=== PATIENT | male | born 1965 | race Caucasian/White ===

== ENCOUNTER 2016-11-30 12:28 | Inpatient (IN) | payer MEDICAID, OTHER ==
[~2016-11-30] VITALS: Ht 167.6 cm; Wt 74.2 kg
[2016-11-30] MEDS ORDERED: PIPER-TAZO 3.375 GM IV (PMX) 100 ML IVPB STA (13:59)
[2016-11-30] MEDS ORDERED: SODIUM CHLORIDE 0.9% 1L BAG IV* STA (13:59)
[2016-11-30 14:35] LABS: BASOPHILS % 0.2 % (0.0-2.0); EOSINOPHILS % 0.1 % (0.0-7.0); HEMATOCRIT 34.4 % (42.0-52.0); HEMOGLOBIN 11.3 g/dl (14.0-18.0); LYMPHOCYTES # 1.5 10^3/ul (0.8-2.9); LYMPHOCYTES % 8.2 % (15.0-51.0); MEAN CORPUSCULAR HEMOGLOBIN 29.7 pg (29.0-33.0); MEAN CORPUSCULAR HGB CONC 32.8 g/dl (32.0-37.0); MEAN CORPUSCULAR VOLUME 90.5 fl (82.0-101.0); MEAN PLATELET VOLUME 9.5 fl (7.4-10.4); MONOCYTE # 0.8 10^3/ul (0.3-0.9); MONOCYTES % 4.3 % (0.0-11.0); NEUTROPHILS % 86.9 % (39.0-77.0); PLATELET COUNT 535 10^3/UL (140-415); RED CELL DISTRIBUTION WIDTH 14.3 % (11.5-14.5); WHITE BLOOD COUNT 18.4 10^3/ul (4.8-10.8)
[2016-11-30] MEDS ORDERED: morphine 4 MG/ML VIAL IV STA ×2 (14:40→18:24)
[2016-11-30] MEDS ORDERED: ONDANSETRON 4 MG INJ IV STA ×3 (14:40→18:24)
[2016-11-30 14:41] LABS: ADD UMIC YES; UR ASCORBIC ACID NEGATIVE (NEGATIVE); UR BILIRUBIN (Dip) NEGATIVE (NEGATIVE); UR BLOOD (Dip) NEGATIVE (NEGATIVE); UR CLARITY CLEAR (CLEAR); UR COLOR AMBER (YELLOW); UR GLUCOSE (Dip) NEGATIVE (NEGATIVE); UR KETONES (Dip) NEGATIVE (NEGATIVE); UR LEUKOCYTE ESTERASE (Dip) NEGATIVE Leu/ul (NEGATIVE); UR MUCUS FEW /HPF (NONE SEEN); UR NITRITE (Dip) NEGATIVE (NEGATIVE); UR RBC 6 /HPF (0-5); UR SPECIFIC GRAVITY (Dip) 1.027 (1.003-1.030); UR TOTAL PROTEIN (Dip) 1+ mg/dl (NEGATIVE); UR UROBILINOGEN (Dip) NEGATIVE (NEGATIVE)
[2016-11-30 14:52] LABS: INR 1.1; PROTIME 14.2 Sec (12.2-14.2); PT RATIO 1.1
[2016-11-30 14:53] LABS: PARTIAL THROMBOPLASTIN TIME 32.9 Sec (25.0-35.0)
[2016-11-30 14:59] LABS: ALANINE AMINOTRANSFERASE 20 IU/L (13-69); ALBUMIN 3.7 g/dl (3.3-4.9); ALBUMIN/GLOBULIN RATIO 0.82; ALKALINE PHOSPHATASE 119 IU/L (42-121); ANION GAP 14 (8-16); ASPARTATE AMINO TRANSFERASE 17 IU/L (15-46); BILIRUBIN,INDIRECT 0.8 mg/dl (0-1.1); BILIRUBIN,TOTAL 0.8 mg/dl (0.2-1.3); BLOOD UREA NITROGEN 10 mg/dl (7-20); CALCIUM 9.5 mg/dl (8.4-10.2); CARBON DIOXIDE 28 mmol/L (21-31); CHLORIDE 99 mmol/L (97-110); CREATININE 0.85 mg/dl (0.61-1.24); GLUCOSE 104 mg/dl (70-220); POTASSIUM 3.9 mmol/L (3.5-5.1); SODIUM 137 mmol/L (135-144); TOTAL PROTEIN 8.2 g/dl (6.1-8.1)
[2016-11-30 15:27] LABS: TROPONIN-I < 0.012 ng/ml (0.00-0.12)
[2016-11-30] MEDS ORDERED: SOD CHLORIDE 0.9% 100 ML ONE (15:31)
[2016-11-30] MEDS ORDERED: IOHEXOL 300MG/ML 150 ML BTL ONE (15:32)
--- NOTE | 2016-11-30 15:51 | RADRPT ---
PROCEDURE: XR Chest. CLINICAL INDICATION: Possible sepsis. TECHNIQUE: Single frontal chest x-ray. COMPARISON: None available. FINDINGS: The cardiomediastinal silhouette is unremarkable. No pneumothorax, pleural effusion or consolidation is seen. No acute osseous abnormality is noted. There are multilevel degenerative changes of thoracic spine with decreased disk spaces and osteophyt osis. IMPRESSION: 1. No acute cardiopulmonary abnormality. RPTAT: JJ .Chester Owen MD, Date Time Electronically viewed and signed by .Chester Owen MD, on 11/30/2016 15:51 .N/
--- NOTE | 2016-11-30 16:06 | RADRPT ---
PROCEDURE: CT abdomen and pelvis with contrast. CLINICAL INDICATION: abdominal pain TECHNIQUE: CT scan of the abdomen and pelvis with contrast [facility] The patient was scanned after administration of 100 cc of Omnipaque-300 intravenous contrast. Sagittal and coronal reformatted images were obtained from the axial source images. One or more of the following dose reduction techniques were used: - Automated exposure control. - Adjustment of the mA and/or kV according to patient size. - Use of iterative reconstruction technique. DLP 804.1 mGycm. CTDIvol 14.6 mGy COMPARISON: None. FINDINGS: The lung bases are clear. There is pronounced localized wall thickening and edema with inflammatory change involving the cecum , ascending colon and the proximal transverse colon. The amount of wall thickening edema is most pro nounced in the cecum and there is also involvement of the terminal ileum. There is an enlarged appea mely of the appendix with inflammation however this is of lesser severity compared to the inflammat ory changes of the cecum. There are multiple enlarged lymph nodes seen in the right lower quadrant m esentery with proliferation of both the mesenteric fat and vasculature in the right abdomen. Adjacen t mild fluid is seen with significant fat stranding. Medial to the cecum just above the ileocecal ju nction there is a focal area of likely developing phlegmon that measures up to 2.6 cm in diameter wi thout a definable abscess. There are inflammatory changes seen involving the gastric antrum and the duodenum which is directly adjacent to the inflamed colon. Air-fluid levels are seen in the right lower quadrant with mildly distended loops of small bowel without evidence of a complete obstruction . There is mild free fluid seen in the right lower quadrant and the right pericolic gutter extending into the cul-de-sac without evidence of free air. There is hepatomegaly of the liver with otherwise uniform enhancement and no evidence of focal lesio n or biliary ductal dilatation. Gallbladder is unremarkable without inflammation of the portal vein is intact without thrombus. The spleen is unremarkable without mass. The adrenal glands are within normal limits without mass. The kidneys enhance symmetrically bilaterally without hydronephrosis or perinephric stranding. The pancreas is unremarkable without focal lesion or surrounding inflammatory changes. Mild aortic atherosclerotic plaque is present. Degenerative changes are seen within the osseous stru ctures of the abdomen and pelvis without fracture or dislocation. The prostate is at the upper limits of normal in size. IMPRESSION: Pronounced inflammatory changes are seen involving the cecum and ascending colon with moderate infla mmation of the terminal ileum and of the hepatic flexure and transverse colon. There may be a locali zed disruption of the cecal wall with the presence of adjacent phlegmonous change of the right lower quadrant mesentery without a definable abscess. Multiple enlarged lymph nodes are seen with promine nt fat stranding and a mild amount of fluid along with proliferation of the mesenteric vasculature a nd fat. This likely represents a localized infectious or inflammatory colitis with involvement of th e terminal ileum. This can be seen in the setting of Crohn disease. There are likely secondary infla mmatory changes of the duodenum and gastric antrum which are directly adjacent to the effected porti ons of the colon. There is mild ileus without evidence of obstruction. Hepatomegaly. Mild atherosclerotic changes are present. .Valdo Gutierrez MD, MD Date Time Electronically viewed and signed by .Valdo Gutierrez MD, MD on 11/30/2016 16:06 .Robles/
--- NOTE | 2016-11-30 18:07 | ERD ---
ER Documentation Chief Complaint Chief Complaint sent by pmd for possible ruptured appendix per ultrasound HPI This 51-year-old male presents for right lower quadrant abdominal pain going on for a month. He did see his primary care doctor had given a medication which seemed to work. He thought he might just have a stomach infection. Yesterday he twisted his body and suddenly the pain became very severe in his right lower quadrant as described as a sharp pain. He also began to have nausea and vomiting. He has vomited nonbilious nonbloody vomit yesterday and today. Denies any diarrhea and denies constipation. He has had fever and chills. Primary care doctor sent him and worried about possible ruptured appendicitis. ROS All systems reviewed and are negative except as per history of present illness. Medications Home Meds No Active Prescriptions or Reported Meds Allergies Allergies: Coded Allergies: No Known Allergy (Unverified , 11/30/16) PMhx/Soc Medical and Surgical Hx: pt denies Medical Hx, pt denies Surgical Hx Hx Alcohol Use: No Hx Substance Use: No Hx Tobacco Use: Yes Smoking Status: Current some day smoker Physical Exam Vitals Vital Signs Date Time Temp Pulse Resp B/P Pulse Ox O2 Delivery O2 Flow Rate FiO2 11/30/16 17:04 75 17 116/71 100 Room Air 11/30/16 12:32 99.8 110 18 135/79 99 Physical Exam Const: [] Moderate distress Head: Atraumatic Eyes: Normal Conjunctiva ENT: Normal External Ears, Nose and Mouth. Neck: Full range of motion..~ No meningismus. Resp: Clear to auscultation bilaterally Cardio: Regular rate and rhythm, no murmurs Abd: Soft, moderate right sided and right lower quadrant abdominal tenderness with mild voluntary guarding and no rebound, nonsurgical abdomen. non distended. Normal bowel sounds Skin: No petechiae or rashes warm to the touch Back: No midline or flank tenderness Ext: No cyanosis, or edema Neur: Awake and alert and oriented 3, no focal deficits Psych: Normal Mood and Affect Result Diagram: 11/30/16 1405 11/30/16 1405 Results 24 hrs Laboratory Tests Test 11/30/16 14:05 White Blood Count 18.410^3/ul Red Blood Count 3.8010^6/ul Hemoglobin 11.3g/dl Hematocrit 34.4% Mean Corpuscular Volume 90.5fl Mean Corpuscular Hemoglobin 29.7pg Mean Corpuscular Hemoglobin Concent 32.8g/dl Red Cell Distribution Width 14.3% Platelet Count 34805^3/UL Mean Platelet Volume 9.5fl Neutrophils % 86.9% Lymphocytes % 8.2% Monocytes % 4.3% Eosinophils % 0.1% Basophils % 0.2% Nucleated Red Blood Cells % 0.0/100WBC Neutrophils # 16.010^3/ul Lymphocytes # 1.510^3/ul Monocytes # 0.810^3/ul Eosinophils # 0.010^3/ul Basophils # 0.010^3/ul Nucleated Red Blood Cells # 0.010^3/ul Prothrombin Time 14.2Sec Prothrombin Time Ratio 1.1 INR International Normalized Ratio 1.10 Activated Partial Thromboplast Time 32.9Sec Urine Color CANDIDO Urine Clarity CLEAR Urine pH 8.0 Urine Specific [place] 1.027 Urine Ketones NEGATIVEmg/dL Urine Nitrite NEGATIVEmg/dL Urine Bilirubin NEGATIVEmg/dL Urine Urobilinogen NEGATIVEmg/dL Urine Leukocyte Esterase NEGATIVELeu/ul Urine Microscopic RBC 6/HPF Urine Microscopic WBC 1/HPF Urine Mucus FEW/HPF Urine Hemoglobin NEGATIVEmg/dL Urine Glucose NEGATIVEmg/dL Urine Total Protein 1+mg/dl Sodium Level 137mmol/L Potassium Level 3.9mmol/L Chloride Level 99mmol/L Carbon Dioxide Level 28mmol/L Anion Gap 14 Blood Urea Nitrogen 10mg/dl Creatinine 0.85mg/dl Glucose Level 104mg/dl Lactic Acid Level 1.3mmol/L Calcium Level 9.5mg/dl Total Bilirubin 0.8mg/dl Direct Bilirubin 0.00mg/dl Indirect Bilirubin 0.8mg/dl Aspartate Amino Transf (AST/SGOT) 17IU/L Alanine Aminotransferase (ALT/SGPT) 20IU/L Alkaline Phosphatase 119IU/L Troponin I < 0.012ng/ml Total Protein 8.2g/dl Albumin 3.7g/dl Globulin 4.50g/dl Albumin/Globulin Ratio 0.82 Current Medications Medications (Trade) Dose Ordered Sig/Heriberto Route PRN Reason Start Time Stop Time Status Last Admin Dose Admin Sodium Chloride 2250 ml 2,250 ml BOLUS OVER 2 HOURS STAT IV* 11/30/16 13:59 11/30/16 14:03 DC 11/30/16 14:37 Piperacillin Sod/ Tazobactam Sod (Zosyn 3.375gm/ 100 ml (Pmx)) 100 ml @ 200 mls/hr ONCE STAT IVPB 11/30/16 13:59 11/30/16 14:28 DC 11/30/16 14:37 Ondansetron HCl (Zofran Inj) 4 mg ONCE STAT IV 11/30/16 14:40 11/30/16 14:41 DC 11/30/16 14:48 Ondansetron HCl (Zofran Inj) 8 mg ONCE STAT IV 11/30/16 14:40 11/30/16 14:41 DC 11/30/16 14:49 Morphine Sulfate (morphine) 4 mg ONCE STAT IV 11/30/16 14:40 11/30/16 14:41 DC 11/30/16 14:48 IV Flush 10 ml 10 ml STK-MED ONCE .ROUTE 11/30/16 15:31 11/30/16 15:32 DC 11/30/16 15:52 Sodium Chloride (NS) 100 ml @ ud STK-MED ONCE .ROUTE 11/30/16 15:31 11/30/16 15:32 DC 11/30/16 15:52 Iohexol (Omnipaque 300mg/ ml) 150 ml STK-MED ONCE .ROUTE 11/30/16 15:32 11/30/16 15:33 DC 11/30/16 15:52 Morphine Sulfate (morphine) 4 mg ONCE STAT IV 11/30/16 18:24 11/30/16 18:26 DC 11/30/16 18:28 Ondansetron HCl (Zofran Inj) 4 mg ONCE STAT IV 11/30/16 18:24 11/30/16 18:26 DC 11/30/16 18:28 Procedures/MDM Colitis and enteritis with sepsis and possible mild ileus. Patient was immediately given fluid and Zosyn for sepsis. Given 4 mg of morphine as well as Zofran which him significantly more comfortable. Vital signs are stabilizing the emergency room currently. Attempted to call his surgery as the surgeon on-call on our list does not believe that he is catheterization laboratory technician. This is currently being worked out this patient will need a surgical consult. Is being admitted to panel Dr. Brodie Weber. Patient needed additional dose of morphine as his pain returned. Patient has no true of ulcerative colitis or Crohn's disease. The fever this is likely infectious in origin. CT abdomen pelvis interpretation: Inflammation of the large intestine as well as part of the terminal ileum. This is mildly inflamed although radiologist states the information any other areas is greater. No free air, mild ileus, no acute fractures EKG interpretation: Normal sinus rhythm rate of 82, normal axis, normal intervals, no ST-T wave changes concerning for acute ischemia. Normal EKG juice weigher interpretation: Initial sinus tachycardia followed by normal sinus rhythm after fluid resuscitation. Chest x-ray interpretation: I see no acute process, no widened mediastinum, pneumothorax, no infiltrates, no fractures Critical care time 35 minutes: This includes treatment of sepsis, careful fluid administration, immediate antibiotic administration, multiple space bedside to reassess status, discussion with admitting doctor and patient, review of chart. This does not include any billable procedures Departure Diagnosis: Primary Impression: Colitis, acute Additional Impressions: Sepsis Normocytic anemia Condition: Serious NEELAM BAÑUELOS DO Nov 30, 2016 18:06
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
[2016-11-30] MEDS ORDERED: ONDANSETRON 4 MG INJ IV PRN (19:30)
[2016-11-30] MEDS ORDERED: ACETAMINOPHEN 325 MG TAB PO PRN (19:30)
[2016-11-30] MEDS ORDERED: BARIUM SULF 2% 450 ML BTL (BERRY SMOOTHIE) PO ONE (22:30)
[2016-11-30 22:52] VITALS: BP 118/76; PULSE 75; RESP 20; Ht 167.6 cm; Wt 74.2 kg
[2016-12-01] MEDS ORDERED: LORAZEPAM 2 MG INJ IV PRN
[2016-12-01] MEDS: ONDANSETRON 4 MG INJ IV SCH ×5 (00:07→23:32)
[2016-12-01] MEDS: DEXTROSE 5%-0.45% NACL 1,000 ML IV SCH ×5 (00:08→21:24)
[2016-12-01] MEDS: PIPER-TAZO 3.375 GM IV (PMX) 100 ML IVPB SCH ×3 (00:15→11:25)
[2016-12-01] MEDS: morphine 4 MG/ML VIAL IV PRN ×4 (00:15→18:23)
[2016-12-01 02:36] VITALS: BP 123/75; RESP 18
[2016-12-01 05:47] LABS: BASOPHILS % 0.1 % (0.0-2.0); EOSINOPHILS % 0.3 % (0.0-7.0); HEMATOCRIT 29.9 % (42.0-52.0); HEMOGLOBIN 9.4 g/dl (14.0-18.0); LYMPHOCYTES # 1.2 10^3/ul (0.8-2.9); LYMPHOCYTES % 7.7 % (15.0-51.0); MEAN CORPUSCULAR HEMOGLOBIN 28.9 pg (29.0-33.0); MEAN CORPUSCULAR HGB CONC 31.4 g/dl (32.0-37.0); MEAN PLATELET VOLUME 9.8 fl (7.4-10.4); MONOCYTE # 0.7 10^3/ul (0.3-0.9); MONOCYTES % 4.9 % (0.0-11.0); NEUTROPHIL # 13.2 10^3/ul (1.6-7.5); NEUTROPHILS % 86.7 % (39.0-77.0); PLATELET COUNT 476 10^3/UL (140-415); RED BLOOD COUNT 3.25 10^6/ul (4.70-6.10); RED CELL DISTRIBUTION WIDTH 14.6 % (11.5-14.5); WHITE BLOOD COUNT 15.2 10^3/ul (4.8-10.8)
[2016-12-01 06:25] LABS: ALBUMIN/GLOBULIN RATIO 0.75; BILIRUBIN,INDIRECT 0.5 mg/dl (0-1.1); BILIRUBIN,TOTAL 0.5 mg/dl (0.2-1.3); CALCIUM 8.7 mg/dl (8.4-10.2); CREATININE 0.87 mg/dl (0.61-1.24); MAGNESIUM 2.2 mg/dl (1.7-2.5); PHOSPHORUS 3.8 mg/dl (2.5-4.9); POTASSIUM 3.8 mmol/L (3.5-5.1)
--- NOTE | 2016-12-01 06:59 | HP ---
Date/Time of Note Date/Time of Note DATE: 12/01/16 TIME: 06:53 Assessment/Plan VTE Prophylaxis VTE Prophylaxis Intervention: SCD's Lines/Catheters IV Catheter Type (from Nrs): Peripheral IV Assessment/Plan Assessment/Plan 1. Colitis and ileitis, probably secondary to Crohn's -Keep n.p.o. with IV fluid - Stool cx and Cdiff -Will treat with IV antibiotic for now -will place a GI consult -Patient will also have surgical evaluation 2. Sepsis, as evidenced by leukocytosis and tachycardia, secondary to above -Continue IV antibiotic - Follow-up culture results HPI/ROS Admit Date/Time Admit Date/Time Nov 30, 2016 at 19:07 Hx of Present Illness This is a 51-year-old male with no significant past medical history who presented to the emergency department complaining of abdominal pain and vomiting and diarrhea. Symptoms started about a month ago and has been progressively getting worse. Pain is diffuse but worse in the lower quadrants. Vomiting is described as nonbloody/nonbilious. Diarrhea is watery with no blood. He has been having about 7 BMs per day for last 10 days or so. Abdominal pain has gotten significantly worse yesterday and today. He went to a clinic who advised him to come to ER. When presented to the ER, he had a temp of 99.8 and heart rate 110. CT abdomen/ pelvis shows inflammation of most part of the colon and the terminal ileum with radiology also mentioning that there is likely inflammation involving the duodenum and the gastric antrum. PMH/Family/Social Social History Smoking Status: Former smoker Exam/Review of Systems Vital Signs Vitals Vital Signs Date Time Temp Pulse Resp B/P Pulse Ox O2 Delivery O2 Flow Rate FiO2 12/01/16 02:36 97.5 79 18 123/75 99 11/30/16 22:52 Room Air Intake and Output 11/30/16 11/30/16 12/01/16 15:00 23:00 07:00 Intake Total 825 ml Balance 825 ml Exam Constitutional: alert, oriented Head: atraumatic, normocephalic Eyes: EOMI, PERRL Respiratory: clear to auscultation, normal air movement Cardiovascular: regular rate and rhythm Gastrointestinal: soft, tender Extremities: normal pulses Labs Result Diagram: 12/01/16 0429 12/01/16 0429 Medications Medications Current Medications Piperacillin Sod/ Tazobactam Sod 100 ml @ 200 mls/hr Q6 IVPB Last administered on 12/01/16 05:07; Admin Dose 200 MLS/HR; Start 12/01/16 at 00: 00 Dextrose/Sodium Chloride (D5-1/2ns) 1,000 ml @ 125 mls/hr Q8H IV Last administered on 12/01/16 00:08; Admin Dose 125 MLS/HR; Start 12/01/16 at 00: 00 Morphine Sulfate (morphine) 3 mg Q4H PRN IV PAIN Last administered on 05:58; Admin Dose 3 MG; Start 12/01/16 at 00:00 Lorazepam (Ativan) 0.5 mg Q8H PRN IV AGITATION/ANXIETY; Start 12/01/16 at 00: 00 Ondansetron HCl (Zofran Inj) 4 mg Q6H IV Last administered on 12/01/16 05:07 ; Admin Dose 4 MG; Start 12/01/16 at 00:00; Stop 12/02/16 at 00:00 Ondansetron HCl (Zofran Inj) 4 mg Q6H PRN IV NAUSEA AND/OR VOMITING; Start at 00:00 LENORA HARLEY MD Dec 01, 2016 06:59
[2016-12-01 07:48] VITALS: BP 107/70; RESP 18
--- NOTE | 2016-12-01 08:39 | RADRPT ---
PROCEDURE: CT of the abdomen and pelvis without contrast CLINICAL INDICATION: Abdominal pain. TECHNIQUE: Spiral CT images through the abdomen and pelvis after administration of oral but withou t the use of intravenous contrast. The administered radiation dose is CTDI 9.81 and DLP 579.61. One or more of the following dose reduction techniques were used: automated exposure control, adjustmen t of the mA and/or kV according to patient size, or use of iterative reconstruction technique. COMPARISON: 11/30/2016 FINDINGS: The study is limited by lack of intravenous contrast. Repeat study with enteric contrast shows marked luminal narrowing in the area of severe inflammatory change in the ileocolic region. Mild wall thickening of the appendix is seen with a small amount of contrast seen within the appendix. The epicenter of the processes in the ileocecal region, however. There are enlarged ileocecal lymph nodes with 1 node measuring 2.1 cm in diameter. As seen previous ly, there is an additional small bowel loop with wall thickening which lies anterior to the ileoceca l region. There is diffuse wall thickening and submucosal edema of the ascending and proximal to mid transverse colon with minimal wall prominence of the distal transverse and descending colon. The do es appear to be wall thickening of the rectosigmoid. Enteric contrast does extend to the level of th e rectum. No definite free air or focal drainable abscess is seen. Mesenteric edema and small nodes again seen. Wall thickening and stranding about the duodenum is also again seen. Fat stranding and slight fluid is again seen in the right paracolic gutter. Small of free fluid is seen in the pelvis, minimally increased. Residual contrast material is seen in the urinary bladder. Other findings are unchanged and will not be described again in this short interval follow-up study report. IMPRESSION: Redemonstration of extensive wall thickening and inflammatory change in the ileocecal region with ad jacent enlarged nodes. The most severe inflammatory process extends to involve the ascending and pro ximal transverse colon, the duodenum, and an adjacent small bowel loop with mild inflammatory change of the appendix. Less severe wall thickening of the remainder of the colon. Inflammatory bowel dise ase such as Crohn disease remains a likely consideration. Given the degree of cecal wall thickening and adjacent nodes, however, colon cancer must remain a consideration. No definite free air or absce ss. RPTAT: HLBE Moira Don, Physician Date Time Electronically viewed and signed by Moira Don, Physician on 12/01/2016 06:24 LE/
[2016-12-01 14:13] VITALS: BP 109/63; RESP 18
--- NOTE | 2016-12-01 16:19 | PN ---
Date/Time of Note Date/Time of Note DATE: 12/01/16 TIME: 16:14 Assessment/Plan VTE Prophylaxis VTE Prophylaxis Intervention: SCD's Lines/Catheters IV Catheter Type (from Nrsg): Peripheral IV Urinary Cath still in place: No Assessment/Plan Assessment/Plan 1. Acute enteritis, infectious versus others, IVF and levaquin/flagyl, follow up with GI 2. sepsis, ivf AND ANTIBIOTICS 3. Subjective 24 Hr Interval Summary Free Text/Dictation less diarrhea, still abdominal pain Exam/Review of Systems Vital Signs Vitals Vital Signs Date Time Temp Pulse Resp B/P Pulse Ox O2 Delivery O2 Flow Rate FiO2 12/01/16 14:13 98.5 76 18 109/63 99 11/30/16 22:52 Room Air Intake and Output 11/30/16 11/30/16 12/01/16 15:00 23:00 07:00 Intake Total 825 ml Balance 825 ml Exam Constitutional: alert, oriented, well developed Psych: nl mood/affect, no complaints Head: atraumatic, normocephalic Eyes: EOMI, nl conjunctiva, nl lids ENMT: nl external ears & nose, nl lips & teeth, nl nasal mucosa & septum Neck: non-tender, supple Respiratory: clear to auscultation, normal air movement, No congested cough, No crackles/rales, No diminished breath sounds, No intercostal retraction, No labored breathing, No other, No respirations, No tactile fremitus, No wheezing Cardiovascular: nl pulses, regular rate and rhythm, No S3, No S4, No bruits, No diastolic murmur, No edema, No gallop, No irregular rhythm, No jugular venous distention (JVD), No murmurs/extra sounds, No other, No rub, No systolic murmur Gastrointestinal: tender (diffuse) Musculoskeletal: nl extremities to inspection Extremities: normal pulses, No calf tenderness, No clubbing, No cyanosis, No edema, No other, No palpable cord, No pitting pedal edema, No tenderness 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, nl mental status, nl speech, nl strength Results Result Diagram: 12/01/16 0429 12/01/16 0429 Results 24 hrs Laboratory Tests Test 11/30/16 18:30 11/30/16 21:50 12/01/16 04:29 Lactic Acid Level 0.8 0.9 White Blood Count 15.2 H Red Blood Count 3.25 L Hemoglobin 9.4 L Hematocrit 29.9 L Mean Corpuscular Volume 92.0 Mean Corpuscular Hemoglobin 28.9 L Mean Corpuscular Hemoglobin Concent 31.4 L Red Cell Distribution Width 14.6 H Platelet Count 476 H Mean Platelet Volume 9.8 Neutrophils % 86.7 H Lymphocytes % 7.7 L Monocytes % 4.9 Eosinophils % 0.3 Basophils % 0.1 Nucleated Red Blood Cells % 0.0 Neutrophils # 13.2 H Lymphocytes # 1.2 Monocytes # 0.7 Eosinophils # 0.0 Basophils # 0.0 Nucleated Red Blood Cells # 0.0 Sodium Level 138 Potassium Level 3.8 Chloride Level 104 Carbon Dioxide Level 26 Anion Gap 12 Blood Urea Nitrogen 7 Creatinine 0.87 Glucose Level 126 Calcium Level 8.7 Phosphorus Level 3.8 Magnesium Level 2.2 Total Bilirubin 0.5 Direct Bilirubin 0.00 Indirect Bilirubin 0.5 Aspartate Amino Transf (AST/SGOT) 19 Alanine Aminotransferase (ALT/SGPT) 26 Alkaline Phosphatase 91 Total Protein 7.0 # Albumin 3.0 L Globulin 4.00 H Albumin/Globulin Ratio 0.75 Medications Medications Current Medications Piperacillin Sod/ Tazobactam Sod 100 ml @ 200 mls/hr Q6 IVPB Last administered on 12/01/16 11:25; Admin Dose 200 MLS/HR; Start 12/01/16 at 00: 00 Dextrose/Sodium Chloride (D5-1/2ns) 1,000 ml @ 125 mls/hr Q8H IV Last administered on 12/01/16 11:26; Admin Dose 125 MLS/HR; Start 12/01/16 at 00: 00 Morphine Sulfate (morphine) 3 mg Q4H PRN IV PAIN Last administered on 11:33; Admin Dose 3 MG; Start 12/01/16 at 00:00 Lorazepam (Ativan) 0.5 mg Q8H PRN IV AGITATION/ANXIETY; Start 12/01/16 at 00: 00 Ondansetron HCl (Zofran Inj) 4 mg Q6H IV Last administered on 12/01/16 11:25 ; Admin Dose 4 MG; Start 12/01/16 at 00:00; Stop 12/02/16 at 00:00 Ondansetron HCl (Zofran Inj) 4 mg Q6H PRN IV NAUSEA AND/OR VOMITING; Start at 00:00 WALT CADENA MD Dec 01, 2016 16:19
[2016-12-01] MEDS: metroNIDAZOLE 500 MG/NS (PMX) 100 ML IVPB SCH ×2 (16:53→21:24)
[2016-12-01] MEDS: LEVOFLOXACIN 500MG/D5W (PMX) 100 ML IVPB SCH (18:25)
--- NOTE | 2016-12-01 18:35 | CONS ---
Date/Time of Note Date/Time of Note DATE: 12/01/16 TIME: 18:22 Assessment/Plan Assessment/Plan Chief Complaint/Hosp Course 1. Colitis/ileitis: CT: extensive wall thickening and inflammatory change in the ileocecal region; most severe inflammatory process extends to the ascending and proximal transverse colon, the duodenum, and an adjacent small bowel loop with mild inflammatory change of the appendix; no free air or abscess (?ibd vs. other) - no emergent surgical intervention necessary-will continue to monitor -gi consult -abx 2. Adjacent enlarged lymph nodes in ileocecal region: 2/2 #1, ?concern for malignancy (has had significant weight loss per patient) -as above -further workup per medical team (?tumor markers) 3. Diarrhea: 2/2 #1 -as above -ivf -monitor and replete electrolytes 4. Leukocytosis: fevers, diarrhea (?enteritis) -improving -abx 5. Malnutrition w hypoalbuminemia -optimize nutrition 6. Normocytic hypochromic anemia: -monitor -transfuse as needed -further workup per medical team 7. Hypokalemia -optimize lytes Thank you. Patient seen and examined in collaboration with Dr. Rigo Youngblood. Problems: Consultation Date/Type/Reason Admit Date/Time Nov 30, 2016 at 19:07 Date of Consultation: Nov 30, 2016 Type of Consultation: Surgical Hx of Present Illness Marcelo Gonzales is a 51-year-old man who presented to the ED with complaints of right lower quadrant abdominal pain going on for a month. He also reports diarrhea daily for 1 month as well as nausea and vomiting on the day of seeking ED care. He also reports vomiting non-bloody emesis as well as fevers and chills. He denies shortness of breath, chest pain, palpitations, sick contacts. Significantly, he also reports weight loss and persistent diarrhea x [address] shows extensive wall thickening and inflammatory change in the ileocecal region with adjacent enlarged nodes. The most severe inflammatory process extends to involve the ascending and proximal transverse colon, the duodenum, and an adjacent small bowel loop with mild inflammatory change of the appendix. General surgery was asked to consult. Constitutional: chills Eyes: No discharge ENT: No congestion, No pain Respiratory: No pain, No shortness of breath Cardiovascular: No chest pain, No lightheadedness Gastrointestinal: diarrhea, other (as above), No constipation Genitourinary: No bleeding, No dysuria, No hematuria Musculoskeletal: No back pain, No neck pain Skin: No bruising, No erythema Psychological: nl mood/affect, no complaints Past Medical History overweight Past Surgical History Past Surgical Hx: no surgical history Family History Significant Family History: no pertinent family hx Social History Alcohol Use: none Smoking Status: Former smoker Exam/Review of Systems Vital Signs Vitals Vital Signs Date Time Temp Pulse Resp B/P Pulse Ox O2 Delivery O2 Flow Rate FiO2 12/01/16 14:13 98.5 76 18 109/63 99 11/30/16 22:52 Room Air Intake and Output 11/30/16 11/30/16 12/01/16 15:00 23:00 07:00 Intake Total 825 ml Balance 825 ml Exam Constitutional: alert, oriented Psych: anxiety Head: atraumatic, normocephalic Eyes: nl conjunctiva, nl lids, nl sclera ENMT: mucosa pink and moist, nl nasal mucosa & septum Neck: non-tender, supple Respiratory: clear to auscultation, normal air movement Cardiovascular: nl pulses, regular rate and rhythm Gastrointestinal: bowel sounds, soft, tender, No mass Musculoskeletal: nl extremities to inspection, nl gait and stance Extremities: normal pulses Neurological: nl mental status, nl speech, nl strength Skin: nl turgor, rash or lesions Results Result Diagram: 12/01/1642812/01/16428 Results 24 hrs Laboratory Tests Test 11/30/16 18:30 11/30/16 21:50 12/01/16 04:29 Lactic Acid Level 0.8 0.9 White Blood Count 15.2 H Red Blood Count 3.25 L Hemoglobin 9.4 L Hematocrit 29.9 L Mean Corpuscular Volume 92.0 Mean Corpuscular Hemoglobin 28.9 L Mean Corpuscular Hemoglobin Concent 31.4 L Red Cell Distribution Width 14.6 H Platelet Count 476 H Mean Platelet Volume 9.8 Neutrophils % 86.7 H Lymphocytes % 7.7 L Monocytes % 4.9 Eosinophils % 0.3 Basophils % 0.1 Nucleated Red Blood Cells % 0.0 Neutrophils # 13.2 H Lymphocytes # 1.2 Monocytes # 0.7 Eosinophils # 0.0 Basophils # 0.0 Nucleated Red Blood Cells # 0.0 Sodium Level 138 Potassium Level 3.8 Chloride Level 104 Carbon Dioxide Level 26 Anion Gap 12 Blood Urea Nitrogen 7 Creatinine 0.87 Glucose Level 126 Calcium Level 8.7 Phosphorus Level 3.8 Magnesium Level 2.2 Total Bilirubin 0.5 Direct Bilirubin 0.00 Indirect Bilirubin 0.5 Aspartate Amino Transf (AST/SGOT) 19 Alanine Aminotransferase (ALT/SGPT) 26 Alkaline Phosphatase 91 Total Protein 7.0 # Albumin 3.0 L Globulin 4.00 H Albumin/Globulin Ratio 0.75 Medications Medications Current Medications Dextrose/Sodium Chloride (D5-1/2ns) 1,000 ml @ 125 mls/hr Q8H IV Last administered on 12/01/16 11:26; Admin Dose 125 MLS/HR; Start 12/01/16 at 00: 00 Morphine Sulfate (morphine) 3 mg Q4H PRN IV PAIN Last administered on 11:33; Admin Dose 3 MG; Start 12/01/16 at 00:00 Lorazepam (Ativan) 0.5 mg Q8H PRN IV AGITATION/ANXIETY; Start 12/01/16 at 00: 00 Ondansetron HCl (Zofran Inj) 4 mg Q6H IV Last administered on 12/01/16 11:25 ; Admin Dose 4 MG; Start 12/01/16 at 00:00; Stop 12/02/16 at 00:00 Ondansetron HCl 4 mg 4 mg Q6H PRN IV NAUSEA AND/OR VOMITING; Start 12/02/16 at 00:00 Levofloxacin/ Dextrose 100 ml @ 100 mls/hr Q24H IVPB ; Start 12/01/16 at 16:30 Metronidazole (Flagyl 500 Mg (Pmx)) 100 ml @ 100 mls/hr Q8 IVPB Last administered on 12/01/16 16:53; Admin Dose 100 MLS/HR; Start 12/01/16 at 16: 30 MC CANTU NP Dec 01, 2016 18:34
[2016-12-01 20:00] VITALS: BP 114/72; RESP 19
[2016-12-02] MEDS: morphine 4 MG/ML VIAL IV PRN ×3 (01:52→22:03)
[2016-12-02 02:00] VITALS: BP 109/68; RESP 20
[2016-12-02] MEDS: metroNIDAZOLE 500 MG/NS (PMX) 100 ML IVPB SCH ×3 (05:12→21:55)
[2016-12-02 06:24] LABS: BASOPHILS % 0.2 % (0.0-2.0); EOSINOPHILS # 0.1 10^3/ul (0.0-0.5); EOSINOPHILS % 0.7 % (0.0-7.0); HEMATOCRIT 31.6 % (42.0-52.0); HEMOGLOBIN 9.7 g/dl (14.0-18.0); LYMPHOCYTES # 1.4 10^3/ul (0.8-2.9); LYMPHOCYTES % 13.2 % (15.0-51.0); MEAN CORPUSCULAR HEMOGLOBIN 28.6 pg (29.0-33.0); MEAN CORPUSCULAR HGB CONC 30.7 g/dl (32.0-37.0); MEAN CORPUSCULAR VOLUME 93.2 fl (82.0-101.0); MEAN PLATELET VOLUME 9.7 fl (7.4-10.4); MONOCYTE # 0.5 10^3/ul (0.3-0.9); MONOCYTES % 4.2 % (0.0-11.0); NEUTROPHIL # 8.9 10^3/ul (1.6-7.5); NEUTROPHILS % 81.3 % (39.0-77.0); PLATELET COUNT 472 10^3/UL (140-415); RED BLOOD COUNT 3.39 10^6/ul (4.70-6.10); RED CELL DISTRIBUTION WIDTH 14.6 % (11.5-14.5); WHITE BLOOD COUNT 10.9 10^3/ul (4.8-10.8)
[2016-12-02 06:31] LABS: CALCIUM 8.8 mg/dl (8.4-10.2); CREATININE 0.78 mg/dl (0.61-1.24); POTASSIUM 3.3 mmol/L (3.5-5.1)
[2016-12-02 08:10] VITALS: BP 121/75; RESP 18
[2016-12-02] MEDS: ONDANSETRON 4 MG INJ IV PRN (08:40)
[2016-12-02] MEDS: DEXTROSE 5%-0.45% NACL 1,000 ML IV SCH ×2 (08:45→17:24)
[2016-12-02 14:03] VITALS: BP 121/74; RESP 18
[2016-12-02] MEDS ORDERED: POTASSIUM CHLORIDE (SR) 20 MEQ TAB PO STA (14:09)
--- NOTE | 2016-12-02 14:21 | PN ---
Date/Time of Note Date/Time of Note DATE: 12/02/16 TIME: 14:18 Assessment/Plan VTE Prophylaxis VTE Prophylaxis Intervention: SCD's Lines/Catheters IV Catheter Type (from Nrsg): Peripheral IV Urinary Cath still in place: No Assessment/Plan Assessment/Plan 1. Acute enteritis, likely infectious, improving on antibiotics, start diet 2. sepsis, resolved Subjective 24 Hr Interval Summary Free Text/Dictation no abdominal pain. stool is still watery but much less. no nausea or vomiting Exam/Review of Systems Vital Signs Vitals Vital Signs Date Time Temp Pulse Resp B/P Pulse Ox O2 Delivery O2 Flow Rate FiO2 12/02/16 14:03 98.6 18 121/74 98 12/02/16 08:10 71 11/30/16 22:52 Room Air Intake and Output 12/01/16 12/01/16 12/02/16 15:00 23:00 07:00 Intake Total 475 ml 1300 ml 850 ml Balance 475 ml 1300 ml 850 ml Exam Constitutional: alert, oriented, well developed Psych: nl mood/affect, no complaints Head: atraumatic, normocephalic Eyes: EOMI, nl conjunctiva, nl lids ENMT: nl external ears & nose, nl lips & teeth, nl nasal mucosa & septum Neck: non-tender, supple Respiratory: clear to auscultation, normal air movement, No congested cough, No crackles/rales, No diminished breath sounds, No intercostal retraction, No labored breathing, No other, No respirations, No tactile fremitus, No wheezing Cardiovascular: nl pulses, regular rate and rhythm, No S3, No S4, No bruits, No diastolic murmur, No edema, No gallop, No irregular rhythm, No jugular venous distention (JVD), No murmurs/extra sounds, No other, No rub, No systolic murmur Gastrointestinal: nl liver, spleen, soft Musculoskeletal: nl extremities to inspection Extremities: normal pulses, No calf tenderness, No clubbing, No cyanosis, No edema, No other, No palpable cord, No pitting pedal edema, No tenderness 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, nl mental status, nl speech, nl strength Skin: nl turgor Lymph: nl lymph nodes Results Result Diagram: 12/02/16 0450 12/02/16 0450 Results 24 hrs Laboratory Tests Test 12/02/16 04:50 White Blood Count 10.9 #H Red Blood Count 3.39 L Hemoglobin 9.7 L Hematocrit 31.6 L Mean Corpuscular Volume 93.2 Mean Corpuscular Hemoglobin 28.6 L Mean Corpuscular Hemoglobin Concent 30.7 L Red Cell Distribution Width 14.6 H Platelet Count 472 H Mean Platelet Volume 9.7 Neutrophils % 81.3 H Lymphocytes % 13.2 L Monocytes % 4.2 Eosinophils % 0.7 Basophils % 0.2 Nucleated Red Blood Cells % 0.0 Neutrophils # 8.9 H Lymphocytes # 1.4 Monocytes # 0.5 Eosinophils # 0.1 Basophils # 0.0 Nucleated Red Blood Cells # 0.0 Sodium Level 139 Potassium Level 3.3 L Chloride Level 101 Carbon Dioxide Level 30 Anion Gap 11 Blood Urea Nitrogen 3 L Creatinine 0.78 Glucose Level 112 Calcium Level 8.8 Medications Medications Current Medications Dextrose/Sodium Chloride (D5-1/2ns) 1,000 ml @ 125 mls/hr Q8H IV Last administered on 12/02/16 08:45; Admin Dose 125 MLS/HR; Start 12/01/16 at 00: 00 Morphine Sulfate (morphine) 3 mg Q4H PRN IV PAIN Last administered on 08:40; Admin Dose 3 MG; Start 12/01/16 at 00:00 Lorazepam (Ativan) 0.5 mg Q8H PRN IV AGITATION/ANXIETY; Start 12/01/16 at 00: 00 Ondansetron HCl 4 mg 4 mg Q6H PRN IV NAUSEA AND/OR VOMITING Last administered on 12/02/16 08:40; Admin Dose 4 MG; Start 12/02/16 at 00:00 Levofloxacin/ Dextrose 100 ml @ 100 mls/hr Q24H IVPB Last administered on 18:25; Admin Dose 100 MLS/HR; Start 12/01/16 at 16:30 Metronidazole (Flagyl 500 Mg (Pmx)) 100 ml @ 100 mls/hr Q8 IVPB Last administered on 12/02/16 13:07; Admin Dose 100 MLS/HR; Start 12/01/16 at 16: 30 WALT CADENA MD Dec 02, 2016 14:21
[2016-12-02] MEDS: LEVOFLOXACIN 500MG/D5W (PMX) 100 ML IVPB SCH (17:24)
[2016-12-02 20:41] VITALS: BP 123/78; RESP 18
[2016-12-03 03:07] VITALS: BP 117/75; RESP 18
--- NOTE | 2016-12-03 03:27 | PN ---
Date/Time of Note Date/Time of Note DATE: 12/02/16 TIME: 19:22 Assessment/Plan Lines/Catheters IV Catheter Type (from [facility]): Peripheral IV Ferrer in Place (from [facility]): No Assessment/Plan Chief Complaint/Hosp Course 1. Colitis/ileitis: CT: extensive wall thickening and inflammatory change in the ileocecal region, no free air or abscess (infectious vs inflammatory vs malignancy) -no emergent surgical intervention necessary > will continue to monitor -gi consult and eventual colonoscopy -abx 2. Adjacent enlarged lymph nodes in ileocecal region: 2nd above -as above -further workup per medical team (?tumor markers) 3. Diarrhea: 2nd above -as above -ivf -monitor and replete electrolytes 4. Leukocytosis: fevers, diarrhea 2nd above. Improving -abx 5. Malnutrition w hypoalbuminemia -optimize nutrition 6. Normocytic hypochromic anemia: -monitor -transfuse as needed -eventual colonoscopy/egd 7. Hypokalemia -replete prn Thank you, Late entry 12/02 Problems: Subjective 24 Hr Interval Summary No pain. No f/c. No cp/sob. No cough. No boss/dizzy/visual or neuro changes. No dysuria. No bloating. Loose bm. Flatus. Exam/Review of Systems Vital Signs Vitals Vital Signs Date Time Temp Pulse Resp B/P Pulse Ox O2 Delivery O2 Flow Rate FiO2 12/03/16 03:07 98.2 62 18 117/75 98 11/30/16 22:52 Room Air Intake and Output 12/02/16 12/02/16 12/03/16 15:00 23:00 07:00 Intake Total 1475 ml 460 ml Balance 1475 ml 460 ml Exam Free Text/Dictation Constitutional: alert, oriented Psych: anxiety Head: atraumatic, normocephalic Eyes: nl conjunctiva, nl lids, nl sclera ENMT: mucosa pink and moist, nl nasal mucosa & septum Neck: non-tender, supple Respiratory: clear to auscultation, normal air movement Cardiovascular: nl pulses, regular rate and rhythm Gastrointestinal: bowel sounds, soft, min tender (improved), No mass Musculoskeletal: nl extremities to inspection, nl gait and stance Extremities: normal pulses Neurological: nl mental status, nl speech, nl strength Skin: nl turgor, rash or lesions Results Result Diagram: 12/02/16 0450 12/02/16 0450 ROBIN PRESTON MD Dec 03, 2016 03:27
[2016-12-03 05:17] LABS: BASOPHILS % 0.4 % (0.0-2.0); EOSINOPHILS # 0.1 10^3/ul (0.0-0.5); EOSINOPHILS % 1.8 % (0.0-7.0); HEMATOCRIT 31.2 % (42.0-52.0); LYMPHOCYTES # 1.4 10^3/ul (0.8-2.9); LYMPHOCYTES % 18.3 % (15.0-51.0); MEAN CORPUSCULAR HEMOGLOBIN 28.7 pg (29.0-33.0); MEAN CORPUSCULAR HGB CONC 32.1 g/dl (32.0-37.0); MEAN CORPUSCULAR VOLUME 89.7 fl (82.0-101.0); MEAN PLATELET VOLUME 9.8 fl (7.4-10.4); MONOCYTE # 0.5 10^3/ul (0.3-0.9); MONOCYTES % 5.9 % (0.0-11.0); NEUTROPHIL # 5.7 10^3/ul (1.6-7.5); NEUTROPHILS % 73.3 % (39.0-77.0); PLATELET COUNT 491 10^3/UL (140-415); RED BLOOD COUNT 3.48 10^6/ul (4.70-6.10); RED CELL DISTRIBUTION WIDTH 14.4 % (11.5-14.5); WHITE BLOOD COUNT 7.8 10^3/ul (4.8-10.8)
[2016-12-03 05:42] LABS: CALCIUM 9.2 mg/dl (8.4-10.2); CREATININE 0.8 mg/dl (0.61-1.24); POTASSIUM 3.8 mmol/L (3.5-5.1)
[2016-12-03] MEDS: metroNIDAZOLE 500 MG/NS (PMX) 100 ML IVPB SCH ×3 (06:08→21:31)
[2016-12-03 07:48] VITALS: BP 113/77; RESP 16
[2016-12-03] MEDS: DEXTROSE 5%-0.45% NACL 1,000 ML IV SCH (09:12)
--- NOTE | 2016-12-03 13:05 | PN ---
Date/Time of Note Date/Time of Note DATE: 12/03/16 TIME: 13:01 Assessment/Plan VTE Prophylaxis VTE Prophylaxis Intervention: SCD's Lines/Catheters IV [facility] ([facility]): Peripheral IV Urinary Cath still in place: No Assessment/Plan Problems: (1) Hypokalemia Status: Resolved Comment: Resolved (2) Colitis, acute Status: Acute Comment: This is settling down. Ultimately this patient is going to need a colonoscopy once the inflammation is down to make sure there is not something more insidious going on (3) Sepsis Status: Acute Comment: Improving and resolving nicely. Qualifiers: Sepsis type: sepsis due to unspecified organism Qualified Code: A41.9 - Sepsis, due to unspecified organism (4) Normocytic anemia Status: Acute Comment: Check iron studies Subjective 24 Hr Interval Summary Free Text/Dictation Patient reports he is feeling better but still has the right lower quadrant mid quadrant abdominal pain. He is trying to eat Constitutional: no complaints (Denies fevers chills or sweats) Respiratory: no complaints Cardiovascular: no complaints Gastrointestinal: pain Genitourinary: no complaints Exam/Review of Systems Vital Signs Vitals Vital Signs Date Time Temp Pulse Resp B/P Pulse Ox O2 Delivery O2 Flow Rate FiO2 12/03/16 07:48 98.6 62 16 113/77 97 11/30/16 22:52 Room Air Intake and Output 12/02/16 12/02/16 12/03/16 15:00 23:00 07:00 Intake Total 1475 ml 460 ml 250 ml Balance 1475 ml 460 ml 250 ml Exam Constitutional: alert, oriented Respiratory: clear to auscultation, normal air movement Cardiovascular: nl pulses, regular rate and rhythm Gastrointestinal: nl liver, spleen, soft, tender (Right lower quadrant tenderness without rebound) Results Result Diagram: 12/03/16 0429 12/03/169 Results 24 hrs Laboratory Tests Test 12/03/16 04:29 White Blood Count 7.8 # Red Blood Count 3.48 L Hemoglobin 10.0 L Hematocrit 31.2 L Mean Corpuscular Volume 89.7 Mean Corpuscular Hemoglobin 28.7 L Mean Corpuscular Hemoglobin Concent 32.1 Red Cell Distribution Width 14.4 Platelet Count 491 H Mean Platelet Volume 9.8 Neutrophils % 73.3 Lymphocytes % 18.3 Monocytes % 5.9 Eosinophils % 1.8 Basophils % 0.4 Nucleated Red Blood Cells % 0.0 Neutrophils # 5.7 Lymphocytes # 1.4 Monocytes # 0.5 Eosinophils # 0.1 Basophils # 0.0 Nucleated Red Blood Cells # 0.0 Sodium Level 142 Potassium Level 3.8 Chloride Level 104 Carbon Dioxide Level 29 Anion Gap 13 Blood Urea Nitrogen 5 L Creatinine 0.80 Glucose Level 102 Calcium Level 9.2 Magnesium Level 2.0 Medications Medications Current Medications Dextrose/Sodium Chloride (D5-1/2ns) 1,000 ml @ 50 mls/hr Q20H IV Last administered on 12/03/16 09:12; Admin Dose 50 MLS/HR; Start 12/01/16 at 00:00 Morphine Sulfate (morphine) 3 mg Q4H PRN IV PAIN Last administered on 22:03; Admin Dose 3 MG; Start 12/01/16 at 00:00 Lorazepam (Ativan) 0.5 mg Q8H PRN IV AGITATION/ANXIETY; Start 12/01/16 at 00: 00 Ondansetron HCl 4 mg 4 mg Q6H PRN IV NAUSEA AND/OR VOMITING Last administered on 12/02/16 08:40; Admin Dose 4 MG; Start 12/02/16 at 00:00 Levofloxacin/ Dextrose 100 ml @ 100 mls/hr Q24H IVPB Last administered on 17:24; Admin Dose 100 MLS/HR; Start 12/01/16 at 16:30 Metronidazole (Flagyl 500 Mg (Pmx)) 100 ml @ 100 mls/hr Q8 IVPB Last administered on 12/03/16 06:08; Admin Dose 100 MLS/HR; Start 12/01/16 at 16: 30 NEELAM NI MD Dec 03, 2016 13:05
[2016-12-03 13:57] LABS: IRON 16 ug/dl (35-150)
[2016-12-03 14:06] LABS: TOTAL IRON BINDING CAPACITY 265 ug/dl (241-421)
[2016-12-03 14:15] VITALS: BP 115/79; RESP 18
[2016-12-03] MEDS: LEVOFLOXACIN 500MG/D5W (PMX) 100 ML IVPB SCH (16:00)
--- NOTE | 2016-12-03 18:05 | PN ---
Date/Time of Note Date/Time of Note DATE: 12/03/16 TIME: 18:04 Assessment/Plan Lines/Catheters IV Catheter Type (from [facility]): Peripheral IV Ferrer in Place (from [facility]): No Assessment/Plan Chief Complaint/Hosp Course 1. Colitis/ileitis: CT: extensive wall thickening and inflammatory change in the ileocecal region, no free air or abscess (infectious vs inflammatory vs malignancy). Improving. -no emergent surgical intervention necessary > will continue to monitor -gi eventual colonoscopy -abx 2. Adjacent enlarged lymph nodes in ileocecal region: 2nd above -as above -further workup per medical team (?tumor markers) 3. Diarrhea: 2nd above -as above -ivf -monitor and replete electrolytes 4. Leukocytosis: fevers, diarrhea 2nd above. Resolved -abx 5. Malnutrition w hypoalbuminemia -optimize nutrition 6. Normocytic hypochromic anemia: -monitor -transfuse as needed -eventual colonoscopy/egd Thank you, Problems: Subjective 24 Hr Interval Summary Leukocytosis resolved. Min pain. No f/c. No cp/sob. No cough. No boss/dizzy/ visual or neuro changes. No dysuria. No bloating. Loose bm. Flatus. Exam/Review of Systems Vital Signs Vitals Vital Signs Date Time Temp Pulse Resp B/P Pulse Ox O2 Delivery O2 Flow Rate FiO2 12/03/16 14:15 97.9 66 18 115/79 97 11/30/16 22:52 Room Air Intake and Output 12/02/16 12/02/16 12/03/16 15:00 23:00 07:00 Intake Total 1475 ml 460 ml 250 ml Balance 1475 ml 460 ml 250 ml Exam Free Text/Dictation Constitutional: alert, oriented Psych: anxiety Head: atraumatic, normocephalic Eyes: nl conjunctiva, nl lids, nl sclera ENMT: mucosa pink and moist, nl nasal mucosa & septum Neck: non-tender, supple Respiratory: clear to auscultation, normal air movement Cardiovascular: nl pulses, regular rate and rhythm Gastrointestinal: bowel sounds, soft, min tender (improved), No mass Musculoskeletal: nl extremities to inspection, nl gait and stance Extremities: normal pulses Neurological: nl mental status, nl speech, nl strength Skin: nl turgor, rash or lesions Results Result Diagram: 12/03/1642812/03/16428 ROBIN PRESTON MD Dec 03, 2016 18:05
[2016-12-03 20:00] VITALS: BP 117/75; RESP 18
[2016-12-04 02:49] VITALS: BP 112/73; RESP 18
[2016-12-04] MEDS: metroNIDAZOLE 500 MG/NS (PMX) 100 ML IVPB SCH (05:07)
[2016-12-04] MEDS: morphine 4 MG/ML VIAL IV PRN (05:11)
[2016-12-04 07:37] VITALS: BP 104/69; RESP 16
[2016-12-04] MEDS: DEXTROSE 5%-0.45% NACL 1,000 ML IV SCH ×2 (10:31→13:05)
--- NOTE | 2016-12-04 11:18 | PN ---
Date/Time of Note Date/Time of Note DATE: 12/04/16 TIME: 11:14 Assessment/Plan VTE Prophylaxis VTE Prophylaxis Intervention: other Lines/Catheters IV Catheter Type (from [facility]): Peripheral IV Urinary Cath still in place: No Assessment/Plan Problems: (1) Iron deficiency anemia Status: Chronic Comment: He has an iron deficiency anemia in addition to the colitis and the right-sided colon inflammation. We have clear-cut indications for colonoscopy and GI evaluation. Obviously with the active colitis he can have the colonoscopy now because he would be higher risk procedure. However I will have him meet with GI so they can make arrangements to do the outpatient evaluation. Qualifiers: Iron deficiency anemia type: unspecified iron deficiency Qualified Code: D50.9 - Iron deficiency anemia, unspecified iron deficiency anemia type (2) Colitis, acute Status: Acute Comment: This is improving nicely. I will transition him over to oral antibiotics and advance his diet. (3) Sepsis Status: Resolved Comment: Resolved Qualifiers: Sepsis type: sepsis due to unspecified organism Qualified Code: A41.9 - Sepsis, due to unspecified organism Subjective 24 Hr Interval Summary Free Text/Dictation Patient is significantly improved. Constitutional: no complaints Cardiovascular: no complaints Gastrointestinal: no complaints Exam/Review of Systems Vital Signs Vitals Vital Signs Date Time Temp Pulse Resp B/P Pulse Ox O2 Delivery O2 Flow Rate FiO2 12/04/16 07:37 97.6 61 16 104/69 98 11/30/16 22:52 Room Air Intake and Output 12/03/16 12/03/16 12/04/16 15:00 23:00 07:00 Intake Total 100 ml 1780 ml 1550 ml Output Total 6 ml 6 ml Balance 100 ml 1774 ml 1544 ml Exam Constitutional: alert, oriented Neck: non-tender, supple Respiratory: clear to auscultation, normal air movement Cardiovascular: nl pulses, regular rate and rhythm Gastrointestinal: nl liver, spleen, non-tender, soft Results Result Diagram: 12/03/16 0429 12/03/16 0429 Medications Medications Current Medications Dextrose/Sodium Chloride (D5-1/2ns) 1,000 ml @ 50 mls/hr Q20H IV Last administered on 12/03/16t 09:12; Admin Dose 50 MLS/HR; Start 12/01/16 at 00:00 Morphine Sulfate (morphine) 3 mg Q4H PRN IV PAIN Last administered on 05:11; Admin Dose 3 MG; Start 12/01/16 at 00:00 Lorazepam (Ativan) 0.5 mg Q8H PRN IV AGITATION/ANXIETY; Start 12/01/16 at 00: 00 Ondansetron HCl 4 mg 4 mg Q6H PRN IV NAUSEA AND/OR VOMITING Last administered on 12/02/16 08:40; Admin Dose 4 MG; Start 12/02/16 at 00:00 Levofloxacin/ Dextrose 100 ml @ 100 mls/hr Q24H IVPB Last administered on 16:00; Admin Dose 100 MLS/HR; Start 12/01/16 at 16:30 Metronidazole 100 ml @ 100 mls/hr Q8 IVPB Last administered on 12/04/16 05: 07; Admin Dose 100 MLS/HR; Start 12/01/16 at 16:30 Ferric Sodium Gluconate Complex/ Sodium Chloride (Ferrlecit/NS) 110 ml @ 100 mls/hr Q24H IVPB ; Start 12/04/16 at 13:00; Stop 12/06/16 at 14:05 NEELAM NI MD Dec 04, 2016 11:17
[2016-12-04] MEDS: SOD FERRIC GLUC COMPLX 125 MG in SOD CHLORIDE 0.9% 100 ML IVPB SCH (13:03)
[2016-12-04] MEDS: metroNIDAZOLE 500 MG TAB PO SCH ×2 (14:00→21:07)
[2016-12-04 15:18] VITALS: BP 122/74; RESP 18
--- NOTE | 2016-12-04 18:26 | CONS ---
Date/Time of Note Date/Time of Note DATE: 12/04/16 TIME: 18:07 Assessment/Plan Assessment/Plan Chief Complaint/Hosp Course Summary Assessment and Plan: Assessment: Low-grade anemia-possibly related to colitis Colitis Infectious versus IBD Plan: Clear liquids until 10 AM tomorrow N.p.o. after 10 AM tomorrow EGD/colonoscopy Endoscopy - risks/benefits/alternatives/indications of procedure and sedation/ anesthesia discussed with patient who states understading and gives informed consent to proceed. PARQ held and questions were answered. Patient seen in collaboration with Chief Complaint/Reason for Visit: Diarrhea Colitis History of Present Illness: A pleasant 51-year-old male with no past medical history, admitted to the hospital for worsening abdominal pain and diarrhea 1 month. Patient states he had watery diarrhea up to 7 times a day 1 month with a 6-7 pound weight loss within that month. He denies seeing bloody or black stools, he did vomited x1 prior to admission, no further episodes. He denies any aggravating factors, notes some relief with the use of penicillin that his friend gave him prior to admission, only lasting for about 3 days. Pain is described as a twisting feeling, pain initially started in the epigastric area and progressed to generalized abdomen. Since the start of Flagyl and Levaquin watery diarrhea is now described as loose, pain has improved with the use of medication. CAT scan abdomen and pelvis was obtained and revealed inflammatory changes to the cecum, ascending colon with moderate inflammation of the terminal ileum and of the hepatic flexure, transverse colon, and likely inflammatory changes of the duodenum and gastric antrum. He currently denies n/v, hematemesis, hematochezia , constipation, dysphagia, or pyrosis. He needs to complain of abdominal pain and loose stools. Laboratory findings show mild hypochromic anemia, and a white count that is trending down. Cold presentation highly suspicious for IBD , patient will start clear liquids, n.p.o. tomorrow after 10 AM, Will plan for EGD/colonoscopy tomorrow. Past Medical History: No pertinent past medical history Allergies: None allergies Family History: Family history of colon cancer Social History: Occasional history of smoking Drinks 8-16 beers on the weekends Denies drug use PHYSICAL EXAMINATION: GENERAL: Well developed, well nourished, alert & oriented x 3, in no acute distress SKIN: No lesions, no stigmata chronic liver disease, no evidence of bleeding diathesis LYMPHATIC: No palpable lymphadenopathy. HEAD: Normocephalic, atraumatic, no tenderness. EYES: Pupils equal reactive to light and accommodation, full extraocular movements, sclera clear, non-icteric, no discharge. EARS/NOSE AND THROAT: Ears normal, nose normal, oropharynx normal, oral membranes well hydrated without lesions. NECK: Supple, no masses, thyroid normal, JVP within normal limits, carotids normal without bruits. CHEST: Inspection within normal limits. CARDIOVASCULAR: Heart: Regular rate and rhythm, no murmurs, gallops or rubs. Peripheral pulses present within normal limits, no cyanosis, clubbing or edemas. No pulsatile abdominal mass RESPIRATORY: Lungs clear to auscultation and percussion, no wheezing, no rubs GASTROINTESTINAL AND LIVER: Abdomen: Soft, epigastric , and lower abdominal tenderness with palpation, non-distended, no hernias, no masses, no organomegaly , no ascites, no guarding, normoactive bowel sounds. Rectal: Deferred. GENITOURINARY: Male genitalia within normal limits. EXTREMITIES: No cyanosis, clubbing or edema. Problems: Consultation Date/Type/Reason Admit Date/Time Nov 30, 2016 at 19:07 Date of Consultation: Dec 04, 2016 Type of Consultation: GI Reason for Consultation Colitis Hx of Present Illness Review of Systems: A 12 system, review was conducted and is negative except as noted in the HPI or here. Gastrointestinal and liver: positive for diarrhea, weight loss, nausea negative for: Anorexia, dysphagia, odynophagia, pyrosis, regurgitation, nausea, vomiting , early satiety, bloating, abdominal pain, food intolerance, constipation, laxative use, hematemesis, melena, hematochezia, and rectal symptoms, incontinence, jaundice. Constitutional: no complaints Eyes: No discharge ENT: No congestion, No pain Respiratory: no complaints Cardiovascular: no complaints Gastrointestinal: no complaints Genitourinary: no complaints Musculoskeletal: No back pain, No neck pain Skin: No bruising, No erythema Psychological: nl mood/affect, no complaints Past Medical History Medical History: no pertinent history Past Surgical History Past Surgical Hx: no surgical history Social History Alcohol Use: other (8-16 beers on the weekend) Smoking Status: Former smoker Drug Use: none Exam/Review of Systems Vital Signs Vitals Vital Signs Date Time Temp Pulse Resp B/P Pulse Ox O2 Delivery O2 Flow Rate FiO2 12/04/16 15:18 97.5 64 18 122/74 100 11/30/16 22:52 Room Air Intake and Output 12/03/16 12/03/16 12/04/16 15:00 23:00 07:00 Intake Total 100 ml 1780 ml 1550 ml Output Total 6 ml 6 ml Balance 100 ml 1774 ml 1544 ml Results Result Diagram: 12/03/16 0429 12/03/16 0429 Medications Medications Current Medications Dextrose/Sodium Chloride (D5-1/2ns) 1,000 ml @ 50 mls/hr Q20H IV Last administered on 12/04/16 13:05; Admin Dose 50 MLS/HR; Start 12/01/16 at 00:00 Morphine Sulfate (morphine) 3 mg Q4H PRN IV PAIN Last administered on 05:11; Admin Dose 3 MG; Start 12/01/16 at 00:00 Lorazepam (Ativan) 0.5 mg Q8H PRN IV AGITATION/ANXIETY; Start 12/01/16 at 00: 00 Ondansetron HCl 4 mg 4 mg Q6H PRN IV NAUSEA AND/OR VOMITING Last administered on 12/02/16 08:40; Admin Dose 4 MG; Start 12/02/16 at 00:00 Ferric Sodium Gluconate Complex/ Sodium Chloride (Ferrlecit/NS) 110 ml @ 100 mls/hr Q24H IVPB Last administered on 12/04/16 13:03; Admin Dose 100 MLS/HR; Start 12/04/16 at 13:00; Stop 12/06/16 at 14:05 Metronidazole (Flagyl) 500 mg Q8 PO Last administered on 12/04/16 14:00; Admin Dose 500 MG; Start 12/04/16 at 14:00; Stop 12/11/16 at 13:59 Levofloxacin (Levaquin) 500 mg DAILY@06 PO ; Start 12/05/16 at 06:00; Stop 12/12/16 at 05:59 Copies To: CC: GILBERTO BULLOCK MD, VICTORIA Dec 04, 2016 18:23
[2016-12-04] MEDS ORDERED: BISACODYL (EC) 5 MG TAB PO ONE (18:30)
[2016-12-04] MEDS ORDERED: POLYETHYLENE GLYCOL 3350 119 GM POWDER PO ONE (19:00)
[2016-12-04] MEDS ORDERED: MAGNESIUM CITRATE 300 ML BTL PO ONE (19:00)
[2016-12-04 19:42] VITALS: BP 127/90; RESP 20
[2016-12-05] VITALS (9 sets, daily range): BP systolic 95–123; BP diastolic 67–87; PULSE 78–82; RESP 17–20
[2016-12-05] MEDS: LEVOFLOXACIN 500 MG TAB PO SCH (05:15)
[2016-12-05] MEDS: metroNIDAZOLE 500 MG TAB PO SCH ×3 (05:15→21:24)
[2016-12-05] MEDS: DEXTROSE 5%-0.45% NACL 1,000 ML IV SCH ×2 (05:16→12:55)
[2016-12-05] MEDS ORDERED: POLYETHYLENE GLYCOL 3350 119 GM POWDER PO ONE (06:00)
[2016-12-05] MEDS ORDERED: PROPOFOL 200 MG INJ ONE (07:00)
[2016-12-05] MEDS ORDERED: BISACODYL (EC) 5 MG TAB PO ONE (08:00)
[2016-12-05] MEDS: SOD FERRIC GLUC COMPLX 125 MG in SOD CHLORIDE 0.9% 100 ML IVPB SCH (12:54)
--- NOTE | 2016-12-05 16:23 | PN ---
Date/Time of Note Date/Time of Note DATE: 12/05/16 TIME: 16:22 Assessment/Plan VTE Prophylaxis VTE Prophylaxis Intervention: SCD's Lines/Catheters IV Catheter Type (from [facility]): [facility] Urinary Cath still in place: No Assessment/Plan Assessment/Plan 51 yo M admitted for abd pain, imaging notable for colitis PLAN sp endoscopy today, await results cont empiric abx pt with DARREN from colitis, will start PO iron tomorrow Subjective 24 Hr Interval Summary Free Text/Dictation Pt at endoscopy at time of my attempted evaluation Exam/Review of Systems Vital Signs Vitals Vital Signs Date Time Temp Pulse Resp B/P Pulse Ox O2 Delivery O2 Flow Rate FiO2 12/05/16 14:00 98.2 86 17 123/87 100 Intake and Output 12/04/16 12/04/16 12/05/16 15:00 23:00 07:00 Intake Total 410 ml 1190 ml 2100 ml Output Total 3 ml 7 ml Balance 410 ml 1187 ml 2093 ml Exam pt at endoscopy at time of my attempted evaluation Results Result Diagram: 12/03/16 0429 12/03/16 0429 Medications Medications Current Medications Dextrose/Sodium Chloride (D5-1/2ns) 1,000 ml @ 50 mls/hr Q20H IV Last administered on 12/05/16 12:55; Admin Dose 50 MLS/HR; Start 12/01/16 at 00:00 Morphine Sulfate (morphine) 3 mg Q4H PRN IV PAIN Last administered on 05:11; Admin Dose 3 MG; Start 12/01/16 at 00:00 Lorazepam (Ativan) 0.5 mg Q8H PRN IV AGITATION/ANXIETY; Start 12/01/16 at 00: 00 Ondansetron HCl 4 mg 4 mg Q6H PRN IV NAUSEA AND/OR VOMITING Last administered on 12/02/16 08:40; Admin Dose 4 MG; Start 12/02/16 at 00:00 Ferric Sodium Gluconate Complex/ Sodium Chloride (Ferrlecit/NS) 110 ml @ 100 mls/hr Q24H IVPB Last administered on 12/05/16 12:54; Admin Dose 100 MLS/HR; Start 12/04/16 at 13:00; Stop 12/06/16 at 14:05 Metronidazole (Flagyl) 500 mg Q8 PO Last administered on 12/05/16 05:15; Admin Dose 500 MG; Start 12/04/16 at 14:00; Stop 12/11/16 at 13:59 Levofloxacin (Levaquin) 500 mg DAILY@06 PO Last administered on 12/05/16 05: 15; Admin Dose 500 MG; Start 12/05/16 at 06:00; Stop 12/12/16 at 05:59 CHERELLE THORNTON MD Dec 05, 2016 16:23
[2016-12-05] MEDS ORDERED: PROPOFOL 40 ML ONE (17:06)
[2016-12-05] MEDS ORDERED: LIDOCAINE 2% (SDV) 5 ML INJ ONE (17:06)
--- NOTE | 2016-12-05 18:01 | OPPN ---
Date/Time of Note Date/Time of Note DATE: 12/05/16 TIME: 17:57 Proc Note GI Procedure Date 12/05/16 Indication: other (dyspepsia) Pre-procedure Diagnosis Dyspepsia Post-procedure Diagnosis Impression: Distal esophagitis. Moderate gastritis. Rule out H. pylori infection. Biopsies obtained Linear duodenal ulcer with significant scarring of the duodenal bulb. Plan: PPI therapy i.e. Protonix 40 mg twice daily Review pathology Proceed with colonoscopy as planned Procedure Performed: Endoscopy (With biopsies) Surgeon GILBERTO BULLOCK MD See signature line Roofer Helper Vinyl Coating none Anesthesia Type: MAC Anesthesiologist: JEANNE CUMMINS Tourniquet Time none EBL none Transfusion required none Biopsy 1: Gastric body and antrum/rule out H. pylori infection Grafts/Implants none Tubes/Drains none Complication(s) none Disposition: PACU Procedure Description Preoperative Diagnosis: After informed consent, with the patient/relatives understanding the procedure, its indications, potential risks and complications, including but not limited to : allergic reaction, bleeding, perforation or infection, and after all pertinent questions were answered to the patients satisfaction, the patient/ relatives signed witnessed informed consent. Following this, premedication was administered slowly IV push under careful cardiovascular and respiratory monitoring with pulse oximetry, automatic blood pressure, and halal meat packer. Once the sedative effect was achieved the patient was place in the left lateral decubitus, the panendoscope was introduced and advanced under visual control. Careful examination of the upper gastrointestinal tract, both on insertion as well as withdrawal of the instrument disclosing the following findings: ESOPHAGUS: the mucosa of the entire esophagus was carefully examined and showed the following findings: There is moderate erythema and edema of the mucosa at the e.g. junction. Otherwise the mucosa appears within normal limits. There is no evidence of varices, neoplasm, or stricture. No Hiatal Hernia identified. STOMACH: Upon entrance to the stomach air was insufflated, the gastric rivera distended normally. The mucosa of the fundus, body and antrum of the stomach was carefully examined both head-on and on retroflexion, and showed the following findings: There is moderate erythema and edema of the mucosa of the body and antrum of the stomach. Biopsies were obtained to rule out H. pylori infection. Otherwise the mucosa appears within normal limits with no abnormalities. There is no evidence of ulcers or neoplasm. PYLORUS: The pylorus was carefully examined and showed the following findings: the pylorus appears patent and within normal limits, with no evidence of gastric outlet obstruction. DUODENUM: The duodenal mucosa was carefully examined in the duodenal bulb as well as the second portion of the duodenum and showed the following findings: There is linear ulceration in the duodenal bulb there is significant scarring of previous peptic ulcer disease in the duodenal bulb. Otherwise the mucosa appears unremarkable of neoplasm. Copies To: CC: GILBERTO BULLOCK MD, MORDO MD Dec 05, 2016 18:01
--- NOTE | 2016-12-05 18:07 | OPPN ---
Date/Time of Note Date/Time of Note DATE: 12/05/16 TIME: 18:01 Proc Note GI Procedure Date 12/05/16 Indication: other (Abnormal imaging digestive system) Pre-procedure Diagnosis Abnormal CT of the abdomen with that questionable inflammatory changes in the cecum Post-procedure Diagnosis Impression: Large mass with extreme friability and what appears to be the proximal ascending colon suspect for neoplasm. Multiple biopsies obtained. Localization tattoo applied Rule out neoplasm versus inflammatory i.e. Crohn's disease An area of narrowing in inflammatory changes in the distal ascending and transverse colon. Biopsies obtained. Localization tattoo applied to the distal margin Moderate-sized internal hemorrhoids Discussion the findings of this examination are not typical for inflammatory bowel disease although it conceivably be that the mass in the cecum is typical inflammatory in nature Plan: Review pathology CEA titers, IBD serology Small bowel follow-through . Procedure Performed: Colonoscopy (With biopsies and localization tattoo) Surgeon see signature line Continuing Education Director none Anesthesia Type: MAC Anesthesiologist: JEANNE CUMMINS Tourniquet Time none EBL none Transfusion required none Biopsy 1: Mass proximal ascending colon/rule out neoplastic versus inflammatory Biopsy 2: Inflammation distal ascending colon/transverse Grafts/Implants none Tubes/Drains none Complication(s) none Disposition: PACU Procedure Description After informed consent, with the patient/relatives understanding the procedure, its indications and potential risks and complications, including but not limited to: Allergic reaction, bleeding, perforation, infection, and after all pertinent questions were answered to the patient's satisfaction, the patient/ relatives signed the witnessed informed consent. Following this, premedication was administered slowly IV push under careful cardiovascular and respiratory monitoring with pulse OXIMETRY, automatic blood pressure, and telemetry monitor. Once the sedative effect was achieved, the patient was placed in the left lateral decubitus position, digital rectal examination was performed. The colonoscope was then introduced and advanced under visual control throughout all segments of the colon including: the rectum, sigmoid, descending colon, splenic flexure, transverse colon, hepatic flexure, ascending colon and finally reaching the cecum which was clearly identified by transillumination, finger indentation and the ileocecal valve. Careful examination of the mucosa of the lower gastrointestinal tract both on insertion as well as withdrawal of the instrument disclosed the following findings: PREPARATION QUALITY: [Adequate], RECTAL EXAM: The anorectal area was visualized examined and digital rectal examination performed with the following findings: No evidence of perirectal disease, no masses. COLONIC MUCOSA: The mucosa of all segments of the colon was carefully examined and showed the following findings: There is a very large inflammatory mass occupying the proximal ascending colon which has a neoplastic appearance. Extremely friable to touch. Given the findings on CT the possibility of inflammatory bowel disease cannot be entirely ruled out but appears unlikely. Multiple biopsies were obtained. Localization tattoo was applied. There is another area of inflammatory changes in the distal ascending and transverse colon. Multiple biopsies were obtained localization tattoo was applied to distal margin of the lesion. Otherwise moderate-sized internal hemorrhoids. The examined mucosa appears within normal limits. There is no evidence of diverticular formation, polyps or other neoplasms, vascular malformation, or any other abnormality. The instrument was then withdrawn, the patient tolerated the procedure well and was transferred out of the Endoscopy Suite awake and in good condition to continue recovery under observation. Copies To: CC: GILBERTO BULLOCK MD, MORDO MD Dec 05, 2016 18:07
--- NOTE | 2016-12-05 18:08 | HPN ---
Date/Time of Note Date/Time of Note DATE: 12/05/16 TIME: 18:08 Interval H&P Admission Note Pt. seen H&P reviewed: No system changes GILBERTO BULLOCK MD Dec 05, 2016 18:08
[2016-12-06 02:08] VITALS: BP 98/69; RESP 18
--- NOTE | 2016-12-06 04:05 | PN ---
Date/Time of Note Date/Time of Note DATE: 12/04/16 TIME: 19:03 Assessment/Plan Lines/Catheters IV Catheter Type (from [facility]): Peripheral IV Ferrer in Place (from [facility]): No Assessment/Plan Chief Complaint/Hosp Course 1. Colitis/ileitis: CT: extensive wall thickening and inflammatory change in the ileocecal region, no free air or abscess (infectious vs inflammatory vs malignancy). Improving. -no emergent surgical intervention necessary > will continue to monitor -gi for colonoscopy -abx 2. Adjacent enlarged lymph nodes in ileocecal region: 2nd above -as above -further workup per medical team (?tumor markers) 3. Diarrhea: 2nd above -as above -ivf -monitor and replete electrolytes 4. Leukocytosis: fevers, diarrhea 2nd above. Resolved -abx 5. Malnutrition w hypoalbuminemia -optimize nutrition 6. Normocytic hypochromic anemia: -monitor -transfuse as needed -eventual colonoscopy/egd Thank you, Late entry 12/04 Problems: Subjective 24 Hr Interval Summary Leukocytosis resolved. Min pain (improved). No f/c. No cp/sob. No cough. No boss/dizzy/visual or neuro changes. No dysuria. No bloating. Loose bm. Flatus. Exam/Review of Systems Vital Signs Vitals Vital Signs Date Time Temp Pulse Resp B/P Pulse Ox O2 Delivery O2 Flow Rate FiO2 12/06/16 02:08 98.1 76 18 98/69 98 12/05/16 17:53 Room Air Intake and Output 12/05/16 12/05/16 12/06/16 15:00 23:00 07:00 Intake Total 360 ml 670 ml Output Total 5 ml Balance 360 ml 665 ml Exam Free Text/Dictation Constitutional: alert, oriented Psych: anxiety Head: atraumatic, normocephalic Eyes: nl conjunctiva, nl lids, nl sclera ENMT: mucosa pink and moist, nl nasal mucosa & septum Neck: non-tender, supple Respiratory: clear to auscultation, normal air movement Cardiovascular: nl pulses, regular rate and rhythm Gastrointestinal: bowel sounds, soft, min tender (improved), No mass Musculoskeletal: nl extremities to inspection, nl gait and stance Extremities: normal pulses Neurological: nl mental status, nl speech, nl strength Skin: nl turgor, rash or lesions Results Result Diagram: 12/03/16 0429 12/03/16 0429 ROBIN PRESTON MD Dec 06, 2016 04:05
--- NOTE | 2016-12-06 04:06 | PN ---
Date/Time of Note Date/Time of Note DATE: 12/05/16 TIME: 12:05 Assessment/Plan Lines/Catheters IV Catheter Type (from [facility]): Peripheral IV Ferrer in Place (from [facility]): No Assessment/Plan Chief Complaint/Hosp Course 1. Colitis/ileitis: CT: extensive wall thickening and inflammatory change in the ileocecal region, no free air or abscess (infectious vs inflammatory vs malignancy). Improving. -no emergent surgical intervention necessary > will continue to monitor -gi for colonoscopy -abx 2. Adjacent enlarged lymph nodes in ileocecal region: 2nd above -as above -further workup per medical team (?tumor markers) 3. Diarrhea: 2nd above -as above -ivf -monitor and replete electrolytes 4. Leukocytosis: fevers, diarrhea 2nd above. Resolved -abx 5. Malnutrition w hypoalbuminemia -optimize nutrition 6. Normocytic hypochromic anemia: -monitor -transfuse as needed -eventual colonoscopy/egd Thank you, Late entry 12/05 Problems: Subjective 24 Hr Interval Summary EGD/Colonoscopy today. Leukocytosis resolved. Pain improved. No f/c. No cp/ sob. No cough. No boss/dizzy/visual or neuro changes. No dysuria. No bloating. Loose bm. Flatus. Exam/Review of Systems Vital Signs Vitals Vital Signs Date Time Temp Pulse Resp B/P Pulse Ox O2 Delivery O2 Flow Rate FiO2 12/06/16 02:08 98.1 76 18 98/69 98 12/05/16 17:53 Room Air Intake and Output 12/05/16 12/05/16 12/06/16 15:00 23:00 07:00 Intake Total 360 ml 670 ml Output Total 5 ml Balance 360 ml 665 ml Exam Free Text/Dictation Constitutional: alert, oriented Psych: anxiety Head: atraumatic, normocephalic Eyes: nl conjunctiva, nl lids, nl sclera ENMT: mucosa pink and moist, nl nasal mucosa & septum Neck: non-tender, supple Respiratory: clear to auscultation, normal air movement Cardiovascular: nl pulses, regular rate and rhythm Gastrointestinal: bowel sounds, soft, min tender (improved), No mass Musculoskeletal: nl extremities to inspection, nl gait and stance Extremities: normal pulses Neurological: nl mental status, nl speech, nl strength Skin: nl turgor, rash or lesions Results Result Diagram: 12/03/16 0429 12/03/16 0429 ROBIN PRESTON MD Dec 06, 2016 04:06
[2016-12-06] MEDS: metroNIDAZOLE 500 MG TAB PO SCH ×2 (05:33→14:00)
[2016-12-06] MEDS: LEVOFLOXACIN 500 MG TAB PO SCH (05:33)
[2016-12-06 08:09] VITALS: BP 117/86; RESP 20
[2016-12-06] MEDS: SOD FERRIC GLUC COMPLX 125 MG in SOD CHLORIDE 0.9% 100 ML IVPB SCH (12:40)
--- NOTE | 2016-12-06 14:07 | PN ---
Date/Time of Note Date/Time of Note DATE: 12/06/16 TIME: 13:55 Assessment/Plan VTE Prophylaxis VTE Prophylaxis Intervention: SCD's Lines/Catheters IV C[facility] Type (from [facility] Saline Lock Urinary Cath still in place: No Assessment/Plan Chief Complaint/Hosp Course Summary Assessment and Plan: Assessment: Low-grade anemia-possibly related to colitis Colitis EGD 12/05 Distal esophagitis. Moderate gastritis. Rule out H. pylori infection. Biopsies obtained Linear duodenal ulcer with significant scarring of the duodenal bulb. Colonoscopy 12/05 Large mass with extreme friability and what appears to be the proximal ascending colon suspect for neoplasm. Multiple biopsies obtained. Localization tattoo applied Rule out neoplasm versus inflammatory i.e. Crohn's disease An area of narrowing in inflammatory changes in the distal ascending and transverse colon. Biopsies obtained. Localization tattoo applied to the distal margin Moderate-sized internal hemorrhoids Discussion the findings of this examination are not typical for inflammatory bowel disease although it conceivably be that the mass in the cecum is typical inflammatory in nature Plan: Continue PPI Advance diet as tolerated Review pathology CEA 6.2- concerns for malignant mass IBD serology Small bowel follow-through- pending Patient seen in collaboration with Dr. Summers Subjective: Course reviewed with nursing staff Patient interviewed and examined All labs, imaging and other results reviewed The patient is currently down stairs for exam- will follow up tomorrow PHYSICAL EXAMINATION: GENERAL: Well developed, well nourished, alert & oriented x 3, in no acute distress SKIN: No lesions, no stigmata chronic liver disease, no evidence of bleeding diathesis LYMPHATIC: No palpable lymphadenopathy. HEAD: Normocephalic, atraumatic, no tenderness. EYES: Pupils equal reactive to light and accommodation, full extraocular movements, sclera clear, non-icteric, no discharge. EARS/NOSE AND THROAT: Ears normal, nose normal, oropharynx normal, oral membranes well hydrated without lesions. NECK: Supple, no masses, thyroid normal, JVP within normal limits, carotids normal without bruits. CHEST: Inspection within normal limits. CARDIOVASCULAR: Heart: Regular rate and rhythm, no murmurs, gallops or rubs. Peripheral pulses present within normal limits, no cyanosis, clubbing or edemas. No pulsatile abdominal mass RESPIRATORY: Lungs clear to auscultation and percussion, no wheezing, no rubs GASTROINTESTINAL AND LIVER: Abdomen: Soft, epigastric , and lower abdominal tenderness with palpation, non-distended, no hernias, no masses, no organomegaly , no ascites, no guarding, normoactive bowel sounds. Rectal: Deferred. GENITOURINARY: Male genitalia within normal limits. EXTREMITIES: No cyanosis, clubbing or edema. Problems: Exam/Review of Systems Vital Signs Vitals Vital Signs Date Time Temp Pulse Resp B/P Pulse Ox O2 Delivery O2 Flow Rate FiO2 12/06/16 08:09 97.5 85 20 117/86 100 12/05/16 17:53 Room Air Intake and Output 12/05/16 12/05/16 12/06/16 15:00 23:00 07:00 Intake Total 360 ml 670 ml Output Total 5 ml Balance 360 ml 665 ml Results Result Diagram: 12/03/16 0429 12/03/16 0429 Results 24 hrs Laboratory Tests Test 12/06/16 04:34 Carcinoembryonic Antigen 6.2 H Medications Medications Current Medications Morphine Sulfate (morphine) 3 mg Q4H PRN IV PAIN Last administered on 05:11; Admin Dose 3 MG; Start 12/01/16 at 00:00 Ondansetron HCl 4 mg 4 mg Q6H PRN IV NAUSEA AND/OR VOMITING Last administered on 12/02/16 08:40; Admin Dose 4 MG; Start 12/02/16 at 00:00 Ferric Sodium Gluconate Complex/ Sodium Chloride (Ferrlecit/NS) 110 ml @ 100 mls/hr Q24H IVPB Last administered on 12/06/16 12:40; Admin Dose 100 MLS/HR; Start 12/04/16 at 13:00; Stop 12/06/16 at 14:05 Metronidazole (Flagyl) 500 mg Q8 PO Last administered on 12/06/16 05:33; Admin Dose 500 MG; Start 12/04/16 at 14:00; Stop 12/11/16 at 13:59 Levofloxacin (Levaquin) 500 mg DAILY@06 PO Last administered on 12/06/16 05: 33; Admin Dose 500 MG; Start 12/05/16 at 06:00; Stop 12/12/16 at 05:59 PAM RENEE Dec 06, 2016 14:06
[2016-12-06] MEDS ORDERED: BARIUM SULFATE 135 ML (E-Z HD) PO ONE (14:15)
--- NOTE | 2016-12-06 15:22 | PN ---
Date/Time of Note Date/Time of Note DATE: 12/06/16 TIME: 15:20 Assessment/Plan VTE Prophylaxis VTE Prophylaxis Intervention: SCD's Lines/Catheters IV Catheter Type (from Nrsg): Saline Lock Urinary Cath still in place: No Assessment/Plan Assessment/Plan 51 yo M admitted for abd pain, imaging notable for colitis. Endoscopies 10.30 notable for colon mass and gastritis, duodenal ulcer PLAN colon mass path pending, concern for malignancy. general surgery already on consult PPI stop abx pt with DARREN from colitis--> PO iron rx'ed ADAT Subjective 24 Hr Interval Summary Free Text/Dictation Denies abd pain Exam/Review of Systems Vital Signs Vitals Vital Signs Date Time Temp Pulse Resp B/P Pulse Ox O2 Delivery O2 Flow Rate FiO2 12/06/16 08:09 97.5 85 20 117/86 100 12/05/16 17:53 Room Air Intake and Output 12/05/16 12/05/16 12/06/16 15:00 23:00 07:00 Intake Total 360 ml 670 ml Output Total 5 ml Balance 360 ml 665 ml Exam nad no mrg lungs clear abd soft no rashes Results Result Diagram: 12/03/169 12/03/16 0429 Results 24 hrs Laboratory Tests Test 12/06/16 04:34 Carcinoembryonic Antigen 6.2 H Medications Medications Current Medications Morphine Sulfate (morphine) 3 mg Q4H PRN IV PAIN Last administered on 05:11; Admin Dose 3 MG; Start 12/01/16 at 00:00 Ondansetron HCl (Zofran Inj) 4 mg Q6H PRN IV NAUSEA AND/OR VOMITING Last administered on 12/02/16 08:40; Admin Dose 4 MG; Start 12/02/16 at 00:00 Metronidazole (Flagyl) 500 mg Q8 PO Last administered on 12/06/16 05:33; Admin Dose 500 MG; Start 12/04/16 at 14:00; Stop 12/11/16 at 13:59 Levofloxacin (Levaquin) 500 mg DAILY@06 PO Last administered on 12/06/16 05: 33; Admin Dose 500 MG; Start 12/05/16 at 06:00; Stop 12/12/16 at 05:59 CHERELLE THONRTON MD Dec 06, 2016 15:22
--- NOTE | 2016-12-06 16:20 | PN ---
Date/Time of Note Date/Time of Note DATE: 12/06/16 TIME: 16:11 Assessment/Plan Lines/Catheters IV Catheter Type (from [facility]): Saline Lock Ferrer in Place (from [facility]): No Assessment/Plan Chief Complaint/Hosp Course 1. Colitis/ileitis: CT: extensive wall thickening and inflammatory change in the ileocecal region; most severe inflammatory process extends to the ascending and proximal transverse colon, the duodenum, and an adjacent small bowel loop with mild inflammatory change of the appendix; no free air or abscess (?ibd vs. other); s/p colonoscopy: Large mass with extreme friability and what appears to be the proximal ascending colon suspect for neoplasm. Multiple biopsies obtained. Localization tattoo applied; Rule out neoplasm versus inflammatory i.e. Crohn's disease -follow biopsies -tumor markers elevated: concern for malignancy-onc consult -abx -possible mass/colon resection 2. Adjacent enlarged lymph nodes in ileocecal region: 2/ #1, ?concern for malignancy (has had significant weight loss per patient) -as above -further workup per medical team (?tumor markers) 3. Diarrhea: 2/2 #1 -as above -ivf -monitor and replete electrolytes 4. Leukocytosis: fevers, diarrhea (?enteritis): normalized -improving -abx 5. Malnutrition w hypoalbuminemia -optimize nutrition 6. Normocytic hypochromic anemia: -monitor -transfuse as needed -further workup per medical team 7. Hypokalemia -optimize lytes 8. Distal esophagitis, Moderate gastritis and duodenal ulcer with significant scarring of the duodenal bulb -medical management -ppi Thank you. Patient seen and examined in collaboration with Dr. Rigo Youngblood. Problems: Subjective 24 Hr Interval Summary Feels well. No c/o abdominal pain/tenderness. No fevers, chills, sob, congested cough, cp, palpitations, boss, dizziness, n/v/d/dysuria. Exam/Review of Systems Vital Signs Vitals Vital Signs Date Time Temp Pulse Resp B/P Pulse Ox O2 Delivery O2 Flow Rate FiO2 12/24/16 08:00 97.4 76 16 105/79 99 Intake and Output 12/23/16 12/23/16 12/24/16 15:00 23:00 07:00 Intake Total 1200 ml 200 ml Balance 1200 ml 200 ml Exam Free Text/Dictation Constitutional: alert, oriented Psych: anxiety-improved Head: atraumatic, normocephalic Eyes: nl conjunctiva, nl lids, nl sclera ENMT: mucosa pink and moist, nl nasal mucosa & septum Neck: non-tender, supple Respiratory: clear to auscultation, normal air movement Cardiovascular: nl pulses, regular rate and rhythm Gastrointestinal: bowel sounds, soft, min tender (improved), No mass Musculoskeletal: nl extremities to inspection, nl gait and stance Extremities: normal pulses Neurological: nl mental status, nl speech, nl strength Skin: nl turgor, rash or lesions Results Result Diagram: 12/20/16 04412/20/16 044 MC CANTU NP Dec 06, 2016 16:20
[2016-12-06] MEDS: PANTOPRAZOLE (EC) 40 MG TAB PO SCH (17:48)
[2016-12-06 20:26] VITALS: BP 138/98; RESP 18
--- NOTE | 2016-12-06 20:27 | RADRPT ---
PROCEDURE: Small-bowel follow-through. CLINICAL INDICATION: Pain. Crohn disease TECHNIQUE: Initial ux design lead radiograph was obtained. A series AP views of the abdomen/pelvis were ob tained after the ingestion of gastrographin contrast material. COMPARISON: CT abdomen and pelvis 12/01/2016 FINDINGS: Initial ux design lead radiograph demonstrates unremarkable bowel gas pattern. The stomach and proximal small bowel is normal appearance. There is normal egress of contrast material into the colon, reaching th e cecum by 2 hours. Small bowel is normal in caliber and appearance without wall thickening. Limited evaluation cecum demonstrates probable wall thickening. The cecum demonstrates gross wall thickenin g. There is contrast material through the level of the rectum. Remainder of the colon is grossly unr emarkable. IMPRESSION: 1. No evidence for obstruction or ileus. 2. Severe cecal wall thickening. 3. Limited evaluation of the terminal with probable narrowing of wall thickening. RPTAT: HMVK .Bart Lugo MD, MD Date Time Electronically viewed and signed by .Bart Lugo MD, MD on 12/06/2016 20:27 .K/
[2016-12-06] MEDS: FERROUS SULFATE (EC) 325 MG TAB PO SCH (22:03)
[2016-12-07 01:59] VITALS: BP 99/71; RESP 19
[2016-12-07] MEDS: PANTOPRAZOLE (EC) 40 MG TAB PO SCH ×2 (05:25→17:59)
[2016-12-07 05:52] LABS: BASOPHIL # 0.1 10^3/ul (0.0-0.1); BASOPHILS % 0.6 % (0.0-2.0); EOSINOPHILS # 0.1 10^3/ul (0.0-0.5); EOSINOPHILS % 1.3 % (0.0-7.0); HEMATOCRIT 37.7 % (42.0-52.0); HEMOGLOBIN 12.4 g/dl (14.0-18.0); LYMPHOCYTES # 2.4 10^3/ul (0.8-2.9); LYMPHOCYTES % 27.7 % (15.0-51.0); MEAN CORPUSCULAR HEMOGLOBIN 29.1 pg (29.0-33.0); MEAN CORPUSCULAR HGB CONC 32.9 g/dl (32.0-37.0); MEAN CORPUSCULAR VOLUME 88.5 fl (82.0-101.0); MEAN PLATELET VOLUME 9.8 fl (7.4-10.4); MONOCYTE # 0.6 10^3/ul (0.3-0.9); MONOCYTES % 6.7 % (0.0-11.0); NEUTROPHIL # 5.4 10^3/ul (1.6-7.5); NEUTROPHILS % 63.3 % (39.0-77.0); PLATELET COUNT 620 10^3/UL (140-415); RED BLOOD COUNT 4.26 10^6/ul (4.70-6.10); RED CELL DISTRIBUTION WIDTH 14.4 % (11.5-14.5); WHITE BLOOD COUNT 8.5 10^3/ul (4.8-10.8)
[2016-12-07 08:21] VITALS: BP 107/75; RESP 20
[2016-12-07] MEDS: FERROUS SULFATE (EC) 325 MG TAB PO SCH ×2 (08:39→20:43)
[2016-12-07 11:58] LABS: MYELOPEROXIDASE ANTIBODY <1.0 AI; PROTEINASE-3 ANTIBODY <1.0 AI
--- NOTE | 2016-12-07 13:05 | PN ---
Date/Time of Note Date/Time of Note DATE: 12/07/16 TIME: 13:00 Assessment/Plan Lines/Catheters IV Catheter Type (from [facility] [place]): Saline Lock Ferrer in Place (from [facility] [place]): No Assessment/Plan Chief Complaint/Hosp Course 1. Colitis/ileitis: CT: extensive wall thickening and inflammatory change in the ileocecal region; most severe inflammatory process extends to the ascending and proximal transverse colon, the duodenum, and an adjacent small bowel loop with mild inflammatory change of the appendix; no free air or abscess (?ibd vs. other); s/p colonoscopy: Large mass with extreme friability and what appears to be the proximal ascending colon suspect for neoplasm. Multiple biopsies obtained. Localization tattoo applied; Rule out neoplasm versus inflammatory i.e. Crohn's disease; biopsy : Invasive adenocarcinoma, moderately well- differentiated, extensively ulcerated -staging CT -possible mass/colon resection 2. Adjacent enlarged lymph nodes in ileocecal region: 2/2 #1 -as above -further workup per medical team (?tumor markers) 3. Diarrhea: 2/2 #1: resolved -as above -ivf -monitor and replete electrolytes 4. Leukocytosis: normalized -improving -abx 5. Malnutrition w hypoalbuminemia -optimize nutrition 6. Normocytic hypochromic anemia: -monitor -transfuse as needed -further workup per medical team 7. Hypokalemia -optimize lytes 8. Distal esophagitis, Moderate gastritis and duodenal ulcer with significant scarring of the duodenal bulb -medical management -ppi Thank you. Patient seen and examined in collaboration with Dr. Rigo Youngblood. Problems: Subjective 24 Hr Interval Summary SBFT noted. Path showing adenocarcinoma. Feels ok. +bowel function. No c/o abd pain or tenderness. No fevers, chills, sob, congested cough, cp, palpitations, boss, dizziness, n/v/d/dysuria. Exam/Review of Systems Vital Signs Vitals Vital Signs Date Time Temp Pulse Resp B/P Pulse Ox O2 Delivery O2 Flow Rate FiO2 12/07/16 08:21 98.1 84 20 107/75 99 12/05/16 17:53 Room Air Intake and Output 12/06/16 12/06/16 12/07/16 15:00 23:00 07:00 Intake Total 110 ml 800 ml 480 ml Balance 110 ml 800 ml 480 ml Exam Free Text/Dictation Constitutional: alert, oriented Psych: anxiety Head: atraumatic, normocephalic Eyes: nl conjunctiva, nl lids, nl sclera ENMT: mucosa pink and moist, nl nasal mucosa & septum Neck: non-tender, supple Respiratory: clear to auscultation, normal air movement Cardiovascular: nl pulses, regular rate and rhythm Gastrointestinal: bowel sounds, soft, non tender, No mass Musculoskeletal: nl extremities to inspection, nl gait and stance Extremities: normal pulses Neurological: nl mental status, nl speech, nl strength Skin: nl turgor, rash or lesions Results Result Diagram: 12/07/16 0454 12/03/16 0429 MC CANTU NP Dec 07, 2016 13:05
[2016-12-07 14:00] VITALS: BP 118/85; RESP 20
--- NOTE | 2016-12-07 14:10 | PN ---
Date/Time of Note Date/Time of Note DATE: 12/07/16 TIME: 14:05 Assessment/Plan VTE Prophylaxis VTE Prophylaxis Intervention: SCD's Lines/Catheters IV Catheter Type (from [facility]): Saline Lock Urinary Cath still in place: No Assessment/Plan Chief Complaint/Hosp Course Summary Assessment and Plan: Assessment: Low-grade anemia-possibly related to colitis Colitis EGD 12/05 Distal esophagitis. Moderate gastritis. Rule out H. pylori infection. Biopsies obtained Linear duodenal ulcer with significant scarring of the duodenal bulb. Colonoscopy 12/05 Large mass with extreme friability and what appears to be the proximal ascending colon suspect for neoplasm. Multiple biopsies obtained. Localization tattoo applied Rule out neoplasm versus inflammatory i.e. Crohn's disease An area of narrowing in inflammatory changes in the distal ascending and transverse colon. Biopsies obtained. Localization tattoo applied to the distal margin Moderate-sized internal hemorrhoids Discussion the findings of this examination are not typical for inflammatory bowel disease although it conceivably be that the mass in the cecum is typical inflammatory in nature Plan: Pathology Proximal ascending colon inflammatory mass, biopsy:Invasive adenocarcinoma, moderately well-differentiated, extensively ulcerated. Plan for Ct scan- tomorrow Small bowel follow shows severe cecal wall thickening.Limited evaluation of the terminal with probable narrowing of wall thickening. Patient evaluated by surgery/onc Patient seen in collaboration with Dr. Summers Subjective: Course reviewed with nursing staff Patient interviewed and examined All labs, imaging and other results reviewed Discussed results with patient- who verbalizes understanding, poss plan for surgery Monday PHYSICAL EXAMINATION: GENERAL: Well developed, well nourished, alert & oriented x 3, in no acute distress SKIN: No lesions, no stigmata chronic liver disease, no evidence of bleeding diathesis LYMPHATIC: No palpable lymphadenopathy. HEAD: Normocephalic, atraumatic, no tenderness. EYES: Pupils equal reactive to light and accommodation, full extraocular movements, sclera clear, non-icteric, no discharge. EARS/NOSE AND THROAT: Ears normal, nose normal, oropharynx normal, oral membranes well hydrated without lesions. NECK: Supple, no masses, thyroid normal, JVP within normal limits, carotids normal without bruits. CHEST: Inspection within normal limits. CARDIOVASCULAR: Heart: Regular rate and rhythm, no murmurs, gallops or rubs. Peripheral pulses present within normal limits, no cyanosis, clubbing or edemas. No pulsatile abdominal mass RESPIRATORY: Lungs clear to auscultation and percussion, no wheezing, no rubs GASTROINTESTINAL AND LIVER: Abdomen: Soft, epigastric , and lower abdominal tenderness with palpation, non-distended, no hernias, no masses, no organomegaly , no ascites, no guarding, normoactive bowel sounds. Rectal: Deferred. GENITOURINARY: Male genitalia within normal limits. EXTREMITIES: No cyanosis, clubbing or edema. Problems: Exam/Review of Systems Vital Signs Vitals Vital Signs Date Time Temp Pulse Resp B/P Pulse Ox O2 Delivery O2 Flow Rate FiO2 12/07/16 08:21 98.1 84 20 107/75 99 12/05/16 17:53 Room Air Intake and Output 12/06/16 12/06/16 12/07/16 15:00 23:00 07:00 Intake Total 110 ml 800 ml 480 ml Balance 110 ml 800 ml 480 ml Results Result Diagram: 12/07/16 0454 12/03/16 0429 Results 24 hrs Laboratory Tests Test 12/06/16 21:24 12/07/16 04:54 Bedside Glucose 103 White Blood Count 8.5 Red Blood Count 4.26 #L Hemoglobin 12.4 #L Hematocrit 37.7 #L Mean Corpuscular Volume 88.5 Mean Corpuscular Hemoglobin 29.1 Mean Corpuscular Hemoglobin Concent 32.9 Red Cell Distribution Width 14.4 Platelet Count 620 #H Mean Platelet Volume 9.8 Neutrophils % 63.3 Lymphocytes % 27.7 Monocytes % 6.7 Eosinophils % 1.3 Basophils % 0.6 Nucleated Red Blood Cells % 0.0 Neutrophils # 5.4 Lymphocytes # 2.4 Monocytes # 0.6 Eosinophils # 0.1 Basophils # 0.1 Nucleated Red Blood Cells # 0.0 Medications Medications Current Medications Morphine Sulfate (morphine) 3 mg Q4H PRN IV PAIN Last administered on 05:11; Admin Dose 3 MG; Start 12/01/16 at 00:00 Ondansetron HCl (Zofran Inj) 4 mg Q6H PRN IV NAUSEA AND/OR VOMITING Last administered on 12/02/16 08:40; Admin Dose 4 MG; Start 12/02/16 at 00:00 Pantoprazole (Protonix Tab) 40 mg BID@06,18 PO Last administered on 12/07/16 05:25; Admin Dose 40 MG; Start 12/06/16 at 18:00 Ferrous Sulfate (Ferrous Sulfate (Ec)) 325 mg BID PO Last administered on 08:39; Admin Dose 325 MG; Start 12/06/16 at 21:00 PAM RENEE Dec 07, 2016 14:10
--- NOTE | 2016-12-07 14:16 | PN ---
Date/Time of Note Date/Time of Note DATE: 12/07/16 TIME: 14:13 Assessment/Plan VTE Prophylaxis VTE Prophylaxis Intervention: SCD's Lines/Catheters IV Catheter Type (from Nrsg): Saline Lock Urinary Cath still in place: No Assessment/Plan Assessment/Plan 51 yo M admitted for abd pain, imaging notable for colitis. Endoscopies . notable for colon mass (path with adenoCa) and gastritis, duodenal ulcer PLAN colon Ca:. general surgery already on consult -staging CTs ordered PPI pt with DARREN from colon ca--> PO iron rx'ed general diet Subjective 24 Hr Interval Summary Free Text/Dictation path results dw pt and family Exam/Review of Systems Vital Signs Vitals Vital Signs Date Time Temp Pulse Resp B/P Pulse Ox O2 Delivery O2 Flow Rate FiO2 12/07/16 08:21 98.1 84 20 107/75 99 12/05/16 17:53 Room Air Intake and Output 12/06/16 12/06/16 12/07/16 15:00 23:00 07:00 Intake Total 110 ml 800 ml 480 ml Balance 110 ml 800 ml 480 ml Exam nad no mrg lungs clear abd soft no rashes Results Result Diagram: 12/07/16 0454 12/03/16 0429 Results 24 hrs Laboratory Tests Test 12/06/16 21:24 12/07/16 04:54 Bedside Glucose 103 White Blood Count 8.5 Red Blood Count 4.26 #L Hemoglobin 12.4 #L Hematocrit 37.7 #L Mean Corpuscular Volume 88.5 Mean Corpuscular Hemoglobin 29.1 Mean Corpuscular Hemoglobin Concent 32.9 Red Cell Distribution Width 14.4 Platelet Count 620 #H Mean Platelet Volume 9.8 Neutrophils % 63.3 Lymphocytes % 27.7 Monocytes % 6.7 Eosinophils % 1.3 Basophils % 0.6 Nucleated Red Blood Cells % 0.0 Neutrophils # 5.4 Lymphocytes # 2.4 Monocytes # 0.6 Eosinophils # 0.1 Basophils # 0.1 Nucleated Red Blood Cells # 0.0 Medications Medications Current Medications Morphine Sulfate (morphine) 3 mg Q4H PRN IV PAIN Last administered on t 05:11; Admin Dose 3 MG; Start 12/01/16 at 00:00 Ondansetron HCl (Zofran Inj) 4 mg Q6H PRN IV NAUSEA AND/OR VOMITING Last administered on 12/02/16 08:40; Admin Dose 4 MG; Start 12/02/16 at 00:00 Pantoprazole (Protonix Tab) 40 mg BID@06,18 PO Last administered on 12/07/16 05:25; Admin Dose 40 MG; Start 12/06/16 at 18:00 Ferrous Sulfate (Ferrous Sulfate (Ec)) 325 mg BID PO Last administered on 08:39; Admin Dose 325 MG; Start 12/06/16 at 21:00 CHERELLE THORNTON MD Dec 07, 2016 14:16
[2016-12-07 21:05] VITALS: BP 115/85; RESP 18
[2016-12-08 02:58] VITALS: BP 112/83; RESP 18
[2016-12-08] MEDS: PANTOPRAZOLE (EC) 40 MG TAB PO SCH ×2 (05:46→18:11)
[2016-12-08 07:45] VITALS: BP 119/71; RESP 20
[2016-12-08] MEDS: FERROUS SULFATE (EC) 325 MG TAB PO SCH ×2 (09:00→20:18)
--- NOTE | 2016-12-08 09:52 | PN ---
Date/Time of Note Date/Time of Note DATE: 12/08/16 TIME: 09:50 Assessment/Plan VTE Prophylaxis VTE Prophylaxis Intervention: ambulation, SCD's Lines/Catheters IV [facility] Saline Lock Urinary Cath still in place: No Assessment/Plan Chief Complaint/Hosp Course Summary Assessment and Plan: Assessment: Low-grade anemia-possibly related to colitis Colitis EGD 12/05 Distal esophagitis. Moderate gastritis. Rule out H. pylori infection. Biopsies obtained Linear duodenal ulcer with significant scarring of the duodenal bulb. Colonoscopy 12/05 Large mass with extreme friability and what appears to be the proximal ascending colon suspect for neoplasm. Multiple biopsies obtained. Localization tattoo applied Rule out neoplasm versus inflammatory i.e. Crohn's disease An area of narrowing in inflammatory changes in the distal ascending and transverse colon. Biopsies obtained. Localization tattoo applied to the distal margin Moderate-sized internal hemorrhoids Discussion the findings of this examination are not typical for inflammatory bowel disease although it conceivably be that the mass in the cecum is typical inflammatory in nature Plan: Pathology Proximal ascending colon inflammatory mass, biopsy:Invasive adenocarcinoma, moderately well-differentiated, extensively ulcerated. Plan for Ct scan- today for staging Being consulted by surgery- poss plan for mass/colon resection Patient seen in collaboration with Dr. Summers Subjective: Course reviewed with nursing staff Patient interviewed and examined All labs, imaging and other results reviewed Patient currently stable, no c/o n/v or abd pain. plan for possible mass/colon resection PHYSICAL EXAMINATION: GENERAL: Well developed, well nourished, alert & oriented x 3, in no acute distress SKIN: No lesions, no stigmata chronic liver disease, no evidence of bleeding diathesis LYMPHATIC: No palpable lymphadenopathy. HEAD: Normocephalic, atraumatic, no tenderness. EYES: Pupils equal reactive to light and accommodation, full extraocular movements, sclera clear, non-icteric, no discharge. EARS/NOSE AND THROAT: Ears normal, nose normal, oropharynx normal, oral membranes well hydrated without lesions. NECK: Supple, no masses, thyroid normal, JVP within normal limits, carotids normal without bruits. CHEST: Inspection within normal limits. CARDIOVASCULAR: Heart: Regular rate and rhythm, no murmurs, gallops or rubs. Peripheral pulses present within normal limits, no cyanosis, clubbing or edemas. No pulsatile abdominal mass RESPIRATORY: Lungs clear to auscultation and percussion, no wheezing, no rubs GASTROINTESTINAL AND LIVER: Abdomen: Soft, epigastric , and lower abdominal tenderness with palpation, non-distended, no hernias, no masses, no organomegaly , no ascites, no guarding, normoactive bowel sounds. Rectal: Deferred. GENITOURINARY: Male genitalia within normal limits. EXTREMITIES: No cyanosis, clubbing or edema. Problems: Exam/Review of Systems Vital Signs Vitals Vital Signs Date Time Temp Pulse Resp B/P Pulse Ox O2 Delivery O2 Flow Rate FiO2 12/08/16 07:45 98.1 80 20 119/71 98 12/05/16 17:53 Room Air Intake and Output 12/07/16 12/07/16 12/08/16 15:00 23:00 07:00 Intake Total 900 ml 480 ml Balance 900 ml 480 ml Results Result Diagram: 12/07/16 0454 Medications Medications Current Medications Morphine Sulfate (morphine) 3 mg Q4H PRN IV PAIN Last administered on 05:11; Admin Dose 3 MG; Start 12/01/16 at 00:00 Ondansetron HCl (Zofran Inj) 4 mg Q6H PRN IV NAUSEA AND/OR VOMITING Last administered on 12/02/16 08:40; Admin Dose 4 MG; Start 12/02/16 at 00:00 Pantoprazole (Protonix Tab) 40 mg BID@06,18 PO Last administered on 12/08/16 05:46; Admin Dose 40 MG; Start 12/06/16 at 18:00 Ferrous Sulfate (Ferrous Sulfate (Ec)) 325 mg BID PO Last administered on 20:43; Admin Dose 325 MG; Start 12/06/16 at 21:00 PAM RENEE Dec 08, 2016 09:52
[2016-12-08] MEDS ORDERED: IOHEXOL 300MG/ML 150 ML BTL ONE (10:12)
[2016-12-08] MEDS ORDERED: SOD CHLORIDE 0.9% 100 ML ONE (10:12)
--- NOTE | 2016-12-08 10:36 | RADRPT ---
PROCEDURE: CT Chest, Abdomen and Pelvis with contrast. CLINICAL INDICATION: History of colon mass. Metastatic disease. TECHNIQUE: CT scan of the chest, abdomen, and pelvis with intravenous contrast was performed with helical axial sections. The patient was scanned during intravenous injection of 100 ml of Omnipaque -300 intravenous contrast. 2-D coronal reformatted images were obtained from the axial source image s. Total exam DLP is 735.35 mGy-cm. CTDIvol is 9.11 MGy. One or more of the following dose reduct ion techniques were used: Automated exposure control, adjustment of the mA and/or kV according to pa tient size, use of iterative reconstruction technique. COMPARISON: Chest x-ray dated 11/30/2016. CT scan of the abdomen and pelvis dated 12/01/2016. FINDINGS: CT chest: The lungs are clear with no airspace or interstitial disease. There is no pulmonary nodule or mass lesion. The mediastinum and [place] are normal with no lymphadenopathy or mass. The thoracic aorta is not dilated. There is calcification in the aorta consistent with atheroscleros is. There is coronary artery calcification. There is no pleural effusion or pericardial effusion. CT abdomen and pelvis: The liver is normal in size and attenuation. There is no focal hepatic lesion. The gallbladder and bile ducts are normal. The spleen is normal in size. There is no focal splenic lesion. The pancreas is normal with no mass or evidence of pancreatitis. Both adrenals are normal with no enlargement or mass. Both kidneys demonstrate normal contrast enhancement. There is no renal mass or hydronephrosis. The abdominal aorta is not dilated. There is no retroperitoneal lymphadenopathy or mass. There is marked diffuse thickening of the wall of the terminal ileum, cecum, ascending colon, and he patic flexure with surrounding mesenteric edema and adjacent mesenteric lymphadenopathy. The bowel a nd mesentery are otherwise normal. The bladder and distal ureters are normal. There is no free fluid or free gas. Osseous structures: There are degenerative changes of the spine. There is no fracture. There is no lytic or blastic les ion. IMPRESSION: 1. Atherosclerosis. 2. Coronary artery calcification. 3. Marked diffuse thickening of the wall of the terminal ileum, cecum, ascending colon, hepatic fle xure with surrounding mesenteric edema and adjacent mesenteric lymphadenopathy. This may be due to a n inflammatory process or neoplasm. 5. No evidence of distant metastatic disease. 5. Degenerative changes of the spine. RPTAT: QQ .Can Palmer MD, Date Time Electronically viewed and signed by .Can Palmer MD, on 12/08/2016 10:35 .R/
--- NOTE | 2016-12-08 11:57 | PN ---
Date/Time of Note Date/Time of Note DATE: 12/08/16 TIME: 11:55 Assessment/Plan Lines/Catheters IV Catheter Type (from [facility]): Saline Lock Ferrer in Place (from [facility]): No Assessment/Plan Chief Complaint/Hosp Course 1. Colitis/ileitis: CT: extensive wall thickening and inflammatory change in the ileocecal region; most severe inflammatory process extends to the ascending and proximal transverse colon, the duodenum, and an adjacent small bowel loop with mild inflammatory change of the appendix; no free air or abscess (?ibd vs. other); s/p colonoscopy: Large mass with extreme friability and what appears to be the proximal ascending colon suspect for neoplasm. Multiple biopsies obtained. Localization tattoo applied; Rule out neoplasm versus inflammatory i.e. Crohn's disease; biopsy : Invasive adenocarcinoma, moderately well- differentiated, extensively ulcerated; CT without evidence of mets -Onc consult and possible mass/colon resection 2. Adjacent enlarged lymph nodes in ileocecal region: 2/ #1 -as above 3. Diarrhea: / #1: resolved -as above -ivf -monitor and replete electrolytes 4. Leukocytosis: normalized -improving -abx 5. Malnutrition w hypoalbuminemia -optimize nutrition 6. Normocytic hypochromic anemia: -monitor -transfuse as needed -further workup per medical team 7. Hypokalemia -optimize lytes 8. Distal esophagitis, Moderate gastritis and duodenal ulcer with significant scarring of the duodenal bulb -medical management -ppi Thank you. Patient seen and examined in collaboration with Dr. Rigo Youngblood. Problems: Subjective 24 Hr Interval Summary Feels well. CT noted. + bowel function. No fevers, chills, sob, congested cough , cp, palpitations, boss, dizziness, n/v/d/dysuria. Exam/Review of Systems Vital Signs Vitals Vital Signs Date Time Temp Pulse Resp B/P Pulse Ox O2 Delivery O2 Flow Rate FiO2 12/08/16 07:45 98.1 80 20 119/71 98 12/05/16 17:53 Room Air Intake and Output 12/07/16 12/07/16 12/08/16 15:00 23:00 07:00 Intake Total 900 ml 480 ml Balance 900 ml 480 ml Exam Free Text/Dictation Constitutional: alert, oriented Psych: nl mood Head: atraumatic, normocephalic Eyes: nl conjunctiva, nl lids, nl sclera ENMT: mucosa pink and moist, nl nasal mucosa & septum Neck: non-tender, supple Respiratory: clear to auscultation, normal air movement Cardiovascular: nl pulses, regular rate and rhythm Gastrointestinal: bowel sounds, soft, non tender, No mass Musculoskeletal: nl extremities to inspection, nl gait and stance Extremities: normal pulses Neurological: nl mental status, nl speech, nl strength Skin: nl turgor, rash or lesions Results Result Diagram: 12/07/16 0454 [facility] CANTU NP Dec 08, 2016 11:57
[2016-12-08 14:00] VITALS: BP 109/76; RESP 20
--- NOTE | 2016-12-08 17:35 | PN ---
Date/Time of Note Date/Time of Note DATE: 12/08/16 TIME: 17:34 Assessment/Plan VTE Prophylaxis VTE Prophylaxis Intervention: SCD's Lines/Catheters IV Catheter Type (from [facility]): Saline Lock Urinary Cath still in place: No Assessment/Plan Assessment/Plan Assessment/Plan 51 yo M admitted for abd pain, imaging notable for colitis. Endoscopies 10.30 notable for colon mass (path with adenoCa) and gastritis, duodenal ulcer PLAN colon Ca:. general surgery already on consult. possible surgical resection early next week medical oncology consulted PPI pt with DARREN from colon ca--> PO iron rx'ed general diet Subjective 24 Hr Interval Summary Free Text/Dictation staging CTs without evidence of distant mets. dw pt and his sister Exam/Review of Systems Vital Signs Vitals Vital Signs Date Time Temp Pulse Resp B/P Pulse Ox O2 Delivery O2 Flow Rate FiO2 12/08/16 14:00 98.0 77 20 109/76 98 12/05/16 17:53 Room Air Intake and Output 12/07/16 12/07/16 12/08/16 15:00 23:00 07:00 Intake Total 900 ml 480 ml Balance 900 ml 480 ml Exam nad no mrg lungs clear abd soft no rashes Results Result Diagram: 12/07/16 0454 Medications Medications Current Medications Morphine Sulfate (morphine) 3 mg Q4H PRN IV PAIN Last administered on 05:11; Admin Dose 3 MG; Start 12/01/16 at 00:00 Ondansetron HCl (Zofran Inj) 4 mg Q6H PRN IV NAUSEA AND/OR VOMITING Last administered on 12/02/16 08:40; Admin Dose 4 MG; Start 12/02/16 at 00:00 Pantoprazole (Protonix Tab) 40 mg BID@06,18 PO Last administered on 12/08/16 05:46; Admin Dose 40 MG; Start 12/06/16 at 18:00 Ferrous Sulfate (Ferrous Sulfate (Ec)) 325 mg BID PO Last administered on 20:43; Admin Dose 325 MG; Start 12/06/16 at 21:00 CHERELLE THORNTON MD Dec 08, 2016 17:35
[2016-12-08 20:40] VITALS: BP_SYST 118; BP_SYST 174; BP_DIAS 74; BP_DIAS 90; RESP 19; RESP 20
--- NOTE | 2016-12-08 22:42 | CONS ---
DATE OF ADMISSION: 11/30/2016 DATE OF CONSULTATION: 12/08/2016 MEDICAL ONCOLOGY CONSULTATION REQUESTING PHYSICIAN: Dr. Perlita Dubois. REASON FOR CONSULTATION: Colon carcinoma. Dr. Dubois: Thank you very much for asking me to see this very interesting and pleasant patient in oncologic con sultation. As you know, Mr. Gonzales is a 51-year-old male who was admitted to [facility] on 11/30/2016. The patient presented to the emergency room at that time with complaints of i ncreasing abdominal pain as well as watery diarrhea. The patient states that his symptoms began approximately 1-1/2 months ago. Pain at that time was in termittent. In the past month, however, the pain has become increasingly severe and persistent. Th e pain was worsened by any oral intake and was also associated with increasing abdominal distention. The patient, as mentioned, did state he had multiple watery bowel movements per day. This had incre ased recently, so the patient was having 6 to 10 bowel movements per day. He denies, however, any m mahnaz or hematochezia. The patient states at the same time his appetite had been decreasing, and he feels he has lost appro ximately 7 or 8 pounds in the past month. He had not been experiencing any nausea or vomiting. The patient had not had any fevers, chills or night sweats. He states that he was given "penicillin " by a friend to take but this was without benefit. The patient has since undergone an upper GI endoscopy and colonoscopy performed by Dr. Summers. The patient was found to have evidence of a mass in the proximal ascending colon. This was biopsied and found to be invasive adenocarcinoma which was mildly differentiated and extensively ulcerated. Ot er biopsy in the mid ascending colon showed focal edema but no evidence of colitis or malignancy. T here was a rectal polyp which was not malignant. Upper GI endoscopy revealed chronic gastritis. Th ere were no H. pylori organisms identified. The patient has undergone a CT scan of the abdomen and pelvis. This demonstrated a thickening and i nflammatory changes in the ileocecal region with locally enlarged lymph nodes. There seemed to be s ome extension of the inflammatory process into the ascending and proximal transverse colon, the duod enum and the adjacent small bowel. There was no pneumoperitoneum noted. There was some hepatomegal y but no other abnormalities noted of the liver. The spleen, adrenal glands, kidneys and pancreas w ere normal. CT scan of the chest revealed no pulmonary parenchymal abnormalities. There was no med iastinal or hilar adenopathy noted. There were no pleural or pericardial effusions. Laboratory included on admission a white count of 18,400 with hemoglobin 11.3, hematocrit 34.4 and p latelet count is 535,000. MCV on admission was 90.5, MCH 29.7, MCHC 32.8, RDW 14.3. In less than 2 4 hours, the patient's hemoglobin had dropped to 9.4 and hematocrit 29.6. Yesterday, the patient's white count was 8500, hemoglobin 12.4, hematocrit 37.7 and platelet count 620,000. The patient did not receive any transfusion of blood products. Prothrombin time was 14.2 seconds, INR of 1.10, PTT is 32.9 seconds. Chemistry panel on admission w as normal except for a total protein of 8.2 with a globulin of 4.50. Iron studies include an iron o f 16, total iron binding capacity of 265, percent saturation of 6% and a ferritin of 162. CEA is 6. 2. The patient has had 3 blood cultures which showed no growth after 5 days. Stool cultures revealed t he expected coliform organisms. C. difficile toxin was negative. The patient states that at the present time he is feeling better. He has less complaints of abdomin al pain. Diarrhea apparently has resolved. Prior to admission, the patient was taking no medication. At the present time, the patient is takin . Ferrous sulfate 325 mg twice a day. 2. Pantoprazole 40 mg twice a day. 3. Ondansetron 4 mg IV q.6 hours p.r.n. 4. P.r.n. morphine. The patient was also treated previously with Zosyn as well as metronidazole and levofloxacin. The p atient has received 375 mg of elemental iron in the form of ferric sodium gluconate in 3 different i nfusions. PAST MEDICAL HISTORY: Unremarkable. He denies any history of hypertension, heart disease, diabetes , renal, hepatic or pulmonary disease. He has never been hospitalized in the past. He has had no p revious surgeries. The patient has never had a colonoscopy in the past. MEDICATIONS: As noted, the patient takes no medications. ALLERGIES: HE HAS NO KNOWN ALLERGIES. SOCIAL HISTORY: The patient is from his with whom he had been for over 20 ye ars. 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 The patient does not smoke but does report that he does drink 4 to 6 b eers per day. FAMILY HISTORY: Unremarkable. He denies that there is any family history of malignancy, colorectal carcinoma or inflammatory bowel disease. Denies any other malignancies. PHYSICAL EXAMINATION GENERAL: At this time reveals a well-developed, well-nourished male who is in no acute distress. VITAL SIGNS: Temperature 98, pulse 77 per minute and regular, respirations 20, blood pressure 109/7 6 and pulse oximetry is 98% on room air. SKIN: No ecchymosis, no petechiae or rashes. The patient does have a tattoo on his left forearm. HEENT: Normocephalic. No evidence of trauma. Pupils equal, round and react to light and accommoda tion. Sclerae are nonicteric. Oral mucosa is moist without lesions. Tongue is well papillated. T here is no gingival hyperplasia, no hypertrophy of Waldeyer ring, no mucosal telangiectasias. NECK: Supple, no jugular venous distention or thyroid enlargement. No carotid bruits. CHEST: Clear to auscultation and percussion. No rhonchi, wheezes, rales or rubs. There is no pain on percussion of the spine, sternum, clavicles or ribs. BREASTS: No gynecomastia. HEART: Regular sinus rhythm. No S3, S4 or murmurs. No rubs. NODES: No palpable lymphadenopathy in the lymph node-bearing area. ABDOMEN: Flat and soft. There are no masses or ascites. Bowel sounds are active. There is minima l tenderness on palpation of the lower abdomen. There is no rebound tenderness. No ascites. No he rnia defects. EXTREMITIES: Good range of motion. No clubbing, no edema or cyanosis. No palpable cords or Homans ' sign. NEUROLOGIC: Normal. DISCUSSION: This patient does have a biopsy-proven invasive carcinoma of the proximal ascending col on. Other biopsies of the colonic mucosa do not show any evidence of colitis or other inflammatory bowel process. The CT scan of the chest, abdomen and pelvis does show evidence of a thickened wall in the ascending colon and structures surrounding this area. There is lymphadenopathy surrounding the inflammatory mass as well. I have discussed the situation with the patient who is aware that the colonic biopsy has demonstrate d an invasive carcinoma and that surgical resection will be necessary. I have discussed with him the fact that any further treatment will depend upon the findings at the t pernell of surgery. As noted, he has no evidence of systemic disease. The enlarged lymph nodes may rep resent metastatic carcinoma or may be only hypertrophied in reaction to the local inflammation. As noted, the patient has no obvious perforation, although perforation may have been walled off. The patient did have a CEA of 6.2. He states he has not been a smoker and, therefore, this mild rosa vation cannot be attributed to cigarette smoking. Repeat CEA should be done approximately 2 weeks after surgical resection in order to determine the c ompleteness of resection. If the CEA does return to normal, it can then be used as a parameter to b e followed for possible tumor recurrence in the future. I have told the patient that further treatment with chemotherapy may be indicated, but this will dep end upon the findings at surgery. Once again, thank you very much for the opportunity of participating in the medical care of this desiree y interesting and pleasant patient. I will be happy to follow this patient with you and assist in h is oncologic evaluation and followup as necessary. Dictated By: MARTINE ROSENBERG MD, SR/CLAUDIA Conf#: [id number] DID#: [id number]
[2016-12-09] MEDS: morphine 4 MG/ML VIAL IV PRN ×2 (01:38→08:37)
[2016-12-09 02:46] VITALS: BP 108/82; RESP 19
[2016-12-09] MEDS: PANTOPRAZOLE (EC) 40 MG TAB PO SCH ×2 (06:04→18:32)
[2016-12-09 07:30] VITALS: BP 116/78; RESP 16
[2016-12-09] MEDS: FERROUS SULFATE (EC) 325 MG TAB PO SCH ×2 (08:36→21:56)
--- NOTE | 2016-12-09 11:29 | PN ---
Date/Time of Note Date/Time of Note DATE: 12/09/16 TIME: 11:28 Assessment/Plan VTE Prophylaxis VTE Prophylaxis Intervention: SCD's Lines/Catheters IV Catheter Type (from [facility] [place]): Saline Lock Urinary Cath still in place: No Assessment/Plan Assessment/Plan 51 yo M admitted for abd pain, imaging notable for colitis. Endoscopies 10.30 notable for colon mass (path with adenoCa) and gastritis, duodenal ulcer PLAN colon Ca:. general surgery already on consult. possible surgical resection early next week medical oncology on consult PPI pt with DARREN from colon ca--> PO iron rx'ed general diet Subjective 24 Hr Interval Summary Free Text/Dictation nad. sister wondering about post operative care Exam/Review of Systems Vital Signs Vitals Vital Signs Date Time Temp Pulse Resp B/P Pulse Ox O2 Delivery O2 Flow Rate FiO2 12/09/16 07:30 97.5 77 16 116/78 100 12/05/16 17:53 Room Air Intake and Output 12/08/16 12/08/16 12/09/16 15:00 23:00 07:00 Intake Total 960 ml 60 ml Balance 960 ml 60 ml Exam nad resp nonlabored abd nondistended no edema no rashes Results Result Diagram: 12/07/16 0454 Medications Medications Current Medications Morphine Sulfate (morphine) 3 mg Q4H PRN IV PAIN Last administered on 08:37; Admin Dose 3 MG; Start 12/01/16 at 00:00 Ondansetron HCl (Zofran Inj) 4 mg Q6H PRN IV NAUSEA AND/OR VOMITING Last administered on 12/02/16 08:40; Admin Dose 4 MG; Start 12/02/16 at 00:00 Pantoprazole (Protonix Tab) 40 mg BID@06,18 PO Last administered on 12/09/16 06:04; Admin Dose 40 MG; Start 12/06/16 at 18:00 Ferrous Sulfate (Ferrous Sulfate (Ec)) 325 mg BID PO Last administered on 08:36; Admin Dose 325 MG; Start 12/06/16 at 21:00 CHERELLE THORNTON MD Dec 09, 2016 11:29
--- NOTE | 2016-12-09 12:32 | PN ---
Date/Time of Note Date/Time of Note DATE: 12/09/16 TIME: 12:30 Assessment/Plan Lines/Catheters IV Catheter Type (from [facility]): Saline Lock Ferrer in Place (from [facility]): No Assessment/Plan Chief Complaint/Hosp Course 1. Colitis/ileitis: CT: extensive wall thickening and inflammatory change in the ileocecal region; most severe inflammatory process extends to the ascending and proximal transverse colon, the duodenum, and an adjacent small bowel loop with mild inflammatory change of the appendix; no free air or abscess (?ibd vs. other); s/p colonoscopy: Large mass with extreme friability and what appears to be the proximal ascending colon suspect for neoplasm. Multiple biopsies obtained. Localization tattoo applied; Rule out neoplasm versus inflammatory i.e. Crohn's disease; biopsy : Invasive adenocarcinoma, moderately well- differentiated, extensively ulcerated; CT without evidence of mets -Onc consult noted: surgical resection next week 2. Adjacent enlarged lymph nodes in ileocecal region: / #1 -as above 3. Distal esophagitis, Moderate gastritis and duodenal ulcer with significant scarring of the duodenal bulb -medical management -ppi 4. Malnutrition w hypoalbuminemia -optimize nutrition 5. Normocytic hypochromic anemia: -monitor -transfuse as needed -further workup per medical team Thank you. Patient seen and examined in collaboration with Dr. Rigo Youngblood. Problems: Subjective 24 Hr Interval Summary Onc consult noted and appreciated. Feels well. No c/o abdominal pain. + bowel function. No fevers, chills, sob, congested cough, cp, palpitations, boss, dizziness, n/v/d/dysuria. Exam/Review of Systems Vital Signs Vitals Vital Signs Date Time Temp Pulse Resp B/P Pulse Ox O2 Delivery O2 Flow Rate FiO2 12/09/16 07:30 97.5 77 16 116/78 100 12/05/16 17:53 Room Air Intake and Output 12/08/16 12/08/16 12/09/16 15:00 23:00 07:00 Intake Total 960 ml 60 ml Balance 960 ml 60 ml Exam Free Text/Dictation Constitutional: alert, oriented Psych: nl mood Head: atraumatic, normocephalic Eyes: nl conjunctiva, nl lids, nl sclera ENMT: mucosa pink and moist, nl nasal mucosa & septum Neck: non-tender, supple Respiratory: clear to auscultation, normal air movement Cardiovascular: nl pulses, regular rate and rhythm Gastrointestinal: bowel sounds, soft, non tender, No mass Musculoskeletal: nl extremities to inspection, nl gait and stance Extremities: normal pulses Neurological: nl mental status, nl speech, nl strength Skin: nl turgor, rash or lesions Results Result Diagram: 12/07/16 0454 [facility] CANTU NP Dec 09, 2016 12:32
[2016-12-09 14:19] VITALS: BP 121/84; RESP 16
--- NOTE | 2016-12-09 15:14 | PN ---
DATE: 12/09/2016 SUBJECTIVE: Mr. Gonzales states that he did have some increasing pain last night. This was not assoc iated with nausea or vomiting. It was located in the right lower quadrant. The patient required pa renteral morphine for control of pain. OBJECTIVE: GENERAL: The patient is a well-developed, well-nourished male in no acute distress. VITAL SIGNS: Temperature 97.5, pulse 77 per minute and regular, respirations 16, blood pressure 116 /78, pulse oximetry is 100% on room air. SKIN: No ecchymosis, no petechiae or rashes. The patient does have tattoos. HEENT: Normocephalic. No evidence of trauma. Pupils equal, round, react to light and accommodatio n. Sclerae nonicteric. Oral mucosa is moist without lesions. Tongue is well papillated. NECK: Supple. There is no jugular venous distention or thyroid enlargement. CHEST: Clear to auscultation and percussion. No rhonchi, wheezes, rales or rubs. BREASTS: No gynecomastia. HEART: Regular sinus rhythm, no S3, S4 or murmurs. ABDOMEN: Minimally distended. Soft, but there is some tenderness and guarding on palpation in the right lower quadrant. There is no rebound tenderness. Bowel sounds are active. There are no herni a defects. EXTREMITIES: Good range of motion. No clubbing, no edema or cyanosis. No palpable cords or Alfa' s sign. NEUROLOGIC: Normal. White count is 8500. ASSESSMENT: Biopsy proven adenocarcinoma of the descending colon. DISCUSSION: The patient is scheduled to have surgery tentatively on 12/12/2016. As noted, the patient is receiving parenteral morphine for pain control. He is receiving only 3 mg every 4 hours p.r.n. This is a very small dose of morphine and I feel should be increased to give p atient adequate analgesia. I have advised the patient to request medication when the pain first becomes noticeable and not wait until the pain becomes increasingly severe, at which time it becomes harder to control. The patient's was present and I have discussed the situation again with her. She understands t hat any decision regarding further therapy will depend upon the results at the time of the patient's anticipated colon resection. Dictated By: MARTINE ROSENBERG MD, SR/CLAUDIA Conf#: [id number] [facility]#: [id number]
[2016-12-09] MEDS ORDERED: HYDROmorphONE 2 MG/ML SYG IV STA (15:30)
[2016-12-09] MEDS: HYDROmorphONE 1 MG/ML SYG IV PRN ×2 (16:16→19:47)
--- NOTE | 2016-12-09 17:45 | PN ---
Date/Time of Note Date/Time of Note DATE: 12/09/16 TIME: 17:42 Assessment/Plan VTE Prophylaxis VTE Prophylaxis Intervention: SCD's Lines/Catheters IV [facility] Type (from [facility]): Saline Lock Urinary Cath still in place: No Assessment/Plan Chief Complaint/Hosp Course Summary Assessment and Plan: Assessment: Low-grade anemia-possibly related to colitis Colitis EGD 12/05 Distal esophagitis. Moderate gastritis. Rule out H. pylori infection. Biopsies obtained Linear duodenal ulcer with significant scarring of the duodenal bulb. Colonoscopy 12/05 Large mass with extreme friability and what appears to be the proximal ascending colon suspect for neoplasm. Multiple biopsies obtained. Localization tattoo applied Rule out neoplasm versus inflammatory i.e. Crohn's disease An area of narrowing in inflammatory changes in the distal ascending and transverse colon. Biopsies obtained. Localization tattoo applied to the distal margin Moderate-sized internal hemorrhoids Discussion the findings of this examination are not typical for inflammatory bowel disease although it conceivably be that the mass in the cecum is typical inflammatory in nature Plan: Continue to monitor H/H transfuse as needed Pathology-consistent with adenocarcinoma Tolerating diet well Patient states plan for surgery this coming Monday or Monday CT abdomen/pelvis reviewed and copied below Atherosclerosis. Coronary artery calcification. Marked diffuse thickening of the wall of the terminal ileum, cecum, ascending colon, hepatic flexure with surrounding mesenteric edema and adjacent mesenteric lymphadenopathy. This may be due to an inflammatory process or neoplasm. No evidence of distant metastatic disease. Degenerative changes of the spine. Patient seen in collaboration with Dr. Summers Subjective: Course reviewed with nursing staff Patient interviewed and examined All labs, imaging and other results reviewed Patient remained stable currently sitting up in bed eating dinner States his plan for surgery will be this coming Monday or Monday Currently denies any abdominal pain nausea, vomiting PHYSICAL EXAMINATION: GENERAL: Well developed, well nourished, alert & oriented x 3, in no acute distress SKIN: No lesions, no stigmata chronic liver disease, no evidence of bleeding diathesis LYMPHATIC: No palpable lymphadenopathy. HEAD: Normocephalic, atraumatic, no tenderness. EYES: Pupils equal reactive to light and accommodation, full extraocular movements, sclera clear, non-icteric, no discharge. EARS/NOSE AND THROAT: Ears normal, nose normal, oropharynx normal, oral membranes well hydrated without lesions. NECK: Supple, no masses, thyroid normal, JVP within normal limits, carotids normal without bruits. CHEST: Inspection within normal limits. CARDIOVASCULAR: Heart: Regular rate and rhythm, no murmurs, gallops or rubs. Peripheral pulses present within normal limits, no cyanosis, clubbing or edemas. No pulsatile abdominal mass RESPIRATORY: Lungs clear to auscultation and percussion, no wheezing, no rubs GASTROINTESTINAL AND LIVER: Abdomen: Soft, epigastric , and lower abdominal tenderness with palpation, non-distended, no hernias, no masses, no organomegaly , no ascites, no guarding, normoactive bowel sounds. Rectal: Deferred. GENITOURINARY: Male genitalia within normal limits. EXTREMITIES: No cyanosis, clubbing or edema. Problems: Exam/Review of Systems Vital Signs Vitals Vital Signs Date Time Temp Pulse Resp B/P Pulse Ox O2 Delivery O2 Flow Rate FiO2 12/09/16 14:19 98.0 86 16 121/84 99 12/05/16 17:53 Room Air Intake and Output 12/08/16 12/08/16 12/09/16 15:00 23:00 07:00 Intake Total 960 ml 60 ml Balance 960 ml 60 ml Results Result Diagram: 12/07/16 0454 Medications Medications Current Medications Ondansetron HCl (Zofran Inj) 4 mg Q6H PRN IV NAUSEA AND/OR VOMITING Last administered on 12/02/16 08:40; Admin Dose 4 MG; Start 12/02/16 at 00:00 Pantoprazole (Protonix Tab) 40 mg BID@06,18 PO Last administered on 12/09/16 06:04; Admin Dose 40 MG; Start 12/06/16 at 18:00 Ferrous Sulfate (Ferrous Sulfate (Ec)) 325 mg BID PO Last administered on 08:36; Admin Dose 325 MG; Start 12/06/16 at 21:00 Hydromorphone HCl (Dilaudid) 1 mg Q3H PRN IV PAIN Last administered on 16:16; Admin Dose 1 MG; Start 12/09/16 at 16:00 PAM RENEE Dec 09, 2016 17:45
[2016-12-09 20:59] VITALS: BP 119/77; RESP 18
[2016-12-10 02:14] VITALS: BP 114/81; RESP 18
[2016-12-10] MEDS: PANTOPRAZOLE (EC) 40 MG TAB PO SCH ×2 (05:22→17:07)
[2016-12-10 08:05] VITALS: BP 109/72; RESP 18
[2016-12-10] MEDS: FERROUS SULFATE (EC) 325 MG TAB PO SCH ×2 (09:02→21:11)
--- NOTE | 2016-12-10 11:06 | PN ---
Date/Time of Note Date/Time of Note DATE: 12/10/16 TIME: 11:06 Assessment/Plan VTE Prophylaxis VTE Prophylaxis Intervention: SCD's Lines/Catheters IV Catheter Type (from Nrs): Saline Lock Urinary Cath still in place: No Assessment/Plan Assessment/Plan 51 yo M admitted for abd pain, imaging notable for colitis. Endoscopies 10.30 notable for colon mass (path with adenoCa) and gastritis, duodenal ulcer PLAN colon Ca:. general surgery already on consult. possible surgical resection early next week medical oncology on consult PPI pt with DARREN from colon ca--> PO iron rx'ed general diet Subjective 24 Hr Interval Summary Free Text/Dictation Sleeping this AM Exam/Review of Systems Vital Signs Vitals Vital Signs Date Time Temp Pulse Resp B/P Pulse Ox O2 Delivery O2 Flow Rate FiO2 12/10/16 08:05 98.3 81 18 109/72 98 Intake and Output 12/09/16 12/09/16 12/10/16 15:00 23:00 07:00 Intake Total 450 ml Balance 450 ml Exam nad no mrg lungs clear abd soft no rashes Results Result Diagram: 12/07/16 0454 Medications Medications Current Medications Ondansetron HCl (Zofran Inj) 4 mg Q6H PRN IV NAUSEA AND/OR VOMITING Last administered on 12/02/16 08:40; Admin Dose 4 MG; Start 12/02/16 at 00:00 Pantoprazole (Protonix Tab) 40 mg BID@06,18 PO Last administered on 12/10/16 05:22; Admin Dose 40 MG; Start 12/06/16 at 18:00 Ferrous Sulfate (Ferrous Sulfate (Ec)) 325 mg BID PO Last administered on 09:02; Admin Dose 325 MG; Start 12/06/16 at 21:00 Hydromorphone HCl (Dilaudid) 1 mg Q3H PRN IV PAIN Last administered on 19:47; Admin Dose 1 MG; Start 12/09/16 at 16:00 CHERELLE THORNTON MD Dec 10, 2016 11:06
--- NOTE | 2016-12-10 11:26 | QN ---
Documentation Comment Pt is sleeping quietly at this time. Surgery for biopsy proven colon cancer is tentatively scheduled for 12/12. We will f/u on path then. Further plans depend up the surgical staging and the marker studies that would be found on the tumor cells. Note that CEA is 6.2. CHIARA TOLENTINO MD Dec 10, 2016 11:26
[2016-12-10 14:03] VITALS: BP 132/86; RESP 18
--- NOTE | 2016-12-10 17:25 | PN ---
Date/Time of Note Date/Time of Note DATE: 12/10/16 TIME: 17:22 Assessment/Plan Lines/Catheters IV Catheter Type (from [facility]): Saline Lock Ferrer in Place (from [facility]): No Assessment/Plan Chief Complaint/Hosp Course 1. Colitis/ileitis: Large mass with extreme friability and what appears to be the proximal ascending colon suspect for neoplasm. biopsy : Invasive adenocarcinoma, moderately well-differentiated, extensively ulcerated; CT without evidence of mets; Onc consult noted -surgical resection next week 2. Adjacent enlarged lymph nodes in ileocecal region: 2/2 #1 -as above 3. Distal esophagitis, Moderate gastritis and duodenal ulcer with significant scarring of the duodenal bulb -medical management -ppi 4. Malnutrition w hypoalbuminemia -optimize nutrition 5. Normocytic hypochromic anemia: -monitor -transfuse as needed -further workup per medical team Thank you. Patient seen and examined in collaboration with Dr. Rigo Youngblood. Problems: Subjective 24 Hr Interval Summary Feels well. No c/o abdominal pain. Pending surgery. No fevers, chills, sob, congested cough, cp, palpitations, boss, dizziness, n/v/d/dysuria. Exam/Review of Systems Vital Signs Vitals Vital Signs Date Time Temp Pulse Resp B/P Pulse Ox O2 Delivery O2 Flow Rate FiO2 12/10/16 14:03 98.0 83 18 132/86 98 Intake and Output 12/09/16 12/09/16 12/10/16 15:00 23:00 07:00 Intake Total 450 ml Balance 450 ml Exam Free Text/Dictation Constitutional: alert, oriented Psych: nl mood Head: atraumatic, normocephalic Eyes: nl conjunctiva, nl lids, nl sclera ENMT: mucosa pink and moist, nl nasal mucosa & septum Neck: non-tender, supple Respiratory: clear to auscultation, normal air movement Cardiovascular: nl pulses, regular rate and rhythm Gastrointestinal: bowel sounds, soft, non tender, No mass Musculoskeletal: nl extremities to inspection, nl gait and stance Extremities: normal pulses Neurological: nl mental status, nl speech, nl strength Skin: nl turgor, rash or lesions Results Result Diagram: 12/07/16 0454 MC CANTU NP Dec 10, 2016 17:25
[2016-12-10 19:56] VITALS: BP 123/81; RESP 18
[2016-12-11 01:54] VITALS: BP 115/78; RESP 17
[2016-12-11] MEDS: HYDROmorphONE 1 MG/ML SYG IV PRN ×3 (04:34→11:25)
[2016-12-11] MEDS: PANTOPRAZOLE (EC) 40 MG TAB PO SCH ×2 (05:22→17:31)
[2016-12-11] MEDS: FERROUS SULFATE (EC) 325 MG TAB PO SCH ×2 (08:00→21:06)
--- NOTE | 2016-12-11 10:44 | QN ---
Documentation Comment Awaiting surgery that is tentatively scheduled for tomorrow. Further comment after pathology is available. CHIARA TOLENTINO MD Dec 11, 2016 10:44
--- NOTE | 2016-12-11 12:00 | PN ---
Date/Time of Note Date/Time of Note DATE: 12/11/16 TIME: 11:59 Assessment/Plan VTE Prophylaxis VTE Prophylaxis Intervention: SCD's Lines/Catheters IV Catheter Type (from Nrsg): Saline Lock Urinary Cath still in place: No Assessment/Plan Assessment/Plan 51 yo M admitted for abd pain, imaging notable for colitis. Endoscopies 10.30 notable for colon mass (path with adenoCa) and gastritis, duodenal ulcer PLAN inc pain meds colon Ca:. general surgery already on consult. possible surgical resection early next week medical oncology on consult PPI pt with DARREN from colon ca--> PO iron rx'ed general diet Subjective 24 Hr Interval Summary Free Text/Dictation Pain control not yet adequate Exam/Review of Systems Vital Signs Vitals Vital Signs Date Time Temp Pulse Resp B/P Pulse Ox O2 Delivery O2 Flow Rate FiO2 12/11/16 01:54 98.1 69 17 115/78 99 Intake and Output 12/10/16 12/10/16 12/11/16 15:00 23:00 07:00 Intake Total 2260 ml 700 ml Balance 2260 ml 700 ml Exam nad no mrg lungs clear abd soft no rashes Results Result Diagram: 12/07/16 0454 Medications Medications Current Medications Ondansetron HCl (Zofran Inj) 4 mg Q6H PRN IV NAUSEA AND/OR VOMITING Last administered on 12/02/16 08:40; Admin Dose 4 MG; Start 12/02/16 at 00:00 Pantoprazole (Protonix Tab) 40 mg BID@06,18 PO Last administered on 12/11/16 05:22; Admin Dose 40 MG; Start 12/06/16 at 18:00 Ferrous Sulfate (Ferrous Sulfate (Ec)) 325 mg BID PO Last administered on 08:00; Admin Dose 325 MG; Start 12/06/16 at 21:00 Hydromorphone HCl (Dilaudid) 1 mg Q3H PRN IV PAIN Last administered on 11:25; Admin Dose 1 MG; Start 12/09/16 at 16:00 CHERELLE THORNTON MD Dec 11, 2016 12:00
--- NOTE | 2016-12-11 12:20 | PN ---
Date/Time of Note Date/Time of Note DATE: 12/11/16 TIME: 12:17 Assessment/Plan Lines/Catheters IV Catheter Type (from [facility]): Saline Lock Ferrer in Place (from Nrs): No Assessment/Plan Chief Complaint/Hosp Course 1. Colitis/ileitis: Large mass with extreme friability and what appears to be the proximal ascending colon suspect for neoplasm. biopsy : Invasive adenocarcinoma, moderately well-differentiated, extensively ulcerated; CT without evidence of mets; Onc consult noted -surgical resection next week -pain management 2. Adjacent enlarged lymph nodes in ileocecal region: 2/ #1 -as above 3. Distal esophagitis, Moderate gastritis and duodenal ulcer with significant scarring of the duodenal bulb -medical management -ppi 4. Malnutrition w hypoalbuminemia -optimize nutrition 5. Normocytic hypochromic anemia: -monitor -transfuse as needed -further workup per medical team Thank you. Patient seen and examined in collaboration with Dr. Rigo Youngblood. Problems: Subjective 24 Hr Interval Summary Abd pain in right upper quad - improved with pain meds. +bowel function. No fevers, chills, sob, congested cough, cp, palpitations, boss, dizziness, n/v/d/ dysuria. Exam/Review of Systems Vital Signs Vitals Vital Signs Date Time Temp Pulse Resp B/P Pulse Ox O2 Delivery O2 Flow Rate FiO2 12/11/16 01:54 98.1 69 17 115/78 99 Intake and Output 12/10/16 12/10/16 12/11/16 15:00 23:00 07:00 Intake Total 2260 ml 700 ml Balance 2260 ml 700 ml Exam Free Text/Dictation Constitutional: alert, oriented Psych: nl mood Head: atraumatic, normocephalic Eyes: nl conjunctiva, nl lids, nl sclera ENMT: mucosa pink and moist, nl nasal mucosa & septum Neck: non-tender, supple Respiratory: clear to auscultation, normal air movement Cardiovascular: nl pulses, regular rate and rhythm Gastrointestinal: bowel sounds, soft, non tender, No mass Musculoskeletal: nl extremities to inspection, nl gait and stance Extremities: normal pulses Neurological: nl mental status, nl speech, nl strength Skin: nl turgor, rash or lesions Results Result Diagram: 12/07/16 0454 MC CANTU NP Dec 11, 2016 12:20
[2016-12-11 14:00] VITALS: BP 121/81; RESP 18
[2016-12-11] MEDS: HYDROmorphONE 2 MG/ML SYG IV PRN ×2 (15:39→19:20)
[2016-12-11 20:03] VITALS: BP 111/76; RESP 18
[2016-12-12 02:08] VITALS: BP 116/72; RESP 18
[2016-12-12] MEDS: PANTOPRAZOLE (EC) 40 MG TAB PO SCH ×2 (06:03→18:00)
[2016-12-12 07:50] VITALS: BP 116/72; PULSE 60; RESP 14
[2016-12-12] MEDS: FERROUS SULFATE (EC) 325 MG TAB PO SCH ×2 (09:45→22:00)
--- NOTE | 2016-12-12 11:02 | PN ---
Date/Time of Note Date/Time of Note DATE: 12/12/16 TIME: 11:00 Assessment/Plan Lines/Catheters IV Catheter Type (from [facility]): Saline Lock Ferrer in Place (from [facility]): No Assessment/Plan Chief Complaint/Hosp Course 1. Colitis/ileitis: Large mass with extreme friability and what appears to be the proximal ascending colon suspect for neoplasm. biopsy : Invasive adenocarcinoma, moderately well-differentiated, extensively ulcerated; CT without evidence of mets; Onc consult noted -surgical resection likely tomorrow -pain management 2. Adjacent enlarged lymph nodes in ileocecal region: 2/ #1 -as above 3. Distal esophagitis, Moderate gastritis and duodenal ulcer with significant scarring of the duodenal bulb -medical management -ppi 4. Malnutrition w hypoalbuminemia -optimize nutrition 5. Normocytic hypochromic anemia: -monitor -transfuse as needed -further workup per medical team Thank you. Patient seen and examined in collaboration with Dr. Rigo Youngblood. Problems: Subjective 24 Hr Interval Summary Feels well. No c/o abdominal pain. No fevers, chills, sob, congested cough, cp, palpitations, boss, dizziness, n/v/d/dysuria. Pending surgery-likely tomorrow. Exam/Review of Systems Vital Signs Vitals Vital Signs Date Time Temp Pulse Resp B/P Pulse Ox O2 Delivery O2 Flow Rate FiO2 12/12/16 07:50 98.1 60 14 116/72 99 Room Air Intake and Output 12/11/16 12/11/16 12/12/16 15:00 23:00 07:00 Intake Total 1160 ml 300 ml Balance 1160 ml 300 ml Exam Free Text/Dictation Constitutional: alert, oriented Psych: nl mood-pleasant eager for surgery Head: atraumatic, normocephalic Eyes: nl conjunctiva, nl lids, nl sclera ENMT: mucosa pink and moist, nl nasal mucosa & septum Neck: non-tender, supple Respiratory: clear to auscultation, normal air movement Cardiovascular: nl pulses, regular rate and rhythm Gastrointestinal: bowel sounds, soft, non tender, No mass Musculoskeletal: nl extremities to inspection, nl gait and stance Extremities: normal pulses Neurological: nl mental status, nl speech, nl strength Skin: nl turgor, rash or lesions MC CANTU NP Dec 12, 2016 11:02
--- NOTE | 2016-12-12 14:14 | PN ---
DATE: 12/12/2016 MEDICAL ONCOLOGY PROGRESS NOTE SUBJECTIVE: The patient continues to feel well. He does not complain of abdominal pain or nausea a nd vomiting. OBJECTIVE AND PHYSICAL EXAMINATION: GENERAL: The patient is a well-developed, well-nourished male in no acute distress. VITAL SIGNS: Temperature 98.1, pulse 60 per minute and regular, respirations 14, blood pressure 116 /72, pulse oximetry 99% on room air. SKIN: No ecchymosis, no petechiae or rashes. HEENT: No mucosal lesions. No scleral icterus. NECK: Supple. No jugular venous distention or thyroid enlargement. BREASTS: No gynecomastia. CHEST: Clear to auscultation and percussion. No rhonchi, wheezes, rales or rubs. HEART: Regular sinus rhythm. No S3, S4 or murmurs. No rubs. NODES: No palpable lymphadenopathy in lymph node bearing area. ABDOMEN: Soft. No masses or ascites. There is some tenderness in the right lower quadrant. No re bound tenderness. EXTREMITIES: Good range of motion. No clubbing, edema or cyanosis. No palpable cords or Homans si gn. LABORATORY DATA: There has been no laboratory drawn for at least 5 days. ASSESSMENT: Invasive adenocarcinoma of the ascending colon. PLAN: The patient is scheduled to undergo colon resection on 12/13/2016. As previously noted, any treatment will depend upon findings at the time of surgery, although it is likely that this patient will require adjuvant chemotherapy. When the colon specimen itself is available, we will also request further studies including KRAS and microsatellite instability testing. Dictated By: MARTINE ROSENBERG MD SR/NTS Conf#: [id number] DID#: [id number] CC: TATIANA MCCONNELL MD;*EndCC*
[2016-12-12 14:26] VITALS: BP 113/79; PULSE 63; RESP 16
--- NOTE | 2016-12-12 15:20 | PN ---
Date/Time of Note Date/Time of Note DATE: 12/12/16 TIME: 15:13 Assessment/Plan VTE Prophylaxis VTE Prophylaxis Intervention: SCD's Lines/Catheters IV C[facility]ter Type (from [facility]): Saline Lock Urinary Cath still in place: No Assessment/Plan Assessment/Plan 1. Invasive ascending colon adenocarcinoma, planned for surgical resection 2. Distal esophagitis, Moderate gastritis and duodenal ulcer with significant scarring of the duodenal bulb, PPI 3. Malnutrition w hypoalbuminemia 4. Normocytic hypochromic anemia: Subjective 24 Hr Interval Summary Free Text/Dictation no diarrhea, no nausea or chills. no abdominal pain Exam/Review of Systems Vital Signs Vitals Vital Signs Date Time Temp Pulse Resp B/P Pulse Ox O2 Delivery O2 Flow Rate FiO2 12/12/16 14:26 97.9 63 16 113/79 100 Room Air Intake and Output 12/11/16 12/11/16 12/12/16 15:00 23:00 07:00 Intake Total 1160 ml 300 ml Balance 1160 ml 300 ml Exam Constitutional: alert, oriented, well developed Psych: nl mood/affect, no complaints Head: atraumatic, normocephalic Eyes: EOMI, nl conjunctiva, nl lids ENMT: nl external ears & nose, nl lips & teeth, nl nasal mucosa & septum Neck: non-tender, supple Respiratory: clear to auscultation, normal air movement, No congested cough, No crackles/rales, No diminished breath sounds, No intercostal retraction, No labored breathing, No other, No respirations, No tactile fremitus, No wheezing Cardiovascular: nl pulses, regular rate and rhythm, No S3, No S4, No bruits, No diastolic murmur, No edema, No gallop, No irregular rhythm, No jugular venous distention (JVD), No murmurs/extra sounds, No other, No rub, No systolic murmur Gastrointestinal: nl liver, spleen, non-tender, soft, No ascites, No bowel sounds, No distended, No firm, No hepatomegaly, No mass , No other, No rebound or guarding, No splenomegaly, No surgical scars, No tender Musculoskeletal: nl extremities to inspection Extremities: normal pulses, No calf tenderness, No clubbing, No cyanosis, No edema, No other, No palpable cord, No pitting pedal edema, No tenderness Neurological: [employer]ATMENT SPECIALIST II-XII intact, nl mental status, nl speech, nl strength Skin: nl turgor Medications Medications Current Medications Ondansetron HCl (Zofran Inj) 4 mg Q6H PRN IV NAUSEA AND/OR VOMITING Last administered on 12/02/16 08:40; Admin Dose 4 MG; Start 12/02/16 at 00:00 Pantoprazole (Protonix Tab) 40 mg BID@,18 PO Last administered on 12/12/16 06:03; Admin Dose 40 MG; Start 12/06/16 at 18:00 Ferrous Sulfate (Ferrous Sulfate (Ec)) 325 mg BID PO Last administered on 09:45; Admin Dose 325 MG; Start 12/06/16 at 21:00 Hydromorphone HCl (Dilaudid) 2 mg Q3H PRN IV PAIN Last administered on 19:20; Admin Dose 2 MG; Start 12/11/16 at 13:00 WALT CADENA MD Dec 12, 2016 15:20
[2016-12-12] MEDS: HYDROmorphONE 2 MG/ML SYG IV PRN (23:07)
[2016-12-12 23:55] VITALS: BP 122/78; RESP 18
[2016-12-13] MEDS: HYDROmorphONE 2 MG/ML SYG IV PRN ×2 (00:47→06:04)
[2016-12-13 02:49] VITALS: BP 109/75; RESP 17
[2016-12-13] MEDS: PANTOPRAZOLE (EC) 40 MG TAB PO SCH ×2 (05:31→17:30)
[2016-12-13 07:35] VITALS: BP 115/69; RESP 16
[2016-12-13] MEDS: FERROUS SULFATE (EC) 325 MG TAB PO SCH ×2 (08:06→20:33)
--- NOTE | 2016-12-13 12:35 | PN ---
Date/Time of Note Date/Time of Note DATE: 12/13/16 TIME: 12:34 Assessment/Plan Lines/Catheters IV Catheter Type (from [facility]): Saline Lock Ferrer in Place (from [facility]): No Assessment/Plan Chief Complaint/Hosp Course 1. Colitis/ileitis: Large mass with extreme friability and what appears to be the proximal ascending colon suspect for neoplasm. biopsy : Invasive adenocarcinoma, moderately well-differentiated, extensively ulcerated; CT without evidence of mets; Onc consult noted -surgical resection: 12/14 -pain management -bowel prep tonight 2. Adjacent enlarged lymph nodes in ileocecal region: 03/10 #1 -as above 3. Distal esophagitis, Moderate gastritis and duodenal ulcer with significant scarring of the duodenal bulb -medical management -ppi 4. Malnutrition w hypoalbuminemia -optimize nutrition 5. Normocytic hypochromic anemia: -monitor -transfuse as needed -further workup per medical team Thank you. Patient seen and examined in collaboration with Dr. Rigo Youngblood. Problems: Subjective 24 Hr Interval Summary Feeling well. No c/o abd pain. +bowel function. No fevers, chills, sob, congested cough, cp, palpitations, boss, dizziness, n/v/d/dysuria. Exam/Review of Systems Vital Signs Vitals Vital Signs Date Time Temp Pulse Resp B/P Pulse Ox O2 Delivery O2 Flow Rate FiO2 12/13/16 07:35 97.9 51 16 115/69 98 12/12/16 14:26 Room Air Intake and Output 12/12/16 12/12/16 12/13/16 15:00 23:00 07:00 Intake Total 480 ml Balance 480 ml Exam Free Text/Dictation Constitutional: alert, oriented Psych: nl mood-pleasant Head: atraumatic, normocephalic Eyes: nl conjunctiva, nl lids, nl sclera ENMT: mucosa pink and moist, nl nasal mucosa & septum Neck: non-tender, supple Respiratory: clear to auscultation, normal air movement Cardiovascular: nl pulses, regular rate and rhythm Gastrointestinal: bowel sounds, soft, non tender, No mass Musculoskeletal: nl extremities to inspection, nl gait and stance Extremities: normal pulses Neurological: nl mental status, nl speech, nl strength Skin: nl turgor, rash or lesions MC CANTU GAS DESULFURIZER Dec 13, 2016 12:35
[2016-12-13 14:20] VITALS: BP 123/83; RESP 16
[2016-12-13 14:48] LABS: INR 0.92; PROTIME 12.4 Sec (12.2-14.2)
--- NOTE | 2016-12-13 14:50 | PN ---
Date/Time of Note Date/Time of Note DATE: 12/13/16 TIME: 14:48 Assessment/Plan VTE Prophylaxis VTE Prophylaxis Intervention: SCD's Lines/Catheters IV [facility] Type [facility]from [facility] Saline Lock Urinary Cath still in place: No Assessment/Plan Assessment/Plan 1. Invasive ascending colon adenocarcinoma, planned for surgical resection for tomorrow 2. Distal esophagitis, Moderate gastritis and duodenal ulcer with significant scarring of the duodenal bulb, PPI 3. Malnutrition w hypoalbuminemia 4. Normocytic hypochromic anemia: 5. Acute gastroenteritis, resolved Subjective 24 Hr Interval Summary Free Text/Dictation no abdominal pain, no nausea or vomiting, no diarrhea Exam/Review of Systems Vital Signs Vitals Vital Signs Date Time Temp Pulse Resp B/P Pulse Ox O2 Delivery O2 Flow Rate FiO2 12/13/16 14:20 97.5 75 16 123/83 97 12/12/16 14:26 Room Air Intake and Output 12/12/16 12/12/16 12/13/16 14:59 22:59 06:59 Intake Total 480 ml Balance 480 ml Exam Constitutional: alert, oriented, well developed Psych: nl mood/affect, no complaints Head: atraumatic, normocephalic Eyes: EOMI, nl conjunctiva, nl lids ENMT: nl external ears & nose, nl lips & teeth, nl nasal mucosa & septum Neck: non-tender, supple Respiratory: clear to auscultation, normal air movement, No congested cough, No crackles/rales, No diminished breath sounds, No intercostal retraction, No labored breathing, No other, No respirations, No tactile fremitus, No wheezing Cardiovascular: nl pulses, regular rate and rhythm, No S3, No S4, No bruits, No diastolic murmur, No edema, No gallop, No irregular rhythm, No jugular venous distention (JVD), No murmurs/extra sounds, No other, No rub, No systolic murmur Gastrointestinal: nl liver, spleen, non-tender, soft Musculoskeletal: nl extremities to inspection Extremities: normal pulses, No calf tenderness, No clubbing, No cyanosis, No edema, No other, No palpable cord, No pitting pedal edema, No tenderness Neurological: 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 intact, nl mental status, nl speech, nl strength Skin: nl turgor Results Results 24 hrs Laboratory Tests Test 12/13/16 13:54 Prothrombin Time 12.4 Prothrombin Time Ratio 1.0 INR International Normalized Ratio 0.92 Medications Medications Current Medications Ondansetron HCl (Zofran Inj) 4 mg Q6H PRN IV NAUSEA AND/OR VOMITING Last administered on 12/02/16 08:40; Admin Dose 4 MG; Start 12/02/16 at 00:00 Pantoprazole (Protonix Tab) 40 mg BID@06,18 PO Last administered on 12/13/16 05:31; Admin Dose 40 MG; Start 12/06/16 at 18:00 Ferrous Sulfate (Ferrous Sulfate (Ec)) 325 mg BID PO Last administered on 08:06; Admin Dose 325 MG; Start 12/06/16 at 21:00 Hydromorphone HCl (Dilaudid) 2 mg Q3H PRN IV PAIN Last administered on 06:04; Admin Dose 2 MG; Start 12/11/16 at 13:00 Polyethylene Glycol/ Electrolytes (Golytely) 4,000 ml ONCE ONCE PO ; Start 12/13/16 at 18:00; Stop 12/13/16 at 18:01 WALT CADENA MD Dec 13, 2016 14:50
--- NOTE | 2016-12-13 16:52 | PN ---
Date/Time of Note Date/Time of Note DATE: 12/13/16 TIME: 16:50 Assessment/Plan VTE Prophylaxis VTE Prophylaxis Intervention: SCD's Lines/Catheters IV Catheter Type (from [facility]): Saline Lock Urinary Cath still in place: No Assessment/Plan Chief Complaint/Hosp Course Summary Assessment and Plan: Assessment: Low-grade anemia-possibly related to colitis Colitis EGD 12/05 Distal esophagitis. Moderate gastritis. Rule out H. pylori infection. Biopsies obtained Linear duodenal ulcer with significant scarring of the duodenal bulb. Colonoscopy 12/05 Large mass with extreme friability and what appears to be the proximal ascending colon suspect for neoplasm. Multiple biopsies obtained. Localization tattoo applied Rule out neoplasm versus inflammatory i.e. Crohn's disease An area of narrowing in inflammatory changes in the distal ascending and transverse colon. Biopsies obtained. Localization tattoo applied to the distal margin Moderate-sized internal hemorrhoids Discussion the findings of this examination are not typical for inflammatory bowel disease although it conceivably be that the mass in the cecum is typical inflammatory in nature Plan: Pathology-consistent with adenocarcinoma Plan for surgery tomorrow We will sign off, but will be available if needed Patient seen in collaboration with Dr. Summers Subjective: Course reviewed with nursing staff Patient interviewed and examined All labs, imaging and other results reviewed Patient stable plan for surgery tomorrow We will sign off but will be available if needed in any way Thank you for this consult PHYSICAL EXAMINATION: GENERAL: Well developed, well nourished, alert & oriented x 3, in no acute distress SKIN: No lesions, no stigmata chronic liver disease, no evidence of bleeding diathesis LYMPHATIC: No palpable lymphadenopathy. HEAD: Normocephalic, atraumatic, no tenderness. EYES: Pupils equal reactive to light and accommodation, full extraocular movements, sclera clear, non-icteric, no discharge. EARS/NOSE AND THROAT: Ears normal, nose normal, oropharynx normal, oral membranes well hydrated without lesions. NECK: Supple, no masses, thyroid normal, JVP within normal limits, carotids normal without bruits. CHEST: Inspection within normal limits. CARDIOVASCULAR: Heart: Regular rate and rhythm, no murmurs, gallops or rubs. Peripheral pulses present within normal limits, no cyanosis, clubbing or edemas. No pulsatile abdominal mass RESPIRATORY: Lungs clear to auscultation and percussion, no wheezing, no rubs GASTROINTESTINAL AND LIVER: Abdomen: Soft, epigastric , and lower abdominal tenderness with palpation, non-distended, no hernias, no masses, no organomegaly , no ascites, no guarding, normoactive bowel sounds. Rectal: Deferred. GENITOURINARY: Male genitalia within normal limits. EXTREMITIES: No cyanosis, clubbing or edema. Problems: Exam/Review of Systems Vital Signs Vitals Vital Signs Date Time Temp Pulse Resp B/P Pulse Ox O2 Delivery O2 Flow Rate FiO2 12/13/16 14:20 97.5 75 16 123/83 97 12/12/16 14:26 Room Air Intake and Output 12/12/16 12/12/16 12/13/16 14:59 22:59 06:59 Intake Total 480 ml Balance 480 ml Results Results 24 hrs Laboratory Tests Test 12/13/16 13:54 Prothrombin Time 12.4 Prothrombin Time Ratio 1.0 INR International Normalized Ratio 0.92 Medications Medications Current Medications Ondansetron HCl (Zofran Inj) 4 mg Q6H PRN IV NAUSEA AND/OR VOMITING Last administered on 12/02/16 08:40; Admin Dose 4 MG; Start 12/02/16 at 00:00 Pantoprazole (Protonix Tab) 40 mg BID@06,18 PO Last administered on 12/13/16 05:31; Admin Dose 40 MG; Start 12/06/16 at 18:00 Ferrous Sulfate (Ferrous Sulfate (Ec)) 325 mg BID PO Last administered on 08:06; Admin Dose 325 MG; Start 12/06/16 at 21:00 Hydromorphone HCl (Dilaudid) 2 mg Q3H PRN IV PAIN Last administered on 06:04; Admin Dose 2 MG; Start 12/11/16 at 13:00 Polyethylene Glycol/ Electrolytes (Golytely) 4,000 ml ONCE ONCE PO ; Start 12/13/16 at 18:00; Stop 12/13/16 at 18:01 PAM RENEE Dec 13, 2016 16:52
[2016-12-13] MEDS ORDERED: PEG/ELECTROLYTES 4L BTL PO ONE (18:00)
[2016-12-13 21:06] VITALS: BP 131/91; RESP 18
[2016-12-14] VITALS (22 sets, daily range): BP systolic 106–139; BP diastolic 66–85; PULSE 60–74; RESP 8–22
[2016-12-14] MEDS: PANTOPRAZOLE (EC) 40 MG TAB PO SCH ×2 (04:30→17:56)
[2016-12-14] MEDS ORDERED: metroNIDAZOLE 500 MG/100 ML NS IVPB ONE (07:00)
[2016-12-14] MEDS ORDERED: CEFAZOLIN 1 GM INJ ONE (07:00)
[2016-12-14] MEDS ORDERED: ROCURONIUM 50 MG INJ ONE ×2 (07:00→09:20)
[2016-12-14] MEDS: FERROUS SULFATE (EC) 325 MG TAB PO SCH ×2 (08:01→21:00)
--- NOTE | 2016-12-14 09:07 | PN ---
Date/Time of Note Date/Time of Note DATE: 12/14/16 TIME: 09:04 Assessment/Plan Lines/Catheters IV Catheter Type (from [facility]): Saline Lock Ferrer in Place (from [facility]): No Assessment/Plan Chief Complaint/Hosp Course 1. 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 Adjacent enlarged lymph nodes in ileocecal region: 03/10 #1 -as above 3. Distal esophagitis, Moderate gastritis and duodenal ulcer with significant scarring of the duodenal bulb -medical management -ppi 4. Malnutrition w hypoalbuminemia -optimize nutrition 5. Normocytic hypochromic anemia: -monitor -transfuse as needed Thank you, Problems: Exam/Review of Systems Vital Signs Vitals Vital Signs Date Time Temp Pulse Resp B/P Pulse Ox O2 Delivery O2 Flow Rate FiO2 12/14/16 08:00 97.0 77 20 106/66 96 12/14/16 05:27 Room Air Intake and Output 12/13/16 12/13/16 12/14/16 15:00 23:00 07:00 Intake Total 1000 ml 520 ml Balance 1000 ml 520 ml ROBIN PRESTON MD Dec 14, 2016 09:07
[2016-12-14] MEDS ORDERED: PROPOFOL 20 ML ONE (09:20)
[2016-12-14] MEDS ORDERED: MIDAZOLAM 1 MG/ML 2 ML INJ ONE (09:21)
[2016-12-14] MEDS ORDERED: ROPIVACAINE 0.5 % 30 ML VIAL ONE (09:21)
[2016-12-14] MEDS ORDERED: FENTAnyl 50 MCG/ML VIAL ONE (09:21)
[2016-12-14] MEDS ORDERED: morphine SULFATE/PF (10 MG/10 ML) INJ ONE (10:04)
[2016-12-14] MEDS ORDERED: ACETAMINOPHEN 1000MG/100ML IV 100 ML ONE (10:49)
[2016-12-14] MEDS ORDERED: LABETALOL HCL 20MG INJ ONE (10:54)
[2016-12-14] MEDS ORDERED: METOCLOPRAMIDE 10 MG INJ ONE (11:07)
[2016-12-14] MEDS ORDERED: ONDANSETRON 4 MG INJ ONE (11:07)
[2016-12-14] MEDS ORDERED: DEXAMETHASONE 4 MG/ML 1 ML INJ ONE (11:07)
[2016-12-14] MEDS ORDERED: MEPERIDINE 25 MG INJ IV PRN (11:30)
[2016-12-14] MEDS ORDERED: NALOXONE (0.4 MG/ML) INJ IV PRN ×3 (11:30→14:30)
[2016-12-14] MEDS ORDERED: DIPHENHYDRAMINE 50 MG INJ IV PRN ×2 (11:30)
[2016-12-14] MEDS ORDERED: FENTAnyl 50 MCG/ML VIAL IV PRN ×3 (11:30)
[2016-12-14] MEDS ORDERED: LABETALOL HCL 20MG INJ IV PRN (11:30)
[2016-12-14] MEDS ORDERED: METOCLOPRAMIDE 10 MG INJ IV PRN (11:30)
[2016-12-14] MEDS ORDERED: morphine (1 MG/ML) 10ML SYRINGE IV PRN ×3 (11:30)
[2016-12-14] MEDS ORDERED: ONDANSETRON 4 MG INJ IV PRN (11:30)
[2016-12-14] MEDS ORDERED: EPHEDrine SULFATE 50 MG/5 ML SYG IV PRN (11:30)
[2016-12-14] MEDS ORDERED: ALBUMIN HUMAN 5% 250 ML IV PRN (11:30)
[2016-12-14] MEDS ORDERED: NALBUPHINE HCL (10 MG/1 ML) INJ IV PRN (11:30)
[2016-12-14] MEDS ORDERED: HYDROmorphONE (0.2 MG/ML) 10ML SYG IV PRN ×3 (11:30)
[2016-12-14] MEDS ORDERED: hydrALAzine 20 MG INJ IV PRN (11:30)
[2016-12-14] MEDS ORDERED: PHENYLephrine (100 MCG/ML) 5ML SYG ONE (12:23)
[2016-12-14] MEDS ORDERED: SUGAMMADEX SODIUM 200 MG/2 ML VIAL IV ONE (13:19)
--- NOTE | 2016-12-14 14:02 | OPR ---
Date/Time of Note Date/Time of Note DATE: 12/14/16 TIME: 13:45 Operative Report Free Text/Dictation Preoperative Diagnosis: Ascending colon adenocarcinoma Postoperative Diagnosis: Large ascending colon adenocarcinoma with matted small bowel and large lymph nodes in mesentery Mass very close to duodenum Operation(s) Performed: 1. Laparoscopic converted to open exploration 2. Right colectomy 3. Small bowel resection (about 3 feet) 4. Laparoscopic implantation of xenograft biologic over the anastomosis for improved healing 5. Local anesthetic injection, 13485 Surgeon: ROBIN PRESTON MD Mask Former: Roxanna Alves NP Anesthesia: General, local, & regional Anesthesiologist: MD Molly Estimated Blood Loss: 100 ml's Specimens: Right colon Small bowel Tubes/Drains/Grafts: [ACell, 7 x 10 cm, 3 layer and 2 layer] Complications: None Pt Condition Post Procedure: stable Disposition: PACU Indications: Per notes Risks include but are not limited to bleeding, infection, abscess, seroma, leak , damage to intestines or any intra-abdominal/intrapelvic structures, hernia formation, chronic pain, need for re-operations or further surgeries, IL, stroke , PE, DVT, pneumonia, organ failures, or even . Procedure Description: Patient was brought in, placed supine on the operating table, SCDs were placed, and preoperative antibiotics administered. After induction of anesthesia, all pressure points were well-padded and timeout was performed. Local anesthetic was injected at all surgical sites. Incision was made in the left upper quadrant and using an Optiview 12 mm port and the 5 mm 0 scope abdomen was entered and insufflated to 15 mmHg with CO2. Laparoscopy with a 5 mm 30 scope did not identify any injuries. The tattooed right colon lesion was identified. There was a large mass in the right colon into the transverse with matting and attachment of segment of small bowel and the mesentery of small bowel to the mass. Under direct visualization 5 mm ports were placed in left lower quadrant and lower mid abdomen through her previous incision. Another 5 mm port was placed in supero-lateral left upper quadrant. Patient was placed in Trendelenburg and right side up. Appendix was identified. The right colon was mobilized off of the abdominal wall using scissors with complete hemostasis. The omentum was taken off the distal to proximal transverse colon using LigaSure. The peritoneum on the medial aspect of the proximal colon and transverse colon was not identifiable because of the matting of the tumor to a different segment of small bowel. The duodenum was also very close to this tumor. At this point decision was made to proceed to an open exploration and a midline incision was made and abdomen entered. Decision was made to resect about 3 feet of small bowel that was matted to the tumor along its mesentery. Transverse colon was transected transversely using [place] 60 blue load stapler. The peritoneum was opened medial transverse colon down into the mesentery of the small bowel. 2 right branch of the middle colic was taken with LigaSure and the mesentery of the small bowel and the right colon was also taken with LigaSure including the ileocolic vessel. At this point the duodenum was found to be adherent to the back of the tumor ball however I was able to find a plane between the 2 and separate them. The small bowel was transected with 60 blue [place] stapler as well. The specimen was removed in its entirety and sent to pathology where they confirmed the margins to be clear on the bowel. Abdomen was irrigated with warm water to clear suctioning fluid. There was complete hemostasis. No other tumors were identified. Liver was without any pathology. Pelvis is without pathology. The small bowel was placed [id number] along the transverse colon and stay sutures were placed using 3-0 silk sutures. Enterotomies were created in both structures and 1 firings of echelon 60 blue loads were used to create the anastomosis. Crotch stitch was placed 2 using same silk suture. The open end of the anastomosis was stapled using TA 60 blue. The staple line was reinforced with the 2-0 silk Lembert suture in a running fashion. To allow improved healing of the anastomosis, 7 x 10 cm 2 layer ACell, xenograft biologic sheet was placed over the anastomosis. And another 3 layer was placed over the duodenal dissection area. Omentum was pulled over the anastomosis. There was complete hemostasis. Peritoneum was closed with 3-0 Vicryl suture in a running fashion. The fascia was approximated using loop PDS sutures 2. Skin was closed with montserrat. Dressing was applied.. All counts were correct and the end of the operation 2. ROBIN PRESTON MD Dec 14, 2016 14:01
[2016-12-14] MEDS ORDERED: HYDROmorphONE 0.2 MG/ML PCA IV SCH ×2 (14:30)
--- NOTE | 2016-12-14 15:21 | PN ---
Date/Time of Note Date/Time of Note DATE: 12/14/16 TIME: 15:18 Assessment/Plan VTE Prophylaxis VTE Prophylaxis Intervention: SCD's Lines/Catheters IV Catheter Type (from [facility]): Saline Lock Urinary Cath still in place: No Assessment/Plan Assessment/Plan 1. Invasive ascending colon adenocarcinoma, s/p right colectomy 12/14/2016, follow up with surgery 2. Distal esophagitis, Moderate gastritis and duodenal ulcer with significant scarring of the duodenal bulb, PPI 3. Malnutrition w hypoalbuminemia 4. Normocytic hypochromic anemia: 5. Acute gastroenteritis, resolved Subjective 24 Hr Interval Summary Free Text/Dictation just back from surgery. full alert, no distress Exam/Review of Systems Vital Signs Vitals Vital Signs Date Time Temp Pulse Resp B/P Pulse Ox O2 Delivery O2 Flow Rate FiO2 12/14/16 15:05 20 12/14/16 14:50 66 109/72 99 12/14/16 14:40 Room Air 12/14/16 13:44 98.6 Intake and Output 12/13/16 12/13/16 12/14/16 15:00 23:00 07:00 Intake Total 1000 ml 520 ml Balance 1000 ml 520 ml Exam Constitutional: alert, oriented, well developed Psych: nl mood/affect, no complaints Head: atraumatic, normocephalic Eyes: EOMI, PERRL, nl conjunctiva, nl lids ENMT: mucosa pink and moist, nl external ears & nose, nl lips & teeth, nl nasal mucosa & septum Neck: non-tender, supple Respiratory: clear to auscultation, normal air movement, No congested cough, No crackles/rales, No diminished breath sounds, No intercostal retraction, No labored breathing, No other, No respirations, No tactile fremitus, No wheezing Cardiovascular: nl pulses, regular rate and rhythm, No S3, No S4, No bruits, No diastolic murmur, No edema, No gallop, No irregular rhythm, No jugular venous distention (JVD), No murmurs/extra sounds, No other, No rub, No systolic murmur Gastrointestinal: soft Musculoskeletal: nl extremities to inspection Extremities: normal pulses, No calf tenderness, No clubbing, No cyanosis, No edema, No other, No palpable cord, No pitting pedal edema, No tenderness Neurological: 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 II-XII intact, nl mental status, nl speech, nl strength Skin: nl turgor Medications Medications Current Medications Ondansetron HCl (Zofran Inj) 4 mg Q6H PRN IV NAUSEA AND/OR VOMITING Last administered on 12/02/16 08:40; Admin Dose 4 MG; Start 12/02/16 at 00:00 Pantoprazole (Protonix Tab) 40 mg BID@06,18 PO Last administered on 12/13/16 17:30; Admin Dose 40 MG; Start 12/06/16 at 18:00 Ferrous Sulfate (Ferrous Sulfate (Ec)) 325 mg BID PO Last administered on 08:01; Admin Dose 325 MG; Start 12/06/16 at 21:00 Hydromorphone HCl (Dilaudid) 2 mg Q3H PRN IV PAIN Last administered on 06:04; Admin Dose 2 MG; Start 12/11/16 at 13:00 Diphenhydramine HCl (Benadryl) 25 mg Q4H PRN IV PRURITUS; Start 12/14/16 at 11: 30 Nalbuphine HCl (Nubain) 10 mg Q4H PRN IV PRURITUS; Start 12/14/16 at 11:30 Naloxone HCl (Narcan) 0.2 mg Q2M PRN IV FOR RESP RATE 8 OR LESS; Start at 11:30 Acetaminophen/ Hydrocodone Bitart ([place] (5/325)) 1 tab Q4H PRN PO PAIN LEVEL 4 -6; Start 12/14/16 at 14:00 Naloxone HCl (Narcan) 0.2 mg Q2M PRN IV RR 8 BREATHS/MIN OR LESS; Start at 14:30 Hydromorphone HCl (Dilaudid INFECTIOUS DISEASE TECHNICIAN) Q4PCA IV Last administered on 12/14/16 14:50 ; Admin Dose 6 MG; Start 12/14/16 at 14:30 WALT CADENA MD Dec 14, 2016 15:21
[2016-12-15 01:00] VITALS: RESP 18
[2016-12-15 03:33] VITALS: BP 106/65; RESP 16
[2016-12-15 05:00] VITALS: RESP 18
[2016-12-15] MEDS: PANTOPRAZOLE (EC) 40 MG TAB PO SCH ×2 (05:20→17:09)
[2016-12-15 06:50] LABS: BASOPHILS % 0.2 % (0.0-2.0); EOSINOPHILS % 0.5 % (0.0-7.0); HEMATOCRIT 30.2 % (42.0-52.0); HEMOGLOBIN 9.8 g/dl (14.0-18.0); LYMPHOCYTES # 1.9 10^3/ul (0.8-2.9); LYMPHOCYTES % 22.2 % (15.0-51.0); MEAN CORPUSCULAR HEMOGLOBIN 29.3 pg (29.0-33.0); MEAN CORPUSCULAR HGB CONC 32.5 g/dl (32.0-37.0); MEAN CORPUSCULAR VOLUME 90.1 fl (82.0-101.0); MEAN PLATELET VOLUME 10.1 fl (7.4-10.4); MONOCYTE # 0.6 10^3/ul (0.3-0.9); MONOCYTES % 7.6 % (0.0-11.0); NEUTROPHIL # 5.8 10^3/ul (1.6-7.5); NEUTROPHILS % 69.3 % (39.0-77.0); PLATELET COUNT 370 10^3/UL (140-415); RED BLOOD COUNT 3.35 10^6/ul (4.70-6.10); RED CELL DISTRIBUTION WIDTH 15.8 % (11.5-14.5); WHITE BLOOD COUNT 8.3 10^3/ul (4.8-10.8)
[2016-12-15 07:04] LABS: CALCIUM 8.7 mg/dl (8.4-10.2); CREATININE 0.81 mg/dl (0.61-1.24); POTASSIUM 3.7 mmol/L (3.5-5.1)
[2016-12-15 08:04] VITALS: BP 103/66; RESP 18
--- NOTE | 2016-12-15 08:07 | OPPN ---
Date/Time of Note Date/Time of Note DATE: 12/15/16 TIME: 08:07 Anesthesia Follow up Anesthesia Follow up Last documented vital signs Vital Signs Date Time Temp Pulse Resp B/P Pulse Ox O2 Delivery O2 Flow Rate FiO2 12/15/16 08:04 98.2 66 18 103/66 100 12/15/16 05:00 Room Air Respiratory function: WNL Cardiovascular function: WNL TITO CAMILO MD Dec 15, 2016 08:07
--- NOTE | 2016-12-15 08:11 | OPPN ---
Date/Time of Note Date/Time of Note DATE: 12/15/16 TIME: 08:10 Post-Anesthesia Notes Post-Anesthesia Note Last documented vital signs Vital Signs Date Time Temp Pulse Resp B/P Pulse Ox O2 Delivery O2 Flow Rate FiO2 12/15/16 08:04 98.2 66 18 103/66 100 12/15/16 05:00 Room Air Activity: WNL Respiratory function: WNL Cardiovascular function: WNL Mental status: Baseline Pain reasonably controlled: Yes Hydration appropriate: Yes Nausea/Vomiting absent: Yes TITO CAMILO MD Dec 15, 2016 08:11
[2016-12-15] MEDS: FERROUS SULFATE (EC) 325 MG TAB PO SCH ×2 (09:46→20:38)
--- NOTE | 2016-12-15 10:11 | PN ---
Date/Time of Note Date/Time of Note DATE: 12/15/16 TIME: 10:05 Assessment/Plan Lines/Catheters IV Catheter Type (from Nrs): Saline Lock Ferrer in Place (from Nrs): Yes Assessment/Plan Chief Complaint/Hosp Course 1. Colitis/ileitis: Large ascending colon adenocarcinoma with matted small bowel and large lymph nodes in mesentery, mass very close to duodenum; s/p Right colectomy; small bowel resection (about 3 feet) 12/14 -pain management -IS -ice pack -dc scientist engineer -ambulate -will advance diet once bowel function 2. Adjacent enlarged lymph nodes in ileocecal region: 03/10 #1 -as above 3. Distal esophagitis, Moderate gastritis and duodenal ulcer with significant scarring of the duodenal bulb -medical management -ppi 4. Malnutrition w hypoalbuminemia -optimize nutrition 5. Normocytic hypochromic anemia: -monitor -transfuse as needed Thank you. Patient seen and examined in collaboration with Dr. Rigo Youngblood. Problems: Subjective 24 Hr Interval Summary Feels well. No on scientist engineer - pain well controlled. No bowel function as of yet. No fevers, chills, sob, congested cough, cp, palpitations, boss, dizziness, n/v/d/ dysuria, drainage/bruising or discoloration from incision sites. Exam/Review of Systems Vital Signs Vitals Vital Signs Date Time Temp Pulse Resp B/P Pulse Ox O2 Delivery O2 Flow Rate FiO2 12/15/16 09:38 18 12/15/16 08:04 98.2 66 103/66 100 12/15/16 05:00 Room Air Intake and Output 12/14/16 12/14/16 12/15/16 15:00 23:00 07:00 Intake Total 3000 ml 0 ml 0 ml Output Total 250 ml 200 ml 600 ml Balance 2750 ml -200 ml -600 ml Exam Free Text/Dictation Constitutional: alert, oriented Psych: nl mood-pleasant Head: atraumatic, normocephalic Eyes: nl conjunctiva, nl lids, nl sclera ENMT: mucosa pink and moist, nl nasal mucosa & septum Neck: non-tender, supple Respiratory: clear to auscultation, normal air movement Cardiovascular: nl pulses, regular rate and rhythm Gastrointestinal: bowel sounds, soft, min tender, incision sites w montserrat-no drainage/discoloration/bruising Musculoskeletal: nl extremities to inspection, nl gait and stance Extremities: normal pulses Neurological: nl mental status, nl speech, nl strength Skin: nl turgor, rash or lesions Results Result Diagram: 12/15/1660512/15/16 0606 MC CANTU NP Dec 15, 2016 10:11
[2016-12-15 14:01] VITALS: BP 121/79; RESP 16
--- NOTE | 2016-12-15 14:32 | PN ---
Date/Time of Note Date/Time of Note DATE: 12/15/16 TIME: 14:30 Assessment/Plan VTE Prophylaxis VTE Prophylaxis Intervention: SCD's Lines/Catheters IV Catheter Type (from Nrs): Saline Lock Urinary Cath still in place: Yes Reason Cath still needed: other (indicate) Assessment/Plan Assessment/Plan 1. Invasive ascending colon adenocarcinoma, s/p right colectomy 12/14/2016, follow up with surgery for diet 2. Distal esophagitis, Moderate gastritis and duodenal ulcer with significant scarring of the duodenal bulb, PPI 3. Malnutrition w hypoalbuminemia 4. Normocytic hypochromic anemia, follow up with H/H 5. Acute gastroenteritis, resolved Subjective 24 Hr Interval Summary Free Text/Dictation abdominal pain. nausea, no vomiting Exam/Review of Systems Vital Signs Vitals Vital Signs Date Time Temp Pulse Resp B/P Pulse Ox O2 Delivery O2 Flow Rate FiO2 12/15/16 14:01 98.0 61 16 121/79 99 12/15/16 13:00 Room Air Intake and Output 12/14/16 12/14/16 12/15/16 15:00 23:00 07:00 Intake Total 3000 ml 0 ml 0 ml Output Total 250 ml 200 ml 600 ml Balance 2750 ml -200 ml -600 ml Exam Constitutional: alert, oriented, well developed Psych: nl mood/affect, no complaints Head: atraumatic, normocephalic Eyes: EOMI, PERRL, nl conjunctiva, nl lids, nl sclera ENMT: nl external ears & nose, nl lips & teeth, nl nasal mucosa & septum Neck: non-tender, supple Respiratory: clear to auscultation, normal air movement, No congested cough, No crackles/rales, No diminished breath sounds, No intercostal retraction, No labored breathing, No other, No respirations, No tactile fremitus, No wheezing Cardiovascular: nl pulses, regular rate and rhythm, No S3, No S4, No bruits, No diastolic murmur, No edema, No gallop, No irregular rhythm, No jugular venous distention (JVD), No murmurs/extra sounds, No other, No rub, No systolic murmur Gastrointestinal: soft, tender (diffuse tenderness) Musculoskeletal: nl extremities to inspection Extremities: normal pulses, No calf tenderness, No clubbing, No cyanosis, No edema, No other, No palpable cord, No pitting pedal edema, No tenderness Neurological: PHARMACIST AIDE II-XII intact, nl mental status, nl speech, nl strength Skin: nl turgor Lymph: nl lymph nodes Results Result Diagram: 12/15/1660512/15/16 0606 Results 24 hrs Laboratory Tests Test 12/15/16 06:06 White Blood Count 8.3 Red Blood Count 3.35 #L Hemoglobin 9.8 #L Hematocrit 30.2 L Mean Corpuscular Volume 90.1 Mean Corpuscular Hemoglobin 29.3 Mean Corpuscular Hemoglobin Concent 32.5 Red Cell Distribution Width 15.8 H Platelet Count 370 # Mean Platelet Volume 10.1 Neutrophils % 69.3 Lymphocytes % 22.2 Monocytes % 7.6 Eosinophils % 0.5 Basophils % 0.2 Nucleated Red Blood Cells % 0.0 Neutrophils # 5.8 Lymphocytes # 1.9 Monocytes # 0.6 Eosinophils # 0.0 Basophils # 0.0 Nucleated Red Blood Cells # 0.0 Sodium Level 139 Potassium Level 3.7 Chloride Level 101 Carbon Dioxide Level 32 H Anion Gap 10 Blood Urea Nitrogen 11 Creatinine 0.81 Glucose Level 99 Calcium Level 8.7 Medications Medications Current Medications Ondansetron HCl (Zofran Inj) 4 mg Q6H PRN IV NAUSEA AND/OR VOMITING Last administered on 12/02/16 08:40; Admin Dose 4 MG; Start 12/02/16 at 00:00 Pantoprazole (Protonix Tab) 40 mg BID@06,18 PO Last administered on 12/15/16 05:20; Admin Dose 40 MG; Start 12/06/16 at 18:00 Ferrous Sulfate (Ferrous Sulfate (Ec)) 325 mg BID PO Last administered on 09:46; Admin Dose 325 MG; Start 12/06/16 at 21:00 Diphenhydramine HCl (Benadryl) 25 mg Q4H PRN IV PRURITUS; Start 12/14/16 at 11: 30 Nalbuphine HCl (Nubain) 10 mg Q4H PRN IV PRURITUS; Start 12/14/16 at 11:30 Naloxone HCl (Narcan) 0.2 mg Q2M PRN IV FOR RESP RATE 8 OR LESS; Start at 11:30 Acetaminophen/ Hydrocodone Bitart ([place] (5/325)) 1 tab Q4H PRN PO PAIN LEVEL 4 -6; Start 12/14/16 at 14:00 Naloxone HCl (Narcan) 0.2 mg Q2M PRN IV RR 8 BREATHS/MIN OR LESS; Start at 14:30 Hydromorphone HCl (Dilaudid) 0.5 mg Q3H PRN IV PAIN; Start 12/15/16 at 12:30 WALT CADENA MD Dec 15, 2016 14:32
[2016-12-15] MEDS: HYDROmorphONE 0.5 MG/0.5 ML SYG IV PRN ×3 (15:49→22:08)
[2016-12-15] MEDS: HYDROCODONE/APAP (5/325) TAB PO PRN ×2 (17:09→21:12)
--- NOTE | 2016-12-15 18:36 | PN ---
DATE: 12/15/2016 SUBJECTIVE: Patient did undergo surgery today. He is experiencing some abdominal pain. He has not had nausea or vomiting. He has not complained of shortness of breath. OBJECTIVE: GENERAL: The patient is a well-developed, well-nourished male in no acute distress. VITAL SIGNS: Temperature 98, pulse 61 per minute and regular, respirations 16, blood pressure 121/7 9 and pulse oximetry is 97% on room air. SKIN: No ecchymosis, no petechiae or rashes. HEENT: No mucosal lesions. No scleral icterus. NECK: Supple, no jugular venous distention or thyroid enlargement. CHEST: Clear to auscultation and percussion. No rhonchi, wheezes, rales or rubs. NODES: No palpable lymphadenopathy. HEART: Regular sinus rhythm, no S3, S4 or murmurs. ABDOMEN: Soft. There is a recent midline surgical incision with a surgical dressing in place. The re is minimal dried blood on the surgical dressing. There are also several Band-Aids in place from attempted laparoscopic procedure. : The patient has Ferrer catheter in place draining somewhat concentrated-appearing urine. EXTREMITIES: Good range of motion, no clubbing, edema or cyanosis. NEUROLOGIC: Normal. LABORATORY DATA: This morning, sodium 139, potassium 3.7, creatinine 0.81, BUN 11, white count was 8300, hemoglobin 9.8, hematocrit 30.2 and platelet count 230,000. ASSESSMENT: Carcinoma, status post surgical exploration. The patient has had minimal urine output since surgery. As noted, urine appears concentrated. Have taken the liberty of changing IV fluids to normal saline with 20 mg of potassium to be administered at 75 mL per hour for the next 12 hours. As noted, the patient has undergone a bowel resection. A laparoscopic procedure was converted to an open exploration and the patient underwent a right colectomy as well as a small bowel resection. A pparently, the mass in the colon was adherent to the small bowel and required some small bowel resec tion. There were also large peritoneal lymph nodes resected. I have discussed previously with the patient that it is very likely he will require postoperative ad juvant chemotherapy. This will of course depend upon the pathology findings. The patient preoperatively had a CEA of 6.3. The patient will repeat the CEA in approximately 2 wee ks to determine the completeness of resection and whether this can in fact be used as a parameter of recurrence or response. The patient's iron studies at the time of admission suggested iron deficiency. Serum iron was 16, ir on binding capacity 265, percent saturation was 6%. The patient was iron deficient prior to surgery and although the estimated blood loss was only 100 mL, I feel that he will require iron replacement . Dictated By: MARTINE ROSENBERG MD, SR/CLAUDIA Conf#: [id number] DID#: [id number]
[2016-12-15] MEDS: NS + KCL 20 MEQ 1,000 ML IV SCH (18:39)
[2016-12-15 21:14] VITALS: BP 141/80; RESP 18
[2016-12-16] MEDS: HYDROmorphONE 0.5 MG/0.5 ML SYG IV PRN (01:05)
[2016-12-16] MEDS: HYDROCODONE/APAP (5/325) TAB PO PRN (02:08)
[2016-12-16 02:55] VITALS: BP 128/79; RESP 18
[2016-12-16] MEDS: HYDROmorphONE 1 MG/ML SYG IV PRN ×6 (03:11→18:48)
[2016-12-16] MEDS: PANTOPRAZOLE (EC) 40 MG TAB PO SCH ×2 (06:08→18:38)
[2016-12-16 06:44] LABS: BASOPHIL # 0.1 10^3/ul (0.0-0.1); BASOPHILS % 0.7 % (0.0-2.0); EOSINOPHILS # 0.2 10^3/ul (0.0-0.5); HEMATOCRIT 29.1 % (42.0-52.0); HEMOGLOBIN 9.3 g/dl (14.0-18.0); LYMPHOCYTES % 25.8 % (15.0-51.0); MEAN CORPUSCULAR HEMOGLOBIN 29.4 pg (29.0-33.0); MEAN CORPUSCULAR VOLUME 92.1 fl (82.0-101.0); MEAN PLATELET VOLUME 10.7 fl (7.4-10.4); MONOCYTE # 0.5 10^3/ul (0.3-0.9); MONOCYTES % 6.2 % (0.0-11.0); NEUTROPHIL # 4.9 10^3/ul (1.6-7.5); NEUTROPHILS % 64.9 % (39.0-77.0); PLATELET COUNT 355 10^3/UL (140-415); RED BLOOD COUNT 3.16 10^6/ul (4.70-6.10); RED CELL DISTRIBUTION WIDTH 15.9 % (11.5-14.5); WHITE BLOOD COUNT 7.6 10^3/ul (4.8-10.8)
[2016-12-16] MEDS: HYDROCODONE/APAP (10/325) TAB PO PRN ×3 (06:53→21:09)
[2016-12-16 07:12] LABS: CALCIUM 8.5 mg/dl (8.4-10.2); CREATININE 0.8 mg/dl (0.61-1.24); MAGNESIUM 1.8 mg/dl (1.7-2.5); POTASSIUM 4.2 mmol/L (3.5-5.1)
[2016-12-16 08:00] VITALS: BP 149/81; RESP 20
[2016-12-16] MEDS: NS + KCL 20 MEQ 1,000 ML IV SCH (08:16)
[2016-12-16] MEDS: FERROUS SULFATE (EC) 325 MG TAB PO SCH ×2 (08:17→21:09)
--- NOTE | 2016-12-16 09:11 | PN ---
DATE: 12/16/2016 SUBJECTIVE: The patient states he is feeling well, still is experiencing postoperative pain, but st ates it is presently well controlled with analgesia and ice packs. The patient has not had any nausea or vomiting. He has not been up because of the Ferrer catheter. OBJECTIVE: GENERAL: The patient is a well-developed, well-nourished male who is in no acute distress. VITAL SIGNS: Temperature is 98.3, pulse 62 per minute and regular, respirations 18, blood pressure 128/79, pulse oximetry is 98%. SKIN: No ecchymoses, no petechiae or rashes. There are tattoos. HEENT: Normocephalic. No evidence of trauma. Pupils equal, round, react to light and accommodatio n. Sclerae nonicteric. Oral mucosa is moist without lesions. Tongue is well papillated. NECK: Supple, no jugular venous distention or thyroid enlargement. No carotid bruits. CHEST: Clear to auscultation and percussion. No rhonchi, wheezes, rales or rubs. NODES: No palpable lymphadenopathy in lymph node bearing area. HEART: Regular sinus rhythm, no S3, S4 or murmurs. No rubs. ABDOMEN: Relatively soft. There is a midline surgical incision with some dried blood on the dressi ng. There are Band-Aids on the abdominal wall covering laparoscopic sites. EXTREMITIES: Good range of motion, no clubbing, edema or cyanosis. No palpable cords or Homans sig n. GENITOURINARY: The patient has a Ferrer catheter in place which is draining clear urine. NEUROLOGIC: Normal. White count 7600 with an absolute neutrophil count of 4900, hemoglobin 9.3, hematocrit 29.1, MCV 92. 1, RDW 15.9 and platelet count 355,000. Sodium 142, potassium 4.2, creatinine 0.8 and BUN is 11. ASSESSMENT: 1. Adenocarcinoma of colon, status post hemicolectomy and small bowel resection. 2. Probable iron deficiency. The patient is not taking any oral intake. We will continue the patient on peripheral IVs. As the patient's urine output has improved and creatinine is stable, I feel that the Ferrer catheter can be discontinued, making it easier for the patient to ambulate. As noted, the patient had evidence of iron deficiency at the time of admission. His serum iron was 16, percent saturation was only 6%. There was some element of anemia of chronic disease due to colo n tumor and inflammation. We will start the patient on parenteral iron supplementation at this time. He will receive Ferrleci t 125 mg on 3 successive days. The patient's actual requirement in order to replete his total iron stores is approximately 2 grams of elemental iron. Dictated By: MARTINE ROSENBERG MD, SR/CLAUDIA Conf#: [id number] DID#: [id number]
--- NOTE | 2016-12-16 10:34 | PN ---
Date/Time of Note Date/Time of Note DATE: 12/16/16 TIME: 10:31 Assessment/Plan Lines/Catheters IV Catheter Type (from Nrs): Saline Lock Ferrer in Place (from Nrs): Yes Assessment/Plan Chief Complaint/Hosp Course 1. Colitis/ileitis: Large ascending colon adenocarcinoma with matted small bowel and large lymph nodes in mesentery, mass very close to duodenum; s/p Right colectomy; small bowel resection (about 3 feet) 12/14; -pain management -IS -ice pack -pt must ambulate- educated again today regarding ambulating -will advance diet once bowel function 2. Adjacent enlarged lymph nodes in ileocecal region: 03/10 #1 -as above 3. Distal esophagitis, Moderate gastritis and duodenal ulcer with significant scarring of the duodenal bulb -medical management -ppi 4. Malnutrition w hypoalbuminemia -optimize nutrition 5. Anemia of chronic disease: -monitor -transfuse as needed -placed on iv iron per onc Thank you. Patient seen and examined in collaboration with Dr. Rigo Youngblood. Problems: Subjective 24 Hr Interval Summary Improved abdominal tenderness. No bowel function as of yet. Has not ambulated as of yet despite being instructed to do so yesterday. No fevers, chills, sob, congested cough, cp, palpitations, boss, dizziness, n/v/d/dysuria. Exam/Review of Systems Vital Signs Vitals Vital Signs Date Time Temp Pulse Resp B/P Pulse Ox O2 Delivery O2 Flow Rate FiO2 12/16/16 08:00 98.9 90 20 149/81 96 12/15/16 17:00 Room Air Intake and Output 12/15/16 12/15/16 12/16/16 15:00 23:00 07:00 Intake Total 120 ml 815 ml Output Total 300 ml 350 ml Balance -180 ml 465 ml Exam Free Text/Dictation Constitutional: alert, oriented Psych: nl mood-pleasant Head: atraumatic, normocephalic Eyes: nl conjunctiva, nl lids, nl sclera ENMT: mucosa pink and moist, nl nasal mucosa & septum Neck: non-tender, supple Respiratory: clear to auscultation, normal air movement Cardiovascular: nl pulses, regular rate and rhythm Gastrointestinal: bowel sounds, soft, min [id number], incision sites w montserrat-no drainage/discoloration/bruising Musculoskeletal: nl extremities to inspection, nl gait and stance Extremities: normal pulses Neurological: nl mental status, nl speech, nl strength Skin: nl turgor, rash or lesions Results Result Diagram: 12/16/16 0530 12/16/16 0530 MC CANTU NP Dec 16, 2016 10:34
[2016-12-16] MEDS: SOD FERRIC GLUC COMPLX 125 MG in SOD CHLORIDE 0.9% 100 ML IVPB SCH (11:08)
[2016-12-16 14:00] VITALS: BP 125/80; RESP 20
--- NOTE | 2016-12-16 15:42 | PN ---
Date/Time of Note Date/Time of Note DATE: 12/16/16 TIME: 15:41 Assessment/Plan VTE Prophylaxis VTE Prophylaxis Intervention: SCD's Lines/Catheters IV Catheter Type (from Nrs): Saline Lock Urinary Cath still in place: Yes Reason Cath still needed: other (indicate) Assessment/Plan Assessment/Plan 1. Invasive ascending colon adenocarcinoma, s/p right colectomy 12/14/2016, follow up with surgery for diet 2. Distal esophagitis, Moderate gastritis and duodenal ulcer with significant scarring of the duodenal bulb, PPI 3. Malnutrition w hypoalbuminemia 4. Normocytic hypochromic anemia, follow up with H/H 5. Acute gastroenteritis, resolved Subjective 24 Hr Interval Summary Free Text/Dictation pain is controlled. no flatus yet Exam/Review of Systems Vital Signs Vitals Vital Signs Date Time Temp Pulse Resp B/P Pulse Ox O2 Delivery O2 Flow Rate FiO2 12/16/16 14:00 98.8 86 20 125/80 96 12/15/16 17:00 Room Air Intake and Output 12/15/16 12/15/16 12/16/16 15:00 23:00 07:00 Intake Total 120 ml 815 ml Output Total 300 ml 350 ml Balance -180 ml 465 ml Exam Constitutional: alert, oriented, well developed Psych: nl mood/affect, no complaints Head: atraumatic, normocephalic Eyes: EOMI, PERRL, nl conjunctiva, nl lids, nl sclera ENMT: nl external ears & nose, nl lips & teeth, nl nasal mucosa & septum Neck: non-tender, supple Respiratory: clear to auscultation, normal air movement, No congested cough, No crackles/rales, No diminished breath sounds, No intercostal retraction, No labored breathing, No other, No respirations, No tactile fremitus, No wheezing Cardiovascular: nl pulses, regular rate and rhythm Gastrointestinal: soft, tender Musculoskeletal: nl extremities to inspection Extremities: normal pulses, No calf tenderness, No clubbing, No cyanosis, No edema, No other, No palpable cord, No pitting pedal edema, No tenderness 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, nl mental status, nl speech, nl strength Skin: nl turgor Lymph: nl lymph nodes Results Result Diagram: 12/16/1630 12/16/1630 Results 24 hrs Laboratory Tests Test 12/16/16 05:30 White Blood Count 7.6 Red Blood Count 3.16 L Hemoglobin 9.3 L Hematocrit 29.1 L Mean Corpuscular Volume 92.1 Mean Corpuscular Hemoglobin 29.4 Mean Corpuscular Hemoglobin Concent 32.0 Red Cell Distribution Width 15.9 H Platelet Count 355 Mean Platelet Volume 10.7 H Neutrophils % 64.9 Lymphocytes % 25.8 Monocytes % 6.2 Eosinophils % 2.0 Basophils % 0.7 Nucleated Red Blood Cells % 0.0 Neutrophils # 4.9 Lymphocytes # 2.0 Monocytes # 0.5 Eosinophils # 0.2 Basophils # 0.1 Nucleated Red Blood Cells # 0.0 Sodium Level 140 Potassium Level 4.2 Chloride Level 102 Carbon Dioxide Level 30 Anion Gap 12 Blood Urea Nitrogen 10 Creatinine 0.80 Glucose Level 82 Calcium Level 8.5 Magnesium Level 1.8 Medications Medications Current Medications Ondansetron HCl (Zofran Inj) 4 mg Q6H PRN IV NAUSEA AND/OR VOMITING Last administered on 12/02/16 08:40; Admin Dose 4 MG; Start 12/02/16 at 00:00 Pantoprazole (Protonix Tab) 40 mg BID@06,18 PO Last administered on 12/16/16 06:08; Admin Dose 40 MG; Start 12/06/16 at 18:00 Ferrous Sulfate (Ferrous Sulfate (Ec)) 325 mg BID PO Last administered on 12/16 08:17; Admin Dose 325 MG; Start 12/06/16 at 21:00 Diphenhydramine HCl (Benadryl) 25 mg Q4H PRN IV PRURITUS; Start 12/14/16 at 11: 30 Nalbuphine HCl (Nubain) 10 mg Q4H PRN IV PRURITUS; Start 12/14/16 at 11:30 Naloxone HCl (Narcan) 0.2 mg Q2M PRN IV FOR RESP RATE 8 OR LESS; Start at 11:30 Naloxone HCl (Narcan) 0.2 mg Q2M PRN IV RR 8 BREATHS/MIN OR LESS; Start at 14:30 Acetaminophen/ Hydrocodone Bitart ([place] (10/325)) 1 tab Q4H PRN PO PAIN Last administered on 12/16/16 11:07; Admin Dose 1 TAB; Start 12/16/16 at 03:30 Hydromorphone HCl 1 mg 1 mg Q3H PRN IV PAIN Last administered on 12/16/16 12: 22; Admin Dose 1 MG; Start 12/16/16 at 03:30 Ferric Sodium Gluconate Complex/ Sodium Chloride (Ferrlecit/NS) 110 ml @ 110 mls/hr Q24H IVPB Last administered on 12/16/16 11:08; Admin Dose 110 MLS/HR; Start 12/16/16 at 09:00; Stop 12/20/16 at 09:59 WALT CADENA MD Dec 16, 2016 15:42
[2016-12-16 20:57] VITALS: BP 129/79; RESP 18
[2016-12-17] MEDS: HYDROmorphONE 1 MG/ML SYG IV PRN ×6 (00:02→20:21)
[2016-12-17 02:51] VITALS: BP 126/81; RESP 18
[2016-12-17 05:48] LABS: BASOPHILS % 0.4 % (0.0-2.0); EOSINOPHILS # 0.1 10^3/ul (0.0-0.5); EOSINOPHILS % 1.5 % (0.0-7.0); HEMATOCRIT 36.7 % (42.0-52.0); HEMOGLOBIN 11.8 g/dl (14.0-18.0); LYMPHOCYTES # 1.7 10^3/ul (0.8-2.9); LYMPHOCYTES % 20.7 % (15.0-51.0); MEAN CORPUSCULAR HEMOGLOBIN 29.1 pg (29.0-33.0); MEAN CORPUSCULAR HGB CONC 32.2 g/dl (32.0-37.0); MEAN CORPUSCULAR VOLUME 90.6 fl (82.0-101.0); MEAN PLATELET VOLUME 10.4 fl (7.4-10.4); MONOCYTE # 0.7 10^3/ul (0.3-0.9); NEUTROPHIL # 5.7 10^3/ul (1.6-7.5); PLATELET COUNT 444 10^3/UL (140-415); RED BLOOD COUNT 4.05 10^6/ul (4.70-6.10); RED CELL DISTRIBUTION WIDTH 15.6 % (11.5-14.5); WHITE BLOOD COUNT 8.3 10^3/ul (4.8-10.8)
[2016-12-17 06:11] LABS: CALCIUM 9.2 mg/dl (8.4-10.2); CREATININE 0.75 mg/dl (0.61-1.24); POTASSIUM 4.7 mmol/L (3.5-5.1)
[2016-12-17] MEDS: PANTOPRAZOLE (EC) 40 MG TAB PO SCH ×2 (06:19→17:28)
[2016-12-17] MEDS: HYDROCODONE/APAP (10/325) TAB PO PRN (06:21)
[2016-12-17 08:00] VITALS: BP 132/64; RESP 20
[2016-12-17] MEDS: FERROUS SULFATE (EC) 325 MG TAB PO SCH ×2 (08:13→20:20)
[2016-12-17] MEDS: SOD FERRIC GLUC COMPLX 125 MG in SOD CHLORIDE 0.9% 100 ML IVPB SCH (09:05)
--- NOTE | 2016-12-17 12:38 | RADRPT ---
PROCEDURE: XR Abdomen. CLINICAL INDICATION: Abdomen pain. TECHNIQUE: AP supine abdomen x-ray. COMPARISON: 12/06/2016. FINDINGS: Previously noted contrast throughout the colon and parts of the small bowel is no longer present. Th ere are midline vertical skin montserrat. There is gas throughout mildly dilated small bowel and nondil ated colon. Surgical montserrat are present in the right side of the colon. There are no abnormal calcifications overlying the urinary tracts. The osseus structures are unremarkable. IMPRESSION: 1. Contrast previously noted in the bowel is no longer present. 2. Interval surgery. 3. Mildly dilated small bowel. Gas in nondilated colon. Findings consistent with ileus. No evidence of obstruction. RPTAT: QQ .Can Palmer MD, MD Date Time Electronically viewed and signed by .Can Palmer MD, on 12/17/2016 12:38 .R/
--- NOTE | 2016-12-17 13:17 | PN ---
Date/Time of Note Date/Time of Note DATE: 12/17/16 TIME: 13:12 Assessment/Plan VTE Prophylaxis VTE Prophylaxis Intervention: SCD's Lines/Catheters IV Catheter Type (from Nrs): Saline Lock Assessment/Plan Chief Complaint/Hosp Course 1. Invasive ascending colon adenocarcinoma, s/p right colectomy 12/14/2016 Patient tolerating liquids last night but did have some nausea today KUB shows ileus Follow-up with surgery conditions Encourage ambulation 2. Distal esophagitis, Moderate gastritis and duodenal ulcer with significant scarring of the duodenal bulb Continue PPI 3. Acute gastritis-resolved 4. Anemia secondary to anemia of chronic disease Prophylaxis: SCDs Problems: Subjective 24 Hr Interval Summary Gastrointestinal: nausea Exam/Review of Systems Vital Signs Vitals Vital Signs Date Time Temp Pulse Resp B/P Pulse Ox O2 Delivery O2 Flow Rate FiO2 12/17/16 08:00 98.6 80 20 132/64 96 12/15/16 17:00 Room Air Intake and Output 12/16/16 12/16/16 12/17/16 15:00 23:00 07:00 Intake Total 310 ml 525 ml 300 ml Balance 310 ml 525 ml 300 ml Exam Constitutional: alert, oriented Respiratory: clear to auscultation Cardiovascular: regular rate and rhythm Gastrointestinal: soft, No distended Musculoskeletal: nl extremities to inspection Results Result Diagram: 12/17/16 0453 12/17/16 0453 Results 24 hrs Laboratory Tests Test 12/17/16 04:53 White Blood Count 8.3 Red Blood Count 4.05 #L Hemoglobin 11.8 #L Hematocrit 36.7 #L Mean Corpuscular Volume 90.6 Mean Corpuscular Hemoglobin 29.1 Mean Corpuscular Hemoglobin Concent 32.2 Red Cell Distribution Width 15.6 H Platelet Count 444 #H Mean Platelet Volume 10.4 Neutrophils % 69.0 Lymphocytes % 20.7 Monocytes % 8.0 Eosinophils % 1.5 Basophils % 0.4 Nucleated Red Blood Cells % 0.0 Neutrophils # 5.7 Lymphocytes # 1.7 Monocytes # 0.7 Eosinophils # 0.1 Basophils # 0.0 Nucleated Red Blood Cells # 0.0 Sodium Level 141 Potassium Level 4.7 Chloride Level 101 Carbon Dioxide Level 24 Anion Gap 21 #H Blood Urea Nitrogen 8 Creatinine 0.75 Glucose Level 85 Calcium Level 9.2 Medications Medications Current Medications Ondansetron HCl (Zofran Inj) 4 mg Q6H PRN IV NAUSEA AND/OR VOMITING Last administered on 12/02/16 08:40; Admin Dose 4 MG; Start 12/02/16 at 00:00 Pantoprazole (Protonix Tab) 40 mg BID@06,18 PO Last administered on 12/17/16 06:19; Admin Dose 40 MG; Start 12/06/16 at 18:00 Ferrous Sulfate (Ferrous Sulfate (Ec)) 325 mg BID PO Last administered on 12/17 08:13; Admin Dose 325 MG; Start 12/06/16 at 21:00 Diphenhydramine HCl (Benadryl) 25 mg Q4H PRN IV PRURITUS; Start 12/14/16 at 11: 30 Nalbuphine HCl (Nubain) 10 mg Q4H PRN IV PRURITUS; Start 12/14/16 at 11:30 Naloxone HCl (Narcan) 0.2 mg Q2M PRN IV FOR RESP RATE 8 OR LESS; Start at 11:30 Naloxone HCl (Narcan) 0.2 mg Q2M PRN IV RR 8 BREATHS/MIN OR LESS; Start at 14:30 Acetaminophen/ Hydrocodone Bitart ([place] (325)) 1 tab Q4H PRN PO PAIN Last administered on 12/17/16 06:21; Admin Dose 1 TAB; Start 12/16/16 at 03:30 Hydromorphone HCl 1 mg 1 mg Q3H PRN IV PAIN Last administered on 12/17/16 11: 29; Admin Dose 1 MG; Start 12/16/16 at 03:30 Ferric Sodium Gluconate Complex/ Sodium Chloride (Ferrlecit/NS) 110 ml @ 110 mls/hr Q24H IVPB Last administered on 12/17/16 09:05; Admin Dose 110 MLS/HR; Start 12/16/16 at 09:00; Stop 12/20/16 at 09:59 TOMMY DENTON Dec 17, 2016 13:17
[2016-12-17 14:00] VITALS: BP 136/84; RESP 20
--- NOTE | 2016-12-17 14:02 | PN ---
Date/Time of Note Date/Time of Note DATE: 12/17/16 TIME: 13:58 Assessment/Plan VTE Prophylaxis VTE Prophylaxis Intervention: LMWH Lines/Catheters IV Catheter Type (from Rust): Saline Lock Assessment/Plan Assessment/Plan Patient is a 51 year old man with colon cancer 1. Adenocarcinoma of colon, status post hemicolectomy and small bowel resection. Continue analgesia Follow up pathology results, but likely will benefit from adjuvant chemotherapy as an outpatient CT C/A/P showed no obvious evidence of distant metastases 2. Probable iron deficiency. As noted, the patient had evidence of iron deficiency at the time of admission. His serum iron was 16, percent saturation was only 6%. There was some element of anemia of chronic disease due to colon tumor and inflammation. Patient started on parenteral iron supplementation He will receive Ferrlecit 125 mg on 3 successive days. The patient's actual requirement in order to replete his total iron stores is approximately 2 grams of elemental iron. Subjective 24 Hr Interval Summary Free Text/Dictation Patient is eating ambulating Exam/Review of Systems Vital Signs Vitals Vital Signs Date Time Temp Pulse Resp B/P Pulse Ox O2 Delivery O2 Flow Rate FiO2 12/17/16 08:00 98.6 80 20 132/64 96 12/15/16 17:00 Room Air Intake and Output 12/16/16 12/16/16 12/17/16 15:00 23:00 07:00 Intake Total 310 ml 525 ml 300 ml Balance 310 ml 525 ml 300 ml Exam Constitutional: alert, oriented Psych: nl mood/affect, no complaints Eyes: EOMI, nl conjunctiva Neck: non-tender, supple Respiratory: clear to auscultation, normal air movement Cardiovascular: nl pulses, regular rate and rhythm Gastrointestinal: non-tender, soft Extremities: calf tenderness, normal pulses Results Result Diagram: 12/17/16 0453 12/17/16 0453 Results 24 hrs Laboratory Tests Test 12/17/16 04:53 White Blood Count 8.3 Red Blood Count 4.05 #L Hemoglobin 11.8 #L Hematocrit 36.7 #L Mean Corpuscular Volume 90.6 Mean Corpuscular Hemoglobin 29.1 Mean Corpuscular Hemoglobin Concent 32.2 Red Cell Distribution Width 15.6 H Platelet Count 444 #H Mean Platelet Volume 10.4 Neutrophils % 69.0 Lymphocytes % 20.7 Monocytes % 8.0 Eosinophils % 1.5 Basophils % 0.4 Nucleated Red Blood Cells % 0.0 Neutrophils # 5.7 Lymphocytes # 1.7 Monocytes # 0.7 Eosinophils # 0.1 Basophils # 0.0 Nucleated Red Blood Cells # 0.0 Sodium Level 141 Potassium Level 4.7 Chloride Level 101 Carbon Dioxide Level 24 Anion Gap 21 #H Blood Urea Nitrogen 8 Creatinine 0.75 Glucose Level 85 Calcium Level 9.2 Medications Medications Current Medications Ondansetron HCl (Zofran Inj) 4 mg Q6H PRN IV NAUSEA AND/OR VOMITING Last administered on 12/02/16 08:40; Admin Dose 4 MG; Start 12/02/16 at 00:00 Pantoprazole (Protonix Tab) 40 mg BID@06,18 PO Last administered on 12/17/16 06:19; Admin Dose 40 MG; Start 12/06/16 at 18:00 Ferrous Sulfate (Ferrous Sulfate (Ec)) 325 mg BID PO Last administered on 12/17 08:13; Admin Dose 325 MG; Start 12/06/16 at 21:00 Diphenhydramine HCl (Benadryl) 25 mg Q4H PRN IV PRURITUS; Start 12/14/16 at 11: 30 Nalbuphine HCl (Nubain) 10 mg Q4H PRN IV PRURITUS; Start 12/14/16 at 11:30 Naloxone HCl (Narcan) 0.2 mg Q2M PRN IV FOR RESP RATE 8 OR LESS; Start at 11:30 Naloxone HCl (Narcan) 0.2 mg Q2M PRN IV RR 8 BREATHS/MIN OR LESS; Start at 14:30 Acetaminophen/ Hydrocodone Bitart ([place] (10/325)) 1 tab Q4H PRN PO PAIN Last administered on 12/17/16 06:21; Admin Dose 1 TAB; Start 12/16/16 at 03:30 Hydromorphone HCl 1 mg 1 mg Q3H PRN IV PAIN Last administered on 12/17/16 11: 29; Admin Dose 1 MG; Start 12/16/16 at 03:30 Ferric Sodium Gluconate Complex/ Sodium Chloride (Ferrlecit/NS) 110 ml @ 110 mls/hr Q24H IVPB Last administered on 12/17/16 09:05; Admin Dose 110 MLS/HR; Start 12/16/16 at 09:00; Stop 12/20/16 at 09:59 CHARLES HERNANDEZ MD Dec 17, 2016 14:02
--- NOTE | 2016-12-17 14:17 | PN ---
Date/Time of Note Date/Time of Note DATE: 12/17/16 TIME: 14:14 Assessment/Plan Lines/Catheters IV Catheter Type (from Nrs): Saline Lock Assessment/Plan Chief Complaint/Hosp Course 1. Colitis/ileitis: Large ascending colon adenocarcinoma with matted small bowel and large lymph nodes in mesentery, mass very close to duodenum; s/p Right colectomy; small bowel resection (about 3 feet) 12/14; Nausea and vomiting today -kub -oob/ambulate -pain management -IS -ice pack -diet as tolerated if kub negative 2. Adjacent enlarged lymph nodes in ileocecal region: 03/10 #1 -as above -await path 3. Distal esophagitis, Moderate gastritis and duodenal ulcer with significant scarring of the duodenal bulb -medical management -ppi 4. Malnutrition w hypoalbuminemia -optimize nutrition 5. Anemia of chronic disease: -monitor -transfuse as needed -placed on iv iron per onc Thank you Problems: Subjective 24 Hr Interval Summary Min pain. N/V today. Passed gas and stool last night. Clears this am. Bloating improved. No fevers, chills, sob, congested cough, cp, palpitations, boss, dizziness, d/dysuria. Exam/Review of Systems Vital Signs Vitals Vital Signs Date Time Temp Pulse Resp B/P Pulse Ox O2 Delivery O2 Flow Rate FiO2 12/17/16 08:00 98.6 80 20 132/64 96 12/15/16 17:00 Room Air Intake and Output 12/16/16 12/16/16 12/17/16 14:59 22:59 06:59 Intake Total 310 ml 525 ml 300 ml Output Total 350 ml Balance -40 ml 525 ml 300 ml Exam Free Text/Dictation Constitutional: alert, oriented Psych: nl mood-pleasant Head: atraumatic, normocephalic Eyes: nl conjunctiva, nl lids, nl sclera ENMT: mucosa pink and moist, nl nasal mucosa & septum Neck: non-tender, supple Respiratory: clear to auscultation, normal air movement Cardiovascular: nl pulses, regular rate and rhythm Gastrointestinal: soft, min [id number], incision sites w montserrat-no drainage/discoloration/bruising. Min distended Musculoskeletal: nl extremities to inspection, nl gait and stance Extremities: normal pulses Neurological: nl mental status, nl speech, nl strength Skin: nl turgor, rash or lesions Results Result Diagram: 12/17/16 0453 12/17/16 0453 ROBIN PRESTON MD Dec 17, 2016 14:17
[2016-12-17] MEDS: ONDANSETRON 4 MG INJ IV PRN (19:00)
[2016-12-17 19:47] VITALS: BP 129/84; RESP 16
[2016-12-18] MEDS: HYDROmorphONE 1 MG/ML SYG IV PRN ×6 (00:17→21:12)
[2016-12-18 02:07] VITALS: BP 134/92; RESP 16
[2016-12-18] MEDS: HYDROCODONE/APAP (10/325) TAB PO PRN (02:38)
[2016-12-18] MEDS ORDERED: CHLORPROMAZINE 25 MG INJ IM ONE (03:30)
[2016-12-18 05:49] LABS: CALCIUM 9.3 mg/dl (8.4-10.2); CREATININE 0.73 mg/dl (0.61-1.24)
[2016-12-18] MEDS: PANTOPRAZOLE (EC) 40 MG TAB PO SCH ×2 (06:15→17:44)
[2016-12-18 07:30] VITALS: BP 112/74; RESP 16
[2016-12-18] MEDS: SOD FERRIC GLUC COMPLX 125 MG in SOD CHLORIDE 0.9% 100 ML IVPB SCH (08:00)
[2016-12-18] MEDS: FERROUS SULFATE (EC) 325 MG TAB PO SCH ×2 (08:00→21:12)
[2016-12-18 14:06] VITALS: BP 159/92; RESP 18
--- NOTE | 2016-12-18 16:01 | PN ---
Date/Time of Note Date/Time of Note DATE: 12/18/16 TIME: 15:55 Assessment/Plan Lines/Catheters IV Catheter Type (from Nrs): Saline Lock Assessment/Plan Chief Complaint/Hosp Course 1. Colitis/ileitis: Large ascending colon adenocarcinoma with matted small bowel and large lymph nodes in mesentery, mass very close to duodenum; s/p Right colectomy; small bowel resection (about 3 feet) 12/14; No nausea and vomiting; KUB noted -kub -oob/ambulate -pain management -IS -ice pack -will advance diet 2. Adjacent enlarged lymph nodes in ileocecal region: 03/10 #1 -as above -await path 3. Distal esophagitis, Moderate gastritis and duodenal ulcer with significant scarring of the duodenal bulb -medical management -ppi 4. Malnutrition w hypoalbuminemia -optimize nutrition 5. Anemia of chronic disease: -monitor -transfuse as needed -placed on iv iron per onc Thank you. Patient seen and examined in collaboration with Dr. Rigo Youngblood. Problems: Subjective 24 Hr Interval Summary Feels well. Continues to have abdominal tenderness. No drainage from incisions. KUB with possible ileus- pt with +bowel function, improved nausea, no vomiting. No fevers, chills, sob, congested cough, cp, palpitations, boss, dizziness, n/v/d/ dysuria. Exam/Review of Systems Vital Signs Vitals Vital Signs Date Time Temp Pulse Resp B/P Pulse Ox O2 Delivery O2 Flow Rate FiO2 12/18/16 14:06 97.9 79 18 159/92 99 12/15/16 17:00 Room Air Intake and Output 12/17/16 12/17/16 12/18/16 15:00 23:00 07:00 Intake Total 110 ml 720 ml 250 ml Balance 110 ml 720 ml 250 ml Exam Free Text/Dictation Constitutional: alert, oriented Psych: nl mood-pleasant Head: atraumatic, normocephalic Eyes: nl conjunctiva, nl lids, nl sclera ENMT: mucosa pink and moist, nl nasal mucosa & septum Neck: non-tender, supple Respiratory: clear to auscultation, normal air movement Cardiovascular: nl pulses, regular rate and rhythm Gastrointestinal: soft, min [id number], incision sites w montserrat-no drainage/discoloration/bruising. Min distended Musculoskeletal: nl extremities to inspection, nl gait and stance Extremities: normal pulses Neurological: nl mental status, nl speech, nl strength Skin: nl turgor, rash or lesions Results Result Diagram: 12/17/16 0453 12/18/16 0429 MC CANTU NP Dec 18, 2016 16:01
--- NOTE | 2016-12-18 18:40 | PN ---
Date/Time of Note Date/Time of Note DATE: 12/18/16 TIME: 18:39 Assessment/Plan VTE Prophylaxis VTE Prophylaxis Intervention: SCD's Lines/Catheters IV Catheter Type (from Nrs): Saline Lock Assessment/Plan Chief Complaint/Hosp Course 1. Invasive ascending colon adenocarcinoma, s/p right colectomy 12/14/2016 Patient tolerating liquids, advance to soft diet Follow-up with surgery recommendations Encourage ambulation 2. Distal esophagitis, Moderate gastritis and duodenal ulcer with significant scarring of the duodenal bulb Continue PPI 3. Acute gastritis-resolved 4. Anemia secondary to anemia of chronic disease Prophylaxis: SCDs Problems: Subjective 24 Hr Interval Summary Gastrointestinal: nausea Exam/Review of Systems Vital Signs Vitals Vital Signs Date Time Temp Pulse Resp B/P Pulse Ox O2 Delivery O2 Flow Rate FiO2 12/18/16 14:06 97.9 79 18 159/92 99 12/15/16 17:00 Room Air Intake and Output 12/17/16 12/17/16 12/18/16 15:00 23:00 07:00 Intake Total 110 ml 720 ml 250 ml Balance 110 ml 720 ml 250 ml Exam Constitutional: alert, oriented Respiratory: clear to auscultation Cardiovascular: regular rate and rhythm Gastrointestinal: soft, No distended Musculoskeletal: nl extremities to inspection Results Result Diagram: 12/17/16 0453 12/18/16 0429 Results 24 hrs Laboratory Tests Test 12/18/16 04:29 Sodium Level 136 Potassium Level 4.0 Chloride Level 100 Carbon Dioxide Level 23 Anion Gap 17 H Blood Urea Nitrogen 11 Creatinine 0.73 Glucose Level 96 Calcium Level 9.3 Medications Medications Current Medications Ondansetron HCl (Zofran Inj) 4 mg Q6H PRN IV NAUSEA AND/OR VOMITING Last administered on 12/17/16 19:00; Admin Dose 4 MG; Start 12/02/16 at 00:00 Pantoprazole (Protonix Tab) 40 mg BID@06,18 PO Last administered on 12/18/16 17:44; Admin Dose 40 MG; Start 12/06/16 at 18:00 Ferrous Sulfate (Ferrous Sulfate (Ec)) 325 mg BID PO Last administered on 12/18 08:00; Admin Dose 325 MG; Start 12/06/16 at 21:00 Naloxone HCl (Narcan) 0.2 mg Q2M PRN IV RR 8 BREATHS/MIN OR LESS; Start at 14:30 Acetaminophen/ Hydrocodone Bitart ([place] ()) 1 tab Q4H PRN PO PAIN Last administered on 12/18/16 02:38; Admin Dose 1 TAB; Start 12/16/16 at 03:30 Hydromorphone HCl 1 mg 1 mg Q3H PRN IV PAIN Last administered on 12/18/16 17: 49; Admin Dose 1 MG; Start 12/16/16 at 03:30 Ferric Sodium Gluconate Complex/ Sodium Chloride (Ferrlecit/NS) 110 ml @ 110 mls/hr Q24H IVPB Last administered on 12/18/16 08:00; Admin Dose 110 MLS/HR; Start 12/16/16 at 09:00; Stop 12/20/16 at 09:59 TOMMY DENTON Dec 18, 2016 18:40
[2016-12-18 19:36] VITALS: BP 112/80; RESP 20
[2016-12-18] MEDS: ONDANSETRON 4 MG INJ IV PRN (23:03)
[2016-12-19 02:03] VITALS: BP 118/83; RESP 16
[2016-12-19] MEDS: HYDROmorphONE 1 MG/ML SYG IV PRN ×3 (03:48→11:06)
[2016-12-19] MEDS: PANTOPRAZOLE (EC) 40 MG TAB PO SCH ×2 (06:05→17:10)
[2016-12-19 07:47] VITALS: BP 123/84; RESP 18
[2016-12-19] MEDS: FERROUS SULFATE (EC) 325 MG TAB PO SCH (08:29)
[2016-12-19] MEDS: SOD FERRIC GLUC COMPLX 125 MG in SOD CHLORIDE 0.9% 100 ML IVPB SCH (08:29)
--- NOTE | 2016-12-19 11:22 | PN ---
Date/Time of Note Date/Time of Note DATE: 12/19/16 TIME: 11:20 Assessment/Plan Lines/Catheters IV [facility] Type [facility] Saline Lock Assessment/Plan Chief Complaint/Hosp Course 1. Colitis/ileitis: Large ascending colon adenocarcinoma with matted small bowel and large lymph nodes in mesentery, mass very close to duodenum; s/p Right colectomy; small bowel resection (about 3 feet) 12/14; No further nausea and vomiting; Bowel function. KUB noted -diet as tolerated -oob/ambulate -pain management -IS -ice pack 2. Adjacent enlarged lymph nodes in ileocecal region: 03/10 #1 -as above -await path 3. Distal esophagitis, Moderate gastritis and duodenal ulcer with significant scarring of the duodenal bulb -medical management -ppi 4. Malnutrition w hypoalbuminemia -optimize nutrition 5. Anemia of chronic disease: -monitor -transfuse as needed -placed on iv iron per onc Thank you Problems: Subjective 24 Hr Interval Summary Feels well. Continues to have some abdominal tenderness. No drainage from incisions. Bowel function, improved nausea, no vomiting. No fevers, chills, sob , congested cough, cp, palpitations, boss, dizziness, n/v/d/dysuria. Exam/Review of Systems Vital Signs Vitals Vital Signs Date Time Temp Pulse Resp B/P Pulse Ox O2 Delivery O2 Flow Rate FiO2 12/19/16 07:47 98.0 81 18 123/84 99 12/15/16 17:00 Room Air Intake and Output 12/18/16 12/18/16 12/19/16 15:00 23:00 07:00 Intake Total 800 ml 460 ml Output Total 400 ml Balance 800 ml 60 ml Exam Free Text/Dictation Constitutional: alert, oriented Psych: nl mood-pleasant Head: atraumatic, normocephalic Eyes: nl conjunctiva, nl lids, nl sclera ENMT: mucosa pink and moist, nl nasal mucosa & septum Neck: non-tender, supple Respiratory: clear to auscultation, normal air movement Cardiovascular: nl pulses, regular rate and rhythm Gastrointestinal: soft, min [id number], incision sites w montserrat-no drainage/discoloration/bruising. Min distended Musculoskeletal: nl extremities to inspection, nl gait and stance Extremities: normal pulses Neurological: nl mental status, nl speech, nl strength Skin: nl turgor, rash or lesions Lymphatics: Normal inguinal and cervical Results Result Diagram: 12/17/16 0453 12/18/16 0429 ROBIN PRESTON MD Dec 19, 2016 11:22
[2016-12-19] MEDS: ONDANSETRON 4 MG INJ IV PRN ×2 (15:12→21:21)
[2016-12-19] MEDS: HYDROCODONE/APAP (10/325) TAB PO PRN ×2 (15:15→20:04)
[2016-12-19 15:16] VITALS: BP 129/91; RESP 18
--- NOTE | 2016-12-19 15:52 | PN ---
Date/Time of Note Date/Time of Note DATE: 12/19/16 TIME: 15:51 Assessment/Plan VTE Prophylaxis VTE Prophylaxis Intervention: other Lines/Catheters IV Catheter Type (from Nrsg): Saline Lock Assessment/Plan Chief Complaint/Hosp Course 51 yo male wtih newly diagnosed iron deficeincy anemia and invasive colon adenocarcinoma Colon cancer: - s/p hemicolectomy - Further management per oncology s/p colectomy: - advance diet - PT/OT DARREN: - Iron supplementation discharge to home when able Problems: Subjective 24 Hr Interval Summary Free Text/Dictation Tolerating diet, pain controlled Exam/Review of Systems Vital Signs Vitals Vital Signs Date Time Temp Pulse Resp B/P Pulse Ox O2 Delivery O2 Flow Rate FiO2 12/19/16 15:16 98.0 82 18 129/91 97 12/15/16 17:00 Room Air Intake and Output 12/18/16 12/18/16 12/19/16 15:00 23:00 07:00 Intake Total 800 ml 460 ml Output Total 400 ml Balance 800 ml 60 ml Exam Constitutional: alert, oriented, well developed Psych: nl mood/affect, no complaints Head: atraumatic, normocephalic Eyes: EOMI, PERRL, nl conjunctiva, nl lids, nl sclera ENMT: nl external ears & nose, nl lips & teeth, nl nasal mucosa & septum Neck: non-tender, supple Respiratory: clear to auscultation, normal air movement Cardiovascular: nl pulses, regular rate and rhythm Gastrointestinal: nl liver, spleen, non-tender, soft Musculoskeletal: nl extremities to inspection, nl gait and stance Extremities: normal pulses Neurological: 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 II-XII intact, nl mental status, nl speech, nl strength Skin: nl turgor, No rash or lesions Lymph: nl lymph nodes Results Result Diagram: 12/17/16 0453 12/18/16 0429 Medications Medications Current Medications Ondansetron HCl (Zofran Inj) 4 mg Q6H PRN IV NAUSEA AND/OR VOMITING Last administered on 12/19/16 15:12; Admin Dose 4 MG; Start 12/02/16 at 00:00 Pantoprazole (Protonix Tab) 40 mg BID@06,18 PO Last administered on 12/19/16 06:05; Admin Dose 40 MG; Start 12/06/16 at 18:00 Naloxone HCl (Narcan) 0.2 mg Q2M PRN IV RR 8 BREATHS/MIN OR LESS; Start at 14:30 Acetaminophen/ Hydrocodone Bitart 1 tab 1 tab Q4H PRN PO PAIN Last administered on 12/19/16 15:15; Admin Dose 1 TAB; Start 12/16/16 at 03:30 Ferric Sodium Gluconate Complex/ Sodium Chloride (Ferrlecit/NS) 110 ml @ 110 mls/hr Q24H IVPB Last administered on 12/19/16 08:29; Admin Dose 110 MLS/HR; Start 12/16/16 at 09:00; Stop 12/20/16 at 09:59 JOSELYN BARCLAY MD Dec 19, 2016 15:52
--- NOTE | 2016-12-19 16:27 | PN ---
DATE: 12/19/2016 SUBJECTIVE: The patient is feeling relatively well. Has had loose bowel movements. Did eat today and did have an emesis. He is not complaining of abdominal pain, however. OBJECTIVE: GENERAL: The patient is a well-developed, well-nourished male in no acute distress. VITAL SIGNS: Temperature 98, pulse 82, respirations 18, blood pressure 129/91, pulse oximetry 97% o n room air. SKIN: No ecchymosis, no petechiae or rashes. HEENT: Normocephalic. No evidence of trauma. The pupils are equal, round, react to light and acco mmodation. There are no mucosal lesions. No scleral icterus. NECK: Supple, no jugular venous distention or thyroid enlargement. CHEST: Clear to auscultation and percussion. No rhonchi, wheezes, rales or rubs. NODES: No palpable lymphadenopathy in any lymph node bearing area. HEART: Regular sinus rhythm, no S3, S4 or murmurs. No rubs. BREASTS: No gynecomastia. ABDOMEN: There is a midline surgical incision with a dressing overlying. No evidence of bleeding, no fluctuance or drainage. Bowel sounds are active. EXTREMITIES: Good range of motion. No clubbing, no edema or cyanosis. No palpable cords or Homans sign. NEUROLOGIC: Normal. The pathology report is available. The patient was found to have a mildly differentiated adenocarci noma which apparently started at the area of the ileocecal valve, but did ascend into the ascending colon. The tumor did not penetrate the muscularis and the adipose to the serosa. Therefore, this i s at T4a lesion. There were 27 lymph nodes harvested. They were all negative. The margins of rese ction were widely clear. ASSESSMENT: 1. Colorectal carcinoma resected stage IIB. 2. Iron deficiency anemia. DISCUSSION PLAN: The patient is scheduled to receive a total of 5 infusions of ferric sodium gluco yuri. This will amount to 625 mg of elemental iron. As mentioned, the patient does have a [id number] or stage IIB adenocarcinoma of the colon. As such, it is unclear whether he might benefit from adjuvant chemotherapy. The fact that the patient had a CEA of only 6.2 preoperatively suggests that this will be a less agg ressive tumor. I have requested; however, that further genomic testing including KRAS mutation as w ell as microsatellite instability and mismatch repair protein studies be performed to help further d etermine whether this patient would benefit from adjuvant chemotherapy. If adjuvant chemotherapy is to be administered. The patient may benefit from the use of fluoro pyri midine such capecitabine or 5-FU modulated with leucovorin alone rather than the addition of oxalipl atin. Another possibility would be doing further gene testing such as Oncotype DX for stage II colon carci noma. Dictated By: MARTINE ROSENBERG MD SR/NTS Conf#: [id number] DID#: [id number] CC: MARTINE ROSENBERG MD;*EndCC*
[2016-12-19 20:57] VITALS: BP 131/90; RESP 18
[2016-12-20] MEDS: HYDROCODONE/APAP (10/325) TAB PO PRN ×6 (00:16→22:25)
[2016-12-20 03:24] VITALS: BP 136/89; RESP 18
[2016-12-20] MEDS: ONDANSETRON 4 MG INJ IV PRN (05:06)
[2016-12-20] MEDS: PANTOPRAZOLE (EC) 40 MG TAB PO SCH ×2 (05:07→17:19)
[2016-12-20 05:40] LABS: BASOPHILS % 0.6 % (0.0-2.0); EOSINOPHILS # 0.1 10^3/ul (0.0-0.5); EOSINOPHILS % 1.4 % (0.0-7.0); HEMATOCRIT 31.8 % (42.0-52.0); HEMOGLOBIN 10.5 g/dl (14.0-18.0); LYMPHOCYTES # 1.2 10^3/ul (0.8-2.9); LYMPHOCYTES % 23.2 % (15.0-51.0); MEAN CORPUSCULAR HEMOGLOBIN 28.9 pg (29.0-33.0); MEAN CORPUSCULAR VOLUME 87.6 fl (82.0-101.0); MEAN PLATELET VOLUME 10.3 fl (7.4-10.4); MONOCYTE # 0.6 10^3/ul (0.3-0.9); MONOCYTES % 12.3 % (0.0-11.0); NEUTROPHIL # 3.1 10^3/ul (1.6-7.5); NEUTROPHILS % 62.3 % (39.0-77.0); PLATELET COUNT 409 10^3/UL (140-415); RED BLOOD COUNT 3.63 10^6/ul (4.70-6.10); RED CELL DISTRIBUTION WIDTH 15.9 % (11.5-14.5); RETICULOCYTE COUNT % 2.6 % (0.5-1.5)
[2016-12-20 06:19] LABS: ALBUMIN 3.7 g/dl (3.3-4.9); ALBUMIN/GLOBULIN RATIO 1.12; BILIRUBIN,INDIRECT 0.3 mg/dl (0-1.1); BILIRUBIN,TOTAL 0.3 mg/dl (0.2-1.3); CALCIUM 9.2 mg/dl (8.4-10.2); CREATININE 0.84 mg/dl (0.61-1.24); POTASSIUM 3.8 mmol/L (3.5-5.1)
[2016-12-20 07:53] VITALS: BP 119/82; RESP 18
[2016-12-20] MEDS: SOD FERRIC GLUC COMPLX 125 MG in SOD CHLORIDE 0.9% 100 ML IVPB SCH (09:00)
[2016-12-20 14:39] VITALS: BP 130/87; RESP 18
--- NOTE | 2016-12-20 17:56 | PN ---
Date/Time of Note Date/Time of Note DATE: 12/20/16 TIME: 17:55 Assessment/Plan Lines[facility]ters [facility] Assessment/Plan Chief Complaint/Hosp Course 1. Large ascending colon adenocarcinoma with matted small bowel and large lymph nodes in mesentery, mass very close to duodenum; s/p Right colectomy; small bowel resection (about 3 feet) 12/14; No further nausea and vomiting; Bowel function. KUB noted -diet as tolerated -oob/ambulate -pain management -IS -ice pack 2. Adjacent enlarged lymph nodes in ileocecal region: 03/10 #1 -as above -await path 3. Distal esophagitis, Moderate gastritis and duodenal ulcer with significant scarring of the duodenal bulb -medical management -ppi 4. Malnutrition w hypoalbuminemia -optimize nutrition 5. Anemia of chronic disease: -monitor -transfuse as needed -placed on iv iron per onc Thank you Problems: Subjective 24 Hr Interval Summary Flatus but no bm today (bm yesterday). Continues to have some abdominal tenderness/bloating. No drainage from incisions. No vomiting. No fevers, chills, sob, congested cough, cp, palpitations, boss, dizziness, dysuria. Exam/Review of Systems Vital Signs Vitals Vital Signs Date Time Temp Pulse Resp B/P Pulse Ox O2 Delivery O2 Flow Rate FiO2 12/20/16 14:39 97.9 70 18 130/87 100 Intake and Output 12/19/16 12/19/16 12/20/16 14:59 22:59 06:59 Intake Total 110 ml 1100 ml 350 ml Output Total 500 ml Balance 110 ml 600 ml 350 ml Exam Free Text/Dictation Constitutional: alert, oriented Psych: nl mood-pleasant Head: atraumatic, normocephalic Eyes: nl conjunctiva, nl lids, nl sclera ENMT: mucosa pink and moist, nl nasal mucosa & septum Neck: non-tender, supple Respiratory: clear to auscultation, normal air movement Cardiovascular: nl pulses, regular rate and rhythm Gastrointestinal: soft, min [id number], incision sites w montserrat-no drainage/discoloration/bruising. Min distended Musculoskeletal: nl extremities to inspection, nl gait and stance Extremities: normal pulses Neurological: nl mental status, nl speech, nl strength Skin: nl turgor, rash or lesions Lymphatics: Normal inguinal and cervical Results Result Diagram: 12/20/16 0441 12/20/16 0441 ROBIN PRESTON MD Dec 20, 2016 17:56
--- NOTE | 2016-12-20 18:13 | PN ---
Date/Time of Note Date/Time of Note DATE: 12/20/16 TIME: 18:12 Assessment/Plan VTE Prophylaxis VTE Prophylaxis Intervention: LMWH Lines/Catheters IV Catheter Type (from [facility]): Saline Lock Assessment/Plan Chief Complaint/Hosp Course 51 yo male wtih newly diagnosed iron deficeincy anemia and invasive colon adenocarcinoma Colon cancer IIB: - s/p hemicolectomy - Further management per oncology, Dr Anna for consideration of chemo s/p colectomy: - advance diet - PT/OT DARREN: - Iron supplementation discharge to home when able, perhaps tomorrow Problems: Subjective 24 Hr Interval Summary Free Text/Dictation Feeling well Thinks he can go home tomorrow Exam/Review of Systems Vital Signs Vitals Vital Signs Date Time Temp Pulse Resp B/P Pulse Ox O2 Delivery O2 Flow Rate FiO2 12/20/16 14:39 97.9 70 18 130/87 100 Intake and Output 12/19/16 12/19/16 12/20/16 15:00 23:00 07:00 Intake Total 110 ml 1100 ml 350 ml Output Total 500 ml Balance 110 ml 600 ml 350 ml Exam Constitutional: alert, oriented, well developed Psych: nl mood/affect, no complaints Head: atraumatic, normocephalic Eyes: EOMI, PERRL, nl conjunctiva, nl lids, nl sclera ENMT: nl external ears & nose, nl lips & teeth, nl nasal mucosa & septum Neck: non-tender, supple Respiratory: clear to auscultation, normal air movement Cardiovascular: nl pulses, regular rate and rhythm Gastrointestinal: nl liver, spleen, non-tender, soft Musculoskeletal: nl extremities to inspection, nl gait and stance Extremities: normal pulses Neurological: LOAN 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 II-XII intact, nl mental status, nl speech, nl strength Skin: nl turgor, No rash or lesions Lymph: nl lymph nodes Results Result Diagram: 12/20/161 12/20/16440 Results 24 hrs Laboratory Tests Test 12/20/16 04:41 White Blood Count 5.0 # Red Blood Count 3.63 L Hemoglobin 10.5 L Hematocrit 31.8 L Mean Corpuscular Volume 87.6 Mean Corpuscular Hemoglobin 28.9 L Mean Corpuscular Hemoglobin Concent 33.0 Red Cell Distribution Width 15.9 H Platelet Count 409 Mean Platelet Volume 10.3 Neutrophils % 62.3 Lymphocytes % 23.2 Monocytes % 12.3 H Eosinophils % 1.4 Basophils % 0.6 Nucleated Red Blood Cells % 0.0 Neutrophils # 3.1 Lymphocytes # 1.2 Monocytes # 0.6 Eosinophils # 0.1 Basophils # 0.0 Nucleated Red Blood Cells # 0.0 Absolute Reticulocyte Count 0.096 Percent Reticulocyte Count 2.6 H Sodium Level 137 Potassium Level 3.8 Chloride Level 94 L Carbon Dioxide Level 29 Anion Gap 18 H Blood Urea Nitrogen 12 Creatinine 0.84 Glucose Level 93 Calcium Level 9.2 Total Bilirubin 0.3 Direct Bilirubin 0.00 Indirect Bilirubin 0.3 Aspartate Amino Transf (AST/SGOT) 24 Alanine Aminotransferase (ALT/SGPT) 25 Alkaline Phosphatase 69 Total Protein 7.0 Albumin 3.7 Globulin 3.30 H Albumin/Globulin Ratio 1.12 Medications Medications Current Medications Ondansetron HCl (Zofran Inj) 4 mg Q6H PRN IV NAUSEA AND/OR VOMITING Last administered on 12/20/16 05:06; Admin Dose 4 MG; Start 12/02/16 at 00:00 Pantoprazole (Protonix Tab) 40 mg BID@06,18 PO Last administered on 12/20/16 17:19; Admin Dose 40 MG; Start 12/06/16 at 18:00 Naloxone HCl (Narcan) 0.2 mg Q2M PRN IV RR 8 BREATHS/MIN OR LESS; Start at 14:30 Acetaminophen/ Hydrocodone Bitart ([place] (10/325)) 1 tab Q4H PRN PO PAIN Last administered on 12/20/16 14:17; Admin Dose 1 TAB; Start 12/16/16 at 03:30 JOSELYN BARCLAY MD Dec 20, 2016 18:13
[2016-12-20] MEDS ORDERED: HYDROmorphONE 1 MG/ML SYG IV STA (19:05)
[2016-12-20 20:25] VITALS: BP 128/86; RESP 20
--- NOTE | 2016-12-20 21:17 | PN ---
DATE: 12/20/2016 SUBJECTIVE: The patient is now complaining of abdominal pain and distention. States this started a fter trying to eat earlier this evening. He has not had nausea or vomiting. He states he tried to "pass gas" but has been unable. Also states he has not had a bowel movement today, although several are reported in the I's and O's. OBJECTIVE: GENERAL: The patient is a well-developed, well-nourished male in no acute distress. VITAL SIGNS: Temperature 97.9, pulse 70 per minute and regular, respirations 18, blood pressure 130 /87, pulse oximetry is 100 on room air. SKIN: No ecchymosis, no petechiae or rashes. HEENT: No mucosal lesions. No scleral icterus. NECK: Supple, no jugular venous distention or thyroid enlargement. CHEST: Clear to auscultation and percussion. No rhonchi, wheezes, rales or rubs. NODES: No palpable lymphadenopathy in lymph node bearing area. HEART: Regular sinus rhythm, no S3, S4, murmurs. No rubs. ABDOMEN: Distended. It is not tympanitic. Bowel sounds are absent. There is a midline surgical s car with clips in place. No evidence of infection. EXTREMITIES: Good range of motion. No clubbing, no edema or cyanosis. No palpable cords or Homans ' sign. NEUROLOGIC: Normal. LABORATORY: White count today is 5000, hemoglobin 10.5, hematocrit 31.8, platelet count 409,000. R etic is 2.6% but an absolute reticulocyte count of only 96,000. Sodium 137, potassium 3.8, BUN 12, creatinine 0.84. Total bilirubin 0.3, direct 0. AST 24, ALT 25, alkaline phosphatase is 69. ASSESSMENT: Stage IIB colon carcinoma. I have discussed the situation with the patient's sister. I have described to her the patient's sta tus and also the fact that it is unclear at this time whether he will require chemotherapy. I have told her that patients with stage III colon carcinoma receive adjuvant chemotherapy, but the case is less clear for patients with stage IIB. Awaiting other genomic studies at this time. Dictated By: MARTINE ROSENBERG MD SR/NTS Conf#: [id number] DID#: [id number] CC: Brodie Weber;*EndCC*
[2016-12-21 01:58] VITALS: BP 127/80; RESP 19
[2016-12-21] MEDS: HYDROCODONE/APAP (10/325) TAB PO PRN ×3 (03:10→14:56)
[2016-12-21] MEDS: PANTOPRAZOLE (EC) 40 MG TAB PO SCH ×2 (07:00→18:06)
[2016-12-21 07:51] VITALS: BP 131/85; RESP 18
--- NOTE | 2016-12-21 10:13 | PN ---
Date/Time of Note Date/Time of Note DATE: 12/21/16 TIME: 10:09 Assessment/Plan Lines/Catheters IV Catheter Type (from Nrs): Saline Lock Assessment/Plan Chief Complaint/Hosp Course 1. Colitis/ileitis: Large ascending colon adenocarcinoma with matted small bowel and large lymph nodes in mesentery, mass very close to duodenum; s/p Right colectomy; small bowel resection (about 3 feet) 12/14; abd pain/n/v -sbft -oob/ambulate -pain management -IS -ice pack 2. Infiltrating moderately-differentiated adenocarcinoma of the right colon: PATHOLOGIC STAGING (pTNM): pT4a pN0 pM0 -onc follow up 3. Distal esophagitis, Moderate gastritis and duodenal ulcer with significant scarring of the duodenal bulb -medical management -ppi 4. Malnutrition w hypoalbuminemia -optimize nutrition 5. Anemia of chronic disease: -monitor -transfuse as needed -placed on iv iron per onc Thank you. Patient seen and examined in collaboration with Dr. Rigo Youngblood. Problems: Subjective 24 Hr Interval Summary Vomiting today and abdominal pain last night. No fevers, chills, sob, congested cough, cp, palpitations, boss, dizziness, d/dysuria. Exam/Review of Systems Vital Signs Vitals Vital Signs Date Time Temp Pulse Resp B/P Pulse Ox O2 Delivery O2 Flow Rate FiO2 12/21/16 07:51 97.7 70 18 131/85 99 Intake and Output 12/20/16 12/20/16 12/21/16 15:00 23:00 07:00 Intake Total 1020 ml 400 ml Balance 1020 ml 400 ml Exam Free Text/Dictation Constitutional: alert, oriented Psych: min anxious Head: atraumatic, normocephalic Eyes: nl conjunctiva, nl lids, nl sclera ENMT: mucosa pink and moist, nl nasal mucosa & septum Neck: non-tender, supple Respiratory: clear to auscultation, normal air movement Cardiovascular: nl pulses, regular rate and rhythm Gastrointestinal: soft, min tender, incision sites w montserrat-no drainage/ discoloration/bruising. Min distended Musculoskeletal: nl extremities to inspection, nl gait and stance Extremities: normal pulses Neurological: nl mental status, nl speech, nl strength Skin: nl turgor, rash or lesions Lymphatics: Normal inguinal and cervical Results Result Diagram: 12/20/16 0441 12/20/16 0441 MC CANTU NP Dec 21, 2016 10:13
[2016-12-21] MEDS ORDERED: BARIUM SULFATE 135 ML (E-Z HD) PO ONE (13:21)
[2016-12-21] MEDS ORDERED: IOHEXOL 300MG/ML 150 ML BTL ONE (13:32)
[2016-12-21] MEDS: ONDANSETRON 4 MG INJ IV PRN (14:57)
--- NOTE | 2016-12-21 15:21 | PN ---
Date/Time of Note Date/Time of Note DATE: 12/21/16 TIME: 15:20 Assessment/Plan VTE Prophylaxis VTE Prophylaxis Intervention: LMWH Lines/Catheters IV Catheter Type (from Nrs): Saline Lock Assessment/Plan Chief Complaint/Hosp Course 51 yo male wtih newly diagnosed iron deficeincy anemia and invasive colon adenocarcinoma Colon cancer IIB: - s/p hemicolectomy - Further management per oncology, Dr Anna for consideration of chemo as outpatient s/p colectomy: - advance diet - PT/OT - Follow up in clinic with Dr Youngblood DARREN: - Iron supplementation discharge to home when feeling up to it, perhaps tomorrow Problems: Subjective 24 Hr Interval Summary Free Text/Dictation Patient felt well until this AM when became nauseosu after breakfast and vomited Offered discharge but will stay as a result Exam/Review of Systems Vital Signs Vitals Vital Signs Date Time Temp Pulse Resp B/P Pulse Ox O2 Delivery O2 Flow Rate FiO2 12/21/16 07:51 97.7 70 18 131/85 99 Intake and Output 12/20/16 12/20/16 12/21/16 15:00 23:00 07:00 Intake Total 1020 ml 400 ml Balance 1020 ml 400 ml Exam Constitutional: alert, oriented, well developed Psych: nl mood/affect, no complaints Head: atraumatic, normocephalic Eyes: EOMI, PERRL, nl conjunctiva, nl lids, nl sclera ENMT: nl external ears & nose, nl lips & teeth, nl nasal mucosa & septum Neck: non-tender, supple Respiratory: clear to auscultation, normal air movement Cardiovascular: nl pulses, regular rate and rhythm Gastrointestinal: nl liver, spleen, non-tender, soft Musculoskeletal: nl extremities to inspection, nl gait and stance Extremities: normal pulses Neurological: ONCOLOGY SPECIALIST II-XII intact, nl mental status, nl speech, nl strength Skin: nl turgor, No rash or lesions Lymph: nl lymph nodes Results Result Diagram: 12/20/1644012/20/16440 Medications Medications Current Medications Ondansetron HCl (Zofran Inj) 4 mg Q6H PRN IV NAUSEA AND/OR VOMITING Last administered on 12/21/16t 14:57; Admin Dose 4 MG; Start 12/02/16 at 00:00 Pantoprazole (Protonix Tab) 40 mg BID@06,18 PO Last administered on 12/21/16 07:00; Admin Dose 40 MG; Start 12/06/16 at 18:00 Naloxone HCl (Narcan) 0.2 mg Q2M PRN IV RR 8 BREATHS/MIN OR LESS; Start at 14:30 Acetaminophen/ Hydrocodone Bitart ([place] ()) 1 tab Q4H PRN PO PAIN Last administered on 12/21/16 14:56; Admin Dose 1 TAB; Start 12/16/16 at 03:30 JOSELYN BARCLAY MD Dec 21, 2016 15:21
[2016-12-21 15:25] VITALS: BP 128/91; RESP 18
--- NOTE | 2016-12-21 17:12 | PN ---
DATE: 12/21/2016 SUBJECTIVE: Mr. Gonzales is now feeling well but did have another episode of nausea and vomiting this morning. It is unclear if this was after eating or after the patient was given contrast to undergo some type of radiographic procedure. He states he had an episode of emesis in radiology and then a gain when he returned to his room. The patient states that last night he did "pass gas" and has had several bowel movements today. OBJECTIVE: GENERAL: The patient is a well-developed, well-nourished male who is in no acute distress. VITAL SIGNS: Temperature 98.6, pulse 85 per minute and regular, respirations 18, blood pressure 128 /91 and pulse oximetry is 97% on room air. SKIN: No ecchymosis, no petechiae or rashes. There are tattoos. HEENT: Normocephalic. No evidence of trauma. Pupils equal, round, react to light and accommodatio n. Sclerae are nonicteric. Oral mucosa is moist without lesions. Tongue is well papillated. NECK: Supple, no jugular venous distention or thyroid enlargement. No carotid bruits. CHEST: Clear to auscultation and percussion. No rhonchi, wheezes, rales or rubs. NODES: No palpable lymphadenopathy. HEART: Regular sinus rhythm, no S3, S4 or murmurs. No rubs. ABDOMEN: Mildly distended but soft. There are bowel sounds present. There is a midline surgical s car with surgical clips in place. There is no fluctuance or drainage. EXTREMITIES: Good range of motion. No clubbing, no edema or cyanosis. No palpable cords or Homans ' sign. NEUROLOGIC: Normal. ASSESSMENT: Stage IIB colon carcinoma. Earlier, I have stated that the patient can be discharged and followed up as an outpatient to consid er further chemotherapy. Obviously, the patient will not be able to be discharged until he is able to tolerate oral intake. As noted, the patient is passing flatus and has had multiple bowel movements. Does not appear to boss ve obstruction unless there is a partial obstruction. I will try to locate any radiographic procedu re that was done today. There is nothing available on the computerized medical record at this time. Dictated By: MARTINE ROSENBERG MD, SR/CLAUDIA Conf#: [id number] DID#: [id number] CC: Brodie Weber;*[facility]*
--- NOTE | 2016-12-21 18:35 | RADRPT ---
PROCEDURE: Small-bowel follow-through. CLINICAL INDICATION: Pain. . TECHNIQUE: Initial clothes presser radiograph was obtained. A series AP views of the abdomen/pelvis were ob tained after the ingestion of 100 cc gastrographin. COMPARISON: KUB 12/17/2016 FINDINGS: Director Broadcast radiograph demonstrates multiple loops of asymmetrically gas-distended small bowel. There is g as within the colon to the level rectum. Midline skin montserrat are present. There was ready egress of contrast material into the proximal small bowel in the stomach. There is mild diffuse small bowel d ilatation. Contrast materia reached the colon by 5 hours. Small well full-thickness is within normal limits. No mass or filling defect is appreciated. IMPRESSION: Diffusely dilated loops of small bowel. Relatively slow transit to the colon. Appearance is most con sistent with an ileus. No discrete obstruction is identified. RPTAT: HMVK .Bart Lugo MD, MD Date Time Electronically viewed and signed by .Bart Lugo MD, on 12/21/2016 18:35 .K/
[2016-12-21] MEDS: IBUPROFEN 400 MG TAB PO PRN (18:43)
[2016-12-21] MEDS ORDERED: morphine 4 MG/ML VIAL IV STA (20:45)
[2016-12-21 20:58] VITALS: BP 138/93; RESP 18
[2016-12-22 03:16] VITALS: BP 133/93; RESP 18
[2016-12-22] MEDS: PANTOPRAZOLE (EC) 40 MG TAB PO SCH (05:18)
[2016-12-22] MEDS: IBUPROFEN 400 MG TAB PO PRN ×3 (05:18→20:51)
[2016-12-22 07:56] VITALS: BP 127/87; RESP 16
--- NOTE | 2016-12-22 12:56 | PN ---
Date/Time of Note Date/Time of Note DATE: 12/22/16 TIME: 12:53 Assessment/Plan Lines/Catheters IV Catheter Type (from Nrsg): Saline Lock Ferrer in Place (from Nrsg): No Assessment/Plan Chief Complaint/Hosp Course 1. Colitis/ileitis: Large ascending colon adenocarcinoma with matted small bowel and large lymph nodes in mesentery, mass very close to duodenum; s/p Right colectomy; small bowel resection (about 3 feet) 12/14; abd pain uch improved; sbft noted: now with +bowel function and feeling better (doubt ileus) -oob/ambulate -pain management -IS -ice pack -may be discharged per medical team w follow up in office in 1 week. Patient will need follow up w oncology as well 2. Infiltrating moderately-differentiated adenocarcinoma of the right colon: PATHOLOGIC STAGING (pTNM): pT4a pN0 pM0 -onc follow up 3. Distal esophagitis, Moderate gastritis and duodenal ulcer with significant scarring of the duodenal bulb -medical management -ppi 4. Malnutrition w hypoalbuminemia -optimize nutrition 5. Anemia of chronic disease: -monitor -transfuse as needed -placed on iv iron per onc Thank you. Patient seen and examined in collaboration with Dr. Rigo Youngblood. Problems: Subjective 24 Hr Interval Summary SBFT noted. +bowel function. Much improved. No c/o pain. Tolerating diet. No fevers, chills, sob, congested cough, cp, palpitations, boss, dizziness, n/v/d/ dysuria. Exam/Review of Systems Vital Signs Vitals Vital Signs Date Time Temp Pulse Resp B/P Pulse Ox O2 Delivery O2 Flow Rate FiO2 12/22/16 07:56 98.2 71 16 127/87 99 Intake and Output 12/21/16 12/21/16 12/22/16 15:00 23:00 07:00 Intake Total 1150 ml 850 ml Balance 1150 ml 850 ml Exam Free Text/Dictation Constitutional: alert, oriented Psych: min anxious Head: atraumatic, normocephalic Eyes: nl conjunctiva, nl lids, nl sclera ENMT: mucosa pink and moist, nl nasal mucosa & septum Neck: non-tender, supple Respiratory: clear to auscultation, normal air movement Cardiovascular: nl pulses, regular rate and rhythm Gastrointestinal: soft, min tender, incision sites w montserrat-no drainage/ discoloration/bruising. Min distended Musculoskeletal: nl extremities to inspection, nl gait and stance Extremities: normal pulses Neurological: nl mental status, nl speech, nl strength Skin: nl turgor, rash or lesions Lymphatics: Normal inguinal and cervical Results Result Diagram: 12/20/16 0441 12/20/16 0441 MC CANTU NP Dec 22, 2016 12:56
[2016-12-22 14:00] VITALS: BP 128/87; RESP 16
--- NOTE | 2016-12-22 14:01 | PN ---
Date/Time of Note Date/Time of Note DATE: 12/22/16 TIME: 13:59 Assessment/Plan VTE Prophylaxis VTE Prophylaxis Intervention: ambulation Lines/Catheters IV C[facility]ter Type (from [facility]): Saline Lock Urinary Cath still in place: No Assessment/Plan Assessment/Plan Stage II colon cancer s/p surgery. He will likely go home soon. If so, please remind him to f/u with Dr. Anna. Subjective 24 Hr Interval Summary Free Text/Dictation Pt is sitting in chair and he is able to eat without issue. Exam/Review of Systems Vital Signs Vitals Vital Signs Date Time Temp Pulse Resp B/P Pulse Ox O2 Delivery O2 Flow Rate FiO2 12/22/16 07:56 98.2 71 16 127/87 99 Intake and Output 12/21/16 12/21/16 12/22/16 15:00 23:00 07:00 Intake Total 1150 ml 850 ml Balance 1150 ml 850 ml Exam Constitutional: alert, oriented Head: normocephalic Eyes: nl conjunctiva ENMT: nl external ears & nose Respiratory: clear to auscultation Cardiovascular: regular rate and rhythm Gastrointestinal: other (surgical wound clean. montserrat in place), soft Results Result Diagram: 12/20/1644012/20/16 044 Medications Medications Current Medications Ondansetron HCl (Zofran Inj) 4 mg Q6H PRN IV NAUSEA AND/OR VOMITING Last administered on 12/21/16 14:57; Admin Dose 4 MG; Start 12/02/16 at 00:00 Pantoprazole (Protonix Tab) 40 mg BID@06,18 PO Last administered on 12/22/16 05:18; Admin Dose 40 MG; Start 12/06/16 at 18:00 Naloxone HCl (Narcan) 0.2 mg Q2M PRN IV RR 8 BREATHS/MIN OR LESS; Start at 14:30 Ibuprofen (Motrin) 400 mg Q6H PRN PO PAIN OR TEMP ABOVE 38C Last administered on 12/22/16 13:53; Admin Dose 400 MG; Start 12/21/16 at 15:30 Simethicone (Mylicon) 80 mg Q6H PRN PO DISTENSION/GAS/BLOATING Last administered on 12/21/16 23:52; Admin Dose 80 MG; Start 12/21/16 at 23:00 CHIARA TOLENTINO MD Dec 22, 2016 14:01
--- NOTE | 2016-12-22 14:46 | PN ---
Date/Time of Note Date/Time of Note DATE: 12/22/16 TIME: 14:45 Assessment/Plan VTE Prophylaxis VTE Prophylaxis Intervention: LMWH Lines/Catheters IV Catheter Type (from [facility]): Saline Lock Urinary Cath still in place: No Assessment/Plan Chief Complaint/Hosp Course 51 yo male wtih newly diagnosed iron deficeincy anemia and invasive colon adenocarcinoma Colon cancer IIB: - s/p hemicolectomy - Further management per oncology, Dr Anna for consideration of chemo as outpatient s/p colectomy: - advance diet - PT/OT - Follow up in clinic with Dr Youngblood DARREN: - Iron supplementation discharge to home tomorrow Problems: Subjective 24 Hr Interval Summary Free Text/Dictation Feels well, passing gas and flatus XR yetserday showed mild ileus Agrees to go be discharged tomorrow Exam/Review of Systems Vital Signs Vitals Vital Signs Date Time Temp Pulse Resp B/P Pulse Ox O2 Delivery O2 Flow Rate FiO2 12/22/16 07:56 98.2 71 16 127/87 99 Intake and Output 12/21/16 12/21/16 12/22/16 14:59 22:59 06:59 Intake Total 1150 ml 850 ml Balance 1150 ml 850 ml Exam Constitutional: alert, oriented, well developed Psych: nl mood/affect, no complaints Head: atraumatic, normocephalic Eyes: EOMI, PERRL, nl conjunctiva, nl lids, nl sclera ENMT: nl external ears & nose, nl lips & teeth, nl nasal mucosa & septum Neck: non-tender, supple Respiratory: clear to auscultation, normal air movement Cardiovascular: nl pulses, regular rate and rhythm Gastrointestinal: nl liver, spleen, non-tender, soft Musculoskeletal: nl extremities to inspection, nl gait and stance Extremities: normal pulses Neurological: ATTRACTION ATTENDANT II-XII intact, nl mental status, nl speech, nl strength Skin: nl turgor, No rash or lesions Lymph: nl lymph nodes Results Result Diagram: 12/20/1644012/20/16440 Medications Medications Current Medications Ondansetron HCl (Zofran Inj) 4 mg Q6H PRN IV NAUSEA AND/OR VOMITING Last administered on 12/21/16t 14:57; Admin Dose 4 MG; Start 12/02/16 at 00:00 Pantoprazole (Protonix Tab) 40 mg BID@06,18 PO Last administered on 12/22/16 05:18; Admin Dose 40 MG; Start 12/06/16 at 18:00 Naloxone HCl (Narcan) 0.2 mg Q2M PRN IV RR 8 BREATHS/MIN OR LESS; Start at 14:30 Ibuprofen (Motrin) 400 mg Q6H PRN PO PAIN OR TEMP ABOVE 38C Last administered on 12/22/16 13:53; Admin Dose 400 MG; Start 12/21/16 at 15:30 Simethicone (Mylicon) 80 mg Q6H PRN PO DISTENSION/GAS/BLOATING Last administered on 12/21/16 23:52; Admin Dose 80 MG; Start 12/21/16 at 23:00 JOSELYN BARCLAY MD Dec 22, 2016 14:46
[2016-12-22 20:00] VITALS: BP 119/78; RESP 19
[2016-12-23 02:00] VITALS: BP 130/83; RESP 19
[2016-12-23] MEDS: IBUPROFEN 400 MG TAB PO PRN ×2 (05:26→20:01)
[2016-12-23 08:00] VITALS: BP 106/71; RESP 19
[2016-12-23] MEDS ORDERED: OXYCODONE/ACETAMINOPHEN (5/325) TAB PO ONE (11:30)
[2016-12-23 14:00] VITALS: BP 103/68; RESP 17
--- NOTE | 2016-12-23 15:04 | PN ---
Date/Time of Note Date/Time of Note DATE: 12/23/16 TIME: 15:04 Assessment/Plan VTE Prophylaxis VTE Prophylaxis Intervention: heparin Lines/Catheters IV Catheter Type (from Nrs): Saline Lock Urinary Cath still in place: No Assessment/Plan Chief Complaint/Hosp Course 51 yo male wtih newly diagnosed iron deficeincy anemia and invasive colon adenocarcinoma Colon cancer IIB: - s/p hemicolectomy - Further management per oncology, Dr Anna for consideration of chemo as outpatient s/p colectomy: - advance diet - PT/OT - Follow up in clinic with Dr Youngblood DARREN: - Iron supplementation discharge to home tomorrow Problems: Subjective 24 Hr Interval Summary Free Text/Dictation Not willing to go home until tomorrow because family can't pick him up Pain controlled on motrin Exam/Review of Systems Vital Signs Vitals Vital Signs Date Time Temp Pulse Resp B/P Pulse Ox O2 Delivery O2 Flow Rate FiO2 12/23/16 08:00 98.0 70 19 106/71 100 Intake and Output 12/22/16 12/22/16 12/23/16 15:00 23:00 07:00 Intake Total 1000 ml 500 ml Balance 1000 ml 500 ml Exam Constitutional: alert, oriented, well developed Psych: nl mood/affect, no complaints Head: atraumatic, normocephalic Eyes: EOMI, PERRL, nl conjunctiva, nl lids, nl sclera ENMT: nl external ears & nose, nl lips & teeth, nl nasal mucosa & septum Neck: non-tender, supple Respiratory: clear to auscultation, normal air movement Cardiovascular: nl pulses, regular rate and rhythm Gastrointestinal: nl liver, spleen, non-tender, soft Musculoskeletal: nl extremities to inspection, nl gait and stance Extremities: normal pulses Neurological: DEMONSTRATOR KNITTING II-XII intact, nl mental status, nl speech, nl strength Skin: nl turgor, No rash or lesions Lymph: nl lymph nodes Results Result Diagram: 12/20/1644012/20/16440 Medications Medications Current Medications Ondansetron HCl (Zofran Inj) 4 mg Q6H PRN IV NAUSEA AND/OR VOMITING Last administered on 12/21/16t 14:57; Admin Dose 4 MG; Start 12/02/16 at 00:00 Naloxone HCl (Narcan) 0.2 mg Q2M PRN IV RR 8 BREATHS/MIN OR LESS; Start at 14:30 Ibuprofen (Motrin) 400 mg Q6H PRN PO PAIN OR TEMP ABOVE 38C Last administered on 12/23/16 05:26; Admin Dose 400 MG; Start 12/21/16 at 15:30 Simethicone (Mylicon) 80 mg Q6H PRN PO DISTENSION/GAS/BLOATING Last administered on 12/21/16 23:52; Admin Dose 80 MG; Start 12/21/16 at 23:00 JOSELYN BARCLAY MD Dec 23, 2016 15:04
--- NOTE | 2016-12-23 15:14 | QN ---
Documentation Comment Discharge delayed for social reasons. Pt is reminded to arrange f/u with Dr. Anna after discharge. CHIARA TOLENTINO MD Dec 23, 2016 15:14
--- NOTE | 2016-12-23 16:48 | PN ---
Date/Time of Note Date/Time of Note DATE: 12/23/16 TIME: 16:46 Assessment/Plan Lines/Catheters IV Catheter Type (from Nrs): Saline Lock Ferrer in Place (from Nrsg): No Assessment/Plan Chief Complaint/Hosp Course 1. Colitis/ileitis: Large ascending colon adenocarcinoma with matted small bowel and large lymph nodes in mesentery, mass very close to duodenum; s/p Right colectomy; small bowel resection (about 3 feet) 12/14; abd pain uch improved; sbft noted: now with +bowel function and feeling better (doubt ileus) -oob/ambulate -pain management -IS -ice pack -may be discharged per medical team w follow up in office in 1 week. Patient will need follow up w oncology as well 2. Infiltrating moderately-differentiated adenocarcinoma of the right colon: PATHOLOGIC STAGING (pTNM): pT4a pN0 pM0 -onc follow up 3. Distal esophagitis, Moderate gastritis and duodenal ulcer with significant scarring of the duodenal bulb -medical management -ppi 4. Malnutrition w hypoalbuminemia -optimize nutrition 5. Anemia of chronic disease: -monitor -transfuse as needed -placed on iv iron per onc Thank you. Patient seen and examined in collaboration with Dr. Rigo Youngblood. Problems: Subjective 24 Hr Interval Summary Continues to have bowel function. Feels well. [place] removed. No fevers, chills , sob, congested cough, cp, palpitations, boss, dizziness, n/v/d/dysuria. Exam/Review of Systems Vital Signs Vitals Vital Signs Date Time Temp Pulse Resp B/P Pulse Ox O2 Delivery O2 Flow Rate FiO2 12/23/16 08:00 98.0 70 19 106/71 100 Intake and Output 12/22/16 12/22/16 12/23/16 14:59 22:59 06:59 Intake Total 1000 ml 500 ml Balance 1000 ml 500 ml Exam Free Text/Dictation Constitutional: alert, oriented Psych: min anxious Head: atraumatic, normocephalic Eyes: nl conjunctiva, nl lids, nl sclera ENMT: mucosa pink and moist, nl nasal mucosa & septum Neck: non-tender, supple Respiratory: clear to auscultation, normal air movement Cardiovascular: nl pulses, regular rate and rhythm Gastrointestinal: soft, min tender, incision site -no drainage/discoloration/ bruising. Min distended Musculoskeletal: nl extremities to inspection, nl gait and stance Extremities: normal pulses Neurological: nl mental status, nl speech, nl strength Skin: nl turgor, rash or lesions Lymphatics: Normal inguinal and cervical Results Result Diagram: 12/20/1644012/20/16 044 MC CANTU NP Dec 23, 2016 16:48
[2016-12-23 20:00] VITALS: BP 113/84; RESP 17
[2016-12-23] MEDS ORDERED: morphine 2 MG INJ IV ONE (22:00)
[2016-12-24 02:00] VITALS: BP 92/60; RESP 17
[2016-12-24] MEDS: IBUPROFEN 400 MG TAB PO PRN (02:06)
[2016-12-24 08:00] VITALS: BP 105/79; RESP 16
--- NOTE | 2016-12-24 08:47 | PDOCDIS ---
Discharge Instructions DIAGNOSIS Discharge Diagnosis Colon cancer CONDITION Patient Condition: Fair HOME CARE INSTRUCTIONS: Special Diet: soft diet FOLLOW UP/APPOINTMENTS Follow-up Plan Make an appointment to see Dr Anna (oncologist) in clinic to make a plan for chemotherapy You also need to see Dr Youngblood (surgeon) to follow up on your surgery Return to the hospital if you have any concerning symptoms JOSELYN BARCLAY MD Dec 24, 2016 08:47
--- NOTE | 2016-12-24 15:20 | PN ---
Date/Time of Note Date/Time of Note DATE: 12/24/16 TIME: 15:16 Assessment/Plan Lines/Catheters IV Catheter Type (from [facility]): Peripheral IV Ferrer in Place (from [facility]): No Assessment/Plan Chief Complaint/Hosp Course 1. Large ascending colon adenocarcinoma with matted small bowel and large lymph nodes in mesentery, mass very close to duodenum; s/p Right colectomy; small bowel resection (about 3 feet) 12/14; No further nausea and vomiting; Bowel function. SBFT noted. Multiple bms. -diet as tolerated -oob/ambulate -pain management -IS -Onc f/u 2. Distal esophagitis, Moderate gastritis and duodenal ulcer with significant scarring of the duodenal bulb -medical management -ppi 3. Malnutrition w hypoalbuminemia -optimize nutrition 4. Anemia of chronic disease: -monitor Thank you Problems: Subjective 24 Hr Interval Summary Bowel functions. Lower abdominal wound opened. Min pain but improved. No vomiting. No fevers, chills, sob, congested cough, cp, palpitations, boss, dizziness, dysuria. No erythema Exam/Review of Systems Vital Signs Vitals Vital Signs Date Time Temp Pulse Resp B/P Pulse Ox O2 Delivery O2 Flow Rate FiO2 12/24/16 08:00 97.4 76 16 105/79 99 Intake and Output 12/23/16 12/23/16 12/24/16 15:00 23:00 07:00 Intake Total 1200 ml 200 ml Balance 1200 ml 200 ml Exam Free Text/Dictation Constitutional: alert, oriented Psych: nl mood-pleasant Head: atraumatic, normocephalic Eyes: nl conjunctiva, nl lids, nl sclera ENMT: mucosa pink and moist, nl nasal mucosa & septum Neck: non-tender, supple Respiratory: clear to auscultation, normal air movement Cardiovascular: nl pulses, regular rate and rhythm Gastrointestinal: soft, min tender, min opening lower wound Musculoskeletal: nl extremities to inspection, nl gait and stance Extremities: normal pulses Neurological: nl mental status, nl speech, nl strength Skin: nl turgor, rash or lesions Lymphatics: Normal inguinal and cervical Results Result Diagram: 12/20/16 04412/20/16 044 ROBIN PRESTON MD Dec 24, 2016 15:20
--- NOTE | 2016-12-24 15:26 | DS ---
Date/Time of Note Date/Time of Note DATE: 12/24/16 TIME: 15:21 Discharge Summary Admission/Discharge Info Admit Date/Time Nov 30, 2016 at 19:07 Discharge Date/Time Dec 24, 2016 at 11:00 Discharge Diagnosis Colon cancer Patient Condition: Fair Hx of Present Illness This is a 51-year-old male with no significant past medical history who presented to the emergency department complaining of abdominal pain and vomiting and diarrhea. Symptoms started about a month ago and has been progressively getting worse. Pain is diffuse but worse in the lower quadrants. Vomiting is described as nonbloody/nonbilious. Diarrhea is watery with no blood. He has been having about 7 BMs per day for last 10 days or so. Abdominal pain has gotten significantly worse yesterday and today. He went to a clinic who advised him to come to ER. When presented to the ER, he had a temp of 99.8 and heart rate 110. CT abdomen/ pelvis shows inflammation of most part of the colon and the terminal ileum with radiology also mentioning that there is likely inflammation involving the duodenum and the gastric antrum. Hospital Course 1. Large ascending colon adenocarcinoma with matted small bowel and large lymph nodes in mesentery, mass very close to duodenum; s/p Right colectomy; small bowel resection (about 3 feet) 12/14; No further nausea and vomiting; Bowel function. SBFT noted. Multiple bms. -diet as tolerated -oob/ambulate -pain management -IS -Onc f/u 2. Distal esophagitis, Moderate gastritis and duodenal ulcer with significant scarring of the duodenal bulb -medical management -ppi 3. Malnutrition w hypoalbuminemia -optimize nutrition 4. Anemia of chronic disease: -monitor Thank you The patient underewent CT abdomen/pelvis showing inflammation of most of the colon and the terminal ileum. He was started on antibiotics. Labs were notable for an iron deficiency anemia. He underwent upper and lower endoscopy. This was notable for a large mass with extreme friability and what appears to be the proximal ascending colon suspect for neoplasm. Biopsy was taken and pathology confirmed adenocarcinoma. He then underwent hemicolectomy and staging procedure confirming stage IIB colon cancer. He was seen by Dr Anna from oncology who sent genetic tests which are pending at this time to guide decision on whether or not to give chemotherapy. He was transfused IV iron for repletion fo iron stores Post operative course was unremarkable. He was discharged with instruction to follow up with both Dr Anna and Dr Youngblood in clinic. Home Meds No Active Prescriptions or Reported Meds Follow-up Plan Make an appointment to see Dr Anna (oncologist) in clinic to make a plan for chemotherapy You also need to see Dr Youngblood (surgeon) to follow up on your surgery Return to the hospital if you have any concerning symptoms Primary Care Provider Care Physician No Primary JOSELYN BARCLAY MD Dec 24, 2016 15:26
== END 2016-12-24 11:00 | disposition home or self-care (01) | DRG 854 ==
LOC: E/R 12:28 → PP2 19:07
PROVIDERS: ADMIT Internal Medicine; ATTEND Internal Medicine
PROC: 0DBK8ZX Excision of Ascending Colon, Via Natural or Artificial Opening Endoscopic, Diagnostic (ICD-10-PCS; 2016-12-05)
PROC: 0DB68ZX Excision of Stomach, Via Natural or Artificial Opening Endoscopic, Diagnostic (ICD-10-PCS; 2016-12-05 21:00)
PROC: 0DTF0ZZ Resection of Right Large Intestine, Open Approach (ICD-10-PCS; 2016-12-14)
PROC: 0DB80ZZ Excision of Small Intestine, Open Approach (ICD-10-PCS; principal; 2016-12-14 10:00)
DX: A41.9 Sepsis, unspecified organism (principal); E46 Unspecified protein-calorie malnutrition; C18.2 Malignant neoplasm of ascending colon; C18.0 Malignant neoplasm of cecum; K26.9 Duodenal ulcer, unspecified as acute or chronic, without hemorrhage or perforation; E88.09 Other disorders of plasma-protein metabolism, not elsewhere classified; K20.9 Esophagitis, unspecified; E87.6 Hypokalemia; D50.9 Iron deficiency anemia, unspecified; D63.8 Anemia in other chronic diseases classified elsewhere; K52.9 Noninfective gastroenteritis and colitis, unspecified; K64.8 Other hemorrhoids; Z68.26 Body mass index [BMI] 26.0-26.9, adult; Z87.891 Personal history of nicotine dependence
CPT/HCPCS: 36415; 71010; 71260; 74000; 74176; 74177; 74250; 80048; 80053; 81001; 82378; 82728; 82962; 83540; 83605; 83735; 84100; 84484; 85025; 85045; 85610; 85730; 86021; 87040; 87045; 87075; 87086; 88305; 88309; 88312; 93005; 96374; 96375; 96376; 97162; J0131; J0690; J1100; J1170; J1956; J2250; J2270; J2274; J2370; J2405; J2543; J2765; J2795; J2916; J3010; J3230; J3480; J7030; J7042; Q4166; Q9967

== ENCOUNTER 2017-11-27 12:27 | Inpatient (IN) | END 2017-12-13 12:05 | disposition home or self-care (01) | DRG 374 ==

== ENCOUNTER 2018-03-28 16:29 | Inpatient (IN) | payer MEDICAID ==
[~2018-03-28] VITALS: Ht 165.1 cm; Wt 68.4 kg
[2018-03-28] MEDS: POTASSIUM CHLORIDE 100 ML IVPB SCH ×2 (01:58→17:51)
[~2018-03-28 16:29] MED LIST: HYDR-3609 PO; PANT40TA4 PO; SUCR1TAB35 PO
[2018-03-28] MEDS ORDERED: ASPIRIN 81 MG TAB PO STA (16:58)
[2018-03-28] MEDS ORDERED: morphine 10 MG INJ IV ONE (17:30)
[2018-03-28] MEDS ORDERED: SOD CHLORIDE 0.9% 0 ML IV ONE (17:41)
[2018-03-28] MEDS ORDERED: HYDROmorphONE 2 MG/ML SYG IV STA (17:46)
[2018-03-28] MEDS ORDERED: MAGNESIUM SULFATE 2 GM/50 ML 50 ML IVPB ONE (18:00)
[2018-03-28] MEDS ORDERED: ACETAMINOPHEN 325 MG TAB PO PRN (18:30)
[2018-03-28] MEDS ORDERED: ONDANSETRON 4 MG INJ IV PRN (18:30)
--- NOTE | 2018-03-28 18:47 | ERD ---
ER Documentation Chief Complaint Chief Complaint Abdominal pain, shortness of breath, weakness HPI 52-year-old male with a history of metastatic colon cancer status post hemicolectomy presenting with generalized weakness, shortness of breath with exertion, and severe uncontrolled abdominal pain. He has been taking Advil for his pain without relief. Pain is in the epigastrium, 9 out of 10, aching, with no alleviating or exacerbating factors. Pain is nonradiating. No associated fevers, chills, nausea, vomiting, diarrhea, melena or hematochezia. He denies any associated chest pain. His last admission was November 2017, during which time he had severe anemia and had blood transfusion done. He has not been following up outpatient. ROS All systems reviewed and are negative except as per history of present illness. Medications Home Meds Active Scripts Sucralfate (Carafate) 1 Gm Tablet, 1 GM PO QID, #120 TAB Prov:SAYRA MACIAS V. LAST CHALKER 12/13/17 Pantoprazole* (Pantoprazole*) 40 Mg Tablet.dr, 40 MG PO BID@, #60 TAB Prov:SAYRA MACIAS V. LAST CHALKER 12/13/17 Hydrocodone/Acetaminophen (Hydrocodone-Acetamin 10-325 mg) 1 Each Tablet, 1 TAB PO Q4H PRN for MODERATE PAIN LEVEL 4-6, #30 TAB Prov:SAYRA MACIAS V. LAST CHALKER 12/13/17 Allergies Allergies: Coded Allergies: No Known Allergy (Unverified , 12/01/17) PMhx/Soc History of Surgery: Yes (last year) Anesthesia Reaction: No Hx Neurological Disorder: No Hx Respiratory Disorders: No Hx Cardiac Disorders: No Hx Psychiatric Problems: No Hx Miscellaneous Medical Probl: Yes (Colon CA 11/2017 dx, anemia) Hx Alcohol Use: Yes (socially) Hx Substance Use: No Hx Tobacco Use: No Smoking Status: Never smoker FmHx Family History: No diabetes Physical Exam Vitals Vital Signs Date Temp Pulse Resp B/P (MAP) Pulse Ox O2 O2 Flow FiO2 Time Delivery Rate 03/28/18 78 18 106/72 98 Room Air 18:14 (83) 03/28/18 98.1 86 18 152/82 98 17:45 (105) 03/28/18 Nasal 2.0 17:18 Cannula 03/28/18 98.0 100 19 134/70 92 16:37 (91) Physical Exam Const: No acute distress Head: Atraumatic Eyes: Pale conjunctiva. No scleral icterus ENT: Normal External Ears, Nose and Mouth. Neck: Full range of motion. No meningismus. No JVD Resp: Clear to auscultation bilaterally Cardio: Regular rate and rhythm, no murmurs Abd: Soft, tender in the epigastrium with no rebound or guarding. No masses. Non distended. Normal bowel sounds Skin: No petechiae or rashes Back: No midline or flank tenderness Ext: No cyanosis, or edema. No calf tenderness Neur: Awake and alert, speech, no facial asymmetry, moving all extremities Psych: Normal Mood and Affect Result Diagram: 03/28/18170803/28/181708 Results 24 hrs Laboratory Tests Test 03/28/18 17:09 White Blood Count 10.6 10^3/ul Red Blood Count 2.40 10^6/ul Hemoglobin 4.4 g/dl Hematocrit 16.4 % Mean Corpuscular Volume 68.3 fl Mean Corpuscular Hemoglobin 18.3 pg Mean Corpuscular Hemoglobin Concent 26.8 g/dl Red Cell Distribution Width 18.2 % Platelet Count 459 10^3/UL Mean Platelet Volume 9.9 fl Immature Granulocytes % 0.700 % Neutrophils % % Segmented Neutrophils % (Manual) 80 % Band Neutrophils % (Manual) 3 % Lymphocytes % % Lymphocytes % (Manual) 14 % Monocytes % % Monocytes % (Manual) 2 % Eosinophils % % Basophils % % Basophils % (Manual) 1 % Nucleated Red Blood Cells % 0.0 /100WBC Immature Granulocytes # 0.070 10^3/ul Neutrophils # 10^3/ul Neutrophils # (Manual) 8.5 10^3/ul Band Neutrophils # 0.3 10^3/ul Lymphocytes (Manual) 1.4 10^3/ul Lymphocytes # 10^3/ul Monocytes # 10^3/ul Monocytes # (Manual) 0.2 10^3/ul Eosinophils # 10^3/ul Basophils # 10^3/ul Basophils # (Manual) 0.1 10^3/ul Nucleated Red Blood Cells # 10^3/ul Pathologist Review (Hematology) YES Platelet Estimate NORMAL Giant Platelets 6 % Polychromasia 1+ Hypochromasia 3+ Poikilocytosis 1+ Anisocytosis 2+ Microcytosis 2+ Tear Drop Cells 1+ Ovalocytes 1+ Acanthocytes 1+ Prothrombin Time 14.4 Sec Prothrombin Time Ratio 1.1 INR International Normalized Ratio 1.11 Activated Partial Thromboplast Time Pending Sodium Level 142 mmol/L Potassium Level 2.8 mmol/L Chloride Level 106 mmol/L Carbon Dioxide Level 24 mmol/L Anion Gap 12 Blood Urea Nitrogen 15 mg/dl Creatinine 0.91 mg/dl Est Glomerular Filtrat Rate mL/min > 60 mL/min Glucose Level 85 mg/dl Calcium Level 8.9 mg/dl Troponin I < 0.012 ng/ml Current Medications Medications Dose Sig/Heriberto Start Time Status Last (Trade) Ordered Route PRN Stop Time Admin Dose Reason Admin Aspirin 162 mg ONCE STAT 03/28/18 DC (Aspirin) PO 16:58 03/28/18 17:13 Morphine 6 mg ONCE ONCE 03/28/18 DC 03/28/18 Sulfate IV 17:30 17:13 (morphine) 03/28/18 17:31 Sodium 0 ml @ 0 Q0M ONCE 03/28/18 DC Chloride mls/hr IV 17:41 03/28/18 17:43 1 mg ONCE STAT 03/28/18 DC 03/28/18 Hydromorphone IV 17:46 17:51 HCl 03/28/18 17:47 (Dilaudid) Potassium 100 ml @ Q2H IVPB 03/28/18 03/28/18 Chloride 50 mls/hr 18:00 17:51 03/28/18 23:59 Magnesium 50 ml @ 25 ONCE ONCE 03/28/18 03/28/18 Sulfate mls/hr IVPB 18:00 18:05 03/28/18 19:59 Ondansetron 4 mg ER BRIDGE 03/28/18 HCl (Zofran PRN IV 18:30 Inj) NAUSEA/VOMITI 03/29/18 18:29 NG 650 mg ER BRIDGE 03/28/18 Acetaminophen PRN PO 18:30 (Tylenol .MILD PAIN 03/29/18 18:29 Tab) 1-3 OR TEMP Procedures/MDM EMERGENT LABS AND DIAGNOSTIC STUDIES: Lab Results above were reviewed and interpreted by me. CBC: Severe anemia, thrombocytosis BMP: Hypokalemia. No evidence of renal failure, hypoglycemia Liver enzymes pending Coags within normal limits Troponin within normal limits, not indicative of cardiac ischemia 12-lead EKG was interpreted by Rg Ross MD: Normal Sinus Rhythm Right axis deviation Normal intervals Inferior lateral ST depressions Abnormal EKG, no STEMI Radiology Results as interpreted by Radiology below were reviewed by Louie Ross MD: Chest x-ray shows no acute abnormalities Initial Nursing notes reviewed. Previous Medical Records requested via the Electronic Health Record. EMERGENCY DEPARTMENT COURSE / MEDICAL DECISION MAKING: Patient is presenting with generalized weakness, shortness of breath, and chronic abdominal pain. Vitals are stable. Labs are notable for severe anemia and hypokalemia. EKG was abnormal with some evidence of ischemia, however that his troponin is within normal limits. 2 units of PRBCs were ordered. IV potassium and magnesium supplementation was ordered as well. I suspect his anemia is secondary to GI blood loss due to his colon adenocarcinoma. Lower suspicion for pulmonary embolism or acute coronary syndrome. Patient will require admission for further workup and stabilization. Critical Care Time: 35 minutes Treatments/Evaluations: Close monitoring and treatment of unstable vital signs, cardiorespiratory, and neurologic status, while maintaining tight balance of fluid, respiratory, and cardiac interventions. This time includes discussing the case with the patient and the patients family. This time does not include all procedures stated elsewhere in this record. This time also includes reviewing old records, labs and radiological studies. This time includes examining and re-examining the patient. Additionally, this time also includes arranging care with admitting and consulting physicians. Accepting Care Team: Current data and ongoing care discussed. Time: Time of admission Primary Provider: Dr. Mckoy Outstanding Data: none Departure Diagnosis: Primary Impression: Severe anemia Additional Impressions: Hypokalemia History of colon cancer Condition: Serious IVY ROSS MD Mar 28, 2018 18:43
[2018-03-28 20:15] VITALS: BP 155/89; PULSE 75; RESP 20
[2018-03-28 20:29] VITALS: Ht 165.1 cm; Wt 68.4 kg
--- NOTE | 2018-03-28 21:25 | HP ---
Date/Time of Note Date/Time of Note DATE: 03/28/18 TIME: 21:11 Assessment/Plan VTE Prophylaxis Pharmacological prophylaxis: heparin Lines/Catheters IV [facility]ter Type (from [facility]): Peripheral IV Urinary Cath still in place: No Assessment/Plan Hospital Course 52 yo male with colon/duodenal cancer s/p resection who has been lost to follow up presenting with progressive abdominal pain and dyspnea on exertion. Found to have profound microcytic anemia Acute on chronic blood loss anemia: - Likely related to known GI cancer, though PUD should be considered as he has been using lots of Advil - PPI - PRBCs to Hgb 7 - Check iron stores Colon cancer: - Consult Dr Anna to re-establish care Hypokalemia: - Replete as needed - unclear etiology Discharge when stable to self care Result Diagram: 03/28/18 1709 03/28/18 1709 Results 24hrs Laboratory Tests Test 03/28/18 17:09 White Blood Count 10.6 # Red Blood Count 2.40 #L Hemoglobin 4.4 #*L Hematocrit 16.4 #L Mean Corpuscular Volume 68.3 L Mean Corpuscular Hemoglobin 18.3 #L Mean Corpuscular Hemoglobin Concent 26.8 L Red Cell Distribution Width 18.2 H Platelet Count 459 #H Mean Platelet Volume 9.9 Immature Granulocytes % 0.700 H Neutrophils % Segmented Neutrophils % (Manual) 80 H Band Neutrophils % (Manual) 3 Lymphocytes % Lymphocytes % (Manual) 14 L Monocytes % Monocytes % (Manual) 2 Eosinophils % Basophils % Basophils % (Manual) 1 Nucleated Red Blood Cells % 0.0 Immature Granulocytes # 0.070 H Neutrophils # Neutrophils # (Manual) 8.5 H Band Neutrophils # 0.3 Lymphocytes (Manual) 1.4 Lymphocytes # Monocytes # Monocytes # (Manual) 0.2 L Eosinophils # Basophils # Basophils # (Manual) 0.1 H Nucleated Red Blood Cells # Pathologist Review (Hematology) YES Platelet Estimate NORMAL Giant Platelets 6 H Polychromasia 1+ Hypochromasia 3+ Poikilocytosis 1+ Anisocytosis 2+ Microcytosis 2+ Tear Drop Cells 1+ Ovalocytes 1+ Acanthocytes 1+ Prothrombin Time 14.4 Prothrombin Time Ratio 1.1 INR International Normalized Ratio 1.11 Activated Partial Thromboplast Time 30.3 Sodium Level 142 Potassium Level 2.8 *L Chloride Level 106 Carbon Dioxide Level 24 Anion Gap 12 Blood Urea Nitrogen 15 Creatinine 0.91 Est Glomerular Filtrat Rate mL/min > 60 Glucose Level 85 Calcium Level 8.9 Total Bilirubin 0.1 L Direct Bilirubin 0.00 Indirect Bilirubin 0.1 Aspartate Amino Transf (AST/SGOT) 24 Alanine Aminotransferase (ALT/SGPT) 20 Alkaline Phosphatase 76 Troponin I < 0.012 Total Protein 7.2 Albumin 3.8 HPI/ROS Admit Date/Time Admit Date/Time Mar 28, 2018 at 18:18 Hx of Present Illness 52 yo male with h/o stage IIB colon cancer s/p hemicolectomy, blood loss anemia presenting wtih abdominal pain and SOB Patient with known colon cancer diagnosed last year. Had resection here. Was to follow up with Dr Anna for chemotherapy. Seems he has been lost to follow up. He has developed worsening abdominal pain. Has been taking lots of advil for this, up to 15 a day he says. Has developed worsening ABURTO for which he presents today. Found to have severe anemia. Has not had any melena or hematochezia he has noticed PMH/Family/Social Past Medical History Colon cancer Medications Current Medications Potassium Chloride 100 ml @ 50 mls/hr Q2H IVPB Last administered on 03/28/18at 17:51; Admin Dose 50 MLS/HR; Start 03/28/18 at 18:00; Stop 03/28/18 at 23:59 Ondansetron HCl (Zofran Inj) 4 mg ER BRIDGE PRN IV NAUSEA/VOMITING; Start 03/28/18 at 18:30; Stop 03/29/18 at 18:29 Acetaminophen (Tylenol Tab) 650 mg ER BRIDGE PRN PO .MILD PAIN 1-3 OR TEMP; Start 03/28/18 at 18:30; Stop 03/29/18 at 18:29 Coded Allergies: No Known Allergy (Unverified , 12/01/17) Past Surgical History Past Surgical Hx: bowel resection Family History Significant Family History: no pertinent family hx Social History Alcohol Use: none Smoking Status: Former smoker Drug Use: none Exam/Review of Systems Vital Signs Vitals Vital Signs Date Temp Pulse Resp B/P (MAP) Pulse Ox O2 O2 Flow FiO2 Time Delivery Rate 03/28/18 67 18 126/88 99 Room Air 19:55 (101) 03/28/18 98.1 17:45 2/20/19 2.0 17:18 Exam Exam Alert and oriented x 3 Pleasant + JVD RRR Breahting comfortably Soft nt, mass present, nondistended Ext warm without edema JOSELYN BARCLAY MD Mar 28, 2018 21:23
[2018-03-28] MEDS ORDERED: NACL 0.9% 3 ML SYG IV SCH (21:30)
[2018-03-28] MEDS ORDERED: IOHEXOL 14.3 MG(I)/ML (ADULT) BTL PO ONE (21:30)
[2018-03-28] MEDS ORDERED: SOD CHLORIDE 0.9% 1,000 ML IV ONE (21:30)
[2018-03-28] MEDS: PANTOPRAZOLE 40 MG INJ IV SCH (21:50)
[2018-03-28 23:23] VITALS: PULSE 79
[2018-03-28] MEDS: HYDROCODONE/APAP (5/325) TAB PO PRN (23:32)
[2018-03-28 23:37] VITALS: BP 141/88; PULSE 57; RESP 20
[2018-03-29] VITALS (12 sets, daily range): BP systolic 136–166; BP diastolic 81–94; PULSE 50–71; RESP 16–20
[2018-03-29] MEDS: POTASSIUM CHLORIDE 100 ML IVPB SCH (01:58)
[2018-03-29] MEDS ORDERED: POTASSIUM CHLORIDE 100 ML IVPB ONE (02:00)
[2018-03-29] MEDS: morphine 2 MG INJ IV PRN ×6 (02:08→17:58)
[2018-03-29] MEDS ORDERED: IOHEXOL 300MG/ML 150 ML BTL ONE (02:29)
[2018-03-29] MEDS ORDERED: SOD CHLORIDE 0.9% 100 ML ONE (02:29)
[2018-03-29] MEDS: PANTOPRAZOLE 40 MG INJ IV SCH ×2 (05:57→17:57)
[2018-03-29] MEDS: SUCRALFATE 1 GM TAB PO SCH ×4 (08:22→20:41)
[2018-03-29] MEDS ORDERED: POTASSIUM CHLORIDE (SR) 20 MEQ TAB PO STA (10:42)
--- NOTE | 2018-03-29 14:20 | CONS ---
Assessment/Plan Assessment/Plan Hospital Course (Demo Recall) Summary Assessment and Plan: Assessment: Severe microcytic anemia - R/o PUD 2/2 to NSAIDs use Nominal pain/melena secondary to below Metastatic adenocarcinoma of small bowel History of colon cancer status post right-sided hemicolectomy Plan: Continue PPI/Carafate NPO after midnight EGD tomorrow Monitor labs, transfuse for HGB less than 7.5 Endoscopy - risks/benefits/alternatives/indications of procedure and sedation/anesthesia discussed with patient who states understanding and gives informed consent to proceed. Patient seen in collaboration with Dr. Alan CC: JOSE ALAN ; Consultation Date/Type/Reason Admit Date/Time Mar 28, 2018 at 18:18 Date of Consultation: Mar 29, 2018 Type of Consult GI Reason for Consultation Anemia/Melena Date/Time of Note DATE: 03/29/18 TIME: 14:15 Hx of Present Illness This is a pleasant 52-year-old male with past medical history stage IIb colon carcinoma status post right-sided hemicolectomy recently hospitalized to [facility] in December 2017 at that time he underwent EGD colonoscopy which revealed large malignant mass in the small bowel approximately 15 cm from the pylorus. Biopsies were consistent with metastatic adenocarcinoma from the colon. He was discharged with plan to follow-up with his primary care physician and Dr. Anna however per patient is unable to follow-up as he had to continue working to prevent losing his apartment and he helps care for his child who was addicted to drugs. Patient represented to the hospital with progressive abdominal pain dyspnea upon workup patient to have profound microcytic anemia with a hemoglobin of 4.4 he was given 2 units of packed RBCs hemoglobin today is 5.7 and the unit has been given additionally per nursing staff patient is having black stools has been consulted for endoscopic evaluation to rule out PVD as patient has been using increased amounts of nonsteroidal anti-inflammatory drugs. Evaluation patient is a regular diet last ate at 10:00 this morning therefore we are unable to proceed with EGD today discussed plan for upper endoscopy tomorrow patient will remain n.p.o. reviewed risk/benef its/alternatives patient verbalized understanding is agreeable to procedure. Review of Systems: A 12 system, review was conducted and is negative except as noted in the HPI or here. Past Medical History Home Meds Active Scripts Sucralfate (Carafate) 1 Gm Tablet, 1 GM PO QID, #120 TAB Prov:RENALDO MACIASDYA V. YARD CLEANER 12/13/17 Pantoprazole* (Pantoprazole*) 40 Mg Tablet.dr, 40 MG PO BID@18, #60 TAB Prov:RENALDO MACIASDYA V. YARD CLEANER 12/13/17 Hydrocodone/Acetaminophen (Hydrocodone-Acetamin 10-325 mg) 1 Each Tablet, 1 TAB PO Q4H PRN for MODERATE PAIN LEVEL 4-6, #30 TAB Prov:MACIASRENALDOSAYRA V. YARD CLEANER 12/13/17 Medications Current Medications Ondansetron HCl (Zofran Inj) 4 mg ER BRIDGE PRN IV NAUSEA/VOMITING; Start 03/28/18 at 18:30; Stop 03/29/18 at 18:29 Acetaminophen (Tylenol Tab) 650 mg ER BRIDGE PRN PO .MILD PAIN 1-3 OR TEMP; Start 03/28/18 at 18:30; Stop 03/29/18 at 18:29 IV Flush (NS 3 ml) 3 ml PER PROTOCOL IV ; Start 03/28/18 at 21:30 Acetaminophen/ Hydrocodone Bitart ([place] (5/325)) 2 tab Q6H PRN PO .SEVERE PAIN 7-10 Last administered on 03/28/18at 23:32; Admin Dose 2 TAB; Start 03/28/18 at 21:30 Pantoprazole (Protonix Iv) 40 mg BID@ IV Last administered on 03/29/18at 05:57; Admin Dose 40 MG; Start 03/28/18 at 21:30 Sucralfate (Carafate) 1 gm QID PO Last administered on 03/29/18at 08:22; Admin Dose 1 GM; Start 03/29/18 at 09:00 Morphine Sulfate (morphine) 4 mg Q4 PRN IV SEVERE PAIN LEVEL 7-10 Last administered on 03/29/18at 11:11; Admin Dose 4 MG; Start 03/29/18 at 08:30 Allergies: Coded Allergies: No Known Allergy (Unverified , 12/01/17) Past Surgical History Past Surgical Hx: bowel resection Social History Alcohol Use: none Smoking Status: Former smoker Drug Use: none Exam/Review of Systems Exam Vitals Vital Signs Date Temp Pulse Resp B/P (MAP) Pulse Ox O2 O2 Flow FiO2 Time Delivery Rate 03/29/18 57 12:30 03/29/18 97.4 18 146/94 96 11:31 (111) 03/29/18 Room Air 03:17 03/28/18 2.0 17:18 Intake and Output 03/28/18 03/28/18 03/29/18 1414:59 22:59 06:59 IntakeIntake Total 820 ml OutputOutput Total 152 ml BalanceBalance 668 ml Constitutional: alert, oriented Psych: no complaints, nl mood/affect Head: normocephalic, atraumatic Eyes: nl conjunctiva ENMT: nl external ears & nose, nl lips & teeth Neck: supple Respiratory: clear to auscultation Cardiovascular: regular rate and rhythm Gastrointestinal: soft, bowel sounds, tender; No distended, No firm Musculoskeletal: nl extremities to inspection Results Result Diagram: 03/29/18 0543 03/29/18 0543 Results 24hrs Laboratory Tests Test 03/28/18 17:09 03/29/18 05:43 03/29/18 07:42 White Blood Count 10.6 # 7.8 # Red Blood Count 2.40 #L 2.66 L Hemoglobin 4.4 #*L 5.7 #*L Hematocrit 16.4 #L 19.5 L Mean Corpuscular Volume 68.3 L 73.3 L Mean Corpuscular Hemoglobin 18.3 #L 21.4 L Mean Corpuscular 26.8 L 29.2 L Hemoglobin Concent Red Cell Distribution Width 18.2 H 21.6 H Platelet Count 459 #H 373 Mean Platelet Volume 9.9 10.3 Immature Granulocytes % 0.700 H 0.600 H Neutrophils % 80.8 H Segmented Neutrophils 80 H % (Manual) Band Neutrophils % (Manual) 3 Lymphocytes % 13.2 L Lymphocytes % (Manual) 14 L Monocytes % 4.6 Monocytes % (Manual) 2 Eosinophils % 0.4 Basophils % 0.4 Basophils % (Manual) 1 Nucleated Red Blood Cells % 0.0 0.4 H Immature Granulocytes # 0.070 H 0.050 H Neutrophils # 6.3 Neutrophils # (Manual) 8.5 H Band Neutrophils # 0.3 Lymphocytes (Manual) 1.4 Lymphocytes # 1.0 Monocytes # 0.4 Monocytes # (Manual) 0.2 L Eosinophils # 0.0 Basophils # 0.0 Basophils # (Manual) 0.1 H Nucleated Red Blood Cells # 0.0 Pathologist Review (Hematology) YES Platelet Estimate NORMAL Giant Platelets 6 H Polychromasia 1+ Hypochromasia 3+ Poikilocytosis 1+ Anisocytosis 2+ Microcytosis 2+ Tear Drop Cells 1+ Ovalocytes 1+ Acanthocytes 1+ Prothrombin Time 14.4 Prothrombin Time Ratio 1.1 INR International 1.11 Normalized Ratio Activated Partial Thromboplast 30.3 Time Sodium Level 142 143 Potassium Level 2.8 *L 3.2 L Chloride Level 106 109 Carbon Dioxide Level 24 26 Anion Gap 12 8 Blood Urea Nitrogen 15 11 Creatinine 0.91 0.70 Est Glomerular Filtrat > 60 > 60 Rate mL/min Glucose Level 85 124 Calcium Level 8.9 8.4 Total Bilirubin 0.1 L 0.4 Direct Bilirubin 0.00 0.00 Indirect Bilirubin 0.1 0.4 Aspartate Amino 24 11 #L Transf (AST/SGOT) Alanine 20 13 Aminotransferase (ALT/SGPT) Alkaline Phosphatase 76 62 Troponin I < 0.012 Total Protein 7.2 6.4 Albumin 3.8 3.3 Hemoglobin A1c Magnesium Level 2.2 Iron Level 15 L Total Iron Binding Capacity 380 Percent Iron Saturation 4 L Ferritin 5.0 L Globulin 3.10 Albumin/Globulin Ratio 1.06 Lab Scanned Report BLOOD TRANSFUSION Medications Medication Current Medications Ondansetron HCl (Zofran Inj) 4 mg ER BRIDGE PRN IV NAUSEA/VOMITING; Start 03/28/18 at 18:30; Stop 03/29/18 at 18:29 Acetaminophen (Tylenol Tab) 650 mg ER BRIDGE PRN PO .MILD PAIN 1-3 OR TEMP; Start 03/28/18 at 18:30; Stop 03/29/18 at 18:29 IV Flush (NS 3 ml) 3 ml PER PROTOCOL IV ; Start 03/28/18 at 21:30 Acetaminophen/ Hydrocodone Bitart ([place] (5/325)) 2 tab Q6H PRN PO .SEVERE PAIN 7-10 Last administered on 03/28/18at 23:32; Admin Dose 2 TAB; Start 03/28/18 at 21:30 Pantoprazole (Protonix Iv) 40 mg BID@06,18 IV Last administered on 03/29/18at 05:57; Admin Dose 40 MG; Start 03/28/18 at 21:30 Sucralfate (Carafate) 1 gm QID PO Last administered on 03/29/18 08:22; Admin Dose 1 GM; Start 03/29/18 at 09:00 Morphine Sulfate (morphine) 4 mg Q4 PRN IV SEVERE PAIN LEVEL 7-10 Last a dministered on 03/29/18 11:11; Admin Dose 4 MG; Start 03/29/18 at 08:30 PAM RENEE Mar 29, 2018 14:20
--- NOTE | 2018-03-29 17:50 | PREAC ---
Date/Time of Note Date/Time of Note DATE: 03/29/18 TIME: 17:48 Anesthesia Eval and Record Evaluation Time Pre-Procedure Interview DATE: 03/29/18 TIME: 17:48 Age 52 Sex male NPO: 8 hrs Preoperative diagnosis abdominal pain Planned procedure EGD Past Medical History Past Medical History: Includes GI: Other (colon/duodenal cancer) Heme: Anemia Surgery & Anesthesia Issues No known issue Meds Anticoagulation: No Beta Radha within 24 hr: No Reason Beta Radha not given: Pt. not on B-Radha Active Scripts Sucralfate (Carafate) 1 Gm Tablet, 1 GM PO QID, #120 TAB Prov:SAYRA MACIAS V. ROLLER PNEUMATIC 12/13/17 Pantoprazole* (Pantoprazole*) 40 Mg Tablet.dr, 40 MG PO BID@, #60 TAB Prov:SAYRA MACIAS V. ROLLER PNEUMATIC 12/13/17 Hydrocodone/Acetaminophen (Hydrocodone-Acetamin 10-325 mg) 1 Each Tablet, 1 TAB PO Q4H PRN for MODERATE PAIN LEVEL 4-6, #30 TAB Prov:SAYRA MACIAS V. ROLLER PNEUMATIC 12/13/17 Current Medications IV Flush (NS 3 ml) 3 ml PER PROTOCOL IV ; Start 03/28/18 at 21:30 Acetaminophen/ Hydrocodone Bitart ([place] (5/325)) 2 tab Q6H PRN PO .SEVERE PAIN 7-10 Last administered on 03/28/18at 23:32; Admin Dose 2 TAB; Start 03/28/18 at 21:30 Pantoprazole (Protonix Iv) 40 mg BID@ IV Last administered on 03/29/18at 05:57; Admin Dose 40 MG; Start 03/28/18 at 21:30 Sucralfate (Carafate) 1 gm QID PO Last administered on 03/29/18at 08:22; Admin Dose 1 GM; Start 03/29/18 at 09:00 Morphine Sulfate (morphine) 4 mg Q4 PRN IV SEVERE PAIN LEVEL 7-10 Last administered on 03/29/18at 15:18; Admin Dose 4 MG; Start 03/29/18 at 08:30 Meds reviewed: Yes Allergies Coded Allergies: No Known Allergy (Unverified , 12/01/17) Allergies Reviewed: Yes Labs/Studies Labs Reviewed: Reviewed by anesthesiologist Result Diagram: 03/29/18 1523 03/29/18 0543 Laboratory Tests 03/29/18 05:43 03/29/18 15:23 test: N/A Studies: ECG (SR), CXR (No acute pulmonary abnormality.) Pre-procedure Exam Last vitals Vital Signs Date Temp Pulse Resp B/P (MAP) Pulse Ox O2 O2 Flow FiO2 Time Delivery Rate 03/29/18 50 16:21 03/29/18 98.6 20 166/92 98 15:12 (116) 03/29/18 Room Air 03:17 03/28/18 2.0 17:18 Airway: Adequate mouth opening Mallampati: Mallampati II Teeth: Normal Lung: Normal Heart: Normal ASA Physical Status ASA physical status: 2 Emergency: None Planned Anesthetic General/MAC: MAC Pre-operative Attestations Prior to commencing anesthesia and surgery, the patient was re-evaluated, there was verification of: *The patient's identity *The results of appropriate recent lab work and preoperative vital signs *The above evaluation not changing prior to induction *Anesthetic plan, risk benefits, alternative and complications discussed with patient/family; questions answered; patient/family understands, accepts and wishes to proceed. DUNIA ROLON Mar 29, 2018 17:50
--- NOTE | 2018-03-29 19:12 | EN ---
Date/Time of Note Date/Time of Note DATE: 03/29/18 TIME: 19:00 Event Note Medicine Medicine Event Note ONCOLOGY consultation dictated. Pt is a 52 y/o male with known metastatic adenocarcinoma of the colon with severe iron deficiency anemia due to chronic GI blood loss. Pt had a virtually identical admission 11/27-12/13/2017. During that admit was found to have a small bowel mass 15 cm distal to the pylorus. Bx was consistent with metastatic adenocarcinoma which was identical to the original lesion resected by right hemicolectomy done 12/15/2016. 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 These findings predict a poor response to flu orouracil based chemotherapy but is expected to be very responsive to "checkpoint inhibitors" such as pembrolizumab (KEYTRUDA). Pt is willing and anxious to start such therapy immediately. Unfortunately, hospital has been reluctant to allow such therapy for inpatients as they consider this an "outpatient" therapy. Do not feel that this patient can be allowed to leave hospital again without treatment. Thank You, Martine Anna MD. MARTINE ANNA MD Mar 29, 2018 19:12
--- NOTE | 2018-03-29 19:31 | CONS ---
DATE OF ADMISSION: 03/28/2018 DATE OF CONSULTATION: 03/29/2018 TYPE OF CONSULTATION: Medical oncology. PHYSICIAN REQUESTING CONSULTATION: Peter Howard MD REASON FOR CONSULTATION: Severe anemia and metastatic colorectal carcinoma. Dear Dr. Howard: Thank you very much for asking me to see this very pleasant gentleman in oncologic consultation. HISTORY OF PRESENT ILLNESS: As you know, I did see Mr. Gonzales when he was hospitalized here from to 12/13/2017 with severe anemia due to GI blood loss. The patient at that time was found to have evidence of metastatic colorectal carcinoma involving the small bowel. The patient is admitted to [facility] at this time with similar symptoms to those f or which he was hospitalized in 11/2017. The patient was experiencing increasing abdominal pain. Th is was mostly in the upper abdomen and epigastrium. This did not penetrate the back. This did not r adiate. The patient was developing increasing weakness and some dyspnea on exertion. He also was boss ving some orthostatic symptoms. The patient on admission to hospital on 03/28/2018 had white count of 10,600 with an absolute neutrop hil count of 8500, hemoglobin was 4.4, hematocrit 16.4, MCV 68.3, MCH 18.3, MCHC 26.8, RDW 18.2 and p latelet count 259,000. On admission, the pro time was 14.4 seconds with an INR of 1.11 and PTT is 30 .3 seconds. On admission, sodium was 142, potassium 2.8, chloride 106, carbon dioxide 24, BUN 15, creatinine 0.91 , total bilirubin 0.1, direct bilirubin 0, AST 24, ALT 20, alkaline phosphatase 76. The iron was 15, iron binding capacity of 380, percent saturation 4% and ferritin was 5. The patient had a chest x-ray which did not show any pulmonary parenchymal abnormalities. A CT scan of the abdomen and pelvis did demonstrate marked irregular mural thickening in the third portion of t he duodenum. There is a large necrotic left periaortic and retroperitoneal lymph node and also a rey picious 2 cm lesion in the left lateral lobe of the liver. As noted, the patient was hospitalized here with similar symptoms on 11/27/2017. The patient at that time did undergo an EGD on 11/29/2017. He had a large mass in the small bowel which was 15 cm from the pylorus. This partially obstructed the small bowel. 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 This was similar in appearance to the colon carcinoma which had been previously operated upon on 12/14/2016. In 2017, the patient did undergo a right hemicolectomy. This was a mildly differentiated adenocarcin soila with ulceration. There was no lymphovascular invasion, no perineural invasion. There were no tu mor deposits noted. The margins of excision were clear. A 28 lymph nodes were harvested and none of them had evidence of metastatic adenocarcinoma. At that time, the patient had a CEA preoperatively of 6.2. 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 Unfortunately, the patient did not follow up. When the patient was discharged last from the hospital on 12/13/2017 again, he did not follow up as a n outpatient. The patient did have some surgical evaluation during that hospitalization, but apparently it was felt that he was not a surgical candidate. The patient during on 11/27/2017 did have a repeat CEA and this was 4.8. PAST MEDICAL HISTORY: Includes the history of colorectal carcinoma. He has no history of hypertensi on, heart disease, diabetes, renal, hepatic or pulmonary disease. PAST SURGICAL HISTORY: Only surgery in the past has been the right hemicolectomy. MEDICATIONS AT THE TIME OF THIS ADMISSION: Include: 1. Hydrocodone with acetaminophen. 2. Pantoprazole. 3. Carafate. ALLERGIES: HE HAS NO KNOWN ALLERGIES. SOCIAL HISTORY: The patient does not smoke. He does drink alcohol occasionally. He has no known ex posures to industrial toxins or ionizing radiation. 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 He is from his . PHYSICAL EXAMINATION: GENERAL: At this time reveals a well-developed, well-nourished male who is experiencing abdominal pa in. VITAL SIGNS: Temperature 98.6, pulse 56 per minute and regular, respirations 20, blood pressure 166/ 92 and pulse oximetry is 98% on room air. SKIN: Pale. No ecchymosis, no petechiae or rashes. There is a tattoo on the left forearm. HEENT: Normocephalic. No evidence of trauma. The pupils are equal, round are equal, round and reac tive to light and accommodation. Sclerae are nonicteric. Oral mucosa is moist without lesions. Muc sina and conjunctivae are pale. Tongue is well papillated. No gingival hyperplasia, no hypertrophy o f Waldeyer's ring. NECK: Supple. No jugular venous distention or thyroid enlargement. No carotid bruits. CHEST: Clear to auscultation and percussion. No rhonchi, wheezes, rales or rubs. There is no pain on percussion of the spine, sternum, clavicles or ribs. HEART: Regular sinus rhythm. No S3, S4 or murmurs. No rubs. BREASTS: No gynecomastia. ABDOMEN: Soft. No masses, no ascites. Bowel sounds are active. EXTREMITIES: Good range of motion. No clubbing, no edema or cyanosis. No palpable cords or Homans sign. NEUROLOGIC: Normal. DISCUSSION: This present admission is a virtual repeat of the patient's more recent admission. He i s markedly anemic and obviously iron deficient. He has thus far received a total of 4 units of packe d red blood cells. As noted, the patient is iron deficient. Based on the patient's weight and hemoglobin on admission, he will require a total of 2500 mg of elemental iron in order to replete his iron stores. Any benefi t from this would only be temporary as the patient continues to bleed. As noted above, the patient does have very high intensity microsatellite instability. This finding s uggests that he would not respond well to the usual chemotherapeutic approaches with a 5-fluorouracil based therapy. The patient, however, with this degree of microsatellite instability does respond frequently to check point inhibitors such as pembrolizumab. I would suggest that therapy be initiated during the patient's hospitalization. Unfortunately, this hospital in the past had been very reluctant to allow this agent to be used as they feel as it is "ou tpatient" therapy. I do not feel, however, this patient should be discharged without the initiation of therapy. We will also order parenteral iron at this time. Unfortunately, the only iron preparation available is Ferrlecit. This will only provide the patient with 125 mg of elemental iron per dose. As noted, the patient requires at least 2500 mg of elemental iron. I will try to convince hospital to allow the patient to receive the pembrolizumab as an inpatient. I have discussed the situation with the patient and he is anxious to proceed with therapy. Once again, thank you very much for the opportunity of participating in the medical care of this very pleasant patient. I will be happy to follow this patient with you and assist in his hematologic and oncologic evaluation and followup as necessary. Dictated By: MARTINE ROSENBERG MD SR/NTS Conf#: [id number] DID#: [id number] CC: DHEERAJ READ MD;*EndCC*
[2018-03-29] MEDS ORDERED: morphine 2 MG INJ IV PRN (20:30)
[2018-03-29] MEDS ORDERED: morphine 4 MG/ML VIAL IV ONE (21:19)
[2018-03-30] VITALS (20 sets, daily range): BP systolic 128–173; BP diastolic 63–89; PULSE 47–69; RESP 9–24
[2018-03-30] MEDS: morphine 4 MG/ML VIAL IV PRN ×6 (00:51→19:39)
[2018-03-30] MEDS: HYDROCODONE/APAP (5/325) TAB PO PRN ×2 (02:57→17:24)
[2018-03-30] MEDS: PANTOPRAZOLE 40 MG INJ IV SCH ×2 (06:00→17:58)
[2018-03-30] MEDS: SUCRALFATE 1 GM TAB PO SCH ×4 (08:16→22:11)
--- NOTE | 2018-03-30 11:23 | EN ---
Date/Time of Note Date/Time of Note DATE: 03/29/18 TIME: 10:30am Event Note Medicine Medicine Event Note PROGRESS NOTE DATE OF SERVICE: 03/29/18 SUBJECTIVE: spoke with patient for a long time, states he got busy with life and working, he chose to ignore his diagnosis for while. Says he's ready to pursue aggressive treatment still having occasional black stools, pain is fairly well controlled on current regimen, ongoing packed red cell transfusion OBJECTIVE: Vital Signs Date Temp Pulse Resp B/P (MAP) Pulse Ox O2 O2 Flow FiO2 Time Delivery Rate 03/29/18 57 12:30 03/29/18 97.4 18 146/94 96 11:31 (111) Room Air Intake and Output 03/28/18 03/28/18 03/29/18 1414:59 22:59 06:59 IntakeIntake Total 820 ml OutputOutput Total 152 ml BalanceBalance 668 ml Constitutional: alert, oriented Psych: no complaints, nl mood/affect Head: normocephalic, atraumatic Eyes: nl conjunctiva ENMT: nl external ears & nose, nl lips & teeth Neck: supple Respiratory: clear to auscultation Cardiovascular: regular rate and rhythm Gastrointestinal: soft, bowel sounds, tender; No distended, No firm Musculoskeletal: nl extremities to inspection Results Result Diagram: 03/29/1843 03/29/18 0543 Results 24hrs Laboratory Tests Test 03/28/18 17:09 03/29/18 05:43 03/29/18 07:42 White Blood Count 10.6 # 7.8 # Red Blood Count 2.40 #L 2.66 L Hemoglobin 4.4 #*L 5.7 #*L Hematocrit 16.4 #L 19.5 L Mean Corpuscular Volume 68.3 L 73.3 L Mean Corpuscular Hemoglobin 18.3 #L 21.4 L Mean Corpuscular 26.8 L 29.2 L Hemoglobin Concent Red Cell Distribution Width 18.2 H 21.6 H Platelet Count 459 #H 373 Mean Platelet Volume 9.9 10.3 Immature Granulocytes % 0.700 H 0.600 H Neutrophils % 80.8 H Segmented Neutrophils 80 H % (Manual) Band Neutrophils % (Manual) 3 Lymphocytes % 13.2 L Lymphocytes % (Manual) 14 L Monocytes % 4.6 Monocytes % (Manual) 2 Eosinophils % 0.4 Basophils % 0.4 Basophils % (Manual) 1 Nucleated Red Blood Cells % 0.0 0.4 H Immature Granulocytes # 0.070 H 0.050 H Neutrophils # 6.3 Neutrophils # (Manual) 8.5 H Band Neutrophils # 0.3 Lymphocytes (Manual) 1.4 Lymphocytes # 1.0 Monocytes # 0.4 Monocytes # (Manual) 0.2 L Eosinophils # 0.0 Basophils # 0.0 Basophils # (Manual) 0.1 H Nucleated Red Blood Cells # 0.0 Pathologist Review (Hematology) YES Platelet Estimate NORMAL Giant Platelets 6 H Polychromasia 1+ Hypochromasia 3+ Poikilocytosis 1+ Anisocytosis 2+ Microcytosis 2+ Tear Drop Cells 1+ Ovalocytes 1+ Acanthocytes 1+ Prothrombin Time 14.4 Prothrombin Time Ratio 1.1 INR International 1.11 Normalized Ratio Activated Partial Thromboplast 30.3 Time Sodium Level 142 143 Potassium Level 2.8 *L 3.2 L Chloride Level 106 109 Carbon Dioxide Level 24 26 Anion Gap 12 8 Blood Urea Nitrogen 15 11 Creatinine 0.91 0.70 Est Glomerular Filtrat > 60 > 60 Rate mL/min Glucose Level 85 124 Calcium Level 8.9 8.4 Total Bilirubin 0.1 L 0.4 Direct Bilirubin 0.00 0.00 Indirect Bilirubin 0.1 0.4 Aspartate Amino 24 11 #L Transf (AST/SGOT) Alanine 20 13 Aminotransferase (ALT/SGPT) Alkaline Phosphatase 76 62 Troponin I < 0.012 Total Protein 7.2 6.4 Albumin 3.8 3.3 Hemoglobin A1c Magnesium Level 2.2 Iron Level 15 L Total Iron Binding Capacity 380 Percent Iron Saturation 4 L Ferritin 5.0 L Globulin 3.10 Albumin/Globulin Ratio 1.06 Lab Scanned Report BLOOD TRANSFUSION Medications Medication Current Medications Ondansetron HCl (Zofran Inj) 4 mg ER BRIDGE PRN IV NAUSEA/VOMITING; Start 03/28/18 at 18:30; Stop 03/29/18 at 18:29 Acetaminophen (Tylenol Tab) 650 mg ER BRIDGE PRN PO .MILD PAIN 1-3 OR TEMP; Start 03/28/18 at 18:30; Stop 03/29/18 at 18:29 IV Flush (NS 3 ml) 3 ml PER PROTOCOL IV ; Start 03/28/18 at 21:30 Acetaminophen/ Hydrocodone Bitart ([facility] (5/325)) 2 tab Q6H PRN PO .SEVERE PAIN 7-10 Last administered on 03/28/18 23:32; Admin Dose 2 TAB; Start 03/28/18 at 21:30 Pantoprazole (Protonix Iv) 40 mg BID@06,18 IV Last administered on 03/29/18at 05:57; Admin Dose 40 MG; Start 03/28/18 at 21:30 Sucralfate (Carafate) 1 gm QID PO Last administered on 03/29/18at 08:22; Admin Dose 1 GM; Start 03/29/18 at 09:00 Morphine Sulfate (morphine) 4 mg Q4 PRN IV SEVERE PAIN LEVEL 7-10 Last a dministered on 03/29/18at 11:11; Admin Dose 4 MG; Start 03/29/18 at 08:30 ASSESSMENT / PLAN: 52-year-old male with a history of metastatic colon cancer status post hemicolectomy with known metastatic duodenal mass presenting with generalized weakness, shortness of breath with exertion, and severe uncontrolled abdominal pain, found to have severe anemia. Patient also had been taking advil for pain. 1. 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 Anna / GI bleed - see above 3. Known metastatic colon ca with metastatic invasive adenoca involving small bowel -1st diagnosed 2016, s/p right colectomy 12/14/2016 -patient lost to f/u outpt -Oncology consult obtained again with Dr Anna, await review and recs 4. Hypokalemia -replete, Mag levels wnl 5. abd pain -likely from sb cancer, continue current pain regimen and supportive care VICKY HARMON Mar 30, 2018 11:23
--- NOTE | 2018-03-30 11:52 | PN ---
Date/Time of Note Date/Time of Note DATE: 03/30/18 TIME: 11:33 Assessment/Plan VTE Prophylaxis Risk score (from Nsg)>0 risk: 3 SCD applied (from Nsg): Yes Pharmacological prophylaxis: NA/contraindicated Pharm contraindication: bleeding Lines/Catheters IV Catheter Type (from Nrsg): Peripheral IV Urinary Cath still in place: No Assessment/Plan Assessment/Plan 52-year-old male with a history of metastatic colon cancer status post hemicolectomy with known metastatic duodenal mass presenting with generalized weakness, shortness of breath with exertion, and severe uncontrolled abdominal pain, found to have severe anemia. Patient also had been taking advil for pain. 1. 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 Anna / GI bleed - see above -EGD today 3. Known metastatic colon ca with metastatic invasive adenoca involving small bowel -1st diagnosed 2016, s/p right colectomy 12/14/2016 -patient lost to f/u outpt -Oncology wants to begin treatment inpatient with checkpoint inhibitors such as pembrolizumab due to concern that patient is high risk for bowel perforation once tumor begins to respond to treatment, appreciate recommendations -construction mgr to arrange authorization -patient counselled again on the need for followup 4. Hypokalemia -replete, Mag levels wnl 5. abd pain -likely from sb cancer, continue current pain regimen and supportive care Result Diagram: 03/30/1892003/30/1821 Results 24hrs Laboratory Tests Test 03/29/18 15:23 03/30/18 09:21 White Blood Count 8.5 8.6 Red Blood Count 3.12 L 3.31 L Hemoglobin 6.9 #*L 7.5 L Hematocrit 22.7 L 24.6 L Mean Corpuscular Volume 72.8 L 74.3 L Mean Corpuscular Hemoglobin 22.1 L 22.7 L Mean Corpuscular Hemoglobin Concent 30.4 L 30.5 L Red Cell Distribution Width 21.5 H 21.4 H Platelet Count 392 366 Mean Platelet Volume 10.0 10.1 Immature Granulocytes % 0.500 H 0.300 Neutrophils % 84.4 H 83.0 H Lymphocytes % 9.7 L 9.6 L Monocytes % 4.7 6.4 Eosinophils % 0.2 0.2 Basophils % 0.5 0.5 Nucleated Red Blood Cells % 0.4 H 0.0 Immature Granulocytes # 0.040 H 0.030 Neutrophils # 7.2 7.2 Lymphocytes # 0.8 0.8 Monocytes # 0.4 0.6 Eosinophils # 0.0 0.0 Basophils # 0.0 0.0 Nucleated Red Blood Cells # 0.0 0.0 Sodium Level 138 Potassium Level 3.3 L Chloride Level 103 Carbon Dioxide Level 28 Anion Gap 7 Blood Urea Nitrogen 8 Creatinine 0.62 Est Glomerular Filtrat Rate mL/min > 60 Glucose Level 87 Calcium Level 8.6 Phosphorus Level 3.5 Magnesium Level 2.1 Total Bilirubin 0.8 Direct Bilirubin 0.00 Indirect Bilirubin 0.8 Aspartate Amino Transf (AST/SGOT) 11 L Alanine Aminotransferase (ALT/SGPT) 17 Alkaline Phosphatase 68 Total Protein 6.0 L Albumin 3.1 L Globulin 2.90 Albumin/Globulin Ratio 1.06 Subjective 24 Hr Interval Summary Free Text/Dictation had bouts of abd pain overnight, better now NPO for EGD later today Exam/Review of Systems Exam Vitals Vital Signs Date Temp Pulse Resp B/P (MAP) Pulse Ox O2 O2 Flow FiO2 Time Delivery Rate 03/30/18 47 08:51 03/30/18 97.9 20 157/89 96 Room Air 07:27 (111) 03/28/18 2.0 17:18 Intake and Output 03/29/18 03/29/18 03/30/18 1414:59 22:59 06:59 IntakeIntake Total 1200 ml OutputOutput Total 400 ml BalanceBalance 800 ml Constitutional: alert, oriented; No distress Psych: nl mood/affect Head: normocephalic Eyes: No nl sclera Neck: supple Respiratory: clear to auscultation, diminished breath sounds Cardiovascular: regular rate and rhythm; No murmurs/extra sounds Gastrointestinal: soft, bowel sounds; No rebound or guarding Neurological: nl mental status, nl speech; No focal weakness Skin: No rash or lesions Results Results 24hrs Laboratory Tests Test 03/29/18 15:23 03/30/18 09:21 White Blood Count 8.5 8.6 Red Blood Count 3.12 L 3.31 L Hemoglobin 6.9 #*L 7.5 L Hematocrit 22.7 L 24.6 L Mean Corpuscular Volume 72.8 L 74.3 L Mean Corpuscular Hemoglobin 22.1 L 22.7 L Mean Corpuscular Hemoglobin Concent 30.4 L 30.5 L Red Cell Distribution Width 21.5 H 21.4 H Platelet Count 392 366 Mean Platelet Volume 10.0 10.1 Immature Granulocytes % 0.500 H 0.300 Neutrophils % 84.4 H 83.0 H Lymphocytes % 9.7 L 9.6 L Monocytes % 4.7 6.4 Eosinophils % 0.2 0.2 Basophils % 0.5 0.5 Nucleated Red Blood Cells % 0.4 H 0.0 Immature Granulocytes # 0.040 H 0.030 Neutrophils # 7.2 7.2 Lymphocytes # 0.8 0.8 Monocytes # 0.4 0.6 Eosinophils # 0.0 0.0 Basophils # 0.0 0.0 Nucleated Red Blood Cells # 0.0 0.0 Sodium Level 138 Potassium Level 3.3 L Chloride Level 103 Carbon Dioxide Level 28 Anion Gap 7 Blood Urea Nitrogen 8 Creatinine 0.62 Est Glomerular Filtrat Rate mL/min > 60 Glucose Level 87 Calcium Level 8.6 Phosphorus Level 3.5 Magnesium Level 2.1 Total Bilirubin 0.8 Direct Bilirubin 0.00 Indirect Bilirubin 0.8 Aspartate Amino Transf (AST/SGOT) 11 L Alanine Aminotransferase (ALT/SGPT) 17 Alkaline Phosphatase 68 Total Protein 6.0 L Albumin 3.1 L Globulin 2.90 Albumin/Globulin Ratio 1.06 Medications Medication Current Medications IV Flush (NS 3 ml) 3 ml PER PROTOCOL IV ; Start 03/28/18 at 21:30 Acetaminophen/ Hydrocodone Bitart ([facility] (5/325)) 2 tab Q6H PRN PO .SEVERE PAIN 7-10 Last administered on 03/30/18at 02:57; Admin Dose 2 TAB; Start 03/28/18 at 21:30 Pantoprazole (Protonix Iv) 40 mg BID@06,18 IV Last administered on 03/29/18at 17:57; Admin Dose 40 MG; Start 03/28/18 at 21:30 Sucralfate (Carafate) 1 gm QID PO Last administered on 03/30/18at 08:16; Admin Dose 1 GM; Start 03/29/18 at 09:00 Ferric Sodium Gluconate Complex 125 mg/Sodium Chloride 110 ml @ 110 mls/hr DAILY@1300 IVPB ; Start 03/30/18 at 13:00; Stop 04/03/18 at 13:59 Morphine Sulfate (morphine) 4 mg Q3H PRN IV SEVERE PAIN LEVEL 7-10 Last administered on 03/30/18at 08:16; Admin Dose 4 MG; Start 03/29/18 at 21:30 VICKY HARMON Mar 30, 2018 11:44
[2018-03-30] MEDS: POTASSIUM CHLORIDE 50 ML IVPB SCH ×3 (12:05→18:20)
[2018-03-30] MEDS: SOD FERRIC GLUC COMPLX 125 MG in SOD CHLORIDE 0.9% 100 ML IVPB SCH (12:06)
--- NOTE | 2018-03-30 12:10 | PN ---
DATE: 03/30/2018 MEDICAL ONCOLOGY PROGRESS SUBJECTIVE: The patient states he is feeling better. He has less complaints of abdominal pain. Has not had any further nausea or vomiting. He has not noticed any hematochezia. The patient has received 1 infusion of parenteral iron. He has received a total of 4 units of packed red blood cells. OBJECTIVE: GENERAL: The patient is a well-developed, well-nourished male in no acute distress. VITAL SIGNS: Temperature 97.9 orally, pulse 50 per minute and regular, respirations 20, blood pressu re 157/89, pulse oximetry 96% on room air. SKIN: Pale but no ecchymosis, no petechiae or rashes. There is tattoo present. HEENT: Normocephalic. No evidence of trauma. Pupils equal, round, react to light and accommodation . Sclerae nonicteric. Oral mucosa is moist without lesions. Oral mucosa and conjunctivae are pale. No mucosal telangiectasias. NECK: Supple. No jugular venous distention or thyroid enlargement. CHEST: Clear to auscultation and percussion. No rhonchi, wheezes, rales or rubs. NODES: No palpable lymphadenopathy in lymph node bearing area. HEART: Regular sinus rhythm, no S3, S4 or murmurs. ABDOMEN: Soft. There are no masses or ascites, although there is some tenderness in the right mid a bdomen. Bowel sounds are increased. EXTREMITIES: Good range of motion. No clubbing, no edema or cyanosis. No palpable cords or Homans sign. NEUROLOGIC: Normal. LABORATORY DATA: White count 8600 with absolute neutrophil count of 7200, hemoglobin 7.5, hematocrit 24.6, MCV 74.3, RDW 21.4, platelet count 266,000. ASSESSMENT: 1. Iron deficiency anemia secondary to chronic gastrointestinal bleeding. 2. Metastatic unresectable colorectal carcinoma with a small bowel involvement and high microsatelli te instability. DISCUSSION: The patient will continue on parenteral iron replacement. As previously noted, it is es timated that he will require a total of 2500 mg of elemental iron. This of course would be the minim um and the patient would require more if GI bleeding continues, patient is to have an EGD to determin e whether there is another site of bleeding which can be controlled at this time. I have ordered a pembrolizumab (Keytruda) to start as soon as medicine is available. In the past, the hospital has been very reluctant to allow us to use this medicine as they feel it is an outpatient medicine. As previously stated in my note, I cannot justify allowing this patient to leave the hospital again without being treated. The use of that pembrolizumab offers the highest res ponse rate with the least amount of toxicity. Discharge from the hospital, I predict would get lead to continued gastrointestinal bleeding which co uld actually be fatal for this patient. Dictated By: MARTINE ROSENBERG MD SR/NTS Conf#: [id number] DID#: [id number] CC: DHEERAJ READ MD;*EndCC*
[2018-03-30] MEDS ORDERED: LIDOCAINE 2% (SDV) 5 ML INJ ONE (16:37)
[2018-03-30] MEDS ORDERED: PROPOFOL 20 ML ONE (16:37)
--- NOTE | 2018-03-30 16:52 | HPN ---
Date/Time of Note Date/Time of Note DATE: 03/30/18 TIME: 16:52 Interval H&P Admission Note Pt. seen H&P reviewed: No system changes GILBERTO BULLOCK MD Mar 30, 2018 16:52
--- NOTE | 2018-03-30 16:58 | PAC ---
Date/Time of Note Date/Time of Note DATE: 03/30/18 TIME: 16:57 Post-Anesthesia Notes Post-Anesthesia Note Last documented vital signs Vital Signs Date Temp Pulse Resp B/P (MAP) Pulse Ox O2 O2 Flow FiO2 Time Delivery Rate 03/30/18 99.0 61 9 173/81 100 Room Air 16:27 (111) 03/28/18 2.0 17:18 Activity: WNL Respiratory function: WNL Cardiovascular function: WNL Mental status: Baseline Pain reasonably controlled: Yes Hydration appropriate: Yes Nausea/Vomiting absent: Yes Comments BP:112/56, P:76, spo2:100%, T:98,9 BREN TEMPLE MD Mar 30, 2018 16:58
[2018-03-30] MEDS ORDERED: IOHEXOL 14.3 MG(I)/ML (ADULT) BTL PO ONE (17:00)
[2018-03-30] MEDS ORDERED: FENTAnyl 50 MCG/ML VIAL IV PRN (17:00)
[2018-03-30] MEDS ORDERED: DIPHENHYDRAMINE 50 MG INJ IV PRN (17:00)
[2018-03-30] MEDS ORDERED: ONDANSETRON 4 MG INJ IV PRN (17:00)
[2018-03-30] MEDS ORDERED: MEPERIDINE 25 MG INJ IV PRN (17:00)
[2018-03-30] MEDS ORDERED: morphine 4 MG/ML VIAL IV PRN (22:00)
[2018-03-31] MEDS: HYDROmorphONE 1 MG/ML SYG IV PRN ×5 (00:17→20:48)
[2018-03-31 02:24] VITALS: BP 164/93; PULSE 58; RESP 18
[2018-03-31] MEDS: HYDROCODONE/APAP (5/325) TAB PO PRN ×3 (03:06→23:08)
[2018-03-31] MEDS: PANTOPRAZOLE 40 MG INJ IV SCH ×2 (05:52→17:03)
[2018-03-31 07:43] VITALS: BP 169/89; PULSE 50; RESP 19
[2018-03-31] MEDS: SUCRALFATE 1 GM TAB PO SCH ×4 (08:25→20:48)
[2018-03-31] MEDS: SOD FERRIC GLUC COMPLX 125 MG in SOD CHLORIDE 0.9% 100 ML IVPB SCH (12:08)
--- NOTE | 2018-03-31 13:17 | PN ---
Date/Time of Note Date/Time of Note DATE: 03/31/18 TIME: 12:53 Assessment/Plan VTE Prophylaxis Risk score (from Ns)>0 risk: 1 SCD applied (from Ns): Yes Pharmacological prophylaxis: NA/contraindicated Pharm contraindication: bleeding Lines/Catheters IV Catheter Type (from Nrsg): Peripheral IV Urinary Cath still in place: No Assessment/Plan Assessment/Plan Assessment: Severe microcytic anemia S/p EGD 03/30/2018 -Abnormal third portion of duodenum with contained perforation with no intestinal circumferential lumen CT of the abdomen -no perforation H/o NSAIDs use Nominal pain/melena secondary to below Metastatic adenocarcinoma of small bowel History of colon cancer status post right-sided hemicolectomy Plan: Continue PPI/Carafate Pain management Continue regular diet Monitor labs, transfuse for HGB less than 7.5 Patient seen in collaboration with Dr. Summers Subjective: Patient is complaining of retrosternal pain. Denies abdominal pain, nausea or v omiting. He is tolerating diet well. Pain is managed with pain medications. No stool for the past 2 days -patient has been n.p.o. prior to the procedure. Hemoglobin is trending up. No evidence of GI bleeding. PHYSICAL EXAMINATION: GENERAL: Well developed, well nourished, alert & oriented x 3, in no acute distress SKIN: No lesions, no stigmata chronic liver disease, no evidence of bleeding janina thesis LYMPHATIC: No palpable lymphadenopathy. HEAD: Normocephalic, atraumatic, no tenderness. EYES: Pupils equal reactive to light and accommodation, full extraocular movements, sclera clear, non-icteric, no discharge. EARS/NOSE AND THROAT: Ears normal, nose normal, oropharynx normal, oral membrane s well hydrated without lesions. NECK: Supple, no masses, thyroid normal, JVP within normal limits, carotids normal without bruits. CHEST: Inspection within normal limits. CARDIOVASCULAR: Heart: Regular rate and rhythm, no murmurs, gallops or rubs. Peripheral pulses present within normal limits, no cyanosis, clubbing or edemas. No pulsatile abdominal mass RESPIRATORY: Lungs clear to auscultation and percussion, no wheezing, no rubs GASTROINTESTINAL AND LIVER: Abdomen: Soft, non tenderness, non-distended, no hernias, no masses, no organomegaly, no ascites, no guarding, no rebound tenderness, normoactive bowel sounds. Rectal: Deferred. GENITOURINARY: Male genitalia within normal limits. EXTREMITIES: No cyanosis, clubbing or edema. Result Diagram: 03/31/1842203/31/18422 Results 24hrs Laboratory Tests Test 03/31/18 04:23 03/31/18 07:17 White Blood Count 9.7 Red Blood Count 3.83 L Hemoglobin 8.9 L Hematocrit 29.1 L Mean Corpuscular Volume 76.0 L Mean Corpuscular Hemoglobin 23.2 L Mean Corpuscular Hemoglobin Concent 30.6 L Red Cell Distribution Width 21.6 H Platelet Count 407 Mean Platelet Volume 10.7 H Immature Granulocytes % 0.600 H Neutrophils % 83.3 H Lymphocytes % 9.3 L Monocytes % 6.2 Eosinophils % 0.4 Basophils % 0.2 Nucleated Red Blood Cells % 0.0 Immature Granulocytes # 0.060 H Neutrophils # 8.1 H Lymphocytes # 0.9 Monocytes # 0.6 Eosinophils # 0.0 Basophils # 0.0 Nucleated Red Blood Cells # 0.0 Sodium Level 137 Potassium Level 3.3 L Chloride Level 97 Carbon Dioxide Level 30 Anion Gap 10 Blood Urea Nitrogen 6 L Creatinine 0.59 L Est Glomerular Filtrat Rate mL/min > 60 Glucose Level 94 Calcium Level 8.7 Total Bilirubin 0.8 Direct Bilirubin 0.00 Indirect Bilirubin 0.8 Aspartate Amino Transf (AST/SGOT) 17 # Alanine Aminotransferase (ALT/SGPT) 11 L Alkaline Phosphatase 72 Total Protein 7.3 # Albumin 3.5 Globulin 3.80 H Albumin/Globulin Ratio 0.92 Lab Scanned Report BLOOD TRANSFUSION CC: GILBERTO SUMMERS MD ; Exam/Review of Systems Exam Vitals Vital Signs Date Temp Pulse Resp B/P (MAP) Pulse Ox O2 O2 Flow FiO2 Time Delivery Rate 03/31/18 97.9 50 19 169/89 95 Room Air 07:43 (115) 03/28/18 2.0 17:18 Intake and Output 03/30/18 03/30/18 03/31/18 1515:00 23:00 07:00 IntakeIntake Total 210 ml 430 ml 590 ml BalanceBalance 210 ml 430 ml 590 ml Results Results 24hrs Laboratory Tests Test 03/31/18 04:23 03/31/18 07:17 White Blood Count 9.7 Red Blood Count 3.83 L Hemoglobin 8.9 L Hematocrit 29.1 L Mean Corpuscular Volume 76.0 L Mean Corpuscular Hemoglobin 23.2 L Mean Corpuscular Hemoglobin Concent 30.6 L Red Cell Distribution Width 21.6 H Platelet Count 407 Mean Platelet Volume 10.7 H Immature Granulocytes % 0.600 H Neutrophils % 83.3 H Lymphocytes % 9.3 L Monocytes % 6.2 Eosinophils % 0.4 Basophils % 0.2 Nucleated Red Blood Cells % 0.0 Immature Granulocytes # 0.060 H Neutrophils # 8.1 H Lymphocytes # 0.9 Monocytes # 0.6 Eosinophils # 0.0 Basophils # 0.0 Nucleated Red Blood Cells # 0.0 Sodium Level 137 Potassium Level 3.3 L Chloride Level 97 Carbon Dioxide Level 30 Anion Gap 10 Blood Urea Nitrogen 6 L Creatinine 0.59 L Est Glomerular Filtrat Rate mL/min > 60 Glucose Level 94 Calcium Level 8.7 Total Bilirubin 0.8 Direct Bilirubin 0.00 Indirect Bilirubin 0.8 Aspartate Amino Transf (AST/SGOT) 17 # Alanine Aminotransferase (ALT/SGPT) 11 L Alkaline Phosphatase 72 Total Protein 7.3 # Albumin 3.5 Globulin 3.80 H Albumin/Globulin Ratio 0.92 Lab Scanned Report BLOOD TRANSFUSION Medications Medication Current Medications IV Flush (NS 3 ml) 3 ml PER PROTOCOL IV ; Start 03/28/18 at 21:30 Acetaminophen/ Hydrocodone Bitart ([place] (5/325)) 2 tab Q6H PRN PO .SEVERE PAIN 7-10 Last administered on 03/31/18at 11:30; Admin Dose 2 TAB; Start 03/28/18 at 21:30 Pantoprazole (Protonix Iv) 40 mg BID@06,18 IV Last administered on 03/31/18at 05:52; Admin Dose 40 MG; Start 03/28/18 at 21:30 Sucralfate (Carafate) 1 gm QID PO Last administered on 03/31/18at 12:08; Admin Dose 1 GM; Start 03/29/18 at 09:00 Ferric Sodium Gluconate Complex 125 mg/Sodium Chloride 110 ml @ 110 mls/hr DAILY@1300 IVPB Last administered on 03/31/18at 12:08; Admin Dose 110 MLS/HR; Start 03/30/18 at 13:00; Stop 04/03/18 at 13:59 Hydromorphone HCl (Dilaudid) 1 mg Q4H PRN IV SEVERE PAIN LEVEL 7-10 Last administered on 03/31/18at 09:49; Admin Dose 1 MG; Start 03/30/18 at 23:00 AYLIN GALVIN NP Mar 31, 2018 13:03
[2018-03-31 14:45] VITALS: BP 153/74; PULSE 53
--- NOTE | 2018-03-31 14:52 | PN ---
Date/Time of Note Date/Time of Note DATE: 03/31/18 TIME: 14:50 Assessment/Plan VTE Prophylaxis Risk score (from Nsg)>0 risk: 1 SCD applied (from Nsg): Yes Pharmacological prophylaxis: heparin Lines/Catheters IV Catheter Type (from Nrsg): Peripheral IV Urinary Cath still in place: No Assessment/Plan Hospital Course 52 yo male with colon/duodenal cancer s/p resection who has been lost to follow up presenting with progressive abdominal pain and dyspnea on exertion. Found to have profound microcytic anemia Acute on chronic blood loss anemia: - 2/2 bleeding duodenal mass - PPI - PRBCs to Hgb 7 Iron deficiency: - IV iron Colon cancer: - Dr Anna attempting to have keytruda approved - Increase pain control, add Ms Contin Hypokalemia: - Resolved Discharge plan is pending Keytruda. Per Dr Anna, patient at very high risk for re-bleeding if he leaves Result Diagram: 03/31/18 0423 03/31/18 0423 Results 24hrs Laboratory Tests Test 03/31/18 04:23 03/31/18 07:17 White Blood Count 9.7 Red Blood Count 3.83 L Hemoglobin 8.9 L Hematocrit 29.1 L Mean Corpuscular Volume 76.0 L Mean Corpuscular Hemoglobin 23.2 L Mean Corpuscular Hemoglobin Concent 30.6 L Red Cell Distribution Width 21.6 H Platelet Count 407 Mean Platelet Volume 10.7 H Immature Granulocytes % 0.600 H Neutrophils % 83.3 H Lymphocytes % 9.3 L Monocytes % 6.2 Eosinophils % 0.4 Basophils % 0.2 Nucleated Red Blood Cells % 0.0 Immature Granulocytes # 0.060 H Neutrophils # 8.1 H Lymphocytes # 0.9 Monocytes # 0.6 Eosinophils # 0.0 Basophils # 0.0 Nucleated Red Blood Cells # 0.0 Sodium Level 137 Potassium Level 3.3 L Chloride Level 97 Carbon Dioxide Level 30 Anion Gap 10 Blood Urea Nitrogen 6 L Creatinine 0.59 L Est Glomerular Filtrat Rate mL/min > 60 Glucose Level 94 Calcium Level 8.7 Total Bilirubin 0.8 Direct Bilirubin 0.00 Indirect Bilirubin 0.8 Aspartate Amino Transf (AST/SGOT) 17 # Alanine Aminotransferase (ALT/SGPT) 11 L Alkaline Phosphatase 72 Total Protein 7.3 # Albumin 3.5 Globulin 3.80 H Albumin/Globulin Ratio 0.92 Lab Scanned Report BLOOD TRANSFUSION Subjective 24 Hr Interval Summary Free Text/Dictation Pain is not well controlled. Requiring frequent IV dilaudid No further bleeding Exam/Review of Systems Exam Vitals Vital Signs Date Temp Pulse Resp B/P (MAP) Pulse Ox O2 O2 Flow FiO2 Time Delivery Rate 03/31/18 98.2 53 153/74 96 Room Air 14:45 (100) 03/31/18 19 07:43 03/28/18 2.0 17:18 Intake and Output 03/30/18 03/30/18 03/31/18 1515:00 23:00 07:00 IntakeIntake Total 210 ml 430 ml 590 ml BalanceBalance 210 ml 430 ml 590 ml Constitutional: alert, oriented, well developed Psych: no complaints, nl mood/affect Head: normocephalic, atraumatic Eyes: nl conjunctiva, EOMI, nl lids, nl sclera, PERRL ENMT: nl external ears & nose, nl lips & teeth, nl nasal mucosa & septum Neck: supple, non-tender Respiratory: clear to auscultation, normal air movement Cardiovascular: regular rate and rhythm, nl pulses Gastrointestinal: soft, nl liver, spleen, non-tender Musculoskeletal: nl extremities to inspection, nl gait and stance Extremities: normal pulses Neurological: [employer] II-XII intact, nl mental status, nl speech, nl strength Skin: nl turgor; No rash or lesions Lymph: nl lymph nodes Results Results 24hrs Laboratory Tests Test 03/31/18 04:23 03/31/18 07:17 White Blood Count 9.7 Red Blood Count 3.83 L Hemoglobin 8.9 L Hematocrit 29.1 L Mean Corpuscular Volume 76.0 L Mean Corpuscular Hemoglobin 23.2 L Mean Corpuscular Hemoglobin Concent 30.6 L Red Cell Distribution Width 21.6 H Platelet Count 407 Mean Platelet Volume 10.7 H Immature Granulocytes % 0.600 H Neutrophils % 83.3 H Lymphocytes % 9.3 L Monocytes % 6.2 Eosinophils % 0.4 Basophils % 0.2 Nucleated Red Blood Cells % 0.0 Immature Granulocytes # 0.060 H Neutrophils # 8.1 H Lymphocytes # 0.9 Monocytes # 0.6 Eosinophils # 0.0 Basophils # 0.0 Nucleated Red Blood Cells # 0.0 Sodium Level 137 Potassium Level 3.3 L Chloride Level 97 Carbon Dioxide Level 30 Anion Gap 10 Blood Urea Nitrogen 6 L Creatinine 0.59 L Est Glomerular Filtrat Rate mL/min > 60 Glucose Level 94 Calcium Level 8.7 Total Bilirubin 0.8 Direct Bilirubin 0.00 Indirect Bilirubin 0.8 Aspartate Amino Transf (AST/SGOT) 17 # Alanine Aminotransferase (ALT/SGPT) 11 L Alkaline Phosphatase 72 Total Protein 7.3 # Albumin 3.5 Globulin 3.80 H Albumin/Globulin Ratio 0.92 Lab Scanned Report BLOOD TRANSFUSION Medications Medication Current Medications IV Flush (NS 3 ml) 3 ml PER PROTOCOL IV ; Start 03/28/18 at 21:30 Acetaminophen/ Hydrocodone Bitart ([place] (5/325)) 2 tab Q6H PRN PO .SEVERE PAIN 7-10 Last administered on 03/31/18 11:30; Admin Dose 2 TAB; Start 03/28/18 at 21:30 Pantoprazole (Protonix Iv) 40 mg BID@06,18 IV Last administered on 03/31/18 05:52; Admin Dose 40 MG; Start 03/28/18 at 21:30 Sucralfate (Carafate) 1 gm QID PO Last administered on 03/31/18 12:08; Admin Dose 1 GM; Start 03/29/18 at 09:00 Ferric Sodium Gluconate Complex 125 mg/Sodium Chloride 110 ml @ 110 mls/hr EMA LY@1300 IVPB Last administered on 03/31/18 12:08; Admin Dose 110 MLS/HR; Start 03/30/18 at 13:00; Stop 04/03/18 at 13:59 Hydromorphone HCl (Dilaudid) 1 mg Q4H PRN IV SEVERE PAIN LEVEL 7-10 Last adm inistered on 03/31/18 09:49; Admin Dose 1 MG; Start 03/30/18 at 23:00 JOSELYN BARCLAY MD Mar 31, 2018 14:52
[2018-03-31] MEDS: morphine (ER) 30 MG TAB PO SCH ×2 (17:03→21:00)
--- NOTE | 2018-03-31 17:36 | PN ---
Date/Time of Note Date/Time of Note DATE: 03/31/18 TIME: 17:32 Assessment/Plan VTE Prophylaxis Risk score (from Ns)>0 risk: 1 SCD applied (from Ns): Yes Pharmacological prophylaxis: LMWH Lines/Catheters IV Catheter Type (from Nrs): Peripheral IV Urinary Cath still in place: No Assessment/Plan Assessment/Plan 1. Iron deficiency anemia secondary to chronic gastrointestinal bleeding. 2. 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 DISCUSSION: The patient will continue on parenteral iron replacement. As prev iously noted, it is estimated that he will require a total of 2500 mg of elemental iron. This of course would be the minimum and the patient would require more if GI bleeding continues, patient is to have an EGD to determine whether there is another site of bleeding which can be controlled at this time. Dr Anna ordered pembrolizumab (Keytruda) to start as soon as medicine is available. In the past, the hospital has been very reluctant to allow us to use this medicine as they feel it is an outpatient medicine. However, the FDA approved keytruda on an accelerated basis in June of 2016 for this purpose on overwhelming response data. Specifically, 15 cancer types were identified among 149 patients enrolled across these five clinical trials. The most common cancers were colorectal, endometrial and other gastrointestinal cancers. The review of Keytruda for this indication was based on the percentage of patients who experienced complete or partial shrinkage of their tumors (overall response rate) and for how long (durability of response). Of the 149 patients who received Keytruda in the trials, 39.6 percent had a complete or partial response. For 78 percent of those patients, th e response lasted for six months or more. Therefore, should patient respond to therapy, the risk of his return to hospital would be lessened as well. Discharge from the hospital, I predict would lead to continued gastrointestinal bleeding which could actually be fatal for this patient. This was explained to patient and his in both [place] and [place] and they agree to proceed Result Diagram: 03/31/18 0423 03/31/18 0423 Results 24hrs Laboratory Tests Test 03/31/18 04:23 03/31/18 07:17 White Blood Count 9.7 Red Blood Count 3.83 L Hemoglobin 8.9 L Hematocrit 29.1 L Mean Corpuscular Volume 76.0 L Mean Corpuscular Hemoglobin 23.2 L Mean Corpuscular Hemoglobin Concent 30.6 L Red Cell Distribution Width 21.6 H Platelet Count 407 Mean Platelet Volume 10.7 H Immature Granulocytes % 0.600 H Neutrophils % 83.3 H Lymphocytes % 9.3 L Monocytes % 6.2 Eosinophils % 0.4 Basophils % 0.2 Nucleated Red Blood Cells % 0.0 Immature Granulocytes # 0.060 H Neutrophils # 8.1 H Lymphocytes # 0.9 Monocytes # 0.6 Eosinophils # 0.0 Basophils # 0.0 Nucleated Red Blood Cells # 0.0 Sodium Level 137 Potassium Level 3.3 L Chloride Level 97 Carbon Dioxide Level 30 Anion Gap 10 Blood Urea Nitrogen 6 L Creatinine 0.59 L Est Glomerular Filtrat Rate mL/min > 60 Glucose Level 94 Calcium Level 8.7 Total Bilirubin 0.8 Direct Bilirubin 0.00 Indirect Bilirubin 0.8 Aspartate Amino Transf (AST/SGOT) 17 # Alanine Aminotransferase (ALT/SGPT) 11 L Alkaline Phosphatase 72 Total Protein 7.3 # Albumin 3.5 Globulin 3.80 H Albumin/Globulin Ratio 0.92 Lab Scanned Report BLOOD TRANSFUSION Subjective 24 Hr Interval Summary Constitutional: no complaints, improved Exam/Review of Systems Exam Vitals Vital Signs Date Temp Pulse Resp B/P (MAP) Pulse Ox O2 O2 Flow FiO2 Time Delivery Rate 03/31/18 98.2 53 153/74 96 Room Air 14:45 (100) 03/31/18 19 07:43 03/28/18 2.0 17:18 Intake and Output 03/30/18 03/30/18 03/31/18 1515:00 23:00 07:00 IntakeIntake Total 210 ml 430 ml 590 ml BalanceBalance 210 ml 430 ml 590 ml Constitutional: alert, oriented, well developed Psych: no complaints Head: normocephalic, atraumatic Eyes: nl conjunctiva, EOMI ENMT: nl external ears & nose, nl lips & teeth Neck: supple, non-tender Respiratory: clear to auscultation, normal air movement Cardiovascular: regular rate and rhythm, nl pulses Gastrointestinal: soft, non-tender Extremities: normal pulses Results Results 24hrs Laboratory Tests Test 03/31/18 04:23 03/31/18 07:17 White Blood Count 9.7 Red Blood Count 3.83 L Hemoglobin 8.9 L Hematocrit 29.1 L Mean Corpuscular Volume 76.0 L Mean Corpuscular Hemoglobin 23.2 L Mean Corpuscular Hemoglobin Concent 30.6 L Red Cell Distribution Width 21.6 H Platelet Count 407 Mean Platelet Volume 10.7 H Immature Granulocytes % 0.600 H Neutrophils % 83.3 H Lymphocytes % 9.3 L Monocytes % 6.2 Eosinophils % 0.4 Basophils % 0.2 Nucleated Red Blood Cells % 0.0 Immature Granulocytes # 0.060 H Neutrophils # 8.1 H Lymphocytes # 0.9 Monocytes # 0.6 Eosinophils # 0.0 Basophils # 0.0 Nucleated Red Blood Cells # 0.0 Sodium Level 137 Potassium Level 3.3 L Chloride Level 97 Carbon Dioxide Level 30 Anion Gap 10 Blood Urea Nitrogen 6 L Creatinine 0.59 L Est Glomerular Filtrat Rate mL/min > 60 Glucose Level 94 Calcium Level 8.7 Total Bilirubin 0.8 Direct Bilirubin 0.00 Indirect Bilirubin 0.8 Aspartate Amino Transf (AST/SGOT) 17 # Alanine Aminotransferase (ALT/SGPT) 11 L Alkaline Phosphatase 72 Total Protein 7.3 # Albumin 3.5 Globulin 3.80 H Albumin/Globulin Ratio 0.92 Lab Scanned Report BLOOD TRANSFUSION Medications Medication Current Medications IV Flush (NS 3 ml) 3 ml PER PROTOCOL IV ; Start 03/28/18 at 21:30 Acetaminophen/ Hydrocodone Bitart ([place] (5/325)) 2 tab Q6H PRN PO .SEVERE PAIN 7-10 Last administered on 03/31/18at 11:30; Admin Dose 2 TAB; Start 03/28/18 at 21:30 Pantoprazole (Protonix Iv) 40 mg BID@06,18 IV Last administered on 03/31/18at 17:03; Admin Dose 40 MG; Start 03/28/18 at 21:30 Sucralfate (Carafate) 1 gm QID PO Last administered on 03/31/18at 17:03; Admin Dose 1 GM; Start 03/29/18 at 09:00 Ferric Sodium Gluconate Complex 125 mg/Sodium Chloride 110 ml @ 110 mls/hr DAILY@1300 IVPB Last administered on 03/31/18at 12:08; Admin Dose 110 MLS/HR; Start 03/30/18 at 13:00; Stop 04/03/18 at 13:59 Hydromorphone HCl (Dilaudid) 1 mg Q4H PRN IV SEVERE PAIN LEVEL 7-10 Last administered on 03/31/18at 14:49; Admin Dose 1 MG; Start 03/30/18 at 23:00 Morphine Sulfate (Ms Contin (Er)) 30 mg BID PO Last administered on 03/31/18at 17:03; Admin Dose 30 MG; Start 03/31/18 at 15:00 CHARLES HERNANDEZ MD Mar 31, 2018 17:36
[2018-03-31 20:30] VITALS: BP 169/91; PULSE 55; RESP 19
[2018-04-01 02:14] VITALS: BP 149/83; PULSE 58; RESP 18
[2018-04-01] MEDS ORDERED: POTASSIUM CHLORIDE (SR) 10 MEQ TAB PO ONE (06:00)
[2018-04-01] MEDS: PANTOPRAZOLE 40 MG INJ IV SCH ×2 (06:22→18:26)
[2018-04-01] MEDS: HYDROmorphONE 1 MG/ML SYG IV PRN ×4 (06:22→23:43)
[2018-04-01 07:33] VITALS: BP 146/87; PULSE 58; RESP 18
[2018-04-01] MEDS: morphine (ER) 30 MG TAB PO SCH ×2 (09:21→20:00)
[2018-04-01] MEDS: SUCRALFATE 1 GM TAB PO SCH ×4 (09:21→20:00)
[2018-04-01] MEDS: HYDROCODONE/APAP (5/325) TAB PO PRN ×3 (09:26→21:41)
[2018-04-01 14:00] VITALS: BP 162/85; PULSE 73; RESP 19
[2018-04-01] MEDS: SOD FERRIC GLUC COMPLX 125 MG in SOD CHLORIDE 0.9% 100 ML IVPB SCH (14:47)
--- NOTE | 2018-04-01 15:08 | PN ---
Date/Time of Note Date/Time of Note DATE: 04/01/18 TIME: 15:03 Assessment/Plan VTE Prophylaxis Risk score (from Ns)>0 risk: 3 SCD applied (from Ns): Yes Pharmacological prophylaxis: NA/contraindicated Pharm contraindication: bleeding Lines/Catheters [facility] [place] Urinary Cath still in place: No Assessment/Plan Assessment/Plan Assessment: Severe microcytic anemia S/p EGD 03/30/2018 -Abnormal third portion of duodenum with contained perforation with no intestinal circumferential lumen CT of the abdomen -no perforation H/o NSAIDs use Nominal pain/melena secondary to below Metastatic adenocarcinoma of small bowel History of colon cancer status post right-sided hemicolectomy Plan: Continue PPI/Carafate Pain management Continue regular diet Monitor labs, transfuse for HGB less than 7.5 Patient seen in collaboration with Dr. Summers Subjective: Patient is complaining of moderate retrosternal pain. Denies abdominal pain, nausea or vomiting. He is tolerating diet well. C/o right upper arm pain from infiltrated IV. Pain is managed with pain medications. Hemoglobin keeps trending up. No evidence of GI bleeding. PHYSICAL EXAMINATION: GENERAL: Well developed, well nourished, alert & oriented x 3, in no acute distress SKIN: No lesions, no stigmata chronic liver disease, no evidence of bleeding diathesis LYMPHATIC: No palpable lymphadenopathy. HEAD: Normocephalic, atraumatic, no tenderness. EYES: Pupils equal reactive to light and accommodation, full extraocular movements, sclera clear, non-icteric, no discharge. EARS/NOSE AND THROAT: Ears normal, nose normal, oropharynx normal, oral membranes well hydrated without lesions. NECK: Supple, no masses, thyroid normal, JVP within normal limits, carotids normal without bruits. CHEST: Inspection within normal limits. CARDIOVASCULAR: Heart: Regular rate and rhythm, no murmurs, gallops or rubs. Peripheral pulses present within normal limits, no cyanosis, clubbing or edemas. No pulsatile abdominal mass RESPIRATORY: Lungs clear to auscultation and percussion, no wheezing, no rubs GASTROINTESTINAL AND LIVER: Abdomen: Soft, non tenderness, non-distended, no hernias, no masses, no organomegaly, no ascites, no guarding, no rebound tenderness, normoactive bowel sounds. Rectal: Deferred. GENITOURINARY: Male genitalia within normal limits. EXTREMITIES: No cyanosis, clubbing or edema. Result Diagram: 04/01/184 04/01/18 0434 Results 24hrs Laboratory Tests Test 04/01/18 04:34 White Blood Count 9.1 Red Blood Count 4.04 L Hemoglobin 9.3 L Hematocrit 30.1 L Mean Corpuscular Volume 74.5 L Mean Corpuscular Hemoglobin 23.0 L Mean Corpuscular Hemoglobin Concent 30.9 L Red Cell Distribution Width 22.1 H Platelet Count 376 Mean Platelet Volume 10.0 Immature Granulocytes % 0.200 Neutrophils % 75.5 Lymphocytes % 16.2 Monocytes % 7.2 Eosinophils % 0.5 Basophils % 0.4 Nucleated Red Blood Cells % 0.0 Immature Granulocytes # 0.020 Neutrophils # 6.9 Lymphocytes # 1.5 Monocytes # 0.7 Eosinophils # 0.1 Basophils # 0.0 Nucleated Red Blood Cells # 0.0 Sodium Level 138 Potassium Level 2.9 *L Chloride Level 96 L Carbon Dioxide Level 33 H Anion Gap 9 Blood Urea Nitrogen 5 L Creatinine 0.67 Est Glomerular Filtrat Rate mL/min > 60 Glucose Level 94 Calcium Level 8.8 Magnesium Level 1.9 Total Bilirubin 0.5 Direct Bilirubin 0.00 Indirect Bilirubin 0.5 Aspartate Amino Transf (AST/SGOT) 13 L Alanine Aminotransferase (ALT/SGPT) 12 L Alkaline Phosphatase 79 Total Protein 6.9 Albumin 3.4 Globulin 3.50 H Albumin/Globulin Ratio 0.97 CC: GILBERTO SUMMERS MD ; Exam/Review of Systems Exam Vitals Vital Signs Date Temp Pulse Resp B/P (MAP) Pulse Ox O2 O2 Flow FiO2 Time Delivery Rate 04/01/18 98.4 58 18 146/87 98 07:33 (106) 03/31/18 Room Air 14:45 03/28/18 2.0 17:18 Intake and Output 03/31/18 03/31/18 04/01/18 1515:00 23:00 07:00 IntakeIntake Total 810 ml 450 ml BalanceBalance 810 ml 450 ml Results Results 24hrs Laboratory Tests Test 04/01/18 04:34 White Blood Count 9.1 Red Blood Count 4.04 L Hemoglobin 9.3 L Hematocrit 30.1 L Mean Corpuscular Volume 74.5 L Mean Corpuscular Hemoglobin 23.0 L Mean Corpuscular Hemoglobin Concent 30.9 L Red Cell Distribution Width 22.1 H Platelet Count 376 Mean Platelet Volume 10.0 Immature Granulocytes % 0.200 Neutrophils % 75.5 Lymphocytes % 16.2 Monocytes % 7.2 Eosinophils % 0.5 Basophils % 0.4 Nucleated Red Blood Cells % 0.0 Immature Granulocytes # 0.020 Neutrophils # 6.9 Lymphocytes # 1.5 Monocytes # 0.7 Eosinophils # 0.1 Basophils # 0.0 Nucleated Red Blood Cells # 0.0 Sodium Level 138 Potassium Level 2.9 *L Chloride Level 96 L Carbon Dioxide Level 33 H Anion Gap 9 Blood Urea Nitrogen 5 L Creatinine 0.67 Est Glomerular Filtrat Rate mL/min > 60 Glucose Level 94 Calcium Level 8.8 Magnesium Level 1.9 Total Bilirubin 0.5 Direct Bilirubin 0.00 Indirect Bilirubin 0.5 Aspartate Amino Transf (AST/SGOT) 13 L Alanine Aminotransferase (ALT/SGPT) 12 L Alkaline Phosphatase 79 Total Protein 6.9 Albumin 3.4 Globulin 3.50 H Albumin/Globulin Ratio 0.97 Medications Medication Current Medications IV Flush (NS 3 ml) 3 ml PER PROTOCOL IV ; Start 03/28/18 at 21:30 Acetaminophen/ Hydrocodone Bitart ([place] (5/325)) 2 tab Q6H PRN PO .SEVERE PAIN 7-10 Last administered on 04/01/18 09:26; Admin Dose 2 TAB; Start 03/28/18 at 21:30 Pantoprazole (Protonix Iv) 40 mg BID@06,18 IV Last administered on 04/01/18 06:22; Admin Dose 40 MG; Start 03/28/18 at 21:30 Sucralfate (Carafate) 1 gm QID PO Last administered on 04/01/18 14:46; Admin Dose 1 GM; Start 03/29/18 at 09:00 Ferric Sodium Gluconate Complex 125 mg/Sodium Chloride 110 ml @ 110 mls/hr DAILY@1300 IVPB Last administered on 04/01/18 14:47; Admin Dose 110 MLS/HR; Start 03/30/18 at 13:00; Stop 04/03/18 at 13:59 Hydromorphone HCl (Dilaudid) 1 mg Q4H PRN IV SEVERE PAIN LEVEL 7-10 Last administered on 04/01/18 14:35; Admin Dose 1 MG; Start 03/30/18 at 23:00 Morphine Sulfate (Ms Contin (Er)) 30 mg BID PO Last administered on 04/01/18at 09:21; Admin Dose 30 MG; Start 03/31/18 at 15:00 AYLIN GALVIN NP Apr 01, 2018 15:08
--- NOTE | 2018-04-01 15:22 | PN ---
Date/Time of Note Date/Time of Note DATE: 04/01/18 TIME: 15:21 Assessment/Plan VTE Prophylaxis Risk score (from Ns)>0 risk: 3 SCD applied (from Ns): Yes Pharmacological prophylaxis: heparin Lines/Catheters IV Catheter Type (from Nrsg): Saline Lock Urinary Cath still in place: No Assessment/Plan Hospital Course 52 yo male with colon/duodenal cancer s/p resection who has been lost to follow up presenting with progressive abdominal pain and dyspnea on exertion. Found to have profound microcytic anemia Acute on chronic blood loss anemia: - 2/2 bleeding duodenal mass - PPI - PRBCs to Hgb 7 Iron deficiency: - IV iron Colon cancer: - Dr Anna attempting to have keytruda approved - Increase pain control, add Ms Contin Hypokalemia: - Resolved Discharge plan is pending Keytruda. Per Dr Anna, patient at very high risk for re-bleeding if he leaves Result Diagram: 04/01/18 0434 04/01/18 0434 Results 24hrs Laboratory Tests Test 04/01/18 04:34 White Blood Count 9.1 Red Blood Count 4.04 L Hemoglobin 9.3 L Hematocrit 30.1 L Mean Corpuscular Volume 74.5 L Mean Corpuscular Hemoglobin 23.0 L Mean Corpuscular Hemoglobin Concent 30.9 L Red Cell Distribution Width 22.1 H Platelet Count 376 Mean Platelet Volume 10.0 Immature Granulocytes % 0.200 Neutrophils % 75.5 Lymphocytes % 16.2 Monocytes % 7.2 Eosinophils % 0.5 Basophils % 0.4 Nucleated Red Blood Cells % 0.0 Immature Granulocytes # 0.020 Neutrophils # 6.9 Lymphocytes # 1.5 Monocytes # 0.7 Eosinophils # 0.1 Basophils # 0.0 Nucleated Red Blood Cells # 0.0 Sodium Level 138 Potassium Level 2.9 *L Chloride Level 96 L Carbon Dioxide Level 33 H Anion Gap 9 Blood Urea Nitrogen 5 L Creatinine 0.67 Est Glomerular Filtrat Rate mL/min > 60 Glucose Level 94 Calcium Level 8.8 Magnesium Level 1.9 Total Bilirubin 0.5 Direct Bilirubin 0.00 Indirect Bilirubin 0.5 Aspartate Amino Transf (AST/SGOT) 13 L Alanine Aminotransferase (ALT/SGPT) 12 L Alkaline Phosphatase 79 Total Protein 6.9 Albumin 3.4 Globulin 3.50 H Albumin/Globulin Ratio 0.97 Subjective 24 Hr Interval Summary Free Text/Dictation No change to clinical status No further bleeding. No pain Awaiting keytruda decision Exam/Review of Systems Exam Vitals Vital Signs Date Temp Pulse Resp B/P (MAP) Pulse Ox O2 O2 Flow FiO2 Time Delivery Rate 04/01/18 97.9 73 19 162/85 97 14:00 (110) 03/31/18 Room Air 14:45 03/28/18 2.0 17:18 Intake and Output 03/31/18 03/31/18 04/01/18 1414:59 22:59 06:59 IntakeIntake Total 810 ml 450 ml BalanceBalance 810 ml 450 ml Constitutional: alert, oriented, well developed Psych: no complaints, nl mood/affect Head: normocephalic, atraumatic Eyes: nl conjunctiva, EOMI, nl lids, nl sclera, PERRL ENMT: nl external ears & nose, nl lips & teeth, nl nasal mucosa & septum Neck: supple, non-tender Respiratory: clear to auscultation, normal air movement Cardiovascular: regular rate and rhythm, nl pulses Gastrointestinal: soft, nl liver, spleen, non-tender Musculoskeletal: nl extremities to inspection, nl gait and stance Extremities: normal pulses Neurological: [facility] II-XII intact, nl mental status, nl speech, nl strength Skin: nl turgor; No rash or lesions Lymph: nl lymph nodes Results Results 24hrs Laboratory Tests Test 04/01/18 04:34 White Blood Count 9.1 Red Blood Count 4.04 L Hemoglobin 9.3 L Hematocrit 30.1 L Mean Corpuscular Volume 74.5 L Mean Corpuscular Hemoglobin 23.0 L Mean Corpuscular Hemoglobin Concent 30.9 L Red Cell Distribution Width 22.1 H Platelet Count 376 Mean Platelet Volume 10.0 Immature Granulocytes % 0.200 Neutrophils % 75.5 Lymphocytes % 16.2 Monocytes % 7.2 Eosinophils % 0.5 Basophils % 0.4 Nucleated Red Blood Cells % 0.0 Immature Granulocytes # 0.020 Neutrophils # 6.9 Lymphocytes # 1.5 Monocytes # 0.7 Eosinophils # 0.1 Basophils # 0.0 Nucleated Red Blood Cells # 0.0 Sodium Level 138 Potassium Level 2.9 *L Chloride Level 96 L Carbon Dioxide Level 33 H Anion Gap 9 Blood Urea Nitrogen 5 L Creatinine 0.67 Est Glomerular Filtrat Rate mL/min > 60 Glucose Level 94 Calcium Level 8.8 Magnesium Level 1.9 Total Bilirubin 0.5 Direct Bilirubin 0.00 Indirect Bilirubin 0.5 Aspartate Amino Transf (AST/SGOT) 13 L Alanine Aminotransferase (ALT/SGPT) 12 L Alkaline Phosphatase 79 Total Protein 6.9 Albumin 3.4 Globulin 3.50 H Albumin/Globulin Ratio 0.97 Medications Medication Current Medications IV Flush (NS 3 ml) 3 ml PER PROTOCOL IV ; Start 03/28/18 at 21:30 Acetaminophen/ Hydrocodone Bitart ([place] (5/325)) 2 tab Q6H PRN PO .SEVERE PAIN 7-10 Last administered on 04/01/18 09:26; Admin Dose 2 TAB; Start 03/28/18 at 21:30 Pantoprazole (Protonix Iv) 40 mg BID@06,18 IV Last administered on 04/01/18 06:22; Admin Dose 40 MG; Start 03/28/18 at 21:30 Sucralfate (Carafate) 1 gm QID PO Last administered on 04/01/18 14:46; Admin Dose 1 GM; Start 03/29/18 at 09:00 Ferric Sodium Gluconate Complex 125 mg/Sodium Chloride 110 ml @ 110 mls/hr DAILY@1300 IVPB Last administered on 04/01/18 14:47; Admin Dose 110 MLS/HR; Start 03/30/18 at 13:00; Stop 04/03/18 at 13:59 Hydromorphone HCl (Dilaudid) 1 mg Q4H PRN IV SEVERE PAIN LEVEL 7-10 Last administered on 04/01/18 14:35; Admin Dose 1 MG; Start 03/30/18 at 23:00 Morphine Sulfate (Ms Contin (Er)) 30 mg BID PO Last administered on 04/01/18 09:21; Admin Dose 30 MG; Start 03/31/18 at 15:00 JOSELYN BARCLAY MD Apr 01, 2018 15:22
--- NOTE | 2018-04-01 16:49 | PN ---
Date/Time of Note Date/Time of Note DATE: 04/01/18 TIME: 16:46 Assessment/Plan VTE Prophylaxis Risk score (from [facility] [place] risk: 3 SCD applied (from [facility] [place] Yes Pharmacological prophylaxis: NA/contraindicated (suspected bleeding) Pharm contraindication: bleeding Lines/Catheters IV C[facility] (from [facility] Saline Lock Urinary Cath still in place: No Assessment/Plan Assessment/Plan Assessment/Plan 1. Iron deficiency anemia secondary to chronic gastrointestinal bleeding. 2. 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 DISCUSSION: The patient will continue on parenteral iron replacement. As previously noted, it is estimated that he will require a total of 2500 mg of elemental iron. This of course would be the minimum and the patient would require more if GI bleeding continues, patient is to have an EGD to determine whether there is another site of bleeding which can be controlled at this time. Dr Anna has ordered pembrolizumab (Keytruda) to start as soon as medicine is available. In the past, the hospital has been very reluctant to allow us to use this medicine as they feel it is an outpatient medicine. Discharge from the hospital, I predict would lead to continued gastrointestinal bleeding which could be fatal for this patient. This was explained to patient and his in both [place] [employer] and [place] and they agree to proceed Dr Anna to resume care tomorrow, but patient's rise in hemoglobin is somewhat reassuring Result Diagram: 04/01/18 0434 04/01/18 0434 Results 24hrs Laboratory Tests Test 04/01/18 04:34 White Blood Count 9.1 Red Blood Count 4.04 L Hemoglobin 9.3 L Hematocrit 30.1 L Mean Corpuscular Volume 74.5 L Mean Corpuscular Hemoglobin 23.0 L Mean Corpuscular Hemoglobin Concent 30.9 L Red Cell Distribution Width 22.1 H Platelet Count 376 Mean Platelet Volume 10.0 Immature Granulocytes % 0.200 Neutrophils % 75.5 Lymphocytes % 16.2 Monocytes % 7.2 Eosinophils % 0.5 Basophils % 0.4 Nucleated Red Blood Cells % 0.0 Immature Granulocytes # 0.020 Neutrophils # 6.9 Lymphocytes # 1.5 Monocytes # 0.7 Eosinophils # 0.1 Basophils # 0.0 Nucleated Red Blood Cells # 0.0 Sodium Level 138 Potassium Level 2.9 *L Chloride Level 96 L Carbon Dioxide Level 33 H Anion Gap 9 Blood Urea Nitrogen 5 L Creatinine 0.67 Est Glomerular Filtrat Rate mL/min > 60 Glucose Level 94 Calcium Level 8.8 Magnesium Level 1.9 Total Bilirubin 0.5 Direct Bilirubin 0.00 Indirect Bilirubin 0.5 Aspartate Amino Transf (AST/SGOT) 13 L Alanine Aminotransferase (ALT/SGPT) 12 L Alkaline Phosphatase 79 Total Protein 6.9 Albumin 3.4 Globulin 3.50 H Albumin/Globulin Ratio 0.97 Subjective 24 Hr Interval Summary Free Text/Dictation Patient awake, alert without complaint Exam/Review of Systems Exam Vitals Vital Signs Date Temp Pulse Resp B/P (MAP) Pulse Ox O2 O2 Flow FiO2 Time Delivery Rate 04/01/18 97.9 73 19 162/85 97 14:00 (110) 03/31/18 Room Air 14:45 03/28/18 2.0 17:18 Intake and Output 03/31/18 03/31/18 04/01/18 1515:00 23:00 07:00 IntakeIntake Total 810 ml 450 ml BalanceBalance 810 ml 450 ml Constitutional: alert, oriented Psych: no complaints, nl mood/affect Eyes: nl conjunctiva, EOMI Neck: supple, non-tender Respiratory: clear to auscultation, normal air movement Cardiovascular: regular rate and rhythm, nl pulses Gastrointestinal: soft, non-tender Results Results 24hrs Laboratory Tests Test 04/01/18 04:34 White Blood Count 9.1 Red Blood Count 4.04 L Hemoglobin 9.3 L Hematocrit 30.1 L Mean Corpuscular Volume 74.5 L Mean Corpuscular Hemoglobin 23.0 L Mean Corpuscular Hemoglobin Concent 30.9 L Red Cell Distribution Width 22.1 H Platelet Count 376 Mean Platelet Volume 10.0 Immature Granulocytes % 0.200 Neutrophils % 75.5 Lymphocytes % 16.2 Monocytes % 7.2 Eosinophils % 0.5 Basophils % 0.4 Nucleated Red Blood Cells % 0.0 Immature Granulocytes # 0.020 Neutrophils # 6.9 Lymphocytes # 1.5 Monocytes # 0.7 Eosinophils # 0.1 Basophils # 0.0 Nucleated Red Blood Cells # 0.0 Sodium Level 138 Potassium Level 2.9 *L Chloride Level 96 L Carbon Dioxide Level 33 H Anion Gap 9 Blood Urea Nitrogen 5 L Creatinine 0.67 Est Glomerular Filtrat Rate mL/min > 60 Glucose Level 94 Calcium Level 8.8 Magnesium Level 1.9 Total Bilirubin 0.5 Direct Bilirubin 0.00 Indirect Bilirubin 0.5 Aspartate Amino Transf (AST/SGOT) 13 L Alanine Aminotransferase (ALT/SGPT) 12 L Alkaline Phosphatase 79 Total Protein 6.9 Albumin 3.4 Globulin 3.50 H Albumin/Globulin Ratio 0.97 Medications Medication Current Medications IV Flush (NS 3 ml) 3 ml PER PROTOCOL IV ; Start 03/28/18 at 21:30 Acetaminophen/ Hydrocodone Bitart ([place] (5/325)) 2 tab Q6H PRN PO .SEVERE PAIN 7-10 Last administered on 04/01/18 15:14; Admin Dose 2 TAB; Start 03/28/18 at 21:30 Pantoprazole (Protonix Iv) 40 mg BID@06,18 IV Last administered on 04/01/18 06:22; Admin Dose 40 MG; Start 03/28/18 at 21:30 Sucralfate (Carafate) 1 gm QID PO Last administered on 04/01/18 14:46; Admin Dose 1 GM; Start 03/29/18 at 09:00 Ferric Sodium Gluconate Complex 125 mg/Sodium Chloride 110 ml @ 110 mls/hr DA ADIN@1300 IVPB Last administered on 04/01/18 14:47; Admin Dose 110 MLS/HR; Start 03/30/18 at 13:00; Stop 04/03/18 at 13:59 Hydromorphone HCl (Dilaudid) 1 mg Q4H PRN IV SEVERE PAIN LEVEL 7-10 Last ad ministered on 04/01/18 14:35; Admin Dose 1 MG; Start 03/30/18 at 23:00 Morphine Sulfate (Ms Contin (Er)) 30 mg BID PO Last administered on 04/01/18 09:21; Admin Dose 30 MG; Start 03/31/18 at 15:00 CHARLES HERNANDEZ MD Apr 01, 2018 16:49
[2018-04-01 19:36] VITALS: BP 178/97; PULSE 66; RESP 18
[2018-04-02 01:30] VITALS: BP 153/67; PULSE 64; RESP 18
[2018-04-02] MEDS: PANTOPRAZOLE 40 MG INJ IV SCH ×2 (05:37→18:02)
[2018-04-02] MEDS: HYDROmorphONE 1 MG/ML SYG IV PRN ×4 (05:37→18:02)
[2018-04-02 08:37] VITALS: BP 139/87; PULSE 73; RESP 18
[2018-04-02] MEDS: SUCRALFATE 1 GM TAB PO SCH ×4 (08:43→20:44)
[2018-04-02] MEDS: morphine (ER) 30 MG TAB PO SCH ×2 (08:43→20:45)
[2018-04-02] MEDS: HYDROCODONE/APAP (5/325) TAB PO PRN ×2 (12:26→19:52)
[2018-04-02] MEDS: SOD FERRIC GLUC COMPLX 125 MG in SOD CHLORIDE 0.9% 100 ML IVPB SCH (12:57)
--- NOTE | 2018-04-02 13:29 | PN ---
Date/Time of Note Date/Time of Note DATE: 04/02/18 TIME: 13:21 Assessment/Plan VTE Prophylaxis Risk score (from Ns)>0 risk: 3 SCD applied (from Nsg): Yes Pharmacological prophylaxis: other (scds) Lines/Catheters IV Catheter Type (from Nrsg): Saline Lock Urinary Cath still in place: No Assessment/Plan Hospital Course Assessment: Severe microcytic anemia S/p EGD 03/30/2018 -Abnormal third portion of duodenum with contained perforation with no intestinal circumferential lumen CT of the abdomen -no perforation H/o NSAIDs use Nominal pain/melena secondary to below Metastatic adenocarcinoma of small bowel History of colon cancer status post right-sided hemicolectomy Plan: F/u Hem/Onc recommendations- plan to start pembrolizumab (Keytruda) Continue PPI/Carafate Pain management Monitor labs, transfuse for HGB less than 7.5 Patient seen in collaboration with Dr. Summers/Emelina Subjective: No over night events, pt tolerating diet with anti-emetic meds Currently HGB is stable. No new GI input today PHYSICAL EXAMINATION: GENERAL: Well developed, well nourished, alert & oriented x 3, in no acute distress SKIN: No lesion CHEST: Inspection within normal limits. CARDIOVASCULAR: Heart: Regular rate and rhythm, no murmurs RESPIRATORY: Lungs clear to auscultation GASTROINTESTINAL AND LIVER: Abdomen: Soft, upper abdominal pain non-distended, no hernias, no masses, no organomegaly, no ascites, no guarding, no rebound tenderness, normoactive bowel sounds. Rectal: Deferred. GENITOURINARY: Male genitalia within normal limits. EXTREMITIES: No cyanosis, clubbing or edema. Result Diagram: 04/02/18 0426 04/02/18 0423 Results 24hrs Laboratory Tests Test 04/02/18 04:23 04/02/18 04:26 Sodium Level 140 Potassium Level 3.1 L Chloride Level 98 Carbon Dioxide Level 32 H Anion Gap 10 Blood Urea Nitrogen 7 Creatinine 0.63 Est Glomerular Filtrat Rate mL/min > 60 Glucose Level 95 Calcium Level 8.9 White Blood Count 9.4 Red Blood Count 4.04 L Hemoglobin 9.3 L Hematocrit 30.4 L Mean Corpuscular Volume 75.2 L Mean Corpuscular Hemoglobin 23.0 L Mean Corpuscular Hemoglobin Concent 30.6 L Red Cell Distribution Width 23.2 H Platelet Count 410 Mean Platelet Volume 10.5 H Immature Granulocytes % 0.500 H Neutrophils % 77.5 H Lymphocytes % 13.7 L Monocytes % 6.7 Eosinophils % 1.1 Basophils % 0.5 Nucleated Red Blood Cells % 0.0 Immature Granulocytes # 0.050 H Neutrophils # 7.3 Lymphocytes # 1.3 Monocytes # 0.6 Eosinophils # 0.1 Basophils # 0.1 Nucleated Red Blood Cells # 0.0 Exam/Review of Systems Exam Vitals Vital Signs Date Temp Pulse Resp B/P (MAP) Pulse Ox O2 O2 Flow FiO2 Time Delivery Rate 04/02/18 98.1 73 18 139/87 95 Room Air 08:37 (104) Intake and Output 04/01/18 04/01/18 04/02/18 1515:00 23:00 07:00 IntakeIntake Total 760 ml 410 ml 360 ml BalanceBalance 760 ml 410 ml 360 ml Results Results 24hrs Laboratory Tests Test 04/02/18 04:23 04/02/18 04:26 Sodium Level 140 Potassium Level 3.1 L Chloride Level 98 Carbon Dioxide Level 32 H Anion Gap 10 Blood Urea Nitrogen 7 Creatinine 0.63 Est Glomerular Filtrat Rate mL/min > 60 Glucose Level 95 Calcium Level 8.9 White Blood Count 9.4 Red Blood Count 4.04 L Hemoglobin 9.3 L Hematocrit 30.4 L Mean Corpuscular Volume 75.2 L Mean Corpuscular Hemoglobin 23.0 L Mean Corpuscular Hemoglobin Concent 30.6 L Red Cell Distribution Width 23.2 H Platelet Count 410 Mean Platelet Volume 10.5 H Immature Granulocytes % 0.500 H Neutrophils % 77.5 H Lymphocytes % 13.7 L Monocytes % 6.7 Eosinophils % 1.1 Basophils % 0.5 Nucleated Red Blood Cells % 0.0 Immature Granulocytes # 0.050 H Neutrophils # 7.3 Lymphocytes # 1.3 Monocytes # 0.6 Eosinophils # 0.1 Basophils # 0.1 Nucleated Red Blood Cells # 0.0 Medications Medication Current Medications IV Flush (NS 3 ml) 3 ml PER PROTOCOL IV ; Start 03/28/18 at 21:30 Acetaminophen/ Hydrocodone Bitart ([place] (5/325)) 2 tab Q6H PRN PO .SEVERE PAIN 7-10 Last administered on 04/02/18at 12:26; Admin Dose 2 TAB; Start 03/28/18 at 21:30 Pantoprazole (Protonix Iv) 40 mg BID@06,18 IV Last administered on 04/02/18 05:37; Admin Dose 40 MG; Start 03/28/18 at 21:30 Sucralfate (Carafate) 1 gm QID PO Last administered on 04/02/18 12:57; Admin Dose 1 GM; Start 03/29/18 at 09:00 Ferric Sodium Gluconate Complex 125 mg/Sodium Chloride 110 ml @ 110 mls/hr DAILY@1300 IVPB Last administered on 04/02/18 12:57; Admin Dose 110 MLS/HR; Start 03/30/18 at 13:00; Stop 04/03/18 at 13:59 Hydromorphone HCl (Dilaudid) 1 mg Q4H PRN IV SEVERE PAIN LEVEL 7-10 Last administered on 04/02/18 09:55; Admin Dose 1 MG; Start 03/30/18 at 23:00 Morphine Sulfate (Ms Contin (Er)) 30 mg BID PO Last administered on 04/02/18 08:43; Admin Dose 30 MG; Start 03/31/18 at 15:00 PAM RENEE Apr 02, 2018 13:29
[2018-04-02 14:10] VITALS: BP 141/86; PULSE 66; RESP 18
[2018-04-02] MEDS ORDERED: POTASSIUM CHLORIDE (SR) 20 MEQ TAB PO STA (17:29)
--- NOTE | 2018-04-02 17:29 | PN ---
Date/Time of Note Date/Time of Note DATE: 04/02/18 TIME: 17:28 Assessment/Plan VTE Prophylaxis Risk score (from Ns)>0 risk: 3 SCD applied (from Ns): Yes Pharmacological prophylaxis: NA/contraindicated Pharm contraindication: bleeding Lines/C[facility]ters [facility] Ur[facility] Cath still in place: No Assessment/Plan Hospital Course 52 yo male with colon/duodenal cancer s/p resection who has been lost to follow up presenting with progressive abdominal pain and dyspnea on exertion. Found to have profound microcytic anemia Acute on chronic blood loss anemia: - 2/2 bleeding duodenal mass - PPI Iron deficiency: - IV iron Colon cancer: - Dr Anna attempting to have keytruda approved - Increase pain control, add Ms Contin Hypokalemia: - Resolved Prophylaxis: SCDs Discharge plan is pending Keytruda. Per Dr Anna, patient at very high risk for re-bleeding if he leaves Result Diagram: 04/02/18 0426 04/02/18 0423 Results 24hrs Laboratory Tests Test 04/02/18 04:23 04/02/18 04:26 Sodium Level 140 Potassium Level 3.1 L Chloride Level 98 Carbon Dioxide Level 32 H Anion Gap 10 Blood Urea Nitrogen 7 Creatinine 0.63 Est Glomerular Filtrat Rate mL/min > 60 Glucose Level 95 Calcium Level 8.9 White Blood Count 9.4 Red Blood Count 4.04 L Hemoglobin 9.3 L Hematocrit 30.4 L Mean Corpuscular Volume 75.2 L Mean Corpuscular Hemoglobin 23.0 L Mean Corpuscular Hemoglobin Concent 30.6 L Red Cell Distribution Width 23.2 H Platelet Count 410 Mean Platelet Volume 10.5 H Immature Granulocytes % 0.500 H Neutrophils % 77.5 H Lymphocytes % 13.7 L Monocytes % 6.7 Eosinophils % 1.1 Basophils % 0.5 Nucleated Red Blood Cells % 0.0 Immature Granulocytes # 0.050 H Neutrophils # 7.3 Lymphocytes # 1.3 Monocytes # 0.6 Eosinophils # 0.1 Basophils # 0.1 Nucleated Red Blood Cells # 0.0 Subjective 24 Hr Interval Summary Constitutional: no complaints Exam/Review of Systems Exam Vitals Vital Signs Date Temp Pulse Resp B/P (MAP) Pulse Ox O2 O2 Flow FiO2 Time Delivery Rate 04/02/18 98.2 66 18 141/86 92 Room Air 14:10 (104) Intake and Output 2/24/19 2/24/19 2/25/19 1515:00 23:00 07:00 IntakeIntake Total 760 ml 410 ml 360 ml BalanceBalance 760 ml 410 ml 360 ml Constitutional: alert, oriented Respiratory: clear to auscultation Cardiovascular: regular rate and rhythm Gastrointestinal: soft; No distended Musculoskeletal: nl extremities to inspection Results Results 24hrs Laboratory Tests Test 04/02/18 04:23 04/02/18 04:26 Sodium Level 140 Potassium Level 3.1 L Chloride Level 98 Carbon Dioxide Level 32 H Anion Gap 10 Blood Urea Nitrogen 7 Creatinine 0.63 Est Glomerular Filtrat Rate mL/min > 60 Glucose Level 95 Calcium Level 8.9 White Blood Count 9.4 Red Blood Count 4.04 L Hemoglobin 9.3 L Hematocrit 30.4 L Mean Corpuscular Volume 75.2 L Mean Corpuscular Hemoglobin 23.0 L Mean Corpuscular Hemoglobin Concent 30.6 L Red Cell Distribution Width 23.2 H Platelet Count 410 Mean Platelet Volume 10.5 H Immature Granulocytes % 0.500 H Neutrophils % 77.5 H Lymphocytes % 13.7 L Monocytes % 6.7 Eosinophils % 1.1 Basophils % 0.5 Nucleated Red Blood Cells % 0.0 Immature Granulocytes # 0.050 H Neutrophils # 7.3 Lymphocytes # 1.3 Monocytes # 0.6 Eosinophils # 0.1 Basophils # 0.1 Nucleated Red Blood Cells # 0.0 Medications Medication Current Medications IV Flush (NS 3 ml) 3 ml PER PROTOCOL IV ; Start 03/28/18 at 21:30 Acetaminophen/ Hydrocodone Bitart ([place] (5/325)) 2 tab Q6H PRN PO .SEVERE PAIN 7-10 Last administered on 04/02/18at 12:26; Admin Dose 2 TAB; Start 03/28/18 at 21:30 Pantoprazole (Protonix Iv) 40 mg BID@06,18 IV Last administered on 04/02/18at 05:37; Admin Dose 40 MG; Start 03/28/18 at 21:30 Sucralfate (Carafate) 1 gm QID PO Last administered on 04/02/18at 12:57; Admin Dose 1 GM; Start 03/29/18 at 09:00 Ferric Sodium Gluconate Complex 125 mg/Sodium Chloride 110 ml @ 110 mls/hr DAILY@1300 IVPB Last administered on 04/02/18 12:57; Admin Dose 110 MLS/HR; Start 03/30/18 at 13:00; Stop 04/03/18 at 13:59 Hydromorphone HCl (Dilaudid) 1 mg Q4H PRN IV SEVERE PAIN LEVEL 7-10 Last administered on 04/02/18at 13:55; Admin Dose 1 MG; Start 03/30/18 at 23:00 Morphine Sulfate (Ms Contin (Er)) 30 mg BID PO Last administered on 04/02/18at 08:43; Admin Dose 30 MG; Start 03/31/18 at 15:00 TOMMY DENTON Apr 02, 2018 17:29
--- NOTE | 2018-04-02 20:04 | PN ---
DATE: 04/02/2018 SUBJECTIVE: The patient states he is feeling better. Less complaints of abdominal pain. No nausea or vomiting. OBJECTIVE: GENERAL: The patient is a well-developed, well-nourished male in no acute distress. VITAL SIGNS: Temperature 98.2 orally, pulse 66 per minute and regular, respirations 18, blood pressu re 141/86, pulse oximetry is 92% on room air. SKIN: No ecchymosis, no petechiae or rashes. There are tattoos. HEENT: Normocephalic. No evidence of trauma. Pupils are equal, round, reactive to light and accomm odation. Sclerae are nonicteric. Oral mucosa is moist without lesions. Tongue is well papillated. There is no gingival hyperplasia, no mucosal telangiectasias. Oral mucosa and conjunctivae are pale . NECK: Supple. No jugular venous distention or thyroid enlargement. CHEST: Clear to auscultation and percussion. No rhonchi, wheezes, rales or rubs. NODES: No palpable lymphadenopathy in any lymph node bearing area. HEART: Regular sinus rhythm. No S3, S4 or murmurs. ABDOMEN: Soft. No masses. No ascites. EXTREMITIES: Good range of motion. No clubbing, no edema or cyanosis. NEUROLOGIC: Normal. LABORATORY DATA: White count is 9400 with an absolute neutrophil count of 7300, hemoglobin 9.3, mirian tocrit 30.4, MCV is 75.2, platelet count 410,000. Sodium 140, potassium 3.1, BUN 7, creatinine 0.63. The patient did undergo an upper GI endoscopy. This does show deformity of the third portion of the duodenum, which does show some evidence of perforation which may be sealed. ASSESSMENT: 1. 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 2. Iron deficiency anemia due to chronic gastrointestinal bleeding secondary to #1. PLAN: The patient has, thus far, received 4 parenteral infusions of ferric gluconate. He has receiv ed a total of 500 mg of elemental iron. He is due to receive 1 more infusion of 125 mg. Awaiting approval from insurance company for the use of pembrolizumab. Unclear why hospitalized. Th e patient requires approval to receive the medication, but this is what I have been told by the pharm acy. As previously noted, I will not be discharging this patient due to the very high risk of severe uncon trolled GI bleeding and small bowel perforation with peritonitis. Dictated By: MARTINE ROSENBERG MD SR/NTS Conf#: [id number] DID#: [id number] CC: DHEERAJ READ MD;*EndCC*
[2018-04-02 20:10] VITALS: BP 172/80; PULSE 72; RESP 18
[2018-04-03] MEDS: HYDROmorphONE 1 MG/ML SYG IV PRN ×4 (00:07→16:36)
[2018-04-03 02:05] VITALS: BP 149/89; PULSE 68; RESP 18
[2018-04-03] MEDS: PANTOPRAZOLE 40 MG INJ IV SCH ×2 (06:16→18:26)
[2018-04-03] MEDS: HYDROCODONE/APAP (5/325) TAB PO PRN ×2 (06:18→11:17)
[2018-04-03 08:26] VITALS: BP 138/85; PULSE 60; RESP 18
[2018-04-03] MEDS: SUCRALFATE 1 GM TAB PO SCH ×4 (08:57→20:21)
[2018-04-03] MEDS: morphine (ER) 30 MG TAB PO SCH (08:57)
[2018-04-03] MEDS: SOD FERRIC GLUC COMPLX 125 MG in SOD CHLORIDE 0.9% 100 ML IVPB SCH (12:53)
[2018-04-03 15:23] VITALS: BP 144/81; PULSE 61; RESP 18
--- NOTE | 2018-04-03 16:03 | PN ---
Date/Time of Note Date/Time of Note DATE: 04/03/18 TIME: 16:02 Assessment/Plan VTE Prophylaxis Risk score (from Nsg)>0 risk: 4 SCD applied (from Nsg): Yes Pharmacological prophylaxis: NA/contraindicated Pharm contraindication: low risk/ambulating Lines/Catheters IV Catheter Type (from Nrsg): Saline Lock Urinary Cath still in place: No Assessment/Plan Hospital Course 52 yo male with colon/duodenal cancer s/p resection who has been lost to follow up presenting with progressive abdominal pain and dyspnea on exertion. Found to have profound microcytic anemia Acute on chronic blood loss anemia: - 2/2 bleeding duodenal mass - PPI Iron deficiency: - IV iron Colon cancer: - Dr Anna attempting to have keytruda approved - Still in pain, increased dose of MS Contin Hypokalemia: - Resolved Prophylaxis: SCDs Discharge plan is pending Keytruda. Per Dr Anna, patient at very high risk for re-bleeding if he leaves Result Diagram: 04/02/18 0426 04/03/18 0429 Results 24hrs Laboratory Tests Test 04/03/18 04:29 04/03/18 11:35 Sodium Level 139 Potassium Level 3.4 L Chloride Level 97 Carbon Dioxide Level 31 Anion Gap 11 Blood Urea Nitrogen 8 Creatinine 0.67 Est Glomerular Filtrat Rate mL/min > 60 Glucose Level 107 Calcium Level 8.8 Lab Scanned Report REFERENCE LAB Subjective 24 Hr Interval Summary Constitutional: no complaints Exam/Review of Systems Exam Vitals Vital Signs Date Temp Pulse Resp B/P (MAP) Pulse Ox O2 O2 Flow FiO2 Time Delivery Rate 04/03/18 98.4 60 18 138/85 98 Room Air 08:26 (102) Intake and Output 04/02/18 04/02/18 04/03/18 1515:00 23:00 07:00 IntakeIntake Total 230 ml 240 ml BalanceBalance 230 ml 240 ml Constitutional: alert, oriented Respiratory: clear to auscultation Cardiovascular: regular rate and rhythm Gastrointestinal: soft; No distended Musculoskeletal: nl extremities to inspection Results Results 24hrs Laboratory Tests Test 04/03/18 04:29 04/03/18 11:35 Sodium Level 139 Potassium Level 3.4 L Chloride Level 97 Carbon Dioxide Level 31 Anion Gap 11 Blood Urea Nitrogen 8 Creatinine 0.67 Est Glomerular Filtrat Rate mL/min > 60 Glucose Level 107 Calcium Level 8.8 Lab Scanned Report REFERENCE LAB Medications Medication Current Medications IV Flush (NS 3 ml) 3 ml PER PROTOCOL IV ; Start 03/28/18 at 21:30 Acetaminophen/ Hydrocodone Bitart ([place] (5/325)) 2 tab Q6H PRN PO .SEVERE PAIN 7-10 Last administered on 04/03/18 11:17; Admin Dose 2 TAB; Start 03/28/18 at 21:30 Pantoprazole (Protonix Iv) 40 mg BID@,18 IV Last administered on 04/03/18 06:16; Admin Dose 40 MG; Start 03/28/18 at 21:30 Sucralfate (Carafate) 1 gm QID PO Last administered on 04/03/18 13:24; Admin Dose 1 GM; Start 03/29/18 at 09:00 Hydromorphone HCl (Dilaudid) 1 mg Q4H PRN IV SEVERE PAIN LEVEL 7-10 Last administered on 04/03/18at 12:53; Admin Dose 1 MG; Start 03/30/18 at 23:00 Morphine Sulfate (Ms Contin (Er)) 30 mg BID PO Last administered on 04/03/18 08:57; Admin Dose 30 MG; Start 03/31/18 at 15:00 TOMMY DENTON Apr 03, 2018 16:03
[2018-04-03 19:51] VITALS: BP 150/80; PULSE 72; RESP 18
[2018-04-03] MEDS: morphine (ER) 15 MG TAB PO SCH (20:21)
[2018-04-04] MEDS: PANTOPRAZOLE 40 MG INJ IV SCH ×2 (05:39→16:49)
[2018-04-04 08:24] VITALS: BP 157/86; PULSE 77; RESP 18
[2018-04-04] MEDS: morphine (ER) 15 MG TAB PO SCH (08:40)
[2018-04-04] MEDS: SUCRALFATE 1 GM TAB PO SCH ×4 (08:40→20:07)
[2018-04-04] MEDS: HYDROmorphONE 1 MG/ML SYG IV PRN ×2 (09:23→18:49)
[2018-04-04 13:53] VITALS: BP 131/76; PULSE 72; RESP 18
--- NOTE | 2018-04-04 14:35 | PN ---
Date/Time of Note Date/Time of Note DATE: 04/04/18 TIME: 14:34 Assessment/Plan VTE Prophylaxis Risk score (from Ns)>0 risk: 3 SCD applied (from Nsg): Yes Pharmacological prophylaxis: other (scds) Lines/Catheters IV Catheter Type (from Nrsg): Saline Lock Urinary Cath still in place: No Assessment/Plan Hospital Course Assessment: Severe microcytic anemia S/p EGD 03/30/2018 -Abnormal third portion of duodenum with contained perforation with no intestinal circumferential lumen CT of the abdomen -no perforation H/o NSAIDs use Nominal pain/melena secondary to below Metastatic adenocarcinoma of small bowel History of colon cancer status post right-sided hemicolectomy Plan: F/u Hem/Onc recommendations-awaiting medication pembrolizumab (Keytruda) - concerns if patient id d/c prior to starting medication, high risk for rebleeding Continue PPI/Carafate Pain management Monitor labs, transfuse for HGB less than 7.5 No further GI rec, we will sign off but will be available upon reconsult as needed Patient seen in collaboration with Dr. Summers/Emelina Subjective: No over night events, pt tolerating diet with anti-emetic meds Currently HGB is stable. PHYSICAL EXAMINATION: GENERAL: Well developed, well nourished, alert & oriented x 3, in no acute distress SKIN: No lesion CHEST: Inspection within normal limits. CARDIOVASCULAR: Heart: Regular rate and rhythm, no murmurs RESPIRATORY: Lungs clear to auscultation GASTROINTESTINAL AND LIVER: Abdomen: Soft, upper abdominal pain non-distended, no hernias, no masses, no organomegaly, no ascites, no guarding, no rebound tenderness, normoactive bowel sounds. Rectal: Deferred. GENITOURINARY: Male genitalia within normal limits. EXTREMITIES: No cyanosis, clubbing or edema. Result Diagram: 04/02/1842504/03/18428 Exam/Review of Systems Exam Vitals Vital Signs Date Temp Pulse Resp B/P (MAP) Pulse Ox O2 O2 Flow FiO2 Time Delivery Rate 04/04/18 98.4 72 18 131/76 98 13:53 (94) 04/03/18 Room Air 19:51 Intake and Output 04/03/18 04/03/18 04/04/18 1515:00 23:00 07:00 IntakeIntake Total 480 ml 1000 ml 1050 ml OutputOutput Total 150 ml 200 ml BalanceBalance 480 ml 850 ml 850 ml Medications Medication Current Medications IV Flush (NS 3 ml) 3 ml PER PROTOCOL IV ; Start 03/28/18 at 21:30 Pantoprazole (Protonix Iv) 40 mg BID@06,18 IV Last administered on 04/04/18at 05:39; Admin Dose 40 MG; Start 03/28/18 at 21:30 Sucralfate (Carafate) 1 gm QID PO Last administered on 04/04/18at 12:53; Admin Dose 1 GM; Start 03/29/18 at 09:00 Hydromorphone HCl (Dilaudid) 1 mg Q4H PRN IV SEVERE PAIN LEVEL 7-10 Last administered on 04/04/18at 09:23; Admin Dose 1 MG; Start 03/30/18 at 23:00 Morphine Sulfate (Ms Contin (Er)) 60 mg BID PO ; Start 04/04/18 at 21:00 Oxycodone/ Acetaminophen (Endocet ( 325)) 1 tab Q4H PRN PO MODERATE PAIN LEVEL 4-6; Start 04/04/18 at 10:30 PAM RENEE Apr 04, 2018 14:35
--- NOTE | 2018-04-04 14:44 | PN ---
Date/Time of Note Date/Time of Note DATE: 04/04/18 TIME: 14:43 Assessment/Plan VTE Prophylaxis Risk score (from Ns)>0 risk: 3 SCD applied (from Ns): Yes Pharmacological prophylaxis: NA/contraindicated Pharm contraindication: low risk/ambulating Lines/Catheters IV Catheter Type (from Nrs): Saline Lock Urinary Cath still in place: No Assessment/Plan Hospital Course 52 yo male with colon/duodenal cancer s/p resection who has been lost to follow up presenting with progressive abdominal pain and dyspnea on exertion. Found to have profound microcytic anemia Acute on chronic blood loss anemia: - 2/2 bleeding duodenal mass - PPI Iron deficiency: - IV iron Colon cancer: - Dr Anna attempting to have keytruda approved -Have increased MS Contin once again and have added Percocet and discontinued Debary, plan is to wean off Dilaudid Hypokalemia: - Resolved Prophylaxis: SCDs Discharge plan is pending Keytruda. Per Dr Anna, patient at very high risk for re-bleeding if he leaves Result Diagram: 04/02/18 0426 04/03/18 0429 Subjective 24 Hr Interval Summary Constitutional: no complaints Exam/Review of Systems Exam Vitals Vital Signs Date Temp Pulse Resp B/P (MAP) Pulse Ox O2 O2 Flow FiO2 Time Delivery Rate 04/04/18 98.4 72 18 131/76 98 13:53 (94) 04/03/18 Room Air 19:51 Intake and Output 04/03/18 04/03/18 04/04/18 1515:00 23:00 07:00 IntakeIntake Total 480 ml 1000 ml 1050 ml OutputOutput Total 150 ml 200 ml BalanceBalance 480 ml 850 ml 850 ml Constitutional: alert, oriented Respiratory: clear to auscultation Cardiovascular: regular rate and rhythm Gastrointestinal: soft; No distended Musculoskeletal: nl extremities to inspection Medications Medication Current Medications IV Flush (NS 3 ml) 3 ml PER PROTOCOL IV ; Start 03/28/18 at 21:30 Pantoprazole (Protonix Iv) 40 mg BID@06,18 IV Last administered on 04/04/18at 05:39; Admin Dose 40 MG; Start 03/28/18 at 21:30 Sucralfate (Carafate) 1 gm QID PO Last administered on 04/04/18at 12:53; Admin Dose 1 GM; Start 03/29/18 at 09:00 Hydromorphone HCl (Dilaudid) 1 mg Q4H PRN IV SEVERE PAIN LEVEL 7-10 Last administered on 04/04/18at 09:23; Admin Dose 1 MG; Start 03/30/18 at 23:00 Morphine Sulfate (Ms Contin (Er)) 60 mg BID PO ; Start 04/04/18 at 21:00 Oxycodone/ Acetaminophen (Endocet ()) 1 tab Q4H PRN PO MODERATE PAIN LEVEL 4-6; Start 04/04/18 at 10:30 TOMMY DENTON Apr 04, 2018 14:44
[2018-04-04 19:20] VITALS: BP 134/76; PULSE 73; RESP 18
--- NOTE | 2018-04-04 19:47 | PN ---
DATE: 04/04/2018 SUBJECTIVE: The patient states that he is feeling relatively well. Has had increase in analgesia, s o he is now taking MS Contin 60 mg twice a day. He states this has been more effective. He is not e xperiencing nausea and vomiting. He is able to eat. OBJECTIVE: GENERAL: The patient is a well-developed, well-nourished male in no acute distress. VITAL SIGNS: Temperature 98.4 orally, pulse 72 per minute and regular, respirations 18, blood pressu re 131/76, pulse oximetry is 98% on room air. SKIN: No ecchymosis, no petechiae or rashes. There are tattoos present. HEENT: Normocephalic. No evidence of trauma. Pupils are equal, round, react to light and accommoda tion. Sclerae are nonicteric. Oral mucosa is moist without lesions. NECK: Supple. No jugular venous distention or thyroid enlargement. CHEST: Clear to auscultation and percussion. No rhonchi, wheezes, rales or rubs. NODES: No palpable lymphadenopathy in any lymph node bearing area. HEART: Regular sinus rhythm. No S3, S4 or murmurs. ABDOMEN: Soft. No masses, no ascites. Bowel sounds are active. EXTREMITIES: Good range of motion. No clubbing, no edema or cyanosis. No palpable cords or Homans sign. NEUROLOGIC: Normal. LABORATORY DATA: There has not been CBC done since 04/02/2018. ASSESSMENT: 1. 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 2. Iron deficiency secondary to chronic gastrointestinal bleeding secondary to #1. PLAN: Unfortunately, the treatment with pembrolizumab will not be given as it has been refused by [facility]. They claim that this is an outpatient medication as they have surveyed other hospitals w ho agree with this. I think that they misinterpreted the other hospital's physician. I have janelle linoy given this medication at least 2 other facilities in the [place] and [facility]. It is true karen t pembrolizumab is not on their formulary, but if it is necessary for the patient they will obtain [facility] medicine and allow it to be administered. Only other option at this time would be to give the patient FOLFOX. This does have some disadvantage s: 1. It is less effective in patients who have high MSI such as this patient. 2. It is more toxic such as this patient. 3. This is an outpatient protocol. Therefore if the hospital refuses to use pembrolizumab because it is an outpatient medication, I andrea ot understand why they will allow the use of FOLFOX. The patient has now also completed 5 infusions of ferric gluconate. He has therefore received a tota l of 625 mg of elemental iron. As I stated when the patient was initially admitted that he would req uire approximately 2500 mg of elemental iron and therefore, the patient has received approximately 1/ 4 of the necessary treatment. This is due to the fact that the hospital will not supply the medicati on which allows adequate iron administration and asked the physician to use a medication that is actu ally not approved for the situation. Dictated By: MARTINE ROSENBERG MD SR/NTS Conf#: [id number] DID#: [id number] CC: TOMMY DENTON MD; DHEERAJ READ MD;*[facility]*
[2018-04-04] MEDS: morphine (ER) 30 MG TAB PO SCH (20:08)
[2018-04-04] MEDS: OXYCODONE/ACETAMINOPHEN (10/325) TAB PO PRN (22:27)
[2018-04-05 02:39] VITALS: BP 125/71; PULSE 61; RESP 18
[2018-04-05] MEDS: OXYCODONE/ACETAMINOPHEN (10/325) TAB PO PRN ×4 (04:37→22:41)
[2018-04-05] MEDS: PANTOPRAZOLE 40 MG INJ IV SCH ×2 (05:47→17:46)
[2018-04-05 07:40] VITALS: BP 117/66; PULSE 63; RESP 18
[2018-04-05] MEDS: SUCRALFATE 1 GM TAB PO SCH ×4 (09:20→21:29)
[2018-04-05] MEDS: morphine (ER) 30 MG TAB PO SCH ×2 (09:24→21:29)
--- NOTE | 2018-04-05 13:51 | PN ---
Date/Time of Note Date/Time of Note DATE: 04/05/18 TIME: 13:50 Assessment/Plan VTE Prophylaxis Risk score (from Nsg)>0 risk: 3 SCD applied (from Nsg): Yes Pharmacological prophylaxis: NA/contraindicated Pharm contraindication: low risk/ambulating Lines/Catheters IV Catheter Type (from Nrsg): Saline Lock Urinary Cath still in place: No Assessment/Plan Hospital Course 52 yo male with colon/duodenal cancer s/p resection who has been lost to follow up presenting with progressive abdominal pain and dyspnea on exertion. Found to have profound microcytic anemia Acute on chronic blood loss anemia: - 2/2 bleeding duodenal mass - PPI Iron deficiency: - IV iron Colon cancer: - Dr Anna attempting to have keytruda approved -Pain is now controlled with MS Contin and Percocet and no longer requires Dilaudid IV Hypokalemia: - Resolved Prophylaxis: SCDs DC planning: Currently pending approval of chemotherapy agent Result Diagram: 04/02/18 0426 04/05/18 0435 Results 24hrs Laboratory Tests Test 04/05/18 04:35 Sodium Level 140 Potassium Level 3.5 Chloride Level 99 Carbon Dioxide Level 32 H Anion Gap 9 Blood Urea Nitrogen 11 Creatinine 0.69 Est Glomerular Filtrat Rate mL/min > 60 Glucose Level 108 Calcium Level 9.3 Subjective 24 Hr Interval Summary Constitutional: no complaints Exam/Review of Systems Exam Vitals Vital Signs Date Temp Pulse Resp B/P (MAP) Pulse Ox O2 O2 Flow FiO2 Time Delivery Rate 04/05/18 97.8 63 18 117/66 99 07:40 (83) 04/03/18 Room Air 19:51 Intake and Output 04/04/18 04/04/18 04/05/18 1515:00 23:00 07:00 IntakeIntake Total 360 ml BalanceBalance 360 ml Constitutional: alert, oriented Respiratory: clear to auscultation Cardiovascular: regular rate and rhythm Gastrointestinal: soft; No distended Musculoskeletal: nl extremities to inspection Results Results 24hrs Laboratory Tests Test 04/05/18 04:35 Sodium Level 140 Potassium Level 3.5 Chloride Level 99 Carbon Dioxide Level 32 H Anion Gap 9 Blood Urea Nitrogen 11 Creatinine 0.69 Est Glomerular Filtrat Rate mL/min > 60 Glucose Level 108 Calcium Level 9.3 Medications Medication Current Medications IV Flush (NS 3 ml) 3 ml PER PROTOCOL IV ; Start 03/28/18 at 21:30 Pantoprazole (Protonix Iv) 40 mg BID@06,18 IV Last administered on 04/05/18 05:47; Admin Dose 40 MG; Start 03/28/18 at 21:30 Sucralfate (Carafate) 1 gm QID PO Last administered on 04/05/18 12:26; Admin Dose 1 GM; Start 03/29/18 at 09:00 Hydromorphone HCl (Dilaudid) 1 mg Q4H PRN IV SEVERE PAIN LEVEL 7-10 Last administered on 04/04/18 18:49; Admin Dose 1 MG; Start 03/30/18 at 23:00 Morphine Sulfate (Ms Contin (Er)) 60 mg BID PO Last administered on 04/05/18 09:24; Admin Dose 60 MG; Start 04/04/18 at 21:00 Oxycodone/ Acetaminophen (Endocet (10/ 325)) 1 tab Q4H PRN PO MODERATE PAIN LEVEL 4-6 Last administered on 04/05/18 12:31; Admin Dose 1 TAB; Start 04/04/18 at 10:30 TOMMY DENTON Apr 05, 2018 13:51
[2018-04-05 14:45] VITALS: BP 134/87; PULSE 58; RESP 18
--- NOTE | 2018-04-05 17:28 | PN ---
DATE: 04/05/2018 SUBJECTIVE: The patient states he is feeling well. Pain is under good control. He is not experienc ing nausea and vomiting. The patient states that he has had bowel movements. There has been no melena or hematochezia. OBJECTIVE: GENERAL: The patient is a well-developed, well-nourished male in no acute distress. VITAL SIGNS: Temperature 97.7 orally, pulse 58 per minute regular, respirations 18, blood pressure 1 34/87, pulse oximetry is 98%. SKIN: No ecchymosis, no petechiae or rashes. There are multiple tattoos. HEENT: Normocephalic. No evidence of trauma. Pupils are equal, round, reactive to light and accomm odation. Sclerae are nonicteric. Oral mucosa is moist without lesions. There are no mucosal telang iectasias. NECK: Supple. No jugular venous distention or thyroid enlargement. CHEST: Clear to auscultation and percussion. No rhonchi, wheezes, rales or rubs. No pain on percus garland of spine, sternum, clavicles or ribs. HEART: Regular sinus rhythm. No S3, S4 or murmurs. No rubs. ABDOMEN: Soft, no masses, no ascites. EXTREMITIES: Good range of motion. No clubbing, edema or cyanosis. No palpable cords or Homans sig n. NEUROLOGIC: Normal. ASSESSMENT: 1. 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 2. Iron deficiency secondary to chronic gastrointestinal bleeding secondary to #1. I have been contacted by pharmacy and the administration will meet with me tomorrow morning to aleida y the hospital's physician regarding the use of pembrolizumab and similar medications. We will recheck CBC, chemistry panel in a.m. We will also obtain a reticulocyte count and start the patient on oral folic acid supplementation. Dictated By: MARTINE ROSENBERG MD SR/NTS Conf#: [id number] DID#: [id number] CC: TOMMY DENTON MD; DHEERAJ READ MD;*EndCC*
[2018-04-05 20:00] VITALS: BP 149/84; PULSE 73; RESP 18
[2018-04-06 02:50] VITALS: BP 134/71; PULSE 64; RESP 18
[2018-04-06] MEDS: PANTOPRAZOLE 40 MG INJ IV SCH (05:39)
[2018-04-06] MEDS: OXYCODONE/ACETAMINOPHEN (10/325) TAB PO PRN ×5 (05:40→23:36)
[2018-04-06 07:26] VITALS: BP 133/77; PULSE 75; RESP 17
[2018-04-06] MEDS: morphine (ER) 30 MG TAB PO SCH ×2 (09:03→21:14)
[2018-04-06] MEDS: SUCRALFATE 1 GM TAB PO SCH ×4 (09:03→23:36)
[2018-04-06] MEDS: FOLIC ACID 1 MG TAB PO SCH (09:03)
--- NOTE | 2018-04-06 11:08 | EN ---
Date/Time of Note Date/Time of Note DATE: 04/06/18 TIME: 10:45 Event Note Medicine Medicine Event Note Oncology Note: Have dictated note today but will again attempt to explain my request to use pembolizumab as an inpatient when it an agent usually administered as an outpatient. This patient has metastatic colorectal carcinoma which is involving the third portion of the duodenum. It is completely circumferential and occluding the lumen. There has already been a documented perforation of the bowel wall but it has been contained. The tumor has been demonstrated to have intense microsatellite instability. This finding predicts a poor response to the usual therapies for colorectal carcinoma such as FOLFOX or FOLFIRI. Such lesions do, however, respond to "check point inhibitors" such as pembrolizumab. I have had experience using this agent in other patients with patients with metastatic colorectal carcinoma with high MSI. The response has been immediate. In Mr Hines's case, with the peculiar anatomic location of the tumor,this may result in a rapid lysis of tumor leaving a large defect in the small bowel wall with a resulting peritoneal spill and bleeding. If this were to occur as an o utpatient in an unobserved setting it may be catastrophic. Pt has already been admitted twice in 3 months with a hemoglobin of 4 gm because of bleeding due to the tumor. I stress that the concern is not due to the toxicity of the medication but because of it's significant efficacy coupled the unusual anatomic location of the disease. I have discussed with the patient that this medication would continue as an outpatient and should be administered every 3 weeks. Pt has promised to follow through with any treatment plan which has been arranged for him as an outpatient. Thank you, MD SHAKIRA Ramesh STANLEY H MD Apr 06, 2018 11:08
--- NOTE | 2018-04-06 12:43 | PN ---
DATE: 04/06/2018 SUBJECTIVE: The patient states he is feeling well. He has no complaints of abdominal pain at this t pernell. He states that he has not noted any melena or hematochezia. No complaints of nausea or vomitin g. OBJECTIVE: GENERAL: The patient is a well-developed, well-nourished male in no acute distress. VITAL SIGNS: Temperature 98.4, pulse 75 per minute and regular, respirations 18, blood pressure 133/ 77, pulse oximetry is 98% on room air. SKIN: No ecchymosis, no petechiae or rashes. There are multiple tattoos. HEENT: Normocephalic. No evidence of trauma. Pupils are equal, round, react to light and accommoda tion. Sclerae are nonicteric. Oral mucosa is moist without lesions. NECK: Supple. No jugular venous distention or thyroid enlargement. CHEST: Clear to auscultation and percussion. No rhonchi, wheezes, rales or rubs. NODES: No palpable lymphadenopathy in lymph node bearing area. ABDOMEN: Soft. There are no masses or ascites. EXTREMITIES: Good range of motion. No clubbing, no edema or cyanosis. No palpable cords or Homans sign. NEUROLOGIC: Normal. LABORATORY DATA: White count 6700 with an absolute neutrophil count of 5500, hemoglobin 9.4, hematoc rit 31.3, MCV 77.3 and platelet count is 482,000, reticulocyte count is 143,000 and percent retic is 3.4%. Sodium 139, potassium 3.7, creatinine 0.79, BUN 12. Total bilirubin 0.3, direct bilirubin 0.3, AST 2 5, ALT 10, alkaline phosphatase is 119. ASSESSMENT: 1. 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 2. Iron deficiency secondary to chronic gastrointestinal bleeding under control. DISCUSSION: I have had a meeting today with administration pharmacy and Dr. Segura, who is the chair man of Pharmacy and Therapeutics Committee. I have tried to explain my concerns and reasons for wishing to administer this medication as an inpat ient for the first dose. These concerns center on the peculiar anatomy of this patient's recurrence of colorectal carcinoma wh ich now involves the small bowel. There has been documented recurrence within the third portion of t he duodenum. This does already show a contained perforation. Because of the extensive involvement of small bowel including the wall of the small intestine which h as already been demonstrated to be involved causing a perforation, I am concerned that administration of the pembrolizumab will result in a rapid lysis of the tumor which would then lead to of the small bowel wall and perforation with spilling of intestinal contents into the peritoneal cavity as well a s the possibility of extensive bleeding. My experience in the past with administrating pembrolizumab to patients with colorectal carcinoma wit h high intensity microsatellite instability has been that there has been a very rapid response and th erefore, I feel this patient would best be treated as an inpatient and observed for 48 hours afterwar ds. If the patient were to receive this therapy as an outpatient, I am afraid that is likely there would be unmonitored catastrophic lysis of the bowel wall. I have discussed the situation with the patient and again emphasized the fact that the treatment woul d continue as outpatient and would be necessarily every 3 weeks. The patient assures me that he will follow up with any arranged program. It should also be noted that this patient's tumor does have a high intensity microsatellite instabili ty which makes the standard therapies for colorectal carcinoma unlikely to be of any benefit and like ly to have significant toxicity. Again, I emphasized that the use of that pembrolizumab in this situation is purely because of the pec uliar anatomical location of this patient's tumor and the likelihood of significant complications due to rapid tumor response but not due to toxicity from the medication. Dictated By: MARTINE ROSENBERG MD SR/NTS Conf#: [id number] DID#: [id number] CC: DHEERAJ READ MD; TOMMY DENTON MD;*End*
[2018-04-06 14:29] VITALS: BP 139/79; PULSE 69; RESP 18
--- NOTE | 2018-04-06 14:45 | PN ---
Date/Time of Note Date/Time of Note DATE: 04/06/18 TIME: 14:44 Assessment/Plan VTE Prophylaxis Risk score (from Ns)>0 risk: 3 [place] [facility] [place] Pharmacological prophylaxis: NA/contraindicated Pharm contraindication: bleeding Lines/Catheters IV Catheter Type (from [facility]): Saline Lock Urinary Cath still in place: No Assessment/Plan Hospital Course 52 yo male with colon/duodenal cancer s/p resection who has been lost to follow up presenting with progressive abdominal pain and dyspnea on exertion. Found to have profound microcytic anemia Acute on chronic blood loss anemia: - 2/2 bleeding duodenal mass - PPI Iron deficiency: - IV iron Colon cancer: - Dr Anna attempting to have keytruda approved and would like to be given as an inpatient due to risk of perforation and bowel bleeding within 48 hours after medication is administered -Pain is now controlled with MS Contin and Percocet, continue Dilaudid IV as needed Hypokalemia: - Resolved Prophylaxis: SCDs DC planning: Currently pending approval of chemotherapy agent Result Diagram: 04/06/18 0418 04/05/18 1708 Results 24hrs Laboratory Tests Test 04/05/18 17:08 04/06/18 04:18 Absolute Reticulocyte Count 0.143 H Percent Reticulocyte Count 3.4 H Sodium Level 139 Potassium Level 3.7 Chloride Level 96 L Carbon Dioxide Level 32 H Anion Gap 11 Blood Urea Nitrogen 12 Creatinine 0.79 Est Glomerular Filtrat Rate mL/min > 60 Glucose Level 99 Calcium Level 9.3 Total Bilirubin 0.3 Direct Bilirubin 0.00 Indirect Bilirubin 0.3 Aspartate Amino Transf (AST/SGOT) 25 Alanine Aminotransferase (ALT/SGPT) 10 L Alkaline Phosphatase 119 Total Protein 7.7 Albumin 3.8 Globulin 3.90 H Albumin/Globulin Ratio 0.97 White Blood Count 7.6 Red Blood Count 4.06 L Hemoglobin 9.4 L Hematocrit 31.4 L Mean Corpuscular Volume 77.3 L Mean Corpuscular Hemoglobin 23.2 L Mean Corpuscular Hemoglobin Concent 29.9 L Red Cell Distribution Width 25.0 H Platelet Count 482 H Mean Platelet Volume 10.3 Immature Granulocytes % 0.300 Neutrophils % 72.8 Lymphocytes % 17.9 Monocytes % 6.0 Eosinophils % 2.3 Basophils % 0.7 Nucleated Red Blood Cells % 0.0 Immature Granulocytes # 0.020 Neutrophils # 5.5 Lymphocytes # 1.4 Monocytes # 0.5 Eosinophils # 0.2 Basophils # 0.1 Nucleated Red Blood Cells # 0.0 Subjective 24 Hr Interval Summary Constitutional: no complaints Exam/Review of Systems Exam Vitals Vital Signs Date Temp Pulse Resp B/P (MAP) Pulse Ox O2 O2 Flow FiO2 Time Delivery Rate 04/06/18 97.9 69 18 139/79 100 14:29 (99) 04/03/18 Room Air 19:51 Intake and Output 04/05/18 04/05/18 04/06/18 1414:59 22:59 06:59 IntakeIntake Total 600 ml 480 ml BalanceBalance 600 ml 480 ml Constitutional: alert, oriented Respiratory: clear to auscultation Cardiovascular: regular rate and rhythm Gastrointestinal: soft; No distended Musculoskeletal: nl extremities to inspection Results Results 24hrs Laboratory Tests Test 04/05/18 17:08 04/06/18 04:18 Absolute Reticulocyte Count 0.143 H Percent Reticulocyte Count 3.4 H Sodium Level 139 Potassium Level 3.7 Chloride Level 96 L Carbon Dioxide Level 32 H Anion Gap 11 Blood Urea Nitrogen 12 Creatinine 0.79 Est Glomerular Filtrat Rate mL/min > 60 Glucose Level 99 Calcium Level 9.3 Total Bilirubin 0.3 Direct Bilirubin 0.00 Indirect Bilirubin 0.3 Aspartate Amino Transf (AST/SGOT) 25 Alanine Aminotransferase (ALT/SGPT) 10 L Alkaline Phosphatase 119 Total Protein 7.7 Albumin 3.8 Globulin 3.90 H Albumin/Globulin Ratio 0.97 White Blood Count 7.6 Red Blood Count 4.06 L Hemoglobin 9.4 L Hematocrit 31.4 L Mean Corpuscular Volume 77.3 L Mean Corpuscular Hemoglobin 23.2 L Mean Corpuscular Hemoglobin Concent 29.9 L Red Cell Distribution Width 25.0 H Platelet Count 482 H Mean Platelet Volume 10.3 Immature Granulocytes % 0.300 Neutrophils % 72.8 Lymphocytes % 17.9 Monocytes % 6.0 Eosinophils % 2.3 Basophils % 0.7 Nucleated Red Blood Cells % 0.0 Immature Granulocytes # 0.020 Neutrophils # 5.5 Lymphocytes # 1.4 Monocytes # 0.5 Eosinophils # 0.2 Basophils # 0.1 Nucleated Red Blood Cells # 0.0 Medications Medication Current Medications IV Flush (NS 3 ml) 3 ml PER PROTOCOL IV ; Start 03/28/18 at 21:30 Sucralfate (Carafate) 1 gm QID PO Last administered on 04/06/18 09:03; Admin Dose 1 GM; Start 03/29/18 at 09:00 Hydromorphone HCl (Dilaudid) 1 mg Q4H PRN IV SEVERE PAIN LEVEL 7-10 Last administered on 04/04/18at 18:49; Admin Dose 1 MG; Start 03/30/18 at 23:00 Morphine Sulfate (Ms Contin (Er)) 60 mg BID PO Last administered on 04/06/18 09:03; Admin Dose 60 MG; Start 04/04/18 at 21:00 Oxycodone/ Acetaminophen (Endocet (10/ 325)) 1 tab Q4H PRN PO MODERATE PAIN LEVEL 4-6 Last administered on 04/06/18at 10:52; Admin Dose 1 TAB; Start 04/04/18 at 10:30 Folic Acid (Folic Acid) 1 mg DAILY PO Last administered on 04/06/18 09:03; Admin Dose 1 MG; Start 04/06/18 at 09:00 Pantoprazole (Protonix Tab) 40 mg BID@0600,1800 PO ; Start 04/06/18 at 18:00 TOMMY DENTON Apr 06, 2018 14:45
[2018-04-06] MEDS ORDERED: ACETAMINOPHEN 500 MG TAB PO SCH (15:30)
[2018-04-06] MEDS: PANTOPRAZOLE (EC) 40 MG TAB PO SCH (17:52)
[2018-04-06 19:30] VITALS: BP 153/89; PULSE 72; RESP 20
[2018-04-07 02:50] VITALS: BP 144/81; PULSE 67; RESP 20
[2018-04-07] MEDS: OXYCODONE/ACETAMINOPHEN (10/325) TAB PO PRN ×2 (05:16→11:55)
[2018-04-07] MEDS: PANTOPRAZOLE (EC) 40 MG TAB PO SCH ×2 (05:16→18:11)
[2018-04-07 07:59] VITALS: BP 149/77; PULSE 99; RESP 18
[2018-04-07] MEDS: HYDROmorphONE 1 MG/ML SYG IV PRN (07:59)
[2018-04-07] MEDS: FOLIC ACID 1 MG TAB PO SCH (08:03)
[2018-04-07] MEDS: SUCRALFATE 1 GM TAB PO SCH ×4 (08:03→20:35)
[2018-04-07 08:07] VITALS: BP 144/77; PULSE 99; RESP 18
[2018-04-07] MEDS: morphine (ER) 30 MG TAB PO SCH ×2 (09:12→20:35)
[2018-04-07] MEDS ORDERED: DIPHENHYDRAMINE 25 MG CAP PO SCH ×2 (11:00→15:00)
[2018-04-07] MEDS ORDERED: [UNRECOGNIZED DRUG - OTHER] IV SCH ×2 (11:30→16:00)
[2018-04-07] MEDS ORDERED: PEMBROLIZUMAB IV SCH ×2 (11:30→16:00)
--- NOTE | 2018-04-07 12:10 | PN ---
Date/Time of Note Date/Time of Note DATE: 04/07/18 TIME: 12:10 Assessment/Plan VTE Prophylaxis Risk score (from Ns)>0 risk: 3 [place] [facility] [place] Pharmacological prophylaxis: NA/contraindicated Pharm contraindication: bleeding Lines/Catheters IV Catheter Type (from Nrsg): Saline Lock Urinary Cath still in place: No Assessment/Plan Hospital Course 52 yo male with colon/duodenal cancer s/p resection who has been lost to follow up presenting with progressive abdominal pain and dyspnea on exertion. Found to have profound microcytic anemia Acute on chronic blood loss anemia: - 2/2 bleeding duodenal mass - PPI Iron deficiency: - IV iron Colon cancer: - Dr Anna attempting to have keytruda approved and would like to be given as an inpatient due to risk of perforation and bowel bleeding within 48 hours after medication is administered -Pain is now controlled with MS Contin and Percocet, continue Dilaudid IV as needed Hypokalemia: - Resolved Prophylaxis: SCDs DC planning: Patient will likely receive chemotherapy agent today or tomorrow, DC 48 hours after patient receives chemotherapy Result Diagram: 04/06/18 0418 04/05/18 1708 Subjective 24 Hr Interval Summary Constitutional: no complaints Exam/Review of Systems Exam Vitals Vital Signs Date Temp Pulse Resp B/P (MAP) Pulse Ox O2 O2 Flow FiO2 Time Delivery Rate 04/07/18 97.7 99 18 149/77 70 07:59 (101) 04/07/18 Room Air 02:50 Intake and Output 04/06/18 04/06/18 04/07/18 1515:00 23:00 07:00 IntakeIntake Total 1000 ml 320 ml 610 ml BalanceBalance 1000 ml 320 ml 610 ml Constitutional: alert, oriented Respiratory: clear to auscultation Cardiovascular: regular rate and rhythm Gastrointestinal: soft; No distended Musculoskeletal: nl extremities to inspection Medications Medication Current Medications IV Flush (NS 3 ml) 3 ml PER PROTOCOL IV ; Start 03/28/18 at 21:30 Sucralfate (Carafate) 1 gm QID PO Last administered on 04/07/18at 11:57; Admin Dose 1 GM; Start 03/29/18 at 09:00 Hydromorphone HCl (Dilaudid) 1 mg Q4H PRN IV SEVERE PAIN LEVEL 7-10 Last administered on 04/07/18at 07:59; Admin Dose 1 MG; Start 03/30/18 at 23:00 Morphine Sulfate (Ms Contin (Er)) 60 mg BID PO Last administered on 04/07/18at 09:12; Admin Dose 60 MG; Start 04/04/18 at 21:00 Oxycodone/ Acetaminophen (Endocet (10/ 325)) 1 tab Q4H PRN PO MODERATE PAIN LEVEL 4-6 Last administered on 04/07/18at 11:55; Admin Dose 1 TAB; Start 04/04/18 at 10:30 Folic Acid (Folic Acid) 1 mg DAILY PO Last administered on 04/07/18 08:03; Admin Dose 1 MG; Start 04/06/18 at 09:00 Pantoprazole (Protonix Tab) 40 mg BID@0600,1800 PO Last administered on 04/07/18at 05:16; Admin Dose 40 MG; Start 04/06/18 at 18:00 Acetaminophen (Tylenol Tab) 1,000 mg PRE-MED PO ; Start 04/06/18 at 15:30; Status UNV Diphenhydramine HCl (Benadryl) 25 mg PRE-MED PO ; Start 04/07/18 at 11:00; Stop 04/07/18 at 23:45; Status UNV Non-Formulary Medication 1 dose/ Sodium Chloride 58 ml @ 116 mls/hr ONCE IV ; Start 04/07/18 at 11:30; Stop 04/07/18 at 23:45; Status UNV TOMMY DENTON Apr 07, 2018 12:10
[2018-04-07] MEDS ORDERED: ACETAMINOPHEN 500 MG TAB PO SCH (15:00)
[2018-04-07 15:47] VITALS: BP 135/79; PULSE 64; RESP 18
--- NOTE | 2018-04-07 17:54 | CONS ---
Assessment/Plan Assessment/Plan Assessment/Plan (Daily) 52 year old male with colon cancer stage 4 with microsatellite instability, mets to small bowel, now treated with first cycle of pembrolizumab today 04/07/18. He tolerated well. Will be monitored in the hospital due to concern for perforation or small bowel. Continue current care. Consultation Date/Type/Reason Admit Date/Time Mar 28, 2018 at 18:18 Initial Consult Date 03/29/18 Type of Consult Oncology - covering for Dr. Anna Date/Time of Note DATE: 04/07/18 TIME: 17:51 24 HR Interval Summary Free Text/Dictation He was treated with pembrolizumab today. Tolerated well and so far doing very well. No pain. Exam/Review of Systems Exam Vitals Vital Signs Date Temp Pulse Resp B/P (MAP) Pulse Ox O2 O2 Flow FiO2 Time Delivery Rate 04/07/18 98.7 64 18 135/79 98 Room Air 15:47 (97) Intake and Output 04/06/18 04/06/18 04/07/18 1414:59 22:59 06:59 IntakeIntake Total 1000 ml 320 ml 610 ml BalanceBalance 1000 ml 320 ml 610 ml Exam NAD No LAD Clear bilaterally Regular rate and heart sounds. Abd - non tender. EXT- no edema. Results Result Diagram: 04/06/18 0418 04/05/18 1708 Medications Medication Current Medications IV Flush (NS 3 ml) 3 ml PER PROTOCOL IV ; Start 03/28/18 at 21:30 Sucralfate (Carafate) 1 gm QID PO Last administered on 04/07/18at 11:57; Admin Dose 1 GM; Start 03/29/18 at 09:00 Hydromorphone HCl (Dilaudid) 1 mg Q4H PRN IV SEVERE PAIN LEVEL 7-10 Last administered on 04/07/18at 07:59; Admin Dose 1 MG; Start 03/30/18 at 23:00 Morphine Sulfate (Ms Contin (Er)) 60 mg BID PO Last administered on 04/07/18 09:12; Admin Dose 60 MG; Start 04/04/18 at 21:00 Oxycodone/ Acetaminophen (Endocet (10/ 325)) 1 tab Q4H PRN PO MODERATE PAIN LEVEL 4-6 Last administered on 04/07/18at 11:55; Admin Dose 1 TAB; Start 04/04/18 at 10:30 Folic Acid (Folic Acid) 1 mg DAILY PO Last administered on 04/07/18at 08:03; Admin Dose 1 MG; Start 04/06/18 at 09:00 Pantoprazole (Protonix Tab) 40 mg BID@0600,1800 PO Last administered on 04/07/18at 05:16; Admin Dose 40 MG; Start 04/06/18 at 18:00 CHINEDU ASHTON MD Apr 07, 2018 17:54
[2018-04-07 20:14] VITALS: BP 131/79; PULSE 75; RESP 17
[2018-04-08 00:19] VITALS: BP 140/80; PULSE 85; RESP 19
[2018-04-08] MEDS: OXYCODONE/ACETAMINOPHEN (10/325) TAB PO PRN ×5 (02:32→23:31)
[2018-04-08] MEDS: PANTOPRAZOLE (EC) 40 MG TAB PO SCH ×2 (06:26→17:36)
[2018-04-08 07:22] VITALS: BP 135/88; PULSE 71; RESP 18
[2018-04-08] MEDS: FOLIC ACID 1 MG TAB PO SCH (08:50)
[2018-04-08] MEDS: SUCRALFATE 1 GM TAB PO SCH ×4 (08:50→20:19)
[2018-04-08] MEDS: morphine (ER) 30 MG TAB PO SCH ×2 (08:51→21:31)
[2018-04-08] MEDS: HYDROmorphONE 1 MG/ML SYG IV PRN ×2 (13:18→20:19)
[2018-04-08 14:22] VITALS: BP 124/78; PULSE 87; RESP 18
--- NOTE | 2018-04-08 17:07 | CONS ---
Assessment/Plan Assessment/Plan Assessment/Plan (Daily) 52 year old male with colon cancer stage 4 with microsatellite instability, mets to small bowel, now treated with first cycle of pembrolizumab on 04/07/18. So far doing well, and no sign of perforation or other side effects. Pain is well managed, and he will need pain meds for home when eventually di scharged. Consultation Date/Type/Reason Admit Date/Time Mar 28, 2018 at 18:18 Initial Consult Date 03/29/18 Type of Consult Oncology - covering for Dr. Anna Date/Time of Note DATE: 04/08/18 TIME: 17:05 24 HR Interval Summary Free Text/Dictation He feels the same. Has abd pain at time, mid epigastric, pain meds help. Mild nausea, resolves. BM today, non bloody. Exam/Review of Systems Exam Vitals Vital Signs Date Temp Pulse Resp B/P (MAP) Pulse Ox O2 O2 Flow FiO2 Time Delivery Rate 04/08/18 98.3 87 18 124/78 98 14:22 (93) 04/08/18 Room Air 07:22 Intake and Output 04/07/18 04/07/18 04/08/18 1515:00 23:00 07:00 IntakeIntake Total 960 ml 298 ml BalanceBalance 960 ml 298 ml Exam NAD, comfortable. No LAD Clear bilaterally Heart regular Abd - distended, firm to exam, mild tender, no guarding. Ext - no edema. Results Result Diagram: 04/06/18 0418 04/05/18 1708 Medications Medication Current Medications IV Flush (NS 3 ml) 3 ml PER PROTOCOL IV ; Start 03/28/18 at 21:30 Sucralfate (Carafate) 1 gm QID PO Last administered on 04/08/18at 13:18; Admin Dose 1 GM; Start 03/29/18 at 09:00 Hydromorphone HCl (Dilaudid) 1 mg Q4H PRN IV SEVERE PAIN LEVEL 7-10 Last administered on 04/08/18at 13:18; Admin Dose 1 MG; Start 03/30/18 at 23:00 Morphine Sulfate (Ms Contin (Er)) 60 mg BID PO Last administered on 04/08/18at 08:51; Admin Dose 60 MG; Start 04/04/18 at 21:00 Oxycodone/ Acetaminophen (Endocet (10/ 325)) 1 tab Q4H PRN PO MODERATE PAIN LEVEL 4-6 Last administered on 04/08/18 11:33; Admin Dose 1 TAB; Start 04/04/18 at 10:30 Folic Acid (Folic Acid) 1 mg DAILY PO Last administered on 04/08/18 08:50; Admin Dose 1 MG; Start 04/06/18 at 09:00 Pantoprazole (Protonix Tab) 40 mg BID@0600,1800 PO Last administered on 04/08/18at 06:26; Admin Dose 40 MG; Start 04/06/18 at 18:00 CHINEDU ASHTON MD Apr 08, 2018 17:07
--- NOTE | 2018-04-08 18:46 | PN ---
Date/Time of Note Date/Time of Note DATE: 04/08/18 TIME: 18:44 Assessment/Plan VTE Prophylaxis Risk score (from Ns)>0 risk: 4 SCD applied (from Ns): Yes Pharmacological prophylaxis: NA/contraindicated Pharm contraindication: bleeding Lines/Catheters IV Catheter Type (from Nrsg): Saline Lock Urinary Cath still in place: No Assessment/Plan Hospital Course 52 yo male with colon/duodenal cancer s/p resection who has been lost to follow up presenting with progressive abdominal pain and dyspnea on exertion. Found to have profound microcytic anemia Acute on chronic blood loss anemia: - 2/2 bleeding duodenal mass - PPI Iron deficiency: - IV iron Colon cancer: -Patient received Keytruda yesterday, chemotherapy was given as an inpatient due to risk of perforation and bowel bleeding within 48 hours after medication is administered -Pain is now controlled with MS Contin and Percocet, continue Dilaudid IV as needed Hypokalemia: - Resolved Prophylaxis: SCDs DC planning: Patient received chemotherapy agent yesterday, plan per oncology was to monitor for 48-72 hours after medication has been given, follow-up on oncology recommendations for DC planning Result Diagram: 04/06/18 0418 04/05/18 1708 Subjective 24 Hr Interval Summary Constitutional: no complaints Exam/Review of Systems Exam Vitals Vital Signs Date Temp Pulse Resp B/P (MAP) Pulse Ox O2 O2 Flow FiO2 Time Delivery Rate 04/08/18 98.3 87 18 124/78 98 14:22 (93) 04/08/18 Room Air 07:22 Intake and Output 04/07/18 04/07/18 04/08/18 1515:00 23:00 07:00 IntakeIntake Total 960 ml 298 ml BalanceBalance 960 ml 298 ml Constitutional: alert, oriented Respiratory: clear to auscultation Cardiovascular: regular rate and rhythm Gastrointestinal: soft; No distended Musculoskeletal: nl extremities to inspection Medications Medication Current Medications IV Flush (NS 3 ml) 3 ml PER PROTOCOL IV ; Start 03/28/18 at 21:30 Sucralfate (Carafate) 1 gm QID PO Last administered on 04/08/18at 17:36; Admin Dose 1 GM; Start 03/29/18 at 09:00 Hydromorphone HCl (Dilaudid) 1 mg Q4H PRN IV SEVERE PAIN LEVEL 7-10 Last administered on 04/08/18 13:18; Admin Dose 1 MG; Start 03/30/18 at 23:00 Morphine Sulfate (Ms Contin (Er)) 60 mg BID PO Last administered on 04/08/18 08:51; Admin Dose 60 MG; Start 04/04/18 at 21:00 Oxycodone/ Acetaminophen (Endocet (10 325)) 1 tab Q4H PRN PO MODERATE PAIN LEVEL 4-6 Last administered on 04/08/18 17:36; Admin Dose 1 TAB; Start 04/04/18 at 10:30 Folic Acid (Folic Acid) 1 mg DAILY PO Last administered on 04/08/18 08:50; Admin Dose 1 MG; Start 04/06/18 at 09:00 Pantoprazole (Protonix Tab) 40 mg BID@0600,1800 PO Last administered on 04/08/18 17:36; Admin Dose 40 MG; Start 04/06/18 at 18:00 TOMMY DENTON Apr 08, 2018 18:46
[2018-04-08 20:10] VITALS: BP 150/88; PULSE 79; RESP 18
[2018-04-09 02:05] VITALS: BP 132/89; PULSE 19; PULSE 81; RESP 19
[2018-04-09] MEDS: HYDROmorphONE 1 MG/ML SYG IV PRN ×4 (02:13→19:11)
[2018-04-09] MEDS: OXYCODONE/ACETAMINOPHEN (10/325) TAB PO PRN ×4 (04:40→22:56)
[2018-04-09] MEDS: PANTOPRAZOLE (EC) 40 MG TAB PO SCH ×2 (06:18→19:12)
[2018-04-09 07:18] VITALS: BP 129/81; PULSE 82; RESP 19
[2018-04-09] MEDS: FOLIC ACID 1 MG TAB PO SCH (09:10)
[2018-04-09] MEDS: morphine (ER) 30 MG TAB PO SCH ×2 (09:10→21:47)
[2018-04-09] MEDS: SUCRALFATE 1 GM TAB PO SCH ×4 (09:10→21:47)
--- NOTE | 2018-04-09 14:22 | PN ---
Date/Time of Note Date/Time of Note DATE: 04/09/18 TIME: 14:21 Assessment/Plan VTE Prophylaxis Risk score (from Nsg)>0 risk: 4 SCD applied (from Nsg): Yes Pharmacological prophylaxis: heparin Lines/Catheters IV Catheter Type (from Nrsg): Saline Lock Urinary Cath still in place: No Assessment/Plan Hospital Course 52 yo male with colon/duodenal cancer s/p resection who has been lost to follow up presenting with progressive abdominal pain and dyspnea on exertion. Found to have profound microcytic anemia Acute on chronic blood loss anemia: - 2/2 bleeding duodenal mass - PPI - PRBCs to Hgb 7 Iron deficiency: - IV iron Colon cancer: - Dr Anna gave keytruda, monitoring response as inpatient - Increase pain control, add Ms Contin Hypokalemia: - Resolved Discharge plan is per Dr Anna, patient at very high risk for re-bleeding if he leaves Result Diagram: 04/09/18 0434 04/09/18 0434 Results 24hrs Laboratory Tests Test 04/09/18 04:34 White Blood Count 9.9 # Red Blood Count 4.02 L Hemoglobin 9.2 L Hematocrit 30.5 L Mean Corpuscular Volume 75.9 L Mean Corpuscular Hemoglobin 22.9 L Mean Corpuscular Hemoglobin Concent 30.2 L Red Cell Distribution Width Platelet Count 570 H Mean Platelet Volume 10.3 Immature Granulocytes % 0.400 Neutrophils % 81.9 H Lymphocytes % 9.7 L Monocytes % 6.1 Eosinophils % 1.2 Basophils % 0.7 Nucleated Red Blood Cells % 0.0 Immature Granulocytes # 0.040 H Neutrophils # 8.1 H Lymphocytes # 1.0 Monocytes # 0.6 Eosinophils # 0.1 Basophils # 0.1 Nucleated Red Blood Cells # 0.0 Sodium Level 140 Potassium Level 4.1 Chloride Level 99 Carbon Dioxide Level 30 Anion Gap 11 Blood Urea Nitrogen 12 Creatinine 0.79 Est Glomerular Filtrat Rate mL/min > 60 Glucose Level 123 Calcium Level 9.5 Phosphorus Level 4.7 Magnesium Level 2.0 Subjective 24 Hr Interval Summary Free Text/Dictation Feels well, no symptoms or complaints Exam/Review of Systems Exam Vitals Vital Signs Date Temp Pulse Resp B/P (MAP) Pulse Ox O2 O2 Flow FiO2 Time Delivery Rate 04/09/18 98.2 82 19 129/81 96 07:18 (97) 04/08/18 Room Air 07:22 Intake and Output 04/08/18 04/08/18 04/09/18 1515:00 23:00 07:00 IntakeIntake Total 400 ml 340 ml 250 ml OutputOutput Total 740 ml BalanceBalance 400 ml -400 ml 250 ml Constitutional: alert, oriented, well developed Psych: no complaints, nl mood/affect Head: normocephalic, atraumatic Eyes: nl conjunctiva, EOMI, nl lids, nl sclera, PERRL ENMT: nl external ears & nose, nl lips & teeth, nl nasal mucosa & septum Neck: supple, non-tender Respiratory: clear to auscultation, normal air movement Cardiovascular: regular rate and rhythm, nl pulses Gastrointestinal: soft, nl liver, spleen, non-tender Musculoskeletal: nl extremities to inspection, nl gait and stance Extremities: normal pulses Neurological: [employer] II-XII intact, nl mental status, nl speech, nl strength Skin: nl turgor; No rash or lesions Lymph: nl lymph nodes Results Results 24hrs Laboratory Tests Test 04/09/18 04:34 White Blood Count 9.9 # Red Blood Count 4.02 L Hemoglobin 9.2 L Hematocrit 30.5 L Mean Corpuscular Volume 75.9 L Mean Corpuscular Hemoglobin 22.9 L Mean Corpuscular Hemoglobin Concent 30.2 L Red Cell Distribution Width Platelet Count 570 H Mean Platelet Volume 10.3 Immature Granulocytes % 0.400 Neutrophils % 81.9 H Lymphocytes % 9.7 L Monocytes % 6.1 Eosinophils % 1.2 Basophils % 0.7 Nucleated Red Blood Cells % 0.0 Immature Granulocytes # 0.040 H Neutrophils # 8.1 H Lymphocytes # 1.0 Monocytes # 0.6 Eosinophils # 0.1 Basophils # 0.1 Nucleated Red Blood Cells # 0.0 Sodium Level 140 Potassium Level 4.1 Chloride Level 99 Carbon Dioxide Level 30 Anion Gap 11 Blood Urea Nitrogen 12 Creatinine 0.79 Est Glomerular Filtrat Rate mL/min > 60 Glucose Level 123 Calcium Level 9.5 Phosphorus Level 4.7 Magnesium Level 2.0 Medications Medication Current Medications IV Flush (NS 3 ml) 3 ml PER PROTOCOL IV ; Start 03/28/18 at 21:30 Sucralfate (Carafate) 1 gm QID PO Last administered on 04/09/18at 12:22; Admin Dose 1 GM; Start 03/29/18 at 09:00 Hydromorphone HCl (Dilaudid) 1 mg Q4H PRN IV SEVERE PAIN LEVEL 7-10 Last administered on 04/09/18 12:22; Admin Dose 1 MG; Start 03/30/18 at 23:00 Morphine Sulfate (Ms Contin (Er)) 60 mg BID PO Last administered on 04/09/18 09 :10; Admin Dose 60 MG; Start 04/04/18 at 21:00 Oxycodone/ Acetaminophen (Endocet (10/ 325)) 1 tab Q4H PRN PO MODERATE PAIN LEVEL 4-6 Last administered on 04/09/18 10:34; Admin Dose 1 TAB; Start 04/04/18 at 10:30 Folic Acid (Folic Acid) 1 mg DAILY PO Last administered on 04/09/18 09:10; Admin Dose 1 MG; Start 04/06/18 at 09:00 Pantoprazole (Protonix Tab) 40 mg BID@0600,1800 PO Last administered on 04/09/18 06:18; Admin Dose 40 MG; Start 04/06/18 at 18:00 JOSELYN BARCLAY MD Apr 09, 2018 14:21
[2018-04-09 15:43] VITALS: BP 134/85; PULSE 77; RESP 18
[2018-04-09 20:25] VITALS: BP 130/82; PULSE 87; RESP 18
--- NOTE | 2018-04-09 20:53 | PN ---
DATE: 04/09/2018 SUBJECTIVE: The patient did receive his pembrolizumab on 04/07/2018. He tolerated this well. The patient states, however, that last night he developed a new pain in the left upper quadrant. Thi s was after drinking some milk and there was no actual nausea or vomiting. He has had no hematemesis , melena or hematochezia. OBJECTIVE: GENERAL: The patient is a well-developed, well-nourished male in no acute distress. VITAL SIGNS: Temperature 97.2 orally, pulse 77 per minute and regular, respirations 18, blood pressu re 134/85, pulse oximetry is 98% on room air. SKIN: No ecchymosis. No petechiae or rashes. There are scattered tattoos. HEENT: Normocephalic. No evidence of trauma. Pupils are equal, round, reactive to light and accomm odation. Sclerae are nonicteric. Oral mucosa is moist without lesions. Tongue is well papillated. There is no gingival hyperplasia, no hypertrophy of Waldeyer ring. NECK: Supple. No jugular venous distention. No thyroid enlargement. No carotid bruits. CHEST: Clear to auscultation and percussion. No rhonchi, wheezes, rales or rubs. NODES: No palpable lymphadenopathy in lymph node-bearing area. ABDOMEN: Soft. No masses. No ascites. There is a surgical scar in the midline which is well heale d. No nodules. EXTREMITIES: No clubbing, edema or cyanosis. No palpable cords or Homans sign. NEUROLOGIC: Normal. LABORATORY DATA: White count 9900 with absolute neutrophil count of 8100, hemoglobin 9.2, hematocrit 30.5 and platelet count is 570,000. Sodium 140, potassium 4.1, creatinine 0.79 and BUN 12. ASSESSMENT: 1. Metastatic rectal carcinoma with small bowel involvement. 2. Iron deficiency due to chronic gastrointestinal bleeding secondary to #1. I am somewhat concerned by the patient's change in abdominal pain although symptoms do not suggest an y peritoneal signs. PLAN: We will repeat CBC in the morning and also an abdominal film to make sure that there is no vini e air. The patient is stable and will be able to be discharged on 04/11. Plans for a followup will need to be firmly in place at the time of patient's discharge. Dictated By: MARTINE ROSENBERG MD SR/NTS Conf#: [id number] [facility]#: [id number] CC: DHEERAJ READ MD;*EndCC*
[2018-04-10] MEDS: HYDROmorphONE 1 MG/ML SYG IV PRN ×3 (01:01→19:40)
[2018-04-10 01:33] VITALS: BP 120/72; PULSE 76; RESP 18
[2018-04-10] MEDS: PANTOPRAZOLE (EC) 40 MG TAB PO SCH ×2 (06:02→18:03)
[2018-04-10] MEDS: OXYCODONE/ACETAMINOPHEN (10/325) TAB PO PRN ×3 (06:02→18:04)
[2018-04-10 07:45] VITALS: BP 136/78; PULSE 84; RESP 19
[2018-04-10] MEDS: morphine (ER) 30 MG TAB PO SCH ×2 (09:35→21:39)
[2018-04-10] MEDS: SUCRALFATE 1 GM TAB PO SCH ×4 (09:35→21:37)
[2018-04-10] MEDS: FOLIC ACID 1 MG TAB PO SCH (09:35)
[2018-04-10] MEDS: DOCUSATE SODIUM 100 MG CAP PO SCH ×2 (09:35→21:37)
[2018-04-10] MEDS: POLYETHYLENE GLYCOL 17 GM PACKET PO SCH (09:35)
--- NOTE | 2018-04-10 14:49 | PN ---
Date/Time of Note Date/Time of Note DATE: 04/10/18 TIME: 14:48 Assessment/Plan VTE Prophylaxis Risk score (from Nsg)>0 risk: 4 SCD applied (from Nsg): Yes Pharmacological prophylaxis: heparin Lines/Catheters IV Catheter Type (from Nrsg): Saline Lock Urinary Cath still in place: No Assessment/Plan Hospital Course 52 yo male with colon/duodenal cancer s/p resection who has been lost to follow up presenting with progressive abdominal pain and dyspnea on exertion. Found to have profound microcytic anemia Acute on chronic blood loss anemia: - 2/2 bleeding duodenal mass - PPI - PRBCs to Hgb 7 Iron deficiency: - IV iron Colon cancer: - Dr Anna gave keytruda, monitoring response as inpatient - Increase pain control, add Ms Contin Hypokalemia: - Resolved Discharge plan is per Dr Anna, patient at very high risk for re-bleeding if he leaves Result Diagram: 04/10/18 0427 04/09/18 0434 Results 24hrs Laboratory Tests Test 04/10/18 04:27 White Blood Count 7.7 # Red Blood Count 3.67 L Hemoglobin 8.4 L Hematocrit 28.0 L Mean Corpuscular Volume 76.3 L Mean Corpuscular Hemoglobin 22.9 L Mean Corpuscular Hemoglobin Concent 30.0 L Red Cell Distribution Width Platelet Count 546 H Mean Platelet Volume 10.5 H Immature Granulocytes % 0.400 Neutrophils % 75.0 Lymphocytes % 14.6 L Monocytes % 7.6 Eosinophils % 1.7 Basophils % 0.7 Nucleated Red Blood Cells % 0.0 Immature Granulocytes # 0.030 Neutrophils # 5.8 Lymphocytes # 1.1 Monocytes # 0.6 Eosinophils # 0.1 Basophils # 0.1 Nucleated Red Blood Cells # 0.0 Subjective 24 Hr Interval Summary Free Text/Dictation Doing well no complaints No abdominal symptoms Exam/Review of Systems Exam Vitals Vital Signs Date Temp Pulse Resp B/P (MAP) Pulse Ox O2 O2 Flow FiO2 Time Delivery Rate 04/10/18 98.2 84 19 136/78 98 07:45 (97) 04/10/18 Room Air 01:33 Intake and Output 04/09/18 04/09/18 04/10/18 1515:00 23:00 07:00 IntakeIntake Total 100 ml 980 ml BalanceBalance 100 ml 980 ml Constitutional: alert, oriented, well developed Psych: no complaints, nl mood/affect Head: normocephalic, atraumatic Eyes: nl conjunctiva, EOMI, nl lids, nl sclera, PERRL ENMT: nl external ears & nose, nl lips & teeth, nl nasal mucosa & septum Neck: supple, non-tender Respiratory: clear to auscultation, normal air movement Cardiovascular: regular rate and rhythm, nl pulses Gastrointestinal: soft, nl liver, spleen, non-tender Musculoskeletal: nl extremities to inspection, nl gait and stance Extremities: normal pulses Neurological: DIRECTOR OF KNOWLEDGE MANAGEMENT II-XII intact, nl mental status, nl speech, nl strength Skin: nl turgor; No rash or lesions Lymph: nl lymph nodes Results Results 24hrs Laboratory Tests Test 04/10/18 04:27 White Blood Count 7.7 # Red Blood Count 3.67 L Hemoglobin 8.4 L Hematocrit 28.0 L Mean Corpuscular Volume 76.3 L Mean Corpuscular Hemoglobin 22.9 L Mean Corpuscular Hemoglobin Concent 30.0 L Red Cell Distribution Width Platelet Count 546 H Mean Platelet Volume 10.5 H Immature Granulocytes % 0.400 Neutrophils % 75.0 Lymphocytes % 14.6 L Monocytes % 7.6 Eosinophils % 1.7 Basophils % 0.7 Nucleated Red Blood Cells % 0.0 Immature Granulocytes # 0.030 Neutrophils # 5.8 Lymphocytes # 1.1 Monocytes # 0.6 Eosinophils # 0.1 Basophils # 0.1 Nucleated Red Blood Cells # 0.0 Medications Medication Current Medications IV Flush (NS 3 ml) 3 ml PER PROTOCOL IV ; Start 03/28/18 at 21:30 Sucralfate (Carafate) 1 gm QID PO Last administered on 04/10/18at 12:42; Admin Dose 1 GM; Start 03/29/18 at 09:00 Hydromorphone HCl (Dilaudid) 1 mg Q4H PRN IV SEVERE PAIN LEVEL 7-10 Last administered on 04/10/18at 10:26; Admin Dose 1 MG; Start 03/30/18 at 23:00 Morphine Sulfate (Ms Contin (Er)) 60 mg BID PO Last administered on 04/10/18at 09:35; Admin Dose 60 MG; Start 04/04/18 at 21:00 Oxycodone/ Acetaminophen (Endocet (10/ 325)) 1 tab Q4H PRN PO MODERATE PAIN LEVEL 4-6 Last administered on 04/10/18 12:43; Admin Dose 1 TAB; Start 04/04/18 at 10:30 Folic Acid (Folic Acid) 1 mg DAILY PO Last administered on 04/10/18 09:35; Admin Dose 1 MG; Start 04/06/18 at 09:00 Pantoprazole (Protonix Tab) 40 mg BID@0600,1800 PO Last administered on 04/10/18 06:02; Admin Dose 40 MG; Start 04/06/18 at 18:00 Docusate Sodium (Colace) 100 mg BID PO Last administered on 04/10/18 09:35; Admin Dose 100 MG; Start 04/10/18 at 09:00 Polyethylene Glycol (Miralax) 17 gm DAILY PO Last administered on 04/10/18 09:35; Admin Dose 17 GM; Start 04/10/18 at 09:00 JOSELYN BARCLAY MD Apr 10, 2018 14:49
[2018-04-10 15:04] VITALS: BP 119/76; PULSE 75; RESP 18
--- NOTE | 2018-04-10 18:25 | PN ---
DATE: 04/10/2018 SUBJECTIVE: Patient is feeling well, except for some slight increase in left upper quadrant and left epigastric pain. The patient states he has not had nausea or vomiting, although must eat small frequent meals. The patient has not had any melena or hematochezia. OBJECTIVE: GENERAL: The patient is a well-developed, well-nourished male in no acute distress. VITAL SIGNS: Temperature 98 orally, pulse 75 per minute and regular, respirations 18, blood pressure is 119/76. Pulse oximetry 98% on room air. SKIN: No ecchymosis, no petechiae or rashes. There are tattoos. HEENT: Normocephalic. No evidence of trauma. Pupils equal, round, and reactive to light and accomm odation. Sclerae are nonicteric. Oral mucosa is moist without lesions. NECK: Supple. No jugular venous distention or thyroid enlargement. CHEST: Clear to auscultation and percussion. No rhonchi, wheezes, rales or rubs. No pain on percus garland of spine, sternum, clavicles or ribs. HEART: Regular sinus rhythm. No S3, S4 or murmurs. ABDOMEN: Soft, although there is tenderness on palpation of the left epigastrium and left upper quad rant. No rebound. Bowel sounds are active. No ascites. EXTREMITIES: Good range of motion. No clubbing, no edema or cyanosis. No palpable cords or Homans sign. NEUROLOGIC: Normal. LABORATORY DATA: White count 7700 with an absolute neutrophil count of 5800, hemoglobin 8.4, hematoc rit 28 and platelet count 546,000. The abdominal series does demonstrate a substantial stool within the colon in the left upper quadrant , but no evidence of bowel obstruction or free air. ASSESSMENT: 1. 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 2. Iron deficiency due to gastrointestinal bleeding secondary to #1. DISCUSSION: The patient still has abdominal pain, but the x-rays do show a large amount of stool, wh ich may account for the patient's left upper quadrant discomfort. We will give the patient MiraLax tonight. We will also check CBC in the morning, but will plan for p atient to be discharged. Again, it is important to make sure that this patient has follow up as an o utpatient to continue therapy. The patient again has promised that he will continue that he will fol low up with schedule outlined. Dictated By: MARTINE ROSENBERG MD SR/NTS Conf#: [id number] DID#: [id number] CC: DHEERAJ READ MD; JOSELYN BARCLAY MD;*EndCC*
[2018-04-10 20:20] VITALS: BP 127/81; PULSE 78; RESP 18
[2018-04-11] MEDS: HYDROmorphONE 1 MG/ML SYG IV PRN ×3 (00:10→12:47)
[2018-04-11 02:51] VITALS: BP 115/72; PULSE 74; RESP 17
[2018-04-11] MEDS: OXYCODONE/ACETAMINOPHEN (10/325) TAB PO PRN (03:37)
[2018-04-11] MEDS: PANTOPRAZOLE (EC) 40 MG TAB PO SCH (06:35)
[2018-04-11 08:23] VITALS: BP 126/79; PULSE 77; RESP 18
[2018-04-11] MEDS: SUCRALFATE 1 GM TAB PO SCH ×2 (09:32→12:47)
[2018-04-11] MEDS: DOCUSATE SODIUM 100 MG CAP PO SCH (09:32)
[2018-04-11] MEDS: FOLIC ACID 1 MG TAB PO SCH (09:32)
[2018-04-11] MEDS: POLYETHYLENE GLYCOL 17 GM PACKET PO SCH (09:33)
[2018-04-11] MEDS: morphine (ER) 30 MG TAB PO SCH (09:33)
[2018-04-11] MEDS ORDERED: POLY17PO6 PO (13:22)
--- NOTE | 2018-04-11 13:28 | PDOCDIS ---
Discharge Instructions DIAGNOSIS Discharge Diagnosis Cancer of small bowel CONDITION [id number] Patient Condition: [id number] Stable HOME CARE INSTRUCTIONS: Temoa3Cb Diet Instructions: [id number] Regular ACTIVITY: [id number] Activity Restrictions: [id number] No Restrictions Slowly Increase Activity Rest between Activity Do not operate Power Tool Avoid Heavy Housework [id number] Bathing Restrictions: [id number] Shower FOLLOW UP/APPOINTMENTS Follow-up Plan Make an appointment to see Dr Anna in clinic [facility]. His contact number is JOSELYN BARCLAY MD Apr 11, 2018 13:28
--- NOTE | 2018-04-11 13:30 | DS ---
Date/Time of Note Date/Time of Note DATE: 04/11/18 TIME: 13:28 Discharge Summary Admission/Discharge Info Admit Date/Time Mar 28, 2018 at 18:18 Discharge Date/Time Discharge Diagnosis Cancer of small bowel Patient Condition: Stable Hx of Present Illness 52 yo male with h/o stage IIB colon cancer s/p hemicolectomy, blood loss anemia presenting wtih abdominal pain and SOB Patient with known colon cancer diagnosed last year. Had resection here. Was to follow up with Dr Anna for chemotherapy. Seems he has been lost to follow up. He has developed worsening abdominal pain. Has been taking lots of advil for this, up to 15 a day he says. Has developed worsening ABURTO for which he presents today. Found to have severe anemia. Has not had any melena or hematochezia he has noticed Hospital Course 52 yo male with colon/duodenal cancer s/p resection who has been lost to follow up presenting with progressive abdominal pain and dyspnea on exertion. Found to have profound microcytic anemia. He was transfused PRBCs and H/H remained stable. He underwent endoscopy which revealed bleeding duodenal mass. He was seen by Dr Anna from oncology who recommended giving Keytruda dose inpatient as high risk for rebleeding if he leaves. He was given a dose and monitored inpatient for a few days following. [place] well and was discharged to further care with Dr Anna as an outpatient. Home Meds Active Scripts Sucralfate (Carafate) 1 Gm Tablet, 1 GM PO QID, #120 TAB Prov:SAYRA MACIAS NP 12/13/17 Pantoprazole* (Pantoprazole*) 40 Mg Tablet., 40 MG PO BID@, #60 TAB Prov:SAYRA MACIAS V. [employer]ON[employer] 12/13/17 Hydrocodone/Acetaminophen (Hydrocodone-Acetamin 10-325 mg) 1 Each Tablet, 1 TAB PO Q4H PRN for MODERATE PAIN LEVEL 4-6, #30 TAB Prov:SAYRA MACIAS NP 12/13/17 Follow-up Plan Make an appointment to see Dr Anna in clinic [facility]. His contact number is Primary Care Provider Care Physician No Primary Pending Labs Laboratory Tests Test 04/11/18 04:30 White Blood Count 8.2 10^3/ul (4.8-10.8) Red Blood Count 3.62 10^6/ul (4.70-6.10) Hemoglobin 8.3 g/dl (14.0-18.0) Hematocrit 28.1 % (42.0-52.0) Mean Corpuscular Volume 77.6 fl (82.0-101.0) Mean Corpuscular Hemoglobin 22.9 pg (29.0-33.0) Mean Corpuscular Hemoglobin Concent 29.5 g/dl (32.0-37.0) Red Cell Distribution Width 24.4 % (11.5-14.5) Platelet Count 581 10^3/UL (140-415) Mean Platelet Volume 10.1 fl (7.4-10.4) Immature Granulocytes % 0.200 % (0.001-0.429) Neutrophils % 75.4 % (39.0-77.0) Lymphocytes % 14.9 % (15.0-51.0) Monocytes % 7.3 % (0.0-11.0) Eosinophils % 1.6 % (0.0-7.0) Basophils % 0.6 % (0.0-2.0) Nucleated Red Blood Cells % 0.0 /100WBC (0.0-0.0) Immature Granulocytes # 0.020 10^3/ul (0.0-0.031) Neutrophils # 6.2 10^3/ul (1.6-7.5) Lymphocytes # 1.2 10^3/ul (0.8-2.9) Monocytes # 0.6 10^3/ul (0.3-0.9) Eosinophils # 0.1 10^3/ul (0.0-0.5) Basophils # 0.1 10^3/ul (0.0-0.1) Nucleated Red Blood Cells # 0.0 10^3/ul (0.0-0.0) JOSELYN BARCLAY MD Apr 11, 2018 13:30
== END 2018-04-11 14:38 | disposition home or self-care (01) | DRG 374 ==
LOC: E/R 16:29 → 6WM 18:18 → MS1 03-30 14:58
PROVIDERS: ADMIT Internal Medicine; ATTEND Internal Medicine
PROC: 30233N1 Transfusion of Nonautologous Red Blood Cells into Peripheral Vein, Percutaneous Approach (ICD-10-PCS; 2018-03-28)
PROC: 0DJ08ZZ Inspection of Upper Intestinal Tract, Via Natural or Artificial Opening Endoscopic (ICD-10-PCS; principal; 2018-03-30 18:00)
DX: C18.9 Malignant neoplasm of colon, unspecified (principal); K26.6 Chronic or unspecified duodenal ulcer with both hemorrhage and perforation; D62 Acute posthemorrhagic anemia; C78.4 Secondary malignant neoplasm of small intestine; D50.0 Iron deficiency anemia secondary to blood loss (chronic); E87.6 Hypokalemia; Z87.891 Personal history of nicotine dependence; Z90.49 Acquired absence of other specified parts of digestive tract
CPT/HCPCS: 36415; 36430; 71045; 74019; 74150; 74177; 80048; 80053; 80076; 82728; 83036; 83540; 83735; 84100; 84484; 85025; 85045; 85610; 85730; 86850; 86900; 86901; 86920; 90686; 93005; 96374; 96375; C9113; J1170; J2270; J2405; J2916; J3475; J3480; J7030; J7040; P9016; Q9967

== ENCOUNTER 2018-05-24 15:25 | Emergency (ER) | payer MEDICAID, OTHER ==
[~2018-05-24] VITALS: Ht 165.1 cm; Wt 61.8 kg
[~2018-05-24 15:25] MED LIST changes: +POLY17PO6 PO
[2018-05-24 15:38] VITALS: Ht 165.1 cm; Wt 61.8 kg
[2018-05-24] MEDS ORDERED: ONDANSETRON 4 MG INJ IV STA (16:33)
[2018-05-24] MEDS ORDERED: morphine 4 MG/ML VIAL IV STA (16:58)
[2018-05-24] MEDS ORDERED: HYDR-3980 PO (18:02)
[2018-05-24] MEDS ORDERED: NALO4SPR NS (18:02)
[2018-05-24] MEDS ORDERED: ONDA4TAB14 PO (18:02)
--- NOTE | 2018-05-24 18:05 | ERD ---
ER Documentation Chief Complaint Chief Complaint ABD PAIN WITH SWELLING AND VOMITING- HX OF CA IN ABD CAVITY HPI Patient is a 52-year-old male with colon cancer who presents with epigastric pain. He has nausea and vomiting as well. He said that he is having decreased p.o. intake. He has vomiting with eating. He has a history of abdominal cancer. He is looking for another oncologist as well. He has had no treatment as of yet. ROS All systems reviewed and are negative except as per history of present illness. Medications Home Meds Active Scripts Ondansetron (Ondansetron Odt) 4 Mg Tab.rapdis, 4 MG PO Q6H PRN for NAUSEA AND/OR VOMITING, #10 TAB Prov:XOCHITL JAQUEZ MD 05/24/18 Naloxone HCl nasal spray (Narcan 4 mg/0.1 mL nasal) 4 Mg [place], 4 MG NS .Q2-3MIN for OPIOID OVERDOSE, #2 SPRAY 0 Refills [place] 0.1 mL into one nostril. Repeat with second device into other nostril after 2-3 minutes if no or minimal response Prov:XOCHITL JAQUEZ MD 05/24/18 Hydrocodone/Acetaminophen (Diamond 10-325 Tablet) 1 Each Tablet, 1 TAB PO Q6H PRN for PAIN, #7 TAB Prov:XOCHITL JAQUEZ MD 05/24/18 Polyethylene Glycol* (Miralax*) 17 Gm Powd.pack, 17 GM PO DAILY for 60 Days, #30 TAB Prov:JOSELYN BARCLAY MD 04/11/18 Sucralfate (Carafate) 1 Gm Tablet, 1 GM PO QID, #120 TAB Prov:SAYRA MACIAS NP 12/13/17 Pantoprazole* (Pantoprazole*) 40 Mg Tablet., 40 MG PO BID@, #60 TAB Prov:SAYRA MACIAS NP 12/13/17 Hydrocodone/Acetaminophen (Hydrocodone-Acetamin 10-325 mg) 1 Each Tablet, 1 TAB PO Q4H PRN for MODERATE PAIN LEVEL 4-6, #30 TAB Prov:SAYRA MACIAS V. SHEET ROCK INSTALLER 12/13/17 Allergies Allergies: Coded Allergies: No Known Allergy (Unverified , 12/01/17) PMhx/Soc History of Surgery: Yes (COLON CA SURGERY 2016) Anesthesia Reaction: No Hx Neurological Disorder: No Hx Respiratory Disorders: No Hx Cardiac Disorders: No Hx Psychiatric Problems: No Hx Miscellaneous Medical Probl: No Hx Alcohol Use: Yes Hx Substance Use: No Hx Tobacco Use: No Smoking Status: Never smoker FmHx Family History: No diabetes Physical Exam Vitals Vital Signs Date Temp Pulse Resp B/P (MAP) Pulse Ox O2 O2 Flow FiO2 Time Delivery Rate 05/24/18 59 16 123/74 100 Room Air 18:28 (90) 05/24/18 74 18 111/73 98 Room Air 17:37 (86) 05/24/18 Nasal 16:48 Cannula 05/24/18 97.6 76 18 124/86 100 15:38 (99) Physical Exam Const: No acute distress Head: Atraumatic Eyes: Normal Conjunctiva ENT: Normal External Ears, Nose and Mouth. Neck: Full range of motion. No meningismus. Resp: Clear to auscultation bilaterally Cardio: Regular rate and rhythm, no murmurs Abd: Soft, diffuse tenderness to palpation without rebound or guarding Skin: No petechiae or rashes Back: No midline or flank tenderness Ext: No cyanosis, or edema Neur: Awake and alert Psych: Normal Mood and Affect Result Diagram: 05/24/18 1643 05/24/18 1643 Results 24 hrs Laboratory Tests Test 05/24/18 16:43 White Blood Count 6.8 10^3/ul Red Blood Count 4.71 10^6/ul Hemoglobin 10.9 g/dl Hematocrit 37.3 % Mean Corpuscular Volume 79.2 fl Mean Corpuscular Hemoglobin 23.1 pg Mean Corpuscular Hemoglobin Concent 29.2 g/dl Red Cell Distribution Width 19.7 % Platelet Count 338 10^3/UL Mean Platelet Volume 10.1 fl Immature Granulocytes % 0.300 % Neutrophils % 58.6 % Lymphocytes % 33.0 % Monocytes % 6.8 % Eosinophils % 0.3 % Basophils % 1.0 % Nucleated Red Blood Cells % 0.0 /100WBC Immature Granulocytes # 0.020 10^3/ul Neutrophils # 4.0 10^3/ul Lymphocytes # 2.2 10^3/ul Monocytes # 0.5 10^3/ul Eosinophils # 0.0 10^3/ul Basophils # 0.1 10^3/ul Nucleated Red Blood Cells # 0.0 10^3/ul Prothrombin Time 12.8 Sec Prothrombin Time Ratio 1.0 INR International Normalized Ratio 0.95 Activated Partial Thromboplast Time 26.0 Sec Sodium Level 144 mmol/L Potassium Level 3.4 mmol/L Chloride Level 90 mmol/L Carbon Dioxide Level 40 mmol/L Anion Gap 14 Blood Urea Nitrogen 15 mg/dl Creatinine 0.90 mg/dl Est Glomerular Filtrat Rate mL/min > 60 mL/min Glucose Level 99 mg/dl Calcium Level 10.9 mg/dl Total Bilirubin 0.6 mg/dl Direct Bilirubin 0.00 mg/dl Indirect Bilirubin 0.6 mg/dl Aspartate Amino Transf (AST/SGOT) 27 IU/L Alanine Aminotransferase (ALT/SGPT) 28 IU/L Alkaline Phosphatase 138 IU/L Troponin I < 0.012 ng/ml Total Protein 9.0 g/dl Albumin 4.9 g/dl Globulin 4.10 g/dl Albumin/Globulin Ratio 1.19 Lipase 233 U/L Current Medications Medications Dose Sig/Heriberto Start Time Status Last (Trade) Ordered Route PRN Stop Time Admin Dose Reason Admin Ondansetron 4 mg ONCE STAT 05/24/18 DC 05/24/18 HCl (Zofran IV 16:33 17:04 Inj) 05/24/18 16:34 Morphine 4 mg ONCE STAT 05/24/18 DC 05/24/18 Sulfate IV 16:58 17:04 (morphine) 05/24/18 16:59 Procedures/MDM EKG read by me: Rate/Rhythm: Regular rate and rhythm at a rate of 62 Intervals: Normal Impression: No evidence of ischemia or arrhythmia CT abdomen pelvis read by radiology. Patient is a 52-year-old male with colon cancer who presents with abdominal pain. Laboratory studies show cancer. There is no sign of surgical process at this time. I doubt appendicitis, cholecystitis, pink otitis, or bowel obstruction. The patient has mild anemia but does not require transfusion. He denies vomiting blood or rectal bleeding. The patient will be discharged with a prescription for Diamond and Zofran as well as Narcan. The patient can follow-up with Dr. Jackson from oncology within 2-3 days. The patient can return for any worsening symptoms. Departure Diagnosis: Primary Impression: Cancer Additional Impressions: Anemia Anemia type: unspecified type Qualified Codes: D64.9 - Anemia, unspecified Abdominal pain Abdominal location: generalized Qualified Codes: R10.84 - Generalized abdominal pain Condition: Fair Patient Instructions: Abdominal Pain, Immunotherapy for Cancer: Nonspecific Referrals: LORRAINE JACKSON M.D. Additional Instructions: Specialist:Usted tiene baldomero condicin mdica que requiere que jay a un especialista dentro de los prximos 1-2 agrawal.POR FAVOR,CON [place] SEGUIMIENTO DE PRIMARIA PHSICIAN refferal. SI USTED NO TIENE UN MDICO GENERAL Y / O USTED NO PUEDE PAGAR desiree a un mdico,los siguientes may RECURSOS sido suministrado a usted. ES [place] RESPONSABILIDAD PARA SER VISTOS POR EL ESPECIALISTA: XOCHITL JAQUEZ MD May 24, 2018 18:05
[2018-05-24 18:28] VITALS: BP 123/74; PULSE 59; RESP 16
== END 2018-05-24 18:41 | disposition home or self-care (01) ==
LOC: E/R 15:25
DX: C18.9 Malignant neoplasm of colon, unspecified (principal); D64.9 Anemia, unspecified
CPT/HCPCS: 36415; 74176; 80053; 83690; 84484; 85025; 85610; 85730; 86850; 86900; 86901; 93005; 96374; 96375; J2270; J2405; Z7502